=== PATIENT | female | born 1985 | race Caucasian/White ===

== ENCOUNTER 2018-04-13 16:12 | Emergency (ER) | payer SELFPAY ==
[2018-04-13 16:27] VITALS: BP 144/91
--- NOTE | 2018-04-13 16:57 | RAD ---
Indication: Right ankle injury. 3 views of the right ankle demonstrates no fracture. Ankle mortise is intact. No other bone or joint abnormalities identified. IMPRESSION: No definite fracture of the right ankle is noted.
[2018-04-13] MEDS ORDERED: Acetaminophen TAB* 325 MG PO ONE (17:12)
--- NOTE | 2018-04-13 17:19 | UC ---
Sarai Rodriguez Elizabeth, scribed for Jyoti Gray MD on 04/13/18 at 1709 . Lower Extremity/Ankle HPI - HPI Summary HPI Summary: This patient is a 32 year old F presenting to [facility] with a chief complaint of right ankle since 12 days ago. The patient reports that she stepped into a hole 12 days ago and landed strangely on her right ankle. The patient rates the pain 5/10 in severity. Symptoms aggravated by bearing weight. Symptoms alleviated by ibuprofen. None taken today. 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 No ice applied. + elevated. The patient reports that she has been trying to avoid bearing weight but notes no improvement in pain since the onset. The patient reports that she has been taking ibuprofen for pain. Pts medications reviewed this visit - History of Current Complaint Chief Complaint: UCLowerExtremity Stated Complaint: RIGHT ANKLE INJURY Time Seen by Provider: 04/13/18 16:18 Hx Obtained From: Patient Hx Last Menstrual Period: 02/11/18 Onset/Duration: Sudden Onset, Lasting Weeks - 12 days, Still Present Severity Initially: Mild Severity Currently: Mild Pain Intensity: 5 Pain Scale Used: 0-10 Numeric Aggravating Factor(s): Standing, Ambulation Alleviating Factor(s): OTC Meds - ibuprofen Able to Bear Weight: No - Allergies/Home Medications Allergies/Adverse Reactions: Allergies Allergy/AdvReac Type Severity Reaction Status Date / Time codeine Allergy Swelling Verified 04/13/18 16:27 Home Medications: Home Medications NK [No Home Medications Reported] 04/13/18 [History Confirmed 04/13/18] PMH/Surg Hx/FS Hx/Imm Hx Previously Healthy: Yes Other GI/ History: ectopic 2014 - Surgical History Surgical History: Yes Surgery Procedure, Year, and Place: RIGHT S+O FOR ECTOPIC PREG 02/28. STITCHES TO THUMB 2008 - Family History Known Family History: Positive: Other - IBS - Social History Occupation: Unemployed Lives: Alone Alcohol Use: Weekly Alcohol Amount: States has not been ingesting ETOH when Substance Use Type: Marijuana Substance Use Comment - Amount & Last Used: OCC MARIJUANA LAST USE IN APRIL Smoking Status (MU): Light Every Day Tobacco Smoker Type: Cigarettes Amount Used/How Often: 5-10/DAY Length of Time of Smoking/Using Tobacco: 17 YRS Have You Smoked in the Last Year: Yes When Did the Patient Quit Smoking/Using Tobacco: 13 years Review of Systems Constitutional: Negative - negative fever ENT: Negative - negative epistaxis Gastrointestinal: Negative - negative vomiting Musculoskeletal: Arthralgia - right ankle pain All Other Systems Reviewed And Are Negative: Yes Physical Exam - Summary Physical Exam Summary: Vital Signs Reviewed: Yes A+Ox3, no distress Eyes: Conjunctiva Clear ENT: Hearing grossly normal neck: supple Respiratory: Positive: No respiratory distress, No accessory muscle use Cardiovascular: skin color reflect adequate perfusion Musculoskeletal Exam: + flex/ext knee without pain; + flex/ext ankle with discomfort lateral malleolus + TTP anterior, inferior malleolus. no pain along tarsals, metatarals increased with inversion/eversion Neurological: Positive: Alert, ambulatory without difficulty + gross sensation throughout foot Psychological: Positive: Normal Response To Family Skin: Positive: no rash, no ecchymosis mild edema no ecchymosis Triage Information Reviewed: Yes Vital Signs: Initial Vital Signs Temp 96.7 F 04/13/18 16:22 Pulse 92 04/13/18 16:22 Resp 20 04/13/18 16:22 BP 144/91 04/13/18 16:22 Pulse Ox 97 04/13/18 16:22 Diagnostics - Radiology Right Ankle XR Xray Interpretation: No Acute Changes - IMPRESSION: No definite fracture of the right ankle is noted. Dr. Gray has reviewed this report. Radiology Interpretation Completed By: Radiologist Lower Extremity Course/Dx - Course Course Of Treatment: pt with pain in right ankle s/p injury 12 days ago. Pain at lateral malleolus. imaging neg. ice. elevate. motrin/apap. sports med f/ u. pt comfortable wiht plan. Pt's BP mildly elevated - recommend PCP f/u - referral number provided - Differential Dx/Diagnosis Provider Diagnoses: right ankle sprain Discharge - Sign-Out/Discharge Documenting (check all that apply): Discharge/Admit/Transfer - Discharge Plan Condition: Stable Disposition: HOME Discharge Disposition Comment: discharge home Patient Education Materials: Ankle Sprain (ED) Referrals: [facility] [Outside] [facility] [Provider Group] - 1 Week Additional Instructions: -wear ketan wrap and splint for comfort and support -use crutches until you can walk normally without a limp -Elevate your leg - this will help with swelling and pain -Okay to alternate ibuprofen (Advil, Motrin)600mg and Tylenol every 3 hours for pain. Take with food. Do NOT take for more than 4-5 days -Contact the sports medicine group to schedule a follow-up appointment. Contact your doctor or return with questions or concerns - Billing Disposition and Condition Condition: STABLE Disposition: Home The documentation as recorded by the Sarai leo Elizabeth accurately reflects the service I personally performed and the decisions made by me, Jyoti Gray MD.
== END 2018-04-13 17:45 | disposition home or self-care (01) ==
LOC: UCEAST 16:12
DX: S93.401A Sprain of unspecified ligament of right ankle, initial encounter (principal); W17.89XA Other fall from one level to another, initial encounter; Y93.9 Activity, unspecified; Y99.9 Unspecified external cause status; F17.210 Nicotine dependence, cigarettes, uncomplicated
CPT/HCPCS: 99213; A9270-GY; G0463

== ENCOUNTER → 2018-05-26 14:42 | Emergency (ER) | payer MEDICAID, OTHER ==
[~2018-05-26 14:42] MED LIST: Ciprofloxacin 400MG IVPREMIX(* 400 MG/200 ML BAG IVPB ONE; Ciprofloxacin TAB* 500 MG PO ONE; Ketorolac INJ* 30 MG/ML 1 ML VIAL IV PUSH ONE; NS 0.9% 1000 ML* 1,000 ML IV ONE; Ondansetron INJ* 2 MG/ML VIAL IV ONE; metroNIDAZOLE TAB* 250 MG PO ONE
--- NOTE | 2018-05-26 16:59 | ED ---
Abdominal Pain/Female - HPI Summary HPI Summary: This is scribe Norm Oh documenting for attending Dr. Ismael Virk This patient is a 33 year old F presenting to [facility] accompanied by her mother with a chief complaint of lower abdominal pain for 3 days (05/23/18). PMHx stress induced IBS, panic disorder, diverticulitis. Pt endorses anal discharge of bloody mucous, nausea yesterday, but resolved, epigastric pain resolved today as well. LKMP 2 weeks ago. Denies emesis. Pt endorses 1 small BM today. I, Dr. Guevara personally performed the services described in this documentation as scribed in my presence and it is both accurate and complete. - History of Current Complaint Chief Complaint: EDAbdPain Stated Complaint: ABD PAIN Time Seen by Provider: 05/26/18 16:34 Hx Obtained From: Patient Hx Last Menstrual Period: 02/11/18 Onset/Duration: Gradual Onset, Lasting Days, Still Present Timing: Constant Severity Initially: Moderate Severity Currently: Moderate Pain Intensity: 6 Pain Scale Used: 0-10 Numeric Location: Discrete At: RLQ, Discrete At: LLQ, Epigastric Radiates: No Aggravating Factor(s): Nothing Alleviating Factor(s): Nothing Associated Signs and Symptoms: Positive: Constipation, Blood in Stool, Nausea. Negative: Fever, Vomiting Allergies/Adverse Reactions: Allergies Allergy/AdvReac Type Severity Reaction Status Date / Time codeine Allergy Swelling Verified 05/26/18 14:52 PMH/Surg Hx/FS Hx/Imm Hx Endocrine/Hematology History: Denies: Hx Diabetes, Hx Sickle Cell Disease Cardiovascular History: Denies: Hx Hypertension Respiratory History: Reports: Hx Asthma - A CHILD GI History: Reports: Hx Diverticulosis - and diverticulitis, Hx Irritable Bowel - R/T STRESS PER PT History: Denies: Hx Dialysis, Hx Renal Disease Sensory History: Denies: Hx Contacts or Glasses, Hx Deafness, Hx Hearing Aid Opthamlomology History: Denies: Hx Contacts or Glasses EENT History: Denies: Hx Deafness Psychiatric History: Reports: Hx Anxiety, Hx Panic Disorder - Surgical History Surgery Procedure, Year, and Place: RIGHT S+O FOR ECTOPIC PREG 02/28. STITCHES TO THUMB 2009 Hx Anesthesia Reactions: No Infectious Disease History: No Infectious Disease History: Denies: History Other Infectious Disease, Traveled Outside the [place] in Last 30 Days - Family History Known Family History: Positive: Other - IBS - Social History Occupation: Employed Full-time Alcohol Use: Weekly Alcohol Amount: States has not been ingesting ETOH when Substance Use Type: Reports: Marijuana Substance Use Comment - Amount & Last Used: OCC MARIJUANA LAST USE IN APRIL Smoking Status (MU): Light Every Day Tobacco Smoker Type: Cigarettes Amount Used/How Often: 5-10/DAY Length of Time of Smoking/Using Tobacco: 17 YRS Have You Smoked in the Last Year: Yes Review of Systems Negative: Fever Positive: Abdominal Pain, Nausea, Other - hematochezia in mucous. Negative: Vomiting Positive: no symptoms reported All Other Systems Reviewed And Are Negative: Yes Physical Exam - Summary Physical Exam Summary: VITAL SIGNS: Reviewed. GENERAL: Patient is a well-developed and nourished female who is lying comfortable in the stretcher. Patient is not in any acute respiratory distress. HEAD AND FACE: No signs of trauma. No ecchymosis, hematomas or skull depressions. No sinus tenderness. EYES: PERRLA, EOMI x 2, No injected conjunctiva, no nystagmus. EARS: Hearing grossly intact. Ear canals and tympanic membranes are within normal limits. MOUTH: Oropharynx within normal limits. NECK: Supple, trachea is midline, no adenopathy, no JVD, no carotid bruit, no c- spine tenderness, neck with full ROM. CHEST: Symmetric, no tenderness at palpation LUNGS: Clear to auscultation bilaterally. No wheezing or crackles. CVS: Regular rate and rhythm, S1 and S2 present, no murmurs or gallops appreciated. ABDOMEN: Soft, lower abdominal tenderness. No signs of distention. No rebound, no guarding, and no masses palpated. Bowel sounds are normal. EXTREMITIES: FROM in all major joints, no edema, no cyanosis or clubbing. NEURO: Alert and oriented x 3. No acute neurological deficits. Speech is normal and follows commands. SKIN: Dry and warm Triage Information Reviewed: Yes Vital Signs On Initial Exam: Initial Vitals Temp Pulse Resp BP Pulse Ox 98.5 F 96 18 131/80 100 05/26/18 14:48 05/26/18 14:48 05/26/18 14:48 05/26/18 14:48 05/26/18 14:48 Vital Signs Reviewed: Yes Diagnostics - Vital Signs Vital Signs Temp Pulse Resp BP Pulse Ox 05/26/18 14:48 98.5 F 96 18 131/80 100 - Laboratory Result Diagrams: 05/26/18 16:50 05/26/18 16:50 Lab Statement: Any lab studies that have been ordered have been reviewed, and results considered in the medical decision making process. - CT A/P CT Interpretation: Positive (See Comments) CT Interpretation Completed By: Radiologist - #. Acute diverticulitis of the sigmoid colon. Negative for perienteric abscess or resulting bowel obstruction. Follow-up after therapy warranted to assess for resolution and exclude an underlying neoplastic lesion. #. Normal appendix documented. Dr. Guevara has reviewed this report. Re-Evaluation - Re-Evaluation First Eval Re-Evaluation Time: 18:47 Change: Worse Comment: Pt is now crying because she is upset about her dx. Abdominal Pain Fem Course/Dx - Course Course Of Treatment: This patient is a 33-year-old female who presents to the emergency department with a chief complaint of having low abdominal pain. Patient is having watery diarrhea with no blood or mucus. Blood test results without any significant abnormality except for CRP 138. Urinalysis is negative for UTI however the patient has ketones possibly secondary to dehydration. In the ED course the patient was given IV fluids, and Toradol for the pain. She was also given Zofran for nausea and vomiting. Abdominal and pelvic CT impression: Acute diverticulitis of the sigmoid colon. Negative for bili intake abscess or evidence of bowel obstruction. Follow up after therapy was warranted to assess for resolution and excluded an underlying neoplastic lesion. Normal appendix. In the ED course the patient was given ciprofloxacin and Flagyl for the acute diverticulitis. Patient is feeling better without any nausea vomiting. She is drinking fluids. I discussed all the findings and test results with the patient. Patient was instructed to return to the emergency room immediately if any of the symptoms return or worsens. Plan of care was discussed with the patient and understands and agrees. All questions were answered at patient satisfaction. There were no further complaints or concerns. Lung exam before discharge: CTA B/L. Good air exchange. No wheezing or crackles heard. CVS: S1 and S2 present. No murmurs appreciated. Patient is alert and oriented x 3. Patient is hemodynamically stable. Patient will be discharged home with follow up PCP in the next 2-3 days - Diagnoses Provider Diagnoses: Acute diverticulitis Discharge - Sign-Out/Discharge Documenting (check all that apply): Patient Departure - discharge - Discharge Plan Condition: Stable Disposition: HOME Prescriptions: Ciprofloxacin TAB* [Cipro 500 MG TAB*] 500 mg PO BID #20 tab metroNIDAZOLE [Flagyl 500 MG TAB] 500 mg PO TID #30 tab Naproxen [Naproxen 500 mg tab] 500 mg PO BID #20 tablet Patient Education Materials: Diverticulitis (ED) Referrals: [facility] [Provider Group] - 3 Days Additional Instructions: Return to the emergency department for any new or worsening symptoms. Attestations User Type: Provider - I, Dr. Guevara personally performed the services described in this documentation as scribed in my presence and it is both accurate and complete.
[2018-05-26 17:02] LABS: ABS Basophils 0.1 10^3/ul (0-0.2); ABS Eosinophils 0.1 10^3/ul (0-0.6); ABS Lymphocytes 1.6 10^3/ul (1.0-4.8); ABS Monocytes 0.7 10^3/ul (0-0.8); ABS Neutrophils 6.9 10^3/ul (1.5-7.7); ABS Nucleated RBC 0 10^3/ul; Eosinophil % 1.5 % (0-6); Hematocrit 42 % (35-47); Hemoglobin 14.2 g/dl (12.0-16.0); Lymphocyte % 17.4 % (25-47); Mean Corpuscular HGB Conc 34 g/dl (31-36); Mean Corpuscular Hemoglobin 31 pg (27-31); Mean Corpuscular Volume 93 fL (80-97); Mean Platelet Volume 7.7 um3 (7.4-10.4); Nucleated Red Blood Cells % 0.1; Platelet Count 256 10^3/ul (150-450); Red Blood Count 4.52 10^6/ul (4.00-5.40); Red Cell Distribution Width 15 % (10.5-15); White Blood Count 9.4 10^3/ul (3.5-10.8)
[2018-05-26 17:25] LABS: EGFR Non-African American 79.2 (>60)
[2018-05-26 17:36] LABS: Urine Appearance Cloudy; Urine Blood 1+ (Negative); Urine Color Amber; Urine Ketones 1+ (Negative); Urine Protein 1+(30 mg/dL) (Negative); Urine Red Blood Cell 1+(3-5/hpf) (Absent); Urine Specific Gravity 1.024 (1.010-1.030); Urine Urobilinogen Negative (Negative); Urine White Blood Cell Trace(0-5/hpf) (Absent)
--- NOTE | 2018-05-26 18:37 | RAD ---
INDICATION: Abdominal pain that started 3 days ago in upper abdomen now localized to the lower abdomen. Nausea. COMPARISON: August 21, 2016 CT. TECHNIQUE: Multidetector CT images were obtained from the lung bases to the ischial tuberosities. Evaluation of the viscera is limited without IV contrast. Multiplanar reformation. REPORT: VISUALIZED INFERIOR THORAX: Unremarkable. LIVER / GALLBLADDER / PANCREAS / SPLEEN: Unremarkable unenhanced liver, gallbladder, pancreas, spleen. Small splenule noted adjacent to the anterior lateral margin of the spleen and tip of the lateral segment of the LEFT hepatic lobe. ALIMENTARY TRACT: Negative for CT abnormality of the upper GI or small bowel. Unremarkable appendix visualized overlying the RIGHT pelvic sidewall centered at image 54. Moderately severe perienteric inflammatory change at the mid sigmoid colon centered around a diverticulum consistent with acute diverticulitis. No perienteric abscess collection or free air evident. Moderate diverticulosis of the colon primarily at the sigmoid. Minimal pelvic ascites. MESENTERIC: As described in the alimentary tract dissection. ADRENAL / GENITOURINARY: Normal adrenal glands. Unremarkable kidneys. Unremarkable nondilated ureters and decompressed urinary bladder limiting assessment without gross abnormality. Phleboliths noted adjacent to the distal ureters. Unremarkable anteverted uterus and LEFT ovary. The RIGHT ovary is not visualized consistent with history of RIGHT side ovary resection. RETROPERITONEAL: 0.7 cm short axis aortocaval lymph node without significant change. Negative for lymphadenopathy. VASCULAR: Normal diameter abdominal aorta and iliac arteries. Physiologic distention of the IVC. BONES: Negative for suspicious osseous lesions. SOFT TISSUE: Unremarkable. IMPRESSION: #. Acute diverticulitis of the sigmoid colon. Negative for perienteric abscess or resulting bowel obstruction. Follow-up after therapy warranted to assess for resolution and exclude an underlying neoplastic lesion. #. Normal appendix documented.
[2018-05-26 19:07] VITALS: BP 140/90
== END | disposition home or self-care (01) ==
LOC: ED 14:42
DX: K57.92 Diverticulitis of intestine, part unspecified, without perforation or abscess without bleeding (principal); F17.210 Nicotine dependence, cigarettes, uncomplicated
CPT/HCPCS: 36415; 74176; 80053; 81003; 81015; 83605; 83630; 83690; 83735; 84702; 85025; 86140; 87086; 87493; 96361; 96374; 96375; 99283; A9270-GY; J1885; J2405

== ENCOUNTER 2019-02-06 13:14 | Inpatient (IN) | payer MEDICAID, OTHER ==
[2019-02-06 15:26] LABS: HCG Pregnancy < 0.60 mIU/mL
[2019-02-06 15:41] LABS: ALT 15 U/L (7-52); AST 19 U/L (13-39); Albumin 4.4 g/dL (3.2-5.2); Albumin/Globulin Ratio 1.4 (1-3); Alkaline Phosphatase 80 U/L (34-104); Anion Gap 9 mmol/L (2-11); BUN/Creatinine Ratio 13.3 (8-20); Blood Urea Nitrogen 12 mg/dL (6-24); C Reactive Protein 7.41 mg/L (<8.01); CO2 Carbon Dioxide 23 mmol/L (22-32); Calcium 9.1 mg/dL (8.6-10.3); Chloride 106 mmol/L (101-111); EGFR African American 87.3 (>60); EGFR Non-African American 72.1 (>60); Globulin 3.2 g/dL (2-4); Glucose 96 mg/dL (70-100); Sodium 138 mmol/L (135-145); Total Protein 7.6 g/dL (6.4-8.9)
[2019-02-06] MEDS ORDERED: Ibuprofen TAB* 600 MG PO ONE (15:57)
[2019-02-06 17:24] LABS: ABS Basophils 0.1 10^3/ul (0-0.2); ABS Eosinophils 0.1 10^3/ul (0-0.6); ABS Lymphocytes 1.5 10^3/ul (1.0-4.8); ABS Monocytes 0.8 10^3/ul (0-0.8); ABS Neutrophils 11.6 10^3/ul (1.5-7.7); ABS Nucleated RBC 0 10^3/ul; Hematocrit 45 % (33-41); Hemoglobin 15.2 g/dL (12.0-16.0); Lymphocyte % 10.6 %; Mean Corpuscular HGB Conc 34 g/dL (31-36); Mean Corpuscular Hemoglobin 32 pg (27-31); Mean Corpuscular Volume 95 fL (80-97); Mean Platelet Volume 7.5 fL (7.4-10.4); Nucleated Red Blood Cells % 0; Platelet Count 300 10^3/uL (150-450); Red Blood Count 4.77 10^6 /uL (3.70-4.87); Red Cell Distribution Width 14 % (10.5-15); White Blood Count 14.1 10^3/uL (3.5-10.8)
[2019-02-06] MEDS ORDERED: Morphine 10 MG/ML VIAL (1 ml) IV ONE (17:53)
[2019-02-06] MEDS ORDERED: NS 0.9% 1000 ML** 1,000 ML IV ONE (17:53)
[2019-02-06] MEDS ORDERED: Ondansetron INJ* 2 MG/ML VIAL IV ONE (17:54)
[2019-02-06 17:55] LABS: Urine Appearance Clear; Urine Bacteria Absent (Absent); Urine Bilirubin Negative (Negative); Urine Blood 1+ (Negative); Urine Color Straw; Urine Glucose Negative (Negative); Urine Ketones Negative (Negative); Urine Nitrite Negative (Negative); Urine Protein Negative (Negative); Urine Red Blood Cell Trace(0-2/hpf) (Absent); Urine Specific Gravity 1.002 (1.010-1.030); Urine Squamous Epithelial Cell Present (Absent); Urine Urobilinogen Negative (Negative); Urine White Blood Cell Trace(0-5/hpf) (Absent)
--- NOTE | 2019-02-06 17:56 | ED ---
Abdominal Pain/Female - HPI Summary HPI Summary: A 33 y/o female presents to [facility] with a chief complaint of constant LLQ pain for the past few days. She denies N/V/D, hematuria, or changes in urinary frequency. She reports that her symptoms feel similar to when she had diverticulitis. She rates her pain as a 9/10 in severity. She notes that movement aggravates her pain. - History of Current Complaint Chief Complaint: EDAbdPain Stated Complaint: DIVERTICULITIS FLARE UP PER T Time Seen by Provider: 02/06/19 17:13 Hx Obtained From: Patient Hx Last Menstrual Period: 02/11/18 Onset/Duration: Sudden Onset, Lasting Days, Still Present Timing: Constant Severity Initially: Severe Severity Currently: Severe Pain Intensity: 9 Pain Scale Used: 0-10 Numeric Location: Discrete At: LLQ Radiates: No Character: Other: - unable to describe Aggravating Factor(s): Movement Alleviating Factor(s): Nothing Associated Signs and Symptoms: Negative: Fever, Urinary Symptoms, Nausea, Vomiting, Diarrhea Allergies/Adverse Reactions: Allergies Allergy/AdvReac Type Severity Reaction Status Date / Time codeine Allergy Swelling Verified 02/06/19 13:20 Home Medications: Home Medications NK [No Home Medications Reported] 02/06/19 [History Confirmed 02/06/19] PMH/Surg Hx/FS Hx/Imm Hx Endocrine/Hematology History: Denies: Hx Diabetes, Hx Sickle Cell Disease Cardiovascular History: Denies: Hx Hypertension Respiratory History: Reports: Hx Asthma - A CHILD GI History: Reports: Hx Diverticulosis - and diverticulitis, Hx Irritable Bowel - R/T STRESS PER PT History: Denies: Hx Dialysis, Hx Renal Disease Sensory History: Denies: Hx Contacts or Glasses, Hx Deafness, Hx Hearing Aid Opthamlomology History: Denies: Hx Contacts or Glasses Psychiatric History: Reports: Hx Anxiety, Hx Panic Disorder - Surgical History Surgery Procedure, Year, and Place: RIGHT S+O FOR ECTOPIC PREG 02/28. STITCHES TO THUMB 2009 Hx Anesthesia Reactions: No Infectious Disease History: No Infectious Disease History: Denies: History Other Infectious Disease, Traveled Outside the [place] in Last 30 Days - Family History Known Family History: Positive: Other - IBS - Social History Alcohol Use: Weekly Alcohol Amount: States has not been ingesting ETOH when Substance Use Type: Reports: Marijuana Substance Use Comment - Amount & Last Used: OCC MARIJUANA LAST USE IN APRIL Smoking Status (MU): Light Every Day Tobacco Smoker Type: Cigarettes Amount Used/How Often: 5-10/DAY Length of Time of Smoking/Using Tobacco: 17 YRS Have You Smoked in the Last Year: Yes Review of Systems Negative: Fever Positive: Abdominal Pain. Negative: Vomiting, Diarrhea, Nausea Negative: frequency, hematuria All Other Systems Reviewed And Are Negative: Yes Physical Exam - Summary Physical Exam Summary: Appearance: Well appearing, no pain distress Skin: warm, dry, reflects adequate perfusion Head/face: normal Eyes: EOMI, STEPAN ENT: normal Neck: supple, non-tender Respiratory: CTA, breath sounds present Cardiovascular: RRR, pulses symmetrical Abdomen: LLQ tenderness, soft Musculoskeletal: normal, strength/ROM intact Neuro: normal, sensory motor intact, A&Ox3 Triage Information Reviewed: Yes Vital Signs On Initial Exam: Initial Vitals Temp Pulse Resp BP Pulse Ox 98 F 89 16 144/91 98 02/06/19 13:16 02/06/19 13:16 02/06/19 13:16 02/06/19 13:16 02/06/19 13:16 Vital Signs Reviewed: Yes Diagnostics - Vital Signs Vital Signs Temp Pulse Resp BP Pulse Ox 02/06/19 15:16 97.9 F 106 20 133/90 97 02/06/19 13:16 98 F 89 16 144/91 98 - Laboratory Lab Results: Lab Results 02/06/19 02/06/19 02/06/19 Range/Units 14:36 14:36 14:36 WBC 14.1 H (3.5-10.8) 10^3/uL RBC 4.77 (3.70-4.87) 10^6 /uL Hgb 15.2 (12.0-16.0) g/dL Hct 45 H (33-41) % MCV 95 (80-97) fL MCH 32 H (27-31) pg MCHC 34 (31-36) g/dL RDW 14 (10.5-15) % Plt Count 300 (150-450) 10^3/uL MPV 7.5 (7.4-10.4) fL Neut % (Auto) 82.1 % Lymph % (Auto) 10.6 % Mcmullen % (Auto) 5.7 % Eos % (Auto) 1.0 % Baso % (Auto) 0.6 % Absolute Neuts (auto) 11.6 H (1.5-7.7) 10^3/ul Absolute Lymphs (auto) 1.5 (1.0-4.8) 10^3/ul Absolute Monos (auto) 0.8 (0-0.8) 10^3/ul Absolute Eos (auto) 0.1 (0-0.6) 10^3/ul Absolute Basos (auto) 0.1 (0-0.2) 10^3/ul Absolute Nucleated RBC 0 10^3/ul Nucleated RBC % 0 Sodium 138 (135-145) mmol/L Potassium 4.0 (3.5-5.0) mmol/L Chloride 106 (101-111) mmol/L Carbon Dioxide 23 (22-32) mmol/L Anion Gap 9 (2-11) mmol/L BUN 12 (6-24) mg/dL Creatinine 0.90 (0.51-0.95) mg/dL Est GFR ( Amer) 87.3 (>60) Est GFR (Non-Af Amer) 72.1 (>60) BUN/Creatinine Ratio 13.3 (8-20) Glucose 96 (70-100) mg/dL Lactic Acid 0.7 (0.5-2.0) mmol/L Calcium 9.1 (8.6-10.3) mg/dL Total Bilirubin 0.80 (0.2-1.0) mg/dL AST 19 (13-39) U/L ALT 15 (7-52) U/L Alkaline Phosphatase 80 (34-104) U/L C-Reactive Protein 7.41 (<8.01) mg/L Total Protein 7.6 (6.4-8.9) g/dL Albumin 4.4 (3.2-5.2) g/dL Globulin 3.2 (2-4) g/dL Albumin/Globulin Ratio 1.4 (1-3) Lipase 10 L (11.0-82.0) U/L Beta HCG, Quant < 0.60 mIU/mL Result Diagrams: 02/06/19 14:36 02/06/19 14:36 Lab Statement: Any lab studies that have been ordered have been reviewed, and results considered in the medical decision making process. Abdominal Pain Fem Course/Dx - Course Course Of Treatment: A 33 y/o female presents to [facility] with a chief complaint of constant LLQ pain for the past few days. She denies N/V/D, hematuria, or changes in urinary frequency. She reports that her symptoms feel similar to when she had diverticulitis. The physical exam revealed LLQ tenderness. In the ED course the patient was given Sodium Chloride IV, Morphine IV, Zofran IV and Motrin PO. Blood work, chemistries and urines obtained. This patient will be signed out to Dr. Cardenas upon shift change at 19:00 02/06/[address] abdomen/ pelvis. - Diagnoses Differential Diagnosis: Positive: Diverticulitis Provider Diagnoses: Diverticulitis Discharge - Sign-Out/Discharge Documenting (check all that apply): Sign-Out Patient Signing out patient TO: Edgar Cardenas - pending CT abdomen/pelvis Patient Received Moderate/Deep Sedation with Procedure: No - Discharge Plan Condition: Stable Referrals: No Primary Care Phys,NOPCP [Primary Care Provider] - - Billing Disposition and Condition Condition: STABLE - Attestation Statements Document Initiated by Scribe: Yes Documenting Scribe: Zeb Dobson Provider For Whom Kamilaibe is Documenting (Include Credential): Fede Quach MD Scribe Attestation: I, Zeb Dobson, scribed for Fede Quach MD on 02/06/19 at 1849. Scribe Documentation Reviewed: Yes Provider Attestation: The documentation as recorded by the Zeb leo accurately reflects the service I personally performed and the decisions made by me, Fede Quach MD Status of Scribe Document: Viewed
--- NOTE | 2019-02-06 19:10 | ED ---
Progress - Progress Note Progress Note: Patient is received as a sign-out from Dr. Quach to Dr. Cardenas at 1900 02/06/19 shift change pending results of ABD/PEL CT. CT ABD/PEL IMPRESSION: Sigmoid colonic wall thickening and surrounding inflammatory changes suggestive of diverticulitis. No abscess but there is probably a minimal amount of extraluminal gas anteriorly. THIS REPORT WAS REVIEWED BY DR. CARDENAS. Re-Evaluation - Re-Evaluation First Eval Re-Evaluation Time: 19:51 Comment: Patient's nurse states that the patient is experiencing increased abdominal pain, additional 4 mg morphine to be given. Second Eval Re-Evaluation Time: 21:42 Comment: Patient still is experiencing pain, has LLQ tenderness with some guarding and rebound. Discussed results of CT ABD/PEL, patient will be admitted to hospital. She is agreeable with this. She notes x3 previous episodes of diverticulitis. Course/Dx - Course Course Of Treatment: Patient is received as a sign-out from Dr. Quach to Dr. Cardenas at 189902/06/19 shift change pending results of ABD/PEL CT. 1950 - Patient's nurse states that the patient is experiencing increased abdominal pain , additional 4 mg morphine to be given. CT ABD/PEL IMPRESSION: Sigmoid colonic wall thickening and surrounding inflammatory changes suggestive. of diverticulitis. No abscess but there is probably a minimal amount of. extraluminal gas anteriorly. 2141 - Patient still is experiencing pain, has LLQ tenderness with some guarding and rebound. Discussed results of CT ABD/PEL, patient will be admitted to hospital. She is agreeable with this. She notes x3 previous episodes of diverticulitis. Patient's case was discussed with Dr. Brooke at 2146, Dr. Brooke recommends admission to hospitalist, states that patient does not need hospital intervention at this time. 2205 - Patient's case was discussed with Dr. Hleler, Dr. Heller accepts for admission. - Diagnoses Provider Diagnoses: Diverticulitis of sigmoid colon - Provider Notifications Discussed Care Of Patient With: Evin Brooke Time Discussed With Above Provider: 21:47 Instructed by Provider To: Other - Patient's case was discussed with Dr. Brooke at 2146, Dr. Brooke recommends admission to hospitalist, states that patient does not need hospital intervention at this time. 2205 - Patient's case was discussed with Dr. Heller, Dr. Heller accepts for admission. Discharge - Sign-Out/Discharge Documenting (check all that apply): Patient Departure - admit Patient Received Moderate/Deep Sedation with Procedure: No - Discharge Plan Condition: Good Disposition: ADMITTED TO [facility] - Billing Disposition and Condition Condition: GOOD Disposition: Admitted to [facility] - Attestation Statements Document Initiated by Karsten: Yes Documenting Scribe: NUHA PATTON Provider For Whom Karsten is Documenting (Include Credential): SAHIL CARDENAS MD Scribjhonathan Attestation: NUHA Rodriguez, scribed for SAHIL CARDENAS MD on 02/11/19 at 1840. Scribe Documentation Reviewed: Yes Provider Attestation: The documentation as recorded by the NUHA leo accurately reflects the service I personally performed and the decisions made by me, SAHIL CARDENAS MD Status of Scribe Document: Viewed
[2019-02-06] MEDS ORDERED: Morphine 4 MG/ML VIAL (1 ml) 4 MG/ML VIAL IV ONE ×2 (19:50→22:13)
[2019-02-06] MEDS ORDERED: Iohexol 300* (CONTRAST) 10 ML SDV IV ONE (20:01)
[2019-02-06] MEDS ORDERED: ED Piperacillin/Tazobac 3.375 3.375 GM/100 ML PREMIX.SET IVPB ONE (21:46)
[2019-02-06] MEDS ORDERED: Piperacillin/Tazobac (*) 3.375 GM BAG ONE (21:48)
[2019-02-06] MEDS ORDERED: Al Hydrox/Mg Hydrox/Simet LIQ* 30 ML UDC PO PRN (22:44)
[2019-02-06] MEDS ORDERED: Senna TAB PO PRN (22:44)
[2019-02-06] MEDS ORDERED: Docusate CAP* 100 MG PO PRN (22:44)
[2019-02-06] MEDS ORDERED: Nicotine GUM* (NF) 2 MG GUM PO PRN (22:50)
[2019-02-06] MEDS ORDERED: LORazepam INJ* 2 MG/ML 1 ML VIAL IV PUSH SCH (23:00)
[2019-02-06] MEDS ORDERED: Lorazepam PYXIS KEY PRN (23:36)
[2019-02-06] MEDS: Acetaminophen TAB* 325 MG PO PRN (23:46)
[2019-02-06] MEDS: Lactated Ringers 1000 ML Bag* 1,000 ML IV SCH (23:47)
[2019-02-06] MEDS: Ketorolac INJ* 30 MG/ML 1 ML VIAL IV PUSH PRN (23:47)
--- NOTE | 2019-02-06 23:52 | HP ---
HISTORY AND PHYSICAL: DATE OF ADMISSION: 02/06/19 TIME OF EVALUATION: 0. PRIMARY CARE PHYSICIAN: The patient does not have a primary care physician. CHIEF COMPLAINT: Left lower quadrant pain. HISTORY OF PRESENT ILLNESS: This is a 33-year-old female with past medical history of diverticulitis, who presents to the emergency room with worsening left lower quadrant pain. The patient states her last episode of diverticulitis was last summer. She states she gets it about once a year for the past few years, has never required hospitalization or IV antibiotics. She states her left lower quadrant pain started on 02/04/19 and the pain got worse much quicker this time. She was having skinny pencil size stools. No blood in her stool. No nausea or vomiting, but worsening left lower quadrant pain. No documented fevers at home. No urinary symptoms. No vaginal discharge. She just started her menses. No changes in her weight. She states she was scheduled to get a colonoscopy but was too scared and missed her appointment, the second time she did not have any insurance. She states the third time no one called her to set it up. Otherwise, remaining review of systems negative. In the emergency room, the patient had labs and imaging consistent with diverticulitis. She was given 1 L of fluid, Zosyn, Zofran, 12 mg of morphine, ibuprofen and was referred to the hospitalist service for further evaluation. PAST MEDICAL HISTORY: 1. History of diverticulitis. 2. Tobacco use. 3. Polysubstance use. MEDICATIONS: Ibuprofen as needed. FAMILY HISTORY: Mother is alive and healthy. Father unknown. SOCIAL HISTORY: The patient lives alone. 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 She smokes a pack per day for the past 2 years. She admits to using cocaine, mushrooms, and marijuana. She also states she drinks anywhere from a glass of wine to an entire bottle depending on the night. Her boyfriend, Stuart Batista is her healthcare proxy. Code status is full code. REVIEW OF SYSTEMS: A 14-point review of systems as mentioned in the HPI; otherwise negative. PHYSICAL EXAMINATION GENERAL: No acute distress. She is tearful. VITAL SIGNS: Temp 97.9, pulse rate 77, respiratory rate 17, oxygen saturation 97% on room air, and blood pressure 123/61. HEENT: Head: Normocephalic. Pupils equal and reactive. Conjunctivae are injected. Oropharynx: Mucous membranes moist. NECK: Supple. No lymphadenopathy. RESPIRATORY: Diminished breath sounds. No wheezes, rhonchi, or rales. CARDIAC: Regular rate and rhythm. No murmurs, rubs, or gallops. ABDOMEN: Positive bowel sounds. Soft. Diffuse tenderness with some guarding. EXTREMITIES: No clubbing, cyanosis, or edema. NEUROLOGIC: Alert and oriented x3. No gross focal neurologic deficits. DIAGNOSTIC STUDIES/LAB DATA: White count 14, hemoglobin 15.2, hematocrit 45, platelets 300,000. Sodium 138, potassium 4, chloride 106, bicarb 23, BUN 12, creatinine 0.9, glucose 96, lactic acid 0.7. Lipase 10. Beta-hCG 0.6. UA is unremarkable. Abdominal and pelvis CT shows sigmoid colonic wall thickening and surrounding inflammatory changes suggestive of diverticulitis. No abscess, but there is probable minimal amount of extraluminal gas anteriorly. ASSESSMENT/PLAN: This is a 33-year-old female with past medical history of diverticulitis, who presents to the emergency room with worsening left lower quadrant pain, found to have diverticulitis. 1. Diverticulitis. Assessment: The patient with minimal amount of extraluminal gas, mildly elevated white count. Plan: We will admit her with IV fluids, n.p.o. except for ice chips. Continue antibiotics. We will switch her to Cipro and Flagyl. Pain control: Will try not to use opioids in the setting of her polysubstance abuse history and just do Toradol. Consider surgery evaluation if pain is not improving and discussed she should get plugged in with her primary care physician and get an outpatient colonoscopy as well. 2. History of polysubstance abuse and alcohol use. We will place her on the [facility] protocol. We will also provide a nicotine patch for tobacco use. 3. FEN. As mentioned, IV fluids, n.p.o. except for ice chips. We will repeat labs in the morning. 4. DVT prophylaxis. The patient scores low risk. We will encourage ambulation. 5. Code status: Full code. PATIENT TIME: Greater than 30 minutes was spent doing the history and physical , more than half the time spent in direct patient contact. [id number]/[facility] #: [id number] LUCIANO
[2019-02-06] MEDS: Nicotine PATCH 21 MG/24 HR* PATCH TRANSDERM SCH (23:54)
[2019-02-07] MEDS: Acetaminophen TAB* 325 MG PO PRN ×4 (03:48→21:20)
[2019-02-07] MEDS: Ciprofloxacin 400MG IVPREMIX(* 400 MG/200 ML BAG IVPB SCH ×2 (05:08→17:24)
[2019-02-07] MEDS: Ketorolac INJ* 30 MG/ML 1 ML VIAL IV PUSH PRN ×3 (06:00→18:10)
[2019-02-07] MEDS: Ondansetron INJ* 2 MG/ML VIAL IV PRN ×3 (06:09→22:06)
[2019-02-07] MEDS: metroNIDAZOLE IV 500 MG/100ML* 500 MG/100 ML BAG IVPB SCH ×3 (06:13→22:06)
[2019-02-07 08:51] LABS: ABS Basophils 0 10^3/ul (0-0.2); ABS Eosinophils 0.1 10^3/ul (0-0.6); ABS Lymphocytes 0.9 10^3/ul (1.0-4.8); ABS Monocytes 0.7 10^3/ul (0-0.8); ABS Neutrophils 9.8 10^3/ul (1.5-7.7); ABS Nucleated RBC 0 10^3/ul; Eosinophil % 0.8 %; Hematocrit 40 % (33-41); Hemoglobin 13.3 g/dL (12.0-16.0); Lymphocyte % 7.5 %; Mean Corpuscular HGB Conc 34 g/dL (31-36); Mean Corpuscular Hemoglobin 32 pg (27-31); Mean Corpuscular Volume 94 fL (80-97); Mean Platelet Volume 7.7 fL (7.4-10.4); Nucleated Red Blood Cells % 0; Platelet Count 222 10^3/uL (150-450); Red Cell Distribution Width 14 % (10.5-15); White Blood Count 11.5 10^3/uL (3.5-10.8)
[2019-02-07 09:06] LABS: BUN/Creatinine Ratio 7.8 (8-20); Calcium 8.5 mg/dL (8.6-10.3); EGFR African American 104.5 (>60); EGFR Non-African American 86.3 (>60); Potassium 3.5 mmol/L (3.5-5.0)
[2019-02-07] MEDS: Nicotine PATCH 21 MG/24 HR* PATCH TRANSDERM SCH (10:05)
[2019-02-07] MEDS: Folic Acid TAB* 1 MG PO SCH (10:05)
[2019-02-07] MEDS: Thiamine TAB* 100 MG TAB PO SCH (10:06)
[2019-02-07] MEDS: Multivitamins/Minerals TAB PO SCH (10:07)
[2019-02-07] MEDS: Lactated Ringers 1000 ML Bag* 1,000 ML IV SCH ×2 (10:15→22:05)
[2019-02-07] MEDS ORDERED: Calcium Gluconate INJ* 2 GM in NS 0.9% 100 ML* 100 ML IV ONE (11:00)
--- NOTE | 2019-02-07 15:02 | PN ---
Subjective Date of Service: 02/07/19 Interval History: Pt seen and examined. Meds and labs reviewed. CC: Abd pain ROS: Denied SERVIN/dizziness, F/C, N/V, CP, SOB, increased cough, sputum production , abd pain, diarrhea, constipation, dysuria, myalgias, arthralgias, throat pain , and new skin lesions. The rest of the 14 point ROS are unremarkable. PHYSICAL EXAM: GEN APPEARANCE: Awake, not in acute distress HEENT: NC/AT, PERRLA, moist oral mucosa, (-) throat erythema NECK: Soft, supple, (-) cervical LAD, (-)JVD HEART: S1S2 WNL, RRR, No MRG CHEST: CTA, BL, GAE, No W/R/R ABD: Soft, ND/(+)tenderness, (-) rebound, NABS 4x Q EXT: No C/C/E SKIN: Warm to touch PSYCH: No active psychosis, hallucinations, depression, SI/HI Objective Active Medications: Acetaminophen (Tylenol Tab*) 650 mg PO Q4H PRN PRN Reason: FEVER/PAIN Last Admin: 02/07/19 10:06 Dose: 650 mg Al Hydrox/Mg Hydrox/Simethicone (Maalox Plus*) 30 ml PO Q6H PRN PRN Reason: INDIGESTION Docusate Sodium (Colace Cap*) 100 mg PO BID PRN PRN Reason: CONSTIPATION Folic Acid (Folvite Tab*) 1 mg PO DAILY [facility] Last Admin: 02/07/19 10:05 Dose: 1 mg Heparin Sodium (Porcine) (Heparin Vial(*)) 5,000 units SUBCUT Q8HR [facility] Lactated Ringer's (Lactated Ringers 1000 Ml Bag*) 1,000 mls @ 125 mls/hr IV PER RATE [facility] Last Admin: 02/07/19 10:15 Dose: 125 mls/hr Ciprofloxacin/Dextrose (Cipro 400 Mg Ivpremix(*)) 400 mg in 200 mls @ 200 mls/ hr IVPB Q12H [facility] Last Admin: 02/07/19 05:08 Dose: 200 mls/hr Metronidazole/Sodium Chloride (Flagyl 500 Mg Ivpb*) 500 mg in 100 mls @ 100 mls /hr IVPB Q8H [facility] Last Admin: 02/07/19 06:13 Dose: 100 mls/hr Ketorolac Tromethamine (Toradol Inj*) 30 mg IV PUSH Q6H PRN PRN Reason: PAIN Last Admin: 02/07/19 12:07 Dose: 30 mg Lorazepam (Ativan Inj*) 0 - 3 mg IV PUSH .PER [facility] PROTOCOL KIAN; Protocol Miscellaneous (Ativan Pyxis Partida) 1 ea N/A .PYXIS PARTIDA PRN PRN Reason: PER PROTOCOL Multivitamins/Minerals (Theragran/Minerals Tab*) 1 tab PO DAILY [facility] Last Admin: 02/07/19 10:07 Dose: 1 tab Nicotine (Nicotine Patch 21 Mg/24 Hr*) 1 patch TRANSDERM DAILY [facility] Last Admin: 02/07/19 10:05 Dose: 1 patch Nicotine Polacrilex (Nicotine Gum*) 2 mg PO Q2H PRN PRN Reason: CRAVING Ondansetron HCl (Zofran Inj*) 4 mg IV Q4H PRN PRN Reason: NAUSEA/VOMITING Last Admin: 02/07/19 06:09 Dose: 4 mg Pantoprazole Sodium (Protonix Iv*) 40 mg IV DAILY [facility] Pharmacy Profile Note (Nicotine Patch Removal Note*) 1 note FOLLOW UP 2100 [facility] Senna (Senokot Tab*) 1 tab PO BID PRN PRN Reason: CONSTIPATION Thiamine HCl (Vitamin B-1 Tab*) 100 mg PO DAILY [facility] Last Admin: 02/07/19 10:06 Dose: 100 mg Vital Signs - 8 hr 02/07/19 02/07/19 02/07/19 07:25 08:00 10:45 Temperature 97.7 F 97.9 F Pulse Rate 80 84 Respiratory 16 18 16 Rate Blood Pressure 109/66 115/63 (mmHg) O2 Sat by Pulse 97 Oximetry 02/07/19 11:40 Temperature 97.7 F Pulse Rate 85 Respiratory 16 Rate Blood Pressure 109/63 (mmHg) O2 Sat by Pulse 94 Oximetry Oxygen Devices in Use Now: None Result Diagrams: 02/07/19 08:20 02/07/19 08:20 Additional Lab and Data: Lab Results 02/06/19 02/06/19 02/06/19 Range/Units 14:36 14:36 14:36 WBC 14.1 H (3.5-10.8) 10^3/uL RBC 4.77 (3.70-4.87) 10^6 /uL Hgb 15.2 (12.0-16.0) g/dL Hct 45 H (33-41) % MCV 95 (80-97) fL MCH 32 H (27-31) pg MCHC 34 (31-36) g/dL RDW 14 (10.5-15) % Plt Count 300 (150-450) 10^3/uL MPV 7.5 (7.4-10.4) fL Neut % (Auto) 82.1 % Lymph % (Auto) 10.6 % [place] % (Auto) 5.7 % Eos % (Auto) 1.0 % Baso % (Auto) 0.6 % Absolute Neuts (auto) 11.6 H (1.5-7.7) 10^3/ul Absolute Lymphs (auto) 1.5 (1.0-4.8) 10^3/ul Absolute Monos (auto) 0.8 (0-0.8) 10^3/ul Absolute Eos (auto) 0.1 (0-0.6) 10^3/ul Absolute Basos (auto) 0.1 (0-0.2) 10^3/ul Absolute Nucleated RBC 0 10^3/ul Nucleated RBC % 0 Sodium 138 (135-145) mmol/L Potassium 4.0 (3.5-5.0) mmol/L Chloride 106 (101-111) mmol/L Carbon Dioxide 23 (22-32) mmol/L Anion Gap 9 (2-11) mmol/L BUN 12 (6-24) mg/dL Creatinine 0.90 (0.51-0.95) mg/dL Est GFR ( Amer) 87.3 (>60) Est GFR (Non-Af Amer) 72.1 (>60) BUN/Creatinine Ratio 13.3 (8-20) Glucose 96 (70-100) mg/dL Lactic Acid 0.7 (0.5-2.0) mmol/L Calcium 9.1 (8.6-10.3) mg/dL Total Bilirubin 0.80 (0.2-1.0) mg/dL AST 19 (13-39) U/L ALT 15 (7-52) U/L Alkaline Phosphatase 80 (34-104) U/L C-Reactive Protein 7.41 (<8.01) mg/L Total Protein 7.6 (6.4-8.9) g/dL Albumin 4.4 (3.2-5.2) g/dL Globulin 3.2 (2-4) g/dL Albumin/Globulin Ratio 1.4 (1-3) Lipase 10 L (11.0-82.0) U/L Beta HCG, Quant < 0.60 mIU/mL Microbiology and Other Data: Microbiology 02/06/19 17:20 Urine Culture - Preliminary Urine Klebsiella Pneumoniae Assess/Plan/Problems-Billing Assessment: - Patient Problems (1) Diverticulitis Current Visit: Yes Status: Acute Code(s): K57.92 - DVTRCLI OF INTEST, PART UNSP, W/O PERF OR ABSCESS W/O BLEED SNOMED Code(s): 627530161 Comment: -Minimal amount of extraluminal gas seen on CT -D/W Dr. Hoffman given this is 4th time pt diagnosed with diverticulitis since 2016 and mentions she gets hospitalized every 8 to 10 months on average since -Continue Ciprofloxacin and Flagyl -Urine Cx : (+) K. pneumonia---contamination? No pyuria nor bacteria seen on U/ A; continuce above abx and U/A appears to not be clean catch and could be contamination -Continue PRN Tylenol and Ketorolac due to pts polysubstance abuse issues -Will await surgical eval -D/W case coordinators to schedule pt for outpt colonoscopy when her diverticulitis subsides (2) Polysubstance abuse Current Visit: Yes Status: Acute Code(s): F19.10 - OTHER PSYCHOACTIVE SUBSTANCE ABUSE, UNCOMPLICATED SNOMED Code(s): 912002164 Comment: -Avoid narcotics and scheduled meds as much as possible -Please see above discussion -Continue watchful waiting (3) Tobacco abuse Current Visit: Yes Status: Acute Code(s): Z72.0 - TOBACCO USE SNOMED Code( s): 126814344 Comment: -Advised lifestyle modifications -Continue PRN Nicotine gum and patch (4) DVT prophylaxis Current Visit: Yes Status: Acute Code(s): ZYS6444 - SNOMED Code(s): 766378753 Comment: -Placed on Heparin SQq8H Status and Disposition: -Possible D/C in 1-2 days
[2019-02-07] MEDS: Heparin VIAL(*) 5000 UNITS/ML VIAL (FIVE THOUSAND) SUBCUT SCH ×4 (15:31→22:11)
[2019-02-07] MEDS: Pantoprazole IV* 40 MG IV SCH (15:32)
--- NOTE | 2019-02-07 20:40 | CONS ---
CC: [facility] SURGICAL CONSULTATION REPORT: DATE OF CONSULT: 02/07/19 HISTORY OF PRESENT ILLNESS: I was contacted by the hospitalist service to evaluate Ms. Barreto, a 33-y ear-old female who presented to the emergency room yesterday at [facility] with complaints of left lower quadrant abdominal pain, similar to the patient's previous history of diverticulitis. Workup in the emergency room included CAT scan and labs and the patient was diagnosed with diverticu litis with possible extraluminal air at the site of the sigmoid colon without abscess. She had a whi te count that was mildly elevated at 14 with no left shift and she was admitted and started on ciprof loxacin and Flagyl. I saw the patient in her hospital bed. She complained of continued abdominal pain that improved with narcotics. She did have appetite, described having loose bowel movements, denied any nausea. The patient describes her initial diagnosis of diverticulitis approximately 3 years ago. She states that she was seen at our hospital and was noted to have focal thickening of the sigmoid colon and was admitted with antibiotics. She improved. Her second course of the disease happened approximately a year later and she was treated without any radiographic examination and improved with antibiotics. H er third episode was last May. The CAT scan was also reviewed, the imaging as well as the report. PAST MEDICAL HISTORY: Includes diverticulitis, tobacco use, and polysubstance abuse. PAST SURGICAL HISTORY: None. MEDICATIONS: None. She will take ibuprofen for pain. She also uses intermittent marijuana for pain relief. FAMILY HISTORY: Noncontributory. She does not recall anyone saying that there was history of colon cancer in the family. SOCIAL HISTORY: She lives alone. 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 She smokes. She admits to different drugs, but denies IV drug abuse. REVIEW OF SYSTEMS: No fevers or chills. Appetite is good. No significant weight loss or weight gai n. No shortness of breath or chest pain. Abdominal pain as described. No dysuria, no pneumaturia. Bowel movements are loose, but this is not typical for her, but only when she has the episodes. She has never had a colonoscopy. No endocrine disorders. No psychiatric illnesses. PHYSICAL EXAM: She is afebrile. Vital signs are stable. Alert and oriented x3, in no apparent dist ress. Head, Ears, Eyes, Nose, and Throat: Normocephalic, atraumatic. Sclerae anicteric. Mucous me mbranes are moist. Lungs: Clear to auscultation bilaterally. Abdomen: Soft, nondistended, tender in the left lower quadrant, but without rebound. No CVA tenderness. No hernias or masses noted. Rec allan exam not performed. Extremities within normal limits. DIAGNOSTIC STUDIES/LAB DATA: Labs and CT scan reviewed. IMPRESSION AND PLAN: Acute uncomplicated diverticulitis, fourth episode in 4 years. Recommendation: Antibiotics and followup as an outpatient in my office. If the patient should show evidence of obst ruction or abscess, please recall surgery. Otherwise, the patient's diet could be advanced and I giles l order her for a clear liquid diet and we could look towards discharge with 2 weeks of oral antibiot ics; Cipro and Flagyl is a good choice. I will see the patient in my office. I briefly discussed th e terms for urgent surgery and the patient does not have these complications. We can also consider, given a person of this age and multiple episodes, a sigmoid colectomy to prevent additional episodes. For this to happen, the patient would have to undergo a colonoscopy first. The patient is aware of this. Thank you for allowing [facility] to take part in this woman's care. We will follow her as an outpatient and my phone number is given to her today. [id number]/[facility] #: [id number]
[2019-02-07] MEDS ORDERED: Nicotine Patch Removal NOTE PATCH OFF SCH (21:00)
[2019-02-07] MEDS: Nicotine Patch Removal NOTE FOLLOW UP SCH (21:19)
[2019-02-08] MEDS: Ketorolac INJ* 30 MG/ML 1 ML VIAL IV PUSH PRN ×2 (00:01→05:29)
[2019-02-08] MEDS: Acetaminophen TAB* 325 MG PO PRN ×5 (02:31→20:06)
[2019-02-08] MEDS: Ciprofloxacin 400MG IVPREMIX(* 400 MG/200 ML BAG IVPB SCH ×2 (05:12→17:46)
[2019-02-08] MEDS: Heparin VIAL(*) 5000 UNITS/ML VIAL (FIVE THOUSAND) SUBCUT SCH ×3 (05:32→21:29)
[2019-02-08] MEDS: metroNIDAZOLE IV 500 MG/100ML* 500 MG/100 ML BAG IVPB SCH ×3 (06:22→22:58)
[2019-02-08 08:31] LABS: ABS Basophils 0 10^3/ul (0-0.2); ABS Eosinophils 0 10^3/ul (0-0.6); ABS Lymphocytes 1.1 10^3/ul (1.0-4.8); ABS Monocytes 0.8 10^3/ul (0-0.8); ABS Neutrophils 9.1 10^3/ul (1.5-7.7); ABS Nucleated RBC 0 10^3/ul; Eosinophil % 0.4 %; Hematocrit 36 % (33-41); Hemoglobin 11.9 g/dL (12.0-16.0); Lymphocyte % 9.9 %; Mean Corpuscular HGB Conc 34 g/dL (31-36); Mean Corpuscular Hemoglobin 32 pg (27-31); Mean Corpuscular Volume 94 fL (80-97); Mean Platelet Volume 7.6 fL (7.4-10.4); Nucleated Red Blood Cells % 0; Platelet Count 230 10^3/uL (150-450); Red Blood Count 3.78 10^6 /uL (3.70-4.87); Red Cell Distribution Width 14 % (10.5-15); White Blood Count 11.1 10^3/uL (3.5-10.8)
[2019-02-08] MEDS: Folic Acid TAB* 1 MG PO SCH (08:31)
[2019-02-08] MEDS: Thiamine TAB* 100 MG TAB PO SCH (08:31)
[2019-02-08] MEDS: Nicotine PATCH 21 MG/24 HR* PATCH TRANSDERM SCH (08:31)
[2019-02-08] MEDS: Multivitamins/Minerals TAB PO SCH (08:32)
[2019-02-08] MEDS: Pantoprazole IV* 40 MG IV SCH (08:32)
[2019-02-08 08:42] LABS: Albumin 3.2 g/dL (3.2-5.2); Albumin/Globulin Ratio 1.3 (1-3); BUN/Creatinine Ratio 4.2 (8-20); Calcium 8.3 mg/dL (8.6-10.3); EGFR African American 112.9 (>60); EGFR Non-African American 93.3 (>60); Globulin 2.5 g/dL (2-4); Magnesium 1.8 mg/dL (1.9-2.7); Phosphorus 2.6 mg/dL (2.5-5.0); Potassium 3.3 mmol/L (3.5-5.0); Total Bilirubin 0.6 mg/dL (0.2-1.0); Total Protein 5.7 g/dL (6.4-8.9)
[2019-02-08] MEDS: oxyCODONE TAB* 5 MG TAB PO PRN ×4 (09:29→21:55)
--- NOTE | 2019-02-08 11:26 | PN ---
Subjective Date of Service: 02/08/19 Interval History: Pt had a couple of loose BM's today. B/l Q's lower abd pain still present. Tolerating clears, feels not ready for full diet yet Objective Active Medications: Acetaminophen (Tylenol Tab*) 650 mg PO Q4H PRN PRN Reason: FEVER/PAIN Last Admin: 02/08/19 06:21 Dose: 650 mg Al Hydrox/Mg Hydrox/Simethicone (Maalox Plus*) 30 ml PO Q6H PRN PRN Reason: INDIGESTION Last Admin: 02/08/19 03:16 Dose: 30 ml Docusate Sodium (Colace Cap*) 100 mg PO BID PRN PRN Reason: CONSTIPATION Folic Acid (Folvite Tab*) 1 mg PO DAILY [facility] Last Admin: 02/08/19 08:31 Dose: 1 mg Heparin Sodium (Porcine) (Heparin Vial(*)) 5,000 units SUBCUT Q8HR [facility] Last Admin: 02/08/19 05:32 Dose: Not Given Ciprofloxacin/Dextrose (Cipro 400 Mg Ivpremix(*)) 400 mg in 200 mls @ 200 mls/ hr IVPB Q12H [facility] Last Admin: 02/08/19 05:12 Dose: 200 mls/hr Metronidazole/Sodium Chloride (Flagyl 500 Mg Ivpb*) 500 mg in 100 mls @ 100 mls /hr IVPB Q8H [facility] Last Admin: 02/08/19 06:22 Dose: 100 mls/hr Multivitamins/Minerals (Theragran/Minerals Tab*) 1 tab PO DAILY [facility] Last Admin: 02/08/19 08:32 Dose: 1 tab Nicotine (Nicotine Patch 21 Mg/24 Hr*) 1 patch TRANSDERM DAILY [facility] Last Admin: 02/08/19 08:31 Dose: 1 patch Nicotine Polacrilex (Nicotine Gum*) 2 mg PO Q2H PRN PRN Reason: CRAVING Ondansetron HCl (Zofran Inj*) 4 mg IV Q4H PRN PRN Reason: NAUSEA/VOMITING Last Admin: 02/07/19 22:06 Dose: 4 mg Oxycodone HCl (Roxycodone Tab*) 5 mg PO Q4H PRN PRN Reason: PAIN Last Admin: 02/08/19 09:29 Dose: 5 mg Pantoprazole Sodium (Protonix Iv*) 40 mg IV DAILY [facility] Last Admin: 02/08/19 08:32 Dose: 40 mg Pharmacy Profile Note (Nicotine Patch Removal Note*) 1 note FOLLOW UP 2100 [facility] Last Admin: 02/07/19 21:19 Dose: 1 note Senna (Senokot Tab*) 1 tab PO BID PRN PRN Reason: CONSTIPATION Thiamine HCl (Vitamin B-1 Tab*) 100 mg PO DAILY [facility] Last Admin: 02/08/19 08:31 Dose: 100 mg Vital Signs - 8 hr 02/08/19 02/08/19 02/08/19 03:31 07:33 09:29 Temperature 98.0 F 98.7 F Pulse Rate 97 90 Respiratory 18 16 20 Rate Blood Pressure 117/75 104/57 (mmHg) O2 Sat by Pulse 97 97 Oximetry Oxygen Devices in Use Now: None Appearance: 33 yo F in nAD, aAOx3 Eyes: No Scleral Icterus, PERRLA Ears/Nose/Mouth/Throat: NL Teeth, Lips, Gums, Mucous Membranes Moist Neck: NL Appearance and Movements; NL JVP, Trachea Midline Respiratory: Symmetrical Chest Expansion and Respiratory Effort, Clear to Auscultation Cardiovascular: NL Sounds; No Murmurs; No JVD, RRR Abdominal: - - BS+, soft, tender in b/l LQ's , no rebound, no guarding Lymphatic: No Cervical Adenopathy Extremities: No Edema, No Clubbing, Cyanosis Skin: No Rash or Ulcers, No Nodules or Sclerosis Neurological: Alert and Oriented x 3, NL Muscle Strength and Tone Result Diagrams: 02/08/19 08:04 02/08/19 08:04 Additional Lab and Data: Lab Results 02/06/19 02/06/19 02/06/19 Range/Units 14:36 14:36 14:36 WBC 14.1 H (3.5-10.8) 10^3/uL RBC 4.77 (3.70-4.87) 10^6 /uL Hgb 15.2 (12.0-16.0) g/dL Hct 45 H (33-41) % MCV 95 (80-97) fL MCH 32 H (27-31) pg MCHC 34 (31-36) g/dL RDW 14 (10.5-15) % Plt Count 300 (150-450) 10^3/uL MPV 7.5 (7.4-10.4) fL Neut % (Auto) 82.1 % Lymph % (Auto) 10.6 % [place] % (Auto) 5.7 % Eos % (Auto) 1.0 % Baso % (Auto) 0.6 % Absolute Neuts (auto) 11.6 H (1.5-7.7) 10^3/ul Absolute Lymphs (auto) 1.5 (1.0-4.8) 10^3/ul Absolute Monos (auto) 0.8 (0-0.8) 10^3/ul Absolute Eos (auto) 0.1 (0-0.6) 10^3/ul Absolute Basos (auto) 0.1 (0-0.2) 10^3/ul Absolute Nucleated RBC 0 10^3/ul Nucleated RBC % 0 Sodium 138 (135-145) mmol/L Potassium 4.0 (3.5-5.0) mmol/L Chloride 106 (101-111) mmol/L Carbon Dioxide 23 (22-32) mmol/L Anion Gap 9 (2-11) mmol/L BUN 12 (6-24) mg/dL Creatinine 0.90 (0.51-0.95) mg/dL Est GFR ( Amer) 87.3 (>60) Est GFR (Non-Af Amer) 72.1 (>60) BUN/Creatinine Ratio 13.3 (8-20) Glucose 96 (70-100) mg/dL Lactic Acid 0.7 (0.5-2.0) mmol/L Calcium 9.1 (8.6-10.3) mg/dL Total Bilirubin 0.80 (0.2-1.0) mg/dL AST 19 (13-39) U/L ALT 15 (7-52) U/L Alkaline Phosphatase 80 (34-104) U/L C-Reactive Protein 7.41 (<8.01) mg/L Total Protein 7.6 (6.4-8.9) g/dL Albumin 4.4 (3.2-5.2) g/dL Globulin 3.2 (2-4) g/dL Albumin/Globulin Ratio 1.4 (1-3) Lipase 10 L (11.0-82.0) U/L Beta HCG, Quant < 0.60 mIU/mL Microbiology and Other Data: Microbiology 02/06/19 17:20 Urine Culture - Preliminary Urine Klebsiella Pneumoniae Assess/Plan/Problems-Billing Assessment: 33 yo f with recurrent diverticulitis - Patient Problems (1) Diverticulitis Current Visit: Yes Status: Acute Comment: -Minimal amount of extraluminal gas seen on CT -D/W Dr. Hoffman given this is 4th time pt diagnosed with diverticulitis since 2016 and mentions she gets hospitalized every 8 to 10 months on average since -Continue Ciprofloxacin and Flagyl -Urine Cx : (+) K. pneumonia---contamination? No pyuria nor bacteria seen on U/ A; continuce above abx and U/A appears to not be clean catch and could be contamination (2) Polysubstance abuse Comment: -unfortunately this AM pt was crying from pain as per RN, she had been on ketorolac IV x 2 days and oxycodone prn was started. (3) Tobacco abuse Comment: -Continue PRN Nicotine gum and patch (4) DVT prophylaxis Comment: HSQ Status and Disposition: Inpatient
[2019-02-08] MEDS: Ondansetron INJ* 2 MG/ML VIAL IV PRN ×2 (16:06→22:13)
[2019-02-08] MEDS: Nicotine Patch Removal NOTE FOLLOW UP SCH (22:23)
[2019-02-09] MEDS: Acetaminophen TAB* 325 MG PO PRN ×5 (00:06→21:35)
[2019-02-09] MEDS: oxyCODONE TAB* 5 MG TAB PO PRN ×6 (02:38→23:17)
[2019-02-09] MEDS: Heparin VIAL(*) 5000 UNITS/ML VIAL (FIVE THOUSAND) SUBCUT SCH ×3 (04:37→21:34)
[2019-02-09] MEDS: Ciprofloxacin 400MG IVPREMIX(* 400 MG/200 ML BAG IVPB SCH ×2 (05:07→16:52)
[2019-02-09] MEDS: Ondansetron INJ* 2 MG/ML VIAL IV PRN ×3 (05:10→16:53)
[2019-02-09] MEDS: PROCHLORPERAZINE INJ 5 MG/ML 2 ML VIAL IV PRN ×3 (06:13→22:17)
[2019-02-09] MEDS: metroNIDAZOLE IV 500 MG/100ML* 500 MG/100 ML BAG IVPB SCH ×3 (06:15→22:00)
[2019-02-09 06:49] LABS: ABS Basophils 0 10^3/ul (0-0.2); ABS Eosinophils 0 10^3/ul (0-0.6); ABS Lymphocytes 0.6 10^3/ul (1.0-4.8); ABS Monocytes 0.6 10^3/ul (0-0.8); ABS Neutrophils 9.2 10^3/ul (1.5-7.7); ABS Nucleated RBC 0 10^3/ul; Eosinophil % 0.1 %; Hematocrit 37 % (33-41); Hemoglobin 12.7 g/dL (12.0-16.0); Lymphocyte % 5.3 %; Mean Corpuscular HGB Conc 34 g/dL (31-36); Mean Corpuscular Hemoglobin 32 pg (27-31); Mean Corpuscular Volume 94 fL (80-97); Mean Platelet Volume 7.8 fL (7.4-10.4); Nucleated Red Blood Cells % 0; Platelet Count 262 10^3/uL (150-450); Red Blood Count 3.97 10^6 /uL (3.70-4.87); Red Cell Distribution Width 14 % (10.5-15); White Blood Count 10.4 10^3/uL (3.5-10.8)
[2019-02-09 07:06] LABS: BUN/Creatinine Ratio 4.9 (8-20); Calcium 8.3 mg/dL (8.6-10.3); EGFR African American 97.1 (>60); EGFR Non-African American 80.3 (>60); Potassium 3.2 mmol/L (3.5-5.0)
[2019-02-09] MEDS: Pantoprazole IV* 40 MG IV SCH (07:44)
[2019-02-09] MEDS: Thiamine TAB* 100 MG TAB PO SCH (07:44)
[2019-02-09] MEDS: Folic Acid TAB* 1 MG PO SCH (07:44)
[2019-02-09] MEDS: Multivitamins/Minerals TAB PO SCH (07:44)
[2019-02-09] MEDS: Nicotine PATCH 21 MG/24 HR* PATCH TRANSDERM SCH (07:45)
[2019-02-09] MEDS ORDERED: NS 0.9% w/ 40 Meq KCL 1000 ML* 1,000 ML IV SCH (08:00)
--- NOTE | 2019-02-09 14:26 | PN ---
Subjective Date of Service: 02/09/19 Interval History: Pt still c/o pain in lower abd. Has problems getting in and out of bed due to pain. Had a small formed BM today tolerating clear liquids and requests toast Objective Active Medications: Acetaminophen (Tylenol Tab*) 650 mg PO Q4H PRN PRN Reason: FEVER/PAIN Last Admin: 02/09/19 12:00 Dose: 650 mg Al Hydrox/Mg Hydrox/Simethicone (Maalox Plus*) 30 ml PO Q6H PRN PRN Reason: INDIGESTION Last Admin: 02/08/19 03:16 Dose: 30 ml Docusate Sodium (Colace Cap*) 100 mg PO BID PRN PRN Reason: CONSTIPATION Folic Acid (Folvite Tab*) 1 mg PO DAILY [facility] Last Admin: 02/09/19 07:44 Dose: 1 mg Heparin Sodium (Porcine) (Heparin Vial(*)) 5,000 units SUBCUT Q8HR [facility] Last Admin: 02/09/19 14:07 Dose: Not Given Ciprofloxacin/Dextrose (Cipro 400 Mg Ivpremix(*)) 400 mg in 200 mls @ 200 mls/ hr IVPB Q12H [facility] Last Admin: 02/09/19 05:07 Dose: 200 mls/hr Metronidazole/Sodium Chloride (Flagyl 500 Mg Ivpb*) 500 mg in 100 mls @ 100 mls /hr IVPB Q8H [facility] Last Admin: 02/09/19 06:15 Dose: 100 mls/hr Potassium Chloride/Sodium Chloride (Ns 0.9% W/ 40 Meq Kcl 1000 Ml*) 1,000 mls @ 100 mls/hr IV PER RATE [facility] Stop: 02/09/19 17:59 Last Admin: 02/09/19 07:52 Dose: 100 mls/hr Multivitamins/Minerals (Theragran/Minerals Tab*) 1 tab PO DAILY [facility] Last Admin: 02/09/19 07:44 Dose: 1 tab Nicotine (Nicotine Patch 21 Mg/24 Hr*) 1 patch TRANSDERM DAILY [facility] Last Admin: 02/09/19 07:45 Dose: 1 patch Nicotine Polacrilex (Nicotine Gum*) 2 mg PO Q2H PRN PRN Reason: CRAVING Ondansetron HCl (Zofran Inj*) 4 mg IV Q4H PRN PRN Reason: NAUSEA/VOMITING Last Admin: 02/09/19 09:26 Dose: 4 mg Oxycodone HCl (Roxycodone Tab*) 5 mg PO Q4H PRN PRN Reason: PAIN Last Admin: 02/09/19 09:27 Dose: 5 mg Pantoprazole Sodium (Protonix Iv*) 40 mg IV DAILY [facility] Last Admin: 02/09/19 07:44 Dose: 40 mg Pharmacy Profile Note (Nicotine Patch Removal Note*) 1 note FOLLOW UP 2100 [facility] Last Admin: 02/08/19 22:23 Dose: 1 note Prochlorperazine Edisylate (Compazine Inj*) 10 mg IV Q6H PRN PRN Reason: NAUSEA/VOMITING Last Admin: 02/09/19 06:13 Dose: 10 mg Senna (Senokot Tab*) 1 tab PO BID PRN PRN Reason: CONSTIPATION Simethicone (Mylicon Tab*) 80 mg PO Q6H PRN PRN Reason: gas pain Thiamine HCl (Vitamin B-1 Tab*) 100 mg PO DAILY [facility] Last Admin: 02/09/19 07:44 Dose: 100 mg Vital Signs - 8 hr 02/09/19 02/09/19 02/09/19 06:28 07:25 08:00 Temperature 98.8 F Pulse Rate 95 Respiratory 16 16 18 Rate Blood Pressure 103/47 (mmHg) O2 Sat by Pulse 95 Oximetry 02/09/19 02/09/19 02/09/19 09:27 09:32 11:11 Temperature 99.0 F Pulse Rate 103 Respiratory 18 18 18 Rate Blood Pressure 100/59 (mmHg) O2 Sat by Pulse 96 Oximetry 02/09/19 02/09/19 13:31 13:40 Temperature 99.0 F Pulse Rate 103 Respiratory 18 18 Rate Blood Pressure 100/59 (mmHg) O2 Sat by Pulse 96 Oximetry Oxygen Devices in Use Now: None Appearance: 33 yo F in nAD, aAOx3 Eyes: No Scleral Icterus, PERRLA Ears/Nose/Mouth/Throat: NL Teeth, Lips, Gums, Mucous Membranes Moist Neck: NL Appearance and Movements; NL JVP, Trachea Midline Respiratory: Symmetrical Chest Expansion and Respiratory Effort, Clear to Auscultation Cardiovascular: NL Sounds; No Murmurs; No JVD Abdominal: - - soft, tender in b/l lower quadrants, no rebound, no guarding, BS+ Lymphatic: No Cervical Adenopathy Extremities: No Edema, No Clubbing, Cyanosis Skin: No Rash or Ulcers Neurological: Alert and Oriented x 3, NL Sensation, NL Muscle Strength and Tone Result Diagrams: 02/09/19 06:32 02/09/19 06:32 Additional Lab and Data: Lab Results 02/06/19 02/06/19 02/06/19 Range/Units 14:36 14:36 14:36 WBC 14.1 H (3.5-10.8) 10^3/uL RBC 4.77 (3.70-4.87) 10^6 /uL Hgb 15.2 (12.0-16.0) g/dL Hct 45 H (33-41) % MCV 95 (80-97) fL MCH 32 H (27-31) pg MCHC 34 (31-36) g/dL RDW 14 (10.5-15) % Plt Count 300 (150-450) 10^3/uL MPV 7.5 (7.4-10.4) fL Neut % (Auto) 82.1 % Lymph % (Auto) 10.6 % [place] % (Auto) 5.7 % Eos % (Auto) 1.0 % Baso % (Auto) 0.6 % Absolute Neuts (auto) 11.6 H (1.5-7.7) 10^3/ul Absolute Lymphs (auto) 1.5 (1.0-4.8) 10^3/ul Absolute Monos (auto) 0.8 (0-0.8) 10^3/ul Absolute Eos (auto) 0.1 (0-0.6) 10^3/ul Absolute Basos (auto) 0.1 (0-0.2) 10^3/ul Absolute Nucleated RBC 0 10^3/ul Nucleated RBC % 0 Sodium 138 (135-145) mmol/L Potassium 4.0 (3.5-5.0) mmol/L Chloride 106 (101-111) mmol/L Carbon Dioxide 23 (22-32) mmol/L Anion Gap 9 (2-11) mmol/L BUN 12 (6-24) mg/dL Creatinine 0.90 (0.51-0.95) mg/dL Est GFR ( Amer) 87.3 (>60) Est GFR (Non-Af Amer) 72.1 (>60) BUN/Creatinine Ratio 13.3 (8-20) Glucose 96 (70-100) mg/dL Lactic Acid 0.7 (0.5-2.0) mmol/L Calcium 9.1 (8.6-10.3) mg/dL Total Bilirubin 0.80 (0.2-1.0) mg/dL AST 19 (13-39) U/L ALT 15 (7-52) U/L Alkaline Phosphatase 80 (34-104) U/L C-Reactive Protein 7.41 (<8.01) mg/L Total Protein 7.6 (6.4-8.9) g/dL Albumin 4.4 (3.2-5.2) g/dL Globulin 3.2 (2-4) g/dL Albumin/Globulin Ratio 1.4 (1-3) Lipase 10 L (11.0-82.0) U/L Beta HCG, Quant < 0.60 mIU/mL Microbiology and Other Data: Microbiology 02/06/19 17:20 Urine Culture - Preliminary Urine Klebsiella Pneumoniae Assess/Plan/Problems-Billing Assessment: 33 yo f with recurrent diverticulitis - Patient Problems (1) Diverticulitis Current Visit: Yes Status: Acute Comment: -Minimal amount of extraluminal gas seen on CT -D/W Dr. Hoffman given this is 4th time pt diagnosed with diverticulitis since 2016 and mentions she gets hospitalized every 8 to 10 months on average since -Continue Ciprofloxacin and Flagyl -Urine Cx : (+) K. pneumonia---contamination likely, pt had been asymptomatic . (2) Polysubstance abuse Comment: -cont oxycodone prn (3) Tobacco abuse Comment: -Continue PRN Nicotine gum and patch (4) DVT prophylaxis Comment: HSQ Status and Disposition: Inpatient
[2019-02-09] MEDS: Simethicone TAB* 80 MG TAB.CHEW PO PRN (21:59)
[2019-02-09] MEDS: Nicotine Patch Removal NOTE FOLLOW UP SCH (22:17)
[2019-02-10] MEDS: PROCHLORPERAZINE INJ 5 MG/ML 2 ML VIAL IV PRN ×2 (03:55→18:01)
[2019-02-10] MEDS: oxyCODONE TAB* 5 MG TAB PO PRN ×5 (03:55→22:32)
[2019-02-10] MEDS: Heparin VIAL(*) 5000 UNITS/ML VIAL (FIVE THOUSAND) SUBCUT SCH ×3 (05:09→21:15)
[2019-02-10] MEDS: metroNIDAZOLE IV 500 MG/100ML* 500 MG/100 ML BAG IVPB SCH ×3 (05:09→22:31)
[2019-02-10] MEDS: Ciprofloxacin 400MG IVPREMIX(* 400 MG/200 ML BAG IVPB SCH ×2 (06:16→18:00)
[2019-02-10 07:26] LABS: ABS Basophils 0 10^3/ul (0-0.2); ABS Eosinophils 0 10^3/ul (0-0.6); ABS Lymphocytes 0.8 10^3/ul (1.0-4.8); ABS Monocytes 0.8 10^3/ul (0-0.8); ABS Neutrophils 9.1 10^3/ul (1.5-7.7); ABS Nucleated RBC 0 10^3/ul; Eosinophil % 0.4 %; Hematocrit 35 % (33-41); Lymphocyte % 7.5 %; Mean Corpuscular HGB Conc 34 g/dL (31-36); Mean Corpuscular Hemoglobin 32 pg (27-31); Mean Corpuscular Volume 95 fL (80-97); Mean Platelet Volume 7.8 fL (7.4-10.4); Nucleated Red Blood Cells % 0; Platelet Count 280 10^3/uL (150-450); Red Blood Count 3.69 10^6 /uL (3.70-4.87); Red Cell Distribution Width 14 % (10.5-15); White Blood Count 10.8 10^3/uL (3.5-10.8)
[2019-02-10] MEDS: Folic Acid TAB* 1 MG PO SCH (08:20)
[2019-02-10] MEDS: Pantoprazole IV* 40 MG IV SCH (08:20)
[2019-02-10] MEDS: Ondansetron INJ* 2 MG/ML VIAL IV PRN ×3 (08:20→22:37)
[2019-02-10] MEDS: Thiamine TAB* 100 MG TAB PO SCH (08:21)
[2019-02-10] MEDS: Multivitamins/Minerals TAB PO SCH (08:21)
[2019-02-10] MEDS: Simethicone TAB* 80 MG TAB.CHEW PO PRN ×2 (08:21→18:08)
[2019-02-10] MEDS: Nicotine PATCH 21 MG/24 HR* PATCH TRANSDERM SCH (08:22)
[2019-02-10 08:24] LABS: BUN/Creatinine Ratio 5.1 (8-20); C Reactive Protein 411.14 mg/L (<8.01); Calcium 8.1 mg/dL (8.6-10.3); EGFR African American 102.9 (>60); EGFR Non-African American 85.1 (>60); Potassium 3.2 mmol/L (3.5-5.0)
[2019-02-10] MEDS: Acetaminophen TAB* 325 MG PO PRN ×2 (11:06→22:32)
--- NOTE | 2019-02-10 14:24 | PN ---
Subjective Date of Service: 02/10/19 Interval History: Pt feels better. would like to try soft diet. Had two loose BM's today. still c/ o lower abd pain Objective Active Medications: Acetaminophen (Tylenol Tab*) 650 mg PO Q4H PRN PRN Reason: FEVER/PAIN Last Admin: 02/10/19 11:06 Dose: 650 mg Al Hydrox/Mg Hydrox/Simethicone (Maalox Plus*) 30 ml PO Q6H PRN PRN Reason: INDIGESTION Last Admin: 02/08/19 03:16 Dose: 30 ml Docusate Sodium (Colace Cap*) 100 mg PO BID PRN PRN Reason: CONSTIPATION Folic Acid (Folvite Tab*) 1 mg PO DAILY [facility] Last Admin: 02/10/19 08:20 Dose: 1 mg Heparin Sodium (Porcine) (Heparin Vial(*)) 5,000 units SUBCUT Q8HR [facility] Last Admin: 02/10/19 13:57 Dose: Not Given Ciprofloxacin/Dextrose (Cipro 400 Mg Ivpremix(*)) 400 mg in 200 mls @ 200 mls/ hr IVPB Q12H [facility] Last Admin: 02/10/19 06:16 Dose: 200 mls/hr Metronidazole/Sodium Chloride (Flagyl 500 Mg Ivpb*) 500 mg in 100 mls @ 100 mls /hr IVPB Q8H [facility] Last Admin: 02/10/19 05:09 Dose: 100 mls/hr Multivitamins/Minerals (Theragran/Minerals Tab*) 1 tab PO DAILY [facility] Last Admin: 02/10/19 08:21 Dose: 1 tab Nicotine (Nicotine Patch 21 Mg/24 Hr*) 1 patch TRANSDERM DAILY [facility] Last Admin: 02/10/19 08:22 Dose: 1 patch Nicotine Polacrilex (Nicotine Gum*) 2 mg PO Q2H PRN PRN Reason: CRAVING Ondansetron HCl (Zofran Inj*) 4 mg IV Q4H PRN PRN Reason: NAUSEA/VOMITING Last Admin: 02/10/19 08:20 Dose: 4 mg Oxycodone HCl (Roxycodone Tab*) 5 mg PO Q4H PRN PRN Reason: PAIN Last Admin: 02/10/19 12:30 Dose: 5 mg Pantoprazole Sodium (Protonix Iv*) 40 mg IV DAILY [facility] Last Admin: 02/10/19 08:20 Dose: 40 mg Pharmacy Profile Note (Nicotine Patch Removal Note*) 1 note FOLLOW UP 2100 [facility] Last Admin: 02/09/19 22:17 Dose: 1 note Prochlorperazine Edisylate (Compazine Inj*) 10 mg IV Q6H PRN PRN Reason: NAUSEA/VOMITING Last Admin: 02/10/19 03:55 Dose: 10 mg Senna (Senokot Tab*) 1 tab PO BID PRN PRN Reason: CONSTIPATION Simethicone (Mylicon Tab*) 80 mg PO Q6H PRN PRN Reason: gas pain Last Admin: 02/10/19 08:21 Dose: 80 mg Thiamine HCl (Vitamin B-1 Tab*) 100 mg PO DAILY [facility] Last Admin: 02/10/19 08:21 Dose: 100 mg Vital Signs - 8 hr 02/10/19 02/10/19 02/10/19 08:00 08:19 08:21 Temperature 99.1 F Pulse Rate 121 Respiratory 18 24 18 Rate Blood Pressure 105/68 (mmHg) O2 Sat by Pulse 94 Oximetry 02/10/19 02/10/19 02/10/19 08:29 11:34 12:30 Temperature 98.7 F Pulse Rate 106 114 Respiratory 18 24 18 Rate Blood Pressure 100/62 (mmHg) O2 Sat by Pulse 95 Oximetry Oxygen Devices in Use Now: None Appearance: 33 yo F in nAD, aAOx3 Eyes: No Scleral Icterus, PERRLA Ears/Nose/Mouth/Throat: NL Teeth, Lips, Gums, Mucous Membranes Moist Neck: NL Appearance and Movements; NL JVP, Trachea Midline Respiratory: Symmetrical Chest Expansion and Respiratory Effort, Clear to Auscultation Cardiovascular: NL Sounds; No Murmurs; No JVD, RRR Abdominal: - - soft, tender in b/l lower quadrants, no rebound, no guarding, BS hyperactive Lymphatic: No Cervical Adenopathy Extremities: No Edema Skin: No Rash or Ulcers, No Nodules or Sclerosis Neurological: Alert and Oriented x 3, NL Muscle Strength and Tone Result Diagrams: 02/10/19 06:37 02/10/19 06:37 Additional Lab and Data: Lab Results 02/06/19 02/06/19 02/06/19 Range/Units 14:36 14:36 14:36 WBC 14.1 H (3.5-10.8) 10^3/uL RBC 4.77 (3.70-4.87) 10^6 /uL Hgb 15.2 (12.0-16.0) g/dL Hct 45 H (33-41) % MCV 95 (80-97) fL MCH 32 H (27-31) pg MCHC 34 (31-36) g/dL RDW 14 (10.5-15) % Plt Count 300 (150-450) 10^3/uL MPV 7.5 (7.4-10.4) fL Neut % (Auto) 82.1 % Lymph % (Auto) 10.6 % [place] % (Auto) 5.7 % Eos % (Auto) 1.0 % Baso % (Auto) 0.6 % Absolute Neuts (auto) 11.6 H (1.5-7.7) 10^3/ul Absolute Lymphs (auto) 1.5 (1.0-4.8) 10^3/ul Absolute Monos (auto) 0.8 (0-0.8) 10^3/ul Absolute Eos (auto) 0.1 (0-0.6) 10^3/ul Absolute Basos (auto) 0.1 (0-0.2) 10^3/ul Absolute Nucleated RBC 0 10^3/ul Nucleated RBC % 0 Sodium 138 (135-145) mmol/L Potassium 4.0 (3.5-5.0) mmol/L Chloride 106 (101-111) mmol/L Carbon Dioxide 23 (22-32) mmol/L Anion Gap 9 (2-11) mmol/L BUN 12 (6-24) mg/dL Creatinine 0.90 (0.51-0.95) mg/dL Est GFR ( Amer) 87.3 (>60) Est GFR (Non-Af Amer) 72.1 (>60) BUN/Creatinine Ratio 13.3 (8-20) Glucose 96 (70-100) mg/dL Lactic Acid 0.7 (0.5-2.0) mmol/L Calcium 9.1 (8.6-10.3) mg/dL Total Bilirubin 0.80 (0.2-1.0) mg/dL AST 19 (13-39) U/L ALT 15 (7-52) U/L Alkaline Phosphatase 80 (34-104) U/L C-Reactive Protein 7.41 (<8.01) mg/L Total Protein 7.6 (6.4-8.9) g/dL Albumin 4.4 (3.2-5.2) g/dL Globulin 3.2 (2-4) g/dL Albumin/Globulin Ratio 1.4 (1-3) Lipase 10 L (11.0-82.0) U/L Beta HCG, Quant < 0.60 mIU/mL Microbiology and Other Data: Microbiology 02/06/19 17:20 Urine Culture - Preliminary Urine Klebsiella Pneumoniae Assess/Plan/Problems-Billing Assessment: 33 yo f with recurrent diverticulitis - Patient Problems (1) Diverticulitis Current Visit: Yes Status: Acute Comment: -Minimal amount of extraluminal gas seen on CT -D/W Dr. Hoffman given this is 4th time pt diagnosed with diverticulitis since 2016 and mentions she gets hospitalized every 8 to 10 months on average since -Continue Ciprofloxacin and Flagyl -Urine Cx : (+) K. pneumonia---contamination likely, pt had been asymptomatic . -CRP >400 today, but clinically pt feels better. Still tachycardic since the episode of fever on 02/08. will start gentle IVF, monitor, get another CRP in aM (2) Polysubstance abuse Comment: -cont oxycodone prn (3) Tobacco abuse Comment: -Continue PRN Nicotine gum and patch (4) DVT prophylaxis Comment: HSQ Status and Disposition: Inpatient
[2019-02-10] MEDS ORDERED: NS 0.9% w/ 20 Meq KCL 1000 ML* 1,000 ML IV SCH (15:00)
[2019-02-10] MEDS ORDERED: ALPRAZolam TAB* 0.25 MG PO ONE (18:10)
[2019-02-10] MEDS: Nicotine Patch Removal NOTE FOLLOW UP SCH (21:15)
[2019-02-11] MEDS: oxyCODONE TAB* 5 MG TAB PO PRN ×3 (04:23→12:27)
[2019-02-11] MEDS: Heparin VIAL(*) 5000 UNITS/ML VIAL (FIVE THOUSAND) SUBCUT SCH ×3 (04:28→21:02)
[2019-02-11] MEDS: metroNIDAZOLE IV 500 MG/100ML* 500 MG/100 ML BAG IVPB SCH ×3 (05:15→21:05)
[2019-02-11] MEDS: PROCHLORPERAZINE INJ 5 MG/ML 2 ML VIAL IV PRN ×2 (05:15→22:00)
[2019-02-11] MEDS: Ciprofloxacin 400MG IVPREMIX(* 400 MG/200 ML BAG IVPB SCH ×2 (06:23→17:14)
[2019-02-11 08:08] LABS: ABS Basophils 0.1 10^3/ul (0-0.2); ABS Eosinophils 0.2 10^3/ul (0-0.6); ABS Lymphocytes 1.1 10^3/ul (1.0-4.8); ABS Monocytes 1.1 10^3/ul (0-0.8); ABS Neutrophils 8.2 10^3/ul (1.5-7.7); ABS Nucleated RBC 0 10^3/ul; Eosinophil % 1.5 %; Hematocrit 36 % (33-41); Hemoglobin 12.2 g/dL (12.0-16.0); Lymphocyte % 10.5 %; Mean Corpuscular HGB Conc 34 g/dL (31-36); Mean Corpuscular Hemoglobin 32 pg (27-31); Mean Corpuscular Volume 94 fL (80-97); Mean Platelet Volume 6.9 fL (7.4-10.4); Nucleated Red Blood Cells % 0; Platelet Count 367 10^3/uL (150-450); Red Blood Count 3.84 10^6 /uL (3.70-4.87); Red Cell Distribution Width 14 % (10.5-15); White Blood Count 10.7 10^3/uL (3.5-10.8)
[2019-02-11] MEDS: Folic Acid TAB* 1 MG PO SCH (08:28)
[2019-02-11] MEDS: Multivitamins/Minerals TAB PO SCH (08:28)
[2019-02-11] MEDS: Pantoprazole IV* 40 MG IV SCH (08:28)
[2019-02-11] MEDS: Thiamine TAB* 100 MG TAB PO SCH (08:29)
[2019-02-11] MEDS: Nicotine PATCH 21 MG/24 HR* PATCH TRANSDERM SCH (08:29)
[2019-02-11 08:33] LABS: BUN/Creatinine Ratio 4.9 (8-20); C Reactive Protein 355.6 mg/L (<8.01); Calcium 8.3 mg/dL (8.6-10.3); EGFR African American 97.1 (>60); EGFR Non-African American 80.3 (>60); Potassium 3.2 mmol/L (3.5-5.0)
[2019-02-11] MEDS: Simethicone TAB* 80 MG TAB.CHEW PO PRN (08:40)
[2019-02-11] MEDS: Acetaminophen TAB* 325 MG PO PRN (09:59)
[2019-02-11] MEDS ORDERED: Ibuprofen TAB* 600 MG PO PRN (10:33)
[2019-02-11] MEDS ORDERED: Iohexol 300* (CONTRAST) 10 ML SDV IV ONE (11:51)
[2019-02-11] MEDS ORDERED: Potassium Chlor TAB* 20 MEQ TAB.ER PO ONE (13:30)
--- NOTE | 2019-02-11 13:34 | PN ---
Subjective Date of Service: 02/11/19 Interval History: Pt still has loose "muddy" stools. tolerating soft diet. Pain is slightly improved Objective Active Medications: Acetaminophen (Tylenol Tab*) 650 mg PO Q4H PRN PRN Reason: FEVER/PAIN Last Admin: 02/11/19 09:59 Dose: 650 mg Al Hydrox/Mg Hydrox/Simethicone (Maalox Plus*) 30 ml PO Q6H PRN PRN Reason: INDIGESTION Last Admin: 02/08/19 03:16 Dose: 30 ml Docusate Sodium (Colace Cap*) 100 mg PO BID PRN PRN Reason: CONSTIPATION Folic Acid (Folvite Tab*) 1 mg PO DAILY [facility] Last Admin: 02/11/19 08:28 Dose: 1 mg Heparin Sodium (Porcine) (Heparin Vial(*)) 5,000 units SUBCUT Q8HR [facility] Last Admin: 02/11/19 04:28 Dose: Not Given Ciprofloxacin/Dextrose (Cipro 400 Mg Ivpremix(*)) 400 mg in 200 mls @ 200 mls/ hr IVPB Q12H [facility] Last Admin: 02/11/19 06:23 Dose: 200 mls/hr Metronidazole/Sodium Chloride (Flagyl 500 Mg Ivpb*) 500 mg in 100 mls @ 100 mls /hr IVPB Q8H [facility] Last Admin: 02/11/19 05:15 Dose: 100 mls/hr Potassium Chloride/Sodium Chloride (Ns 0.9% W/ 40 Meq Kcl 1000 Ml*) 1,000 mls @ 100 mls/hr IV PER RATE [facility] Stop: 02/12/19 06:59 Ibuprofen (Motrin Tab*) 600 mg PO Q6H PRN PRN Reason: PAIN Multivitamins/Minerals (Theragran/Minerals Tab*) 1 tab PO DAILY [facility] Last Admin: 02/11/19 08:28 Dose: 1 tab Nicotine (Nicotine Patch 21 Mg/24 Hr*) 1 patch TRANSDERM DAILY [facility] Last Admin: 02/11/19 08:29 Dose: 1 patch Nicotine Polacrilex (Nicotine Gum*) 2 mg PO Q2H PRN PRN Reason: CRAVING Ondansetron HCl (Zofran Inj*) 4 mg IV Q4H PRN PRN Reason: NAUSEA/VOMITING Last Admin: 02/10/19 22:37 Dose: 4 mg Oxycodone HCl (Roxycodone Tab*) 5 mg PO Q4H PRN PRN Reason: PAIN Last Admin: 02/11/19 12:27 Dose: 5 mg Pantoprazole Sodium (Protonix Iv*) 40 mg IV DAILY [facility] Last Admin: 02/11/19 08:28 Dose: 40 mg Pharmacy Profile Note (Nicotine Patch Removal Note*) 1 note FOLLOW UP 2100 [facility] Last Admin: 02/10/19 21:15 Dose: 1 note Prochlorperazine Edisylate (Compazine Inj*) 10 mg IV Q6H PRN PRN Reason: NAUSEA/VOMITING Last Admin: 02/11/19 05:15 Dose: 10 mg Senna (Senokot Tab*) 1 tab PO BID PRN PRN Reason: CONSTIPATION Simethicone (Mylicon Tab*) 80 mg PO Q6H PRN PRN Reason: gas pain Last Admin: 02/11/19 08:40 Dose: 80 mg Thiamine HCl (Vitamin B-1 Tab*) 100 mg PO DAILY [facility] Last Admin: 02/11/19 08:29 Dose: 100 mg Vital Signs - 8 hr 02/11/19 02/11/19 02/11/19 07:00 07:26 08:00 Temperature 99.1 F Pulse Rate 115 Respiratory 20 18 18 Rate Blood Pressure 102/67 (mmHg) O2 Sat by Pulse 94 Oximetry 02/11/19 02/11/19 02/11/19 08:28 09:49 10:53 Temperature 99.1 F 99.1 F Pulse Rate 115 98 Respiratory 16 18 16 Rate Blood Pressure 102/67 103/56 (mmHg) O2 Sat by Pulse 94 93 Oximetry 02/11/19 02/11/19 12:24 12:27 Temperature Pulse Rate Respiratory 18 18 Rate Blood Pressure (mmHg) O2 Sat by Pulse Oximetry Oxygen Devices in Use Now: None Appearance: 33 yo f in nAD, aAOx3 Eyes: No Scleral Icterus, PERRLA Ears/Nose/Mouth/Throat: NL Teeth, Lips, Gums, Mucous Membranes Moist Neck: NL Appearance and Movements; NL JVP, Trachea Midline Respiratory: Symmetrical Chest Expansion and Respiratory Effort Cardiovascular: NL Sounds; No Murmurs; No JVD, RRR Abdominal: - - tender in b/l lower quadrants, no rebound, no guarding, BS hyperactive Lymphatic: No Cervical Adenopathy Extremities: No Edema, No Clubbing, Cyanosis Skin: No Rash or Ulcers, No Nodules or Sclerosis Neurological: Alert and Oriented x 3, NL Muscle Strength and Tone Result Diagrams: 02/11/19 07:59 02/11/19 07:59 Additional Lab and Data: Lab Results 02/06/19 02/06/19 02/06/19 Range/Units 14:36 14:36 14:36 WBC 14.1 H (3.5-10.8) 10^3/uL RBC 4.77 (3.70-4.87) 10^6 /uL Hgb 15.2 (12.0-16.0) g/dL Hct 45 H (33-41) % MCV 95 (80-97) fL MCH 32 H (27-31) pg MCHC 34 (31-36) g/dL RDW 14 (10.5-15) % Plt Count 300 (150-450) 10^3/uL MPV 7.5 (7.4-10.4) fL Neut % (Auto) 82.1 % Lymph % (Auto) 10.6 % [place] % (Auto) 5.7 % Eos % (Auto) 1.0 % Baso % (Auto) 0.6 % Absolute Neuts (auto) 11.6 H (1.5-7.7) 10^3/ul Absolute Lymphs (auto) 1.5 (1.0-4.8) 10^3/ul Absolute Monos (auto) 0.8 (0-0.8) 10^3/ul Absolute Eos (auto) 0.1 (0-0.6) 10^3/ul Absolute Basos (auto) 0.1 (0-0.2) 10^3/ul Absolute Nucleated RBC 0 10^3/ul Nucleated RBC % 0 Sodium 138 (135-145) mmol/L Potassium 4.0 (3.5-5.0) mmol/L Chloride 106 (101-111) mmol/L Carbon Dioxide 23 (22-32) mmol/L Anion Gap 9 (2-11) mmol/L BUN 12 (6-24) mg/dL Creatinine 0.90 (0.51-0.95) mg/dL Est GFR ( Amer) 87.3 (>60) Est GFR (Non-Af Amer) 72.1 (>60) BUN/Creatinine Ratio 13.3 (8-20) Glucose 96 (70-100) mg/dL Lactic Acid 0.7 (0.5-2.0) mmol/L Calcium 9.1 (8.6-10.3) mg/dL Total Bilirubin 0.80 (0.2-1.0) mg/dL AST 19 (13-39) U/L ALT 15 (7-52) U/L Alkaline Phosphatase 80 (34-104) U/L C-Reactive Protein 7.41 (<8.01) mg/L Total Protein 7.6 (6.4-8.9) g/dL Albumin 4.4 (3.2-5.2) g/dL Globulin 3.2 (2-4) g/dL Albumin/Globulin Ratio 1.4 (1-3) Lipase 10 L (11.0-82.0) U/L Beta HCG, Quant < 0.60 mIU/mL Microbiology and Other Data: Microbiology 02/06/19 17:20 Urine Culture - Preliminary Urine Klebsiella Pneumoniae Assess/Plan/Problems-Billing Assessment: 33 yo f with recurrent diverticulitis - Patient Problems (1) Diverticulitis Comment: -Minimal amount of extraluminal gas seen on initial CT. t continues to have significant pain anfd elevated CRP. will get repeat CT abd. -D/W Dr. Hoffman given this is 4th time pt diagnosed with diverticulitis since 2016 and mentions she gets hospitalized every 8 to 10 months on average since -Continue Ciprofloxacin and Flagyl -Urine Cx : (+) K. pneumonia---contamination likely, pt had been asymptomatic . (2) Polysubstance abuse Comment: -cont oxycodone prn, ibuprofen. Unfortunately pt's pain cannot be controlled with NSAIDS and Tylenol only (3) Tobacco abuse Comment: -Continue PRN Nicotine gum and patch (4) DVT prophylaxis Comment: HSQ Status and Disposition: Inpatient
[2019-02-11] MEDS ORDERED: NS 0.9% w/ 40 Meq KCL 1000 ML* 1,000 ML IV SCH ×2 (14:03→21:00)
[2019-02-11] MEDS: Ondansetron INJ* 2 MG/ML VIAL IV PRN (14:26)
[2019-02-11] MEDS: Morphine 4 MG/ML VIAL (1 ml) 4 MG/ML VIAL IV PRN ×3 (15:42→23:10)
[2019-02-11] MEDS ORDERED: Morphine INJ* 2 MG/ML 1 ML SYRINGE (TWO MG - NEW SYRINGE VERSION) IV ONE (17:01)
[2019-02-11] MEDS ORDERED: Lorazepam PYXIS KEY PRN (17:02)
[2019-02-11] MEDS ORDERED: LORazepam INJ* 2 MG/ML 1 ML VIAL IV PUSH ONE (17:02)
--- NOTE | 2019-02-11 17:24 | PN ---
Progress Note - Progress Note Date of Service: 02/11/19 Note: Recalled by Dr. Jacobs as pt has had ongoing pain. She was noted to have normal WBCs but increased CRP. A CT scan was repeated today and this showed multiple interloop abscesses and SBO. She continues to reports abdominal pain. She had a BM and flatus today, but also reports episodes of nausea and regurgitation with belching. Pain is better with morphine. Vital Signs Temp 99.1 F 02/11/19 10:53 Pulse 98 02/11/19 10:53 Resp 18 02/11/19 15:42 BP 103/56 02/11/19 10:53 Pulse Ox 93 02/11/19 10:53 Gen: obese F in mild-mod discomfort Lungs: CTA Abd: distended; scant BS; soft but tender throughout mid abdomen and into LLQ. Intake & Output 02/10/19 02/11/19 02/11/19 18:59 06:59 18:59 Intake Total 960 680 120 Balance 960 680 120 Intake: IV Fluids 200 ABX - CIPROFLOXACIN 200 Oral 960 480 120 Other: # Voids 0 Laboratory Results - last 24 hr 02/11/19 02/11/19 07:59 07:59 WBC 10.7 RBC 3.84 Hgb 12.2 Hct 36 MCV 94 MCH 32 H MCHC 34 RDW 14 Plt Count 367 MPV 6.9 L Neut % (Auto) 76.9 Lymph % (Auto) 10.5 [place] % (Auto) 10.5 Eos % (Auto) 1.5 Baso % (Auto) 0.6 Absolute Neuts (auto) 8.2 H Absolute Lymphs (auto) 1.1 Absolute Monos (auto) 1.1 H Absolute Eos (auto) 0.2 Absolute Basos (auto) 0.1 Absolute Nucleated RBC 0 Nucleated RBC % 0 Sodium 137 Potassium 3.2 L Chloride 105 Carbon Dioxide 23 Anion Gap 9 BUN 4 L Creatinine 0.82 Est GFR ( Amer) 97.1 Est GFR (Non-Af Amer) 80.3 BUN/Creatinine Ratio 4.9 L Glucose 134 H Calcium 8.3 L C-Reactive Protein 355.[address] images reviewed by me Impression: Acute sigmoid diverticulitis, recurrent, has improved with antibiotics but unfortunately now has developed intraperitoneal abscesses and partial SBO. Plan/Recommendation: Exploratory laparotomy for drainage of abscesses; possible bowel/colon resection; possible ostomy. I discussed this with the patient. I explained the nature of the procedure, need for anesthesia, risks, benefits and alternatives. I explained that the findings at surgery will ultimately dictate the procedure. Risks explained including, not limited to: bleeding, infection, pain, scarring, blood clots, pneumonia, anastamotic leak, and the risks of GETA. All questions answered. She was upset and asked that I contact her bother, Earnest Barreto ([phone] ) which I did. She stated her understanding and agrees to proceed. Surgery planned for 02/12/19. Recommend NGT placement due to SBO/abd distention, but she is refusing at this time.
[2019-02-11] MEDS ORDERED: NS 0.9% 1000 ML** 1,000 ML IV ONE (21:00)
[2019-02-11] MEDS: Nicotine Patch Removal NOTE FOLLOW UP SCH (22:01)
[2019-02-12] MEDS: Morphine 4 MG/ML VIAL (1 ml) 4 MG/ML VIAL IV PRN ×5 (01:58→11:23)
[2019-02-12] MEDS: Heparin VIAL(*) 5000 UNITS/ML VIAL (FIVE THOUSAND) SUBCUT SCH ×3 (05:04→22:56)
[2019-02-12] MEDS: Ciprofloxacin 400MG IVPREMIX(* 400 MG/200 ML BAG IVPB SCH ×2 (05:04→22:09)
[2019-02-12] MEDS: metroNIDAZOLE IV 500 MG/100ML* 500 MG/100 ML BAG IVPB SCH ×4 (06:13→23:19)
[2019-02-12] MEDS: Nicotine PATCH 21 MG/24 HR* PATCH TRANSDERM SCH (07:58)
[2019-02-12] MEDS: Pantoprazole IV* 40 MG IV SCH (07:58)
[2019-02-12 09:32] LABS: Hematocrit 36 % (33-41); Mean Corpuscular HGB Conc 34 g/dL (31-36); Mean Corpuscular Hemoglobin 32 pg (27-31); Mean Corpuscular Volume 94 fL (80-97); Mean Platelet Volume 6.8 fL (7.4-10.4); Platelet Count 451 10^3/uL (150-450); Red Blood Count 3.79 10^6 /uL (3.70-4.87); Red Cell Distribution Width 14 % (10.5-15); White Blood Count 10.3 10^3/uL (3.5-10.8)
[2019-02-12 09:48] LABS: BUN/Creatinine Ratio 5.6 (8-20); Calcium 8.4 mg/dL (8.6-10.3); EGFR African American 112.9 (>60); EGFR Non-African American 93.3 (>60); Potassium 3.5 mmol/L (3.5-5.0)
--- NOTE | 2019-02-12 10:39 | PN ---
Subjective Date of Service: 02/12/19 Interval History: Pt feels "scared" before the surgery. Abd pain basically unchanged from prior . Had some nausea in aM, Has had 3 loose BM's /24H Objective Active Medications: Heparin Sodium (Porcine) (Heparin Vial(*)) 5,000 units SUBCUT Q8HR [facility] Last Admin: 02/12/19 05:04 Dose: Not Given Ciprofloxacin/Dextrose (Cipro 400 Mg Ivpremix(*)) 400 mg in 200 mls @ 200 mls/ hr IVPB Q12H [facility] Last Admin: 02/12/19 05:04 Dose: 200 mls/hr Metronidazole/Sodium Chloride (Flagyl 500 Mg Ivpb*) 500 mg in 100 mls @ 100 mls /hr IVPB Q8H [facility] Last Admin: 02/12/19 06:13 Dose: 100 mls/hr Morphine Sulfate (Morphine 4 Mg/Ml Vial (1 Ml)) 2 mg IV Q2H PRN PRN Reason: PAIN Last Admin: 02/12/19 08:43 Dose: 2 mg Nicotine (Nicotine Patch 21 Mg/24 Hr*) 1 patch TRANSDERM DAILY [facility] Last Admin: 02/12/19 07:58 Dose: 1 patch Ondansetron HCl (Zofran Inj*) 4 mg IV Q4H PRN PRN Reason: NAUSEA/VOMITING Last Admin: 02/11/19 14:26 Dose: 4 mg Pantoprazole Sodium (Protonix Iv*) 40 mg IV DAILY [facility] Last Admin: 02/12/19 07:58 Dose: 40 mg Pharmacy Profile Note (Nicotine Patch Removal Note*) 1 note FOLLOW UP 2100 [facility] Last Admin: 02/11/19 22:01 Dose: 1 note Prochlorperazine Edisylate (Compazine Inj*) 10 mg IV Q6H PRN PRN Reason: NAUSEA/VOMITING Last Admin: 02/11/19 22:00 Dose: 10 mg Vital Signs - 8 hr 02/12/19 02/12/19 02/12/19 03:39 03:58 04:01 Temperature 98.8 F Pulse Rate 110 Respiratory 20 20 20 Rate Blood Pressure 118/71 (mmHg) O2 Sat by Pulse 93 Oximetry 02/12/19 02/12/19 02/12/19 05:05 06:46 07:59 Temperature Pulse Rate Respiratory 20 22 28 Rate Blood Pressure (mmHg) O2 Sat by Pulse Oximetry 04/29/19 04/29/19 04/29/19 08:00 08:43 08:54 Temperature 97.2 F Pulse Rate 101 Respiratory 28 16 16 Rate Blood Pressure 106/63 (mmHg) O2 Sat by Pulse 94 Oximetry 02/12/19 09:54 Temperature Pulse Rate Respiratory 20 Rate Blood Pressure (mmHg) O2 Sat by Pulse Oximetry Oxygen Devices in Use Now: None Appearance: 33 yo F in nAD, aAOx3 Eyes: No Scleral Icterus, PERRLA Ears/Nose/Mouth/Throat: NL Teeth, Lips, Gums, Mucous Membranes Moist Neck: NL Appearance and Movements; NL JVP, Trachea Midline Respiratory: Symmetrical Chest Expansion and Respiratory Effort, Clear to Auscultation Cardiovascular: NL Sounds; No Murmurs; No JVD Abdominal: - - soft, tender in b/l lower quadrants, no rebound, no guarding, BS + Lymphatic: No Cervical Adenopathy Extremities: No Edema, No Clubbing, Cyanosis Skin: No Rash or Ulcers, No Nodules or Sclerosis Neurological: Alert and Oriented x 3, NL Muscle Strength and Tone Result Diagrams: 02/12/19 09:11 02/12/19 09:11 Additional Lab and Data: Lab Results 02/06/19 02/06/19 02/06/19 Range/Units 14:36 14:36 14:36 WBC 14.1 H (3.5-10.8) 10^3/uL RBC 4.77 (3.70-4.87) 10^6 /uL Hgb 15.2 (12.0-16.0) g/dL Hct 45 H (33-41) % MCV 95 (80-97) fL MCH 32 H (27-31) pg MCHC 34 (31-36) g/dL RDW 14 (10.5-15) % Plt Count 300 (150-450) 10^3/uL MPV 7.5 (7.4-10.4) fL Neut % (Auto) 82.1 % Lymph % (Auto) 10.6 % [place] % (Auto) 5.7 % Eos % (Auto) 1.0 % Baso % (Auto) 0.6 % Absolute Neuts (auto) 11.6 H (1.5-7.7) 10^3/ul Absolute Lymphs (auto) 1.5 (1.0-4.8) 10^3/ul Absolute Monos (auto) 0.8 (0-0.8) 10^3/ul Absolute Eos (auto) 0.1 (0-0.6) 10^3/ul Absolute Basos (auto) 0.1 (0-0.2) 10^3/ul Absolute Nucleated RBC 0 10^3/ul Nucleated RBC % 0 Sodium 138 (135-145) mmol/L Potassium 4.0 (3.5-5.0) mmol/L Chloride 106 (101-111) mmol/L Carbon Dioxide 23 (22-32) mmol/L Anion Gap 9 (2-11) mmol/L BUN 12 (6-24) mg/dL Creatinine 0.90 (0.51-0.95) mg/dL Est GFR ( Amer) 87.3 (>60) Est GFR (Non-Af Amer) 72.1 (>60) BUN/Creatinine Ratio 13.3 (8-20) Glucose 96 (70-100) mg/dL Lactic Acid 0.7 (0.5-2.0) mmol/L Calcium 9.1 (8.6-10.3) mg/dL Total Bilirubin 0.80 (0.2-1.0) mg/dL AST 19 (13-39) U/L ALT 15 (7-52) U/L Alkaline Phosphatase 80 (34-104) U/L C-Reactive Protein 7.41 (<8.01) mg/L Total Protein 7.6 (6.4-8.9) g/dL Albumin 4.4 (3.2-5.2) g/dL Globulin 3.2 (2-4) g/dL Albumin/Globulin Ratio 1.4 (1-3) Lipase 10 L (11.0-82.0) U/L Beta HCG, Quant < 0.60 mIU/mL Microbiology and Other Data: Microbiology 02/06/19 17:20 Urine Culture - Preliminary Urine Klebsiella Pneumoniae Assess/Plan/Problems-Billing Assessment: 33 yo f with recurrent diverticulitis - Patient Problems (1) Diverticulitis Comment: -Minimal amount of extraluminal gas seen on initial CT. Repeat CT on shows abscess, peritonitis, SBO. Pt planned to OR by DR. Brooke - pt diagnosed with diverticulitis since 2016 and mentions she gets hospitalized every 8 to 10 months on average since -Continue Ciprofloxacin and Flagyl -Urine Cx : (+) K. pneumonia---contamination likely, pt had been asymptomatic . (2) Tobacco abuse Comment: -Continue PRN Nicotine gum and patch (3) DVT prophylaxis Comment: HSQ (4) Polysubstance abuse Comment: -h/o using cocaine, mushrooms, cannabis Status and Disposition: Inpatient
[2019-02-12 10:51] LABS: ABS Basophils 0.1 10^3/ul (0-0.2); ABS Eosinophils 0.2 10^3/ul (0-0.6); ABS Lymphocytes 1.1 10^3/ul (1.0-4.8); ABS Monocytes 1.2 10^3/ul (0-0.8); ABS Neutrophils 7.7 10^3/ul (1.5-7.7); ABS Nucleated RBC 0 10^3/ul; Eosinophil % 1.6 %; Lymphocyte % 10.9 %; Nucleated Red Blood Cells % 0
[2019-02-12] MEDS: NS 0.9% w/ 20 Meq KCL 1000 ML* 1,000 ML IV SCH ×2 (11:58→19:07)
[2019-02-12] MEDS ORDERED: ceFOXitin 2 GM IVPREMIX* 2 GM/50 ML BAG ONE (14:11)
[2019-02-12 14:20] LABS: Activated Partial Thrombo Time 27.2 seconds (26.0-36.3); INR 1.25 (0.82-1.09)
[2019-02-12] MEDS ORDERED: Lidocaine 2% PF * 5 ML VIAL ONE (14:25)
[2019-02-12] MEDS ORDERED: Rocuronium* 10 MG/ML VIAL ONE (14:25)
[2019-02-12] MEDS ORDERED: Propofol* 10 MG/ML 20 ML BTL ONE (14:25)
[2019-02-12] MEDS ORDERED: fentaNYL* 50 MCG/ML 5 ML VIAL (250 MCG VIAL) ONE (14:25)
[2019-02-12] MEDS ORDERED: KETAMINE HCL* 50 MG/ML 10 ML VIAL ONE (14:55)
[2019-02-12] MEDS ORDERED: Levalbuterol HFA INHALER* 1 PUFF MDI ONE (15:35)
[2019-02-12] MEDS ORDERED: Ketorolac INJ* 30 MG/ML 1 ML VIAL ONE (15:57)
--- NOTE | 2019-02-12 16:02 | OP ---
Operative Report - Blank - Operative Report Date of Operation: 02/12/19 Note: Brief Operative Note Preop Dx: Diverticulitis Postop Dx: same, with interloop abscess and perforation Procedure: Exploratory laparotomy; sigmoid colectomy; end-colostomy Anesthesia: PATRICK Surgeon: Juan Jose Ship'S Officer: Keegan Fluids: 1500 ml RL EBL: 100 ml Specimen: sigmoid colon Drains: none Findings: dictated
[2019-02-12] MEDS ORDERED: Bupivacaine 0.5% SDV PF* 30ML VIAL ONE (16:03)
[2019-02-12] MEDS ORDERED: Sugammadex * 200 MG/2 ML VIAL IV PUSH ONE (16:05)
[2019-02-12] MEDS ORDERED: Bacitracin OINTMENT* 0.5% 0.5 oz TUBE ONE (16:06)
[2019-02-12] MEDS ORDERED: fentaNYL* 50 MCG/ML 2 ML VIAL (100 MCG VIAL) ONE ×3 (16:39→17:09)
[2019-02-12] MEDS ORDERED: Acetaminophen IV 1GM/100ML * 1,000 MG/100 ML VIAL IVPB ONE (16:44)
[2019-02-12] MEDS ORDERED: Naloxone* 0.4 MG/ML 1 ML VIAL IV PRN (16:44)
[2019-02-12] MEDS ORDERED: NS 0.9% 1000 ML** 1,000 ML IVPB SCH (16:45)
[2019-02-12] MEDS: fentaNYL* 50 MCG/ML 2 ML VIAL (100 MCG VIAL) IV PRN ×5 (16:47→18:20)
[2019-02-12] MEDS ORDERED: HYDROmorphone PCA* 20 MG/20 ML PCA.SYRING ONE (16:56)
[2019-02-12] MEDS ORDERED: Acetaminophen IV 1GM/100ML * 100 ML ONE (17:10)
[2019-02-12] MEDS ORDERED: HYDROmorphone INJ1* 1 MG/ML SYRINGE ONE (17:46)
[2019-02-12] MEDS ORDERED: Naloxone* 0.4 MG/ML 1 ML VIAL IV PUSH PRN (19:49)
[2019-02-12] MEDS ORDERED: NS 0.9% 500 ML* 500 ML IV PRN (20:14)
[2019-02-12] MEDS ORDERED: Lorazepam PYXIS KEY PRN (20:50)
[2019-02-12] MEDS ORDERED: LORazepam INJ* 2 MG/ML 1 ML VIAL IV PUSH ONE (20:50)
[2019-02-12] MEDS ORDERED: LORazepam INJ* 2 MG/ML 1 ML VIAL ONE (21:05)
[2019-02-12] MEDS: Ondansetron INJ* 2 MG/ML VIAL IV PRN (21:24)
[2019-02-12] MEDS: Nicotine Patch Removal NOTE FOLLOW UP SCH (22:00)
--- NOTE | 2019-02-12 22:56 | OP ---
DATE OF OPERATION: 02/12/19 - ROOM #332 DATE OF : 85 ATTENDING SURGEON: Hang Ingram MD. DEGREASING WHEEL OPERATOR: None/LANEY Ledezma student. PREOPERATIVE DIAGNOSIS: Perforated diverticulitis, abscess intraabdominal. POSTOPERATIVE DIAGNOSIS: Perforated diverticulitis, abscess intraabdominal. OPERATIVE PROCEDURES: Laparotomy, Coty procedure/sigmoid colectomy and colostomy, drainage of intraabdominal abscess, mobilization of splenic flexure. INDICATION FOR PROCEDURE: Perforated diverticulitis, signs and symptoms of small bowel obstruction relative to inflammation. Prior to this, failure of conservative treatment. Risks of surgery include, but not limited to, bleeding , infection, injury to intraabdominal contents including the ureter, the bowel, and other intraabdominal contents, persistent infection were explained to the patient who seemed understand and agreed to the procedure, and all questions were answered. DESCRIPTION OF PROCEDURE: The patient was taken to the operating room, placed supine. Preoperative antibiotics were given. After the successful induction of general endotracheal anesthesia, the abdomen was prepped and draped in sterile fashion. A time-out was performed indicating correct procedure and correct patient. A midline incision was made using a #10 blade from above the umbilicus down towards the pubis. This was carried down through the subcutaneous tissues and Bovie cautery. The fascia was opened at the midline and the peritoneal cavity was entered. Some turbid fluid was noted. A Melodie retractor was placed in the abdomen once it was determined that the anterior abdominal wall was free of any adhesions. A thick piece of omentum covered the small bowel. Obvious thickened sigmoid colon was noted. The patient was placed in the slight Trendelenburg position. The thick omentum was taken off the small bowel exposing a severely inflamed sigmoid colon, which appeared locally perforated with small amount of stool outside a diverticulum. It was gently mobilized medially and the distal point at the rectosigmoid junction was identified, slightly proximal to this. The colon was isolated from the mesentery using Bovie cautery and blunt dissection and the colon was divided. The proximal point was then chosen as a place which was soft and pliable and outside of the inflamed tissue and this was divided again in a similar fashion using a 60 mm TIA stapler, 3.5 mm. The initial 90 mm stapler did not fire up properly and malfunctioned and therefore the 60 was used. The mesentery was taken using the LigaSure. The ureter was clearly identified and avoided. Once the specimen was removed, the small bowel was then run from the ligament of Treitz to the ileocecal valve. A large abscess was noted in the mid small bowel. Cultures were sent of the purulence. It was thoroughly drained. Some adhesions were taken down of the small bowel. All inflammatory in nature. The small bowel appeared completely intact with no injury. The abdominal cavity was irrigated copiously with warm saline and aspirated dry all along the left pericolic gutter down in the pelvis. The proximal sigmoid colon was then mobilized further up towards and around the splenic flexure, mobilizing the splenic flexure in order to allow the colon to come out through the anterior abdominal wall for colostomy. Some Surgicel was placed empirically in the left upper quadrant near the vessels, splenocolic heading towards the spleen. There was no significant bleeding. The small bowel was once again run and noted to be normal. The omentum was brought down and placed over the small bowel. A site was chosen for ostomy in the left lower quadrant over the rectus. The skin was excised. The subcutaneous tissue was . The anterior fascia was opened. The rectus was divided bluntly longitudinally and the posterior fascia/peritoneum was opened and the proximal colon was brought through for ostomy. It appeared to have no tension coming through. The fascia was then closed with a running #1 PDS suture. The wound was irrigated copiously with warm saline. The skin was closed with heber, antibiotic ointment was applied. The colostomy was matured with 4-0 PDS applied. Prior to closing, the stomach was felt and the NG was noted to be in good position. The patient tolerated the procedure well. EBL was less than 100 cc. She was extubated and taken to Recovery in stable condition. [id number]/[facility] #: [id number] [facility]
[2019-02-13] MEDS ORDERED: Lorazepam PYXIS KEY PRN ×2 (01:56→02:02)
[2019-02-13] MEDS: NS 0.9% w/ 20 Meq KCL 1000 ML* 1,000 ML IV SCH (03:56)
[2019-02-13] MEDS: Ciprofloxacin 400MG IVPREMIX(* 400 MG/200 ML BAG IVPB SCH ×3 (04:23→20:31)
[2019-02-13] MEDS: Ondansetron INJ* 2 MG/ML VIAL IV PRN ×2 (05:20→14:40)
[2019-02-13 05:28] LABS: Hematocrit 36 % (33-41); Hemoglobin 11.9 g/dL (12.0-16.0); Mean Corpuscular HGB Conc 33 g/dL (31-36); Mean Corpuscular Hemoglobin 31 pg (27-31); Mean Corpuscular Volume 94 fL (80-97); Mean Platelet Volume 7.1 fL (7.4-10.4); Platelet Count 504 10^3/uL (150-450); Red Cell Distribution Width 14 % (10.5-15); White Blood Count 12.2 10^3/uL (3.5-10.8)
[2019-02-13] MEDS: metroNIDAZOLE IV 500 MG/100ML* 500 MG/100 ML BAG IVPB SCH ×4 (05:29→22:17)
[2019-02-13] MEDS: Heparin VIAL(*) 5000 UNITS/ML VIAL (FIVE THOUSAND) SUBCUT SCH ×3 (05:31→20:42)
[2019-02-13 05:43] LABS: BUN/Creatinine Ratio 5.9 (8-20); Calcium 7.4 mg/dL (8.6-10.3); EGFR African American 120.6 (>60); EGFR Non-African American 99.6 (>60)
[2019-02-13] MEDS: LORazepam INJ* 2 MG/ML 1 ML VIAL IV PUSH PRN (08:15)
[2019-02-13] MEDS: Pantoprazole IV* 40 MG IV SCH (08:15)
--- NOTE | 2019-02-13 08:34 | PN ---
Progress Note - Progress Note Date of Service: 02/13/19 Note: S: POD #1 s/p sigmoid colectomy with colostomy. Patient states she has been having 10/10 lower abdominal pain, despite use of ALUM PLANT SUPERVISOR. She notes the pain causes her to get short of breath at times. She ambulated last night without difficulty. She denies any lightheadedness, nausea, or vomiting. O: Vital Signs - 12 hr Temp Pulse Resp BP Pulse Ox 02/13/19 07:00 16 95 02/13/19 06:30 18 91 02/13/19 05:00 18 91 02/13/19 03:29 121 18 129/78 92 02/13/19 03:00 18 96 02/13/19 01:11 18 96 02/13/19 01:03 99.0 F 120 18 147/83 96 02/13/19 00:08 16 02/12/19 23:21 98.3 F 102 18 133/78 93 02/12/19 23:11 16 93 02/12/19 22:11 16 93 02/12/19 21:19 16 02/12/19 21:16 97.8 F 02/12/19 21:11 16 94 02/12/19 21:04 100 16 138/91 96 Intake and Output Last 24 Hours 02/11/19 02/12/19 02/13/19 02/14/19 06:59 06:59 06:59 06:59 Intake Total 1640 1800 1910 Output Total 1300 Balance 1640 1800 610 Intake: IV Fluids 014 333 7594 ABX - CIPROFLOXACIN 200 210 NS (0.9%) 30 NS (0.9%) 40 meq KCL 950 lr 1700 IVPB 700 ABX - CIPROFLOXACIN 400 ABX - FLAGYL 300 Oral 1440 120 0 Output: NG Tube Drainage Amount 150 Iniguez 1050 Estimated Blood Loss 100 Other: Estimated Void Medium # Bowel Movements 0 0 # Voids 0 0 PE: General: Patient appears anxious and in moderate pain sitting upright in bed. Alert and oriented x 3. NG tube to suction with green discharge. Lungs: CTA, bilaterally. Shallow breathing. Heart: Rate is rapid, regular rhythm. NO murmur noted. Normal s1/s2. Abdomen: Soft, minimally distended. Moderate tenderness to lower abdomen. Bowel sounds are hypo-active. Vertical incision with heber in place and without erythema, scant bloody discharge. Moderate serosanguionus fluid noted on dressing. Colostomy in place with stitches and without erythema. Colostomy bag with mild serosanguinous discharge. Laboratory Tests 02/13/19 04:50 Sodium 140 Potassium 4.0 Chloride 111 Carbon Dioxide 20 L Calcium 7.4 L Current Medications Heparin Sodium (Porcine) (Heparin Vial(*)) 5,000 units SUBCUT Q8HR [facility] Last Admin: 02/13/19 05:31 Dose: Not Given Metronidazole/Sodium Chloride (Flagyl 500 Mg Ivpb*) 500 mg in 100 mls @ 100 mls /hr IVPB Q8H [facility] Last Admin: 02/13/19 05:29 Dose: 100 mls/hr Potassium Chloride/Sodium Chloride (Ns 0.9% W/ 20 Meq Kcl 1000 Ml*) 1,000 mls @ 125 mls/hr IV PER RATE [facility] Last Admin: 02/13/19 03:56 Dose: 125 mls/hr Hydromorphone HCl (Dilaudid Health Services Administrator*) 20 mg in 20 mls @ 0 mls/hr ALUM PLANT SUPERVISOR .Q24H [facility]; Protocol Sodium Chloride (Ns 0.9% 1000 Ml) 1,000 mls @ 30 mls/hr IVPB PER RATE [facility] Ciprofloxacin/Dextrose (Cipro 400 Mg Ivpremix(*)) 400 mg in 200 mls @ 200 mls/ hr IVPB 799,1999 [facility] Last Admin: 02/13/19 08:15 Dose: 200 mls/hr Sodium Chloride (Ns 0.9% 500 Ml*) 500 mls @ 0 mls/hr IV Q4H PRN PRN Reason: URINE OUTPUT <120 ML Lorazepam (Ativan Inj*) 0.5 mg IV PUSH Q4H PRN PRN Reason: ANXIETY Last Admin: 02/13/19 08:15 Dose: 0.5 mg Miscellaneous (Ativan Pyxis Partida) 1 ea N/A .PYXIS PARTIDA PRN PRN Reason: PER PROTOCOL Naloxone HCl (Narcan*) 0.08 mg IV PUSH Q2M PRN PRN Reason: SEDATION Nicotine (Nicotine Patch 21 Mg/24 Hr*) 1 patch TRANSDERM DAILY [facility] Last Admin: 02/12/19 07:58 Dose: 1 patch Ondansetron HCl (Zofran Inj*) 4 mg IV Q4H PRN PRN Reason: NAUSEA/VOMITING Last Admin: 02/13/19 05:20 Dose: 4 mg Pantoprazole Sodium (Protonix Iv*) 40 mg IV DAILY [facility] Last Admin: 02/13/19 08:15 Dose: 40 mg Pharmacy Profile Note (Nicotine Patch Removal Note*) 1 note FOLLOW UP 2100 [facility] Last Admin: 02/12/19 22:00 Dose: 1 note Prochlorperazine Edisylate (Compazine Inj*) 10 mg IV Q6H PRN PRN Reason: NAUSEA/VOMITING Last Admin: 02/11/19 22:00 Dose: 10 mg A: s/p sigmoid colectomy with colostomy for perforated diverticulitis P: Pain is currently not well controlled, consider tylenol as needed for additional pain relief. Continue current medications, and ativan as needed for anxiety. Continue O2 as needed. Continue NG tube for now, and ice chips as needed. Electrolytes stable, consider calcium repletion. Incision without signs of infection, dressing changed. Encouraged ambulation and use of spirometer.
[2019-02-13] MEDS: Ketorolac INJ* 15 MG/ML 1 ML VIAL IV PUSH SCH ×3 (10:30→22:16)
[2019-02-13] MEDS ORDERED: HYDROmorphone INJ* 0.5 MG/0.5 ML SYRINGE IV SLOW PU ONE (10:38)
[2019-02-13] MEDS ORDERED: HYDROmorphone INJ1* 1 MG/ML SYRINGE ONE (10:42)
[2019-02-13] MEDS ORDERED: Calcium Gluconate INJ* 1 GM in NS 0.9% 50 ML* 50 ML IVPB ONE (10:48)
--- NOTE | 2019-02-13 11:00 | PN ---
Progress Note - Progress Note Date of Service: 02/13/19 SOAP: Subjective:pod#1 s/p ex lap,sigmoid colectomy,end colostomy []poor pain control,crying Objective: Vital Signs Temp 97.9 F 02/13/19 07:29 Pulse 107 02/13/19 08:42 Resp 16 02/13/19 08:15 BP 136/84 02/13/19 07:29 Pulse Ox 93 02/13/19 07:29 Intake & Output 02/12/19 02/13/19 02/13/19 18:59 06:59 18:59 Intake Total 1700 210 Output Total 250 1050 Balance 1450 -840 Intake: IV Fluids 1700 210 ABX - CIPROFLOXACIN 210 lr 1700 Oral 0 Output: NG Tube Drainage Amount 150 Hunter 150 900 Estimated Blood Loss 100 Other: # Bowel Movements 0 Laboratory Results - last 24 hr 02/12/19 02/13/19 02/13/19 13:26 04:50 04:50 WBC 12.2 H RBC 3.80 Hgb 11.9 L Hct 36 MCV 94 MCH 31 MCHC 33 RDW 14 Plt Count 504 H D MPV 7.1 L INR (Anticoag Therapy) 1.25 H APTT 27.2 Sodium 140 Potassium 4.0 Chloride 111 Carbon Dioxide 20 L Anion Gap 9 BUN 4 L Creatinine 0.68 Est GFR ( Amer) 120.6 Est GFR (Non-Af Amer) 99.6 BUN/Creatinine Ratio 5.9 L Glucose 137 H Calcium 7.4 L lungs:clear anterior;heart:RRR,tachy;abd:quiet,softly distended and tender; colostomy with small amt fluid,no obvious flatus;midline incision dressing not removed at this time;ext:SCDs on,nontender calves [] Assessment:tachy and crying with pain Calcium low 7.4 [] Plan:change Hydromorphone EDUCATION MANAGER parameters;replete Calcium;leave hunter catheter until more comfortable and mobile;reassess this afternoon []
[2019-02-13] MEDS: D5LR 20 MEQ KCL 1000 ML BAG* 1,000 ML IV SCH ×2 (11:03→17:03)
[2019-02-13] MEDS ORDERED: NS 0.9% 500 ML* 500 ML IV ONE (13:42)
--- NOTE | 2019-02-13 13:45 | PN ---
Progress Note - Progress Note Date of Service: 02/13/19 Note: 02/13/19 1400 Pain under control with APPLICATION PROGRAMMER ANALYST dose changes;got OOB and used inspiron;urine very concentrated,NS bolus 500ml ordered.Koko,NEWS CLIPPING CUTTER
[2019-02-13] MEDS: Nicotine PATCH 21 MG/24 HR* PATCH TRANSDERM SCH (14:40)
--- NOTE | 2019-02-13 16:45 | PN ---
Subjective Date of Service: 02/13/19 Interval History: She is very appreciative of the addition of the PROJECT MANAGEMENT CONSULTANT. The pain is now tolerable. She is anxious to be allowed to drink water. The pain is all over the abdomen. Objective Active Medications: Heparin Sodium (Porcine) (Heparin Vial(*)) 5,000 units SUBCUT Q8HR [facility] Last Admin: 02/13/19 14:44 Dose: Not Given Metronidazole/Sodium Chloride (Flagyl 500 Mg Ivpb*) 500 mg in 100 mls @ 100 mls /hr IVPB Q8H [facility] Last Admin: 02/13/19 14:28 Dose: 100 mls/hr Hydromorphone HCl (Dilaudid Director Of Retention*) 20 mg in 20 mls @ 0 mls/hr PROJECT MANAGEMENT CONSULTANT .Q24H [facility]; Protocol Sodium Chloride (Ns 0.9% 1000 Ml) 1,000 mls @ 30 mls/hr IVPB PER RATE [facility] Ciprofloxacin/Dextrose (Cipro 400 Mg Ivpremix(*)) 400 mg in 200 mls @ 200 mls/ hr IVPB 0800,1999 [facility] Last Admin: 02/13/19 08:15 Dose: 200 mls/hr Sodium Chloride (Ns 0.9% 500 Ml*) 500 mls @ 0 mls/hr IV Q4H PRN PRN Reason: URINE OUTPUT <120 ML Potassium Cl/Dextrose/Lact Ringer's (D5lr 20 Meq Kcl 1000 Ml Bag*) 1,000 mls @ 125 mls/hr IV PER RATE [facility] Last Admin: 02/13/19 11:03 Dose: 125 mls/hr Ketorolac Tromethamine (Toradol Inj*) 15 mg IV PUSH Q6H [facility] Stop: 02/15/19 04:01 Last Admin: 02/13/19 10:30 Dose: 15 mg Lorazepam (Ativan Inj*) 0.5 mg IV PUSH Q4H PRN PRN Reason: ANXIETY Last Admin: 02/13/19 08:15 Dose: 0.5 mg Miscellaneous (Ativan Pyxis Partida) 1 ea N/A .PYXIS PARTIDA PRN PRN Reason: PER PROTOCOL Naloxone HCl (Narcan*) 0.08 mg IV PUSH Q2M PRN PRN Reason: SEDATION Nicotine (Nicotine Patch 21 Mg/24 Hr*) 1 patch TRANSDERM DAILY [facility] Last Admin: 02/13/19 14:40 Dose: 1 patch Ondansetron HCl (Zofran Inj*) 4 mg IV Q4H PRN PRN Reason: NAUSEA/VOMITING Last Admin: 02/13/19 14:40 Dose: 4 mg Pantoprazole Sodium (Protonix Iv*) 40 mg IV DAILY [facility] Last Admin: 02/13/19 08:15 Dose: 40 mg Pharmacy Profile Note (Nicotine Patch Removal Note*) 1 note FOLLOW UP 2100 [facility] Last Admin: 02/12/19 22:00 Dose: 1 note Prochlorperazine Edisylate (Compazine Inj*) 10 mg IV Q6H PRN PRN Reason: NAUSEA/VOMITING Last Admin: 02/11/19 22:00 Dose: 10 mg Vital Signs - 8 hr 02/13/19 02/13/19 02/13/19 08:42 09:00 09:15 Temperature Pulse Rate 107 Respiratory 16 16 Rate Blood Pressure (mmHg) O2 Sat by Pulse 96 Oximetry 02/13/19 02/13/19 02/13/19 10:54 11:00 11:47 Temperature 98.5 F Pulse Rate 107 Respiratory 16 16 17 Rate Blood Pressure 115/69 (mmHg) O2 Sat by Pulse 96 96 Oximetry 02/13/19 02/13/19 02/13/19 13:00 15:00 16:19 Temperature 97.3 F Pulse Rate 117 Respiratory 16 16 16 Rate Blood Pressure 125/60 (mmHg) O2 Sat by Pulse 94 96 94 Oximetry Oxygen Devices in Use Now: Nasal Cannula Appearance: alert, well appearing. NG tube in place draining brown fluid. Eyes: No Scleral Icterus Ears/Nose/Mouth/Throat: NL Teeth, Lips, Gums Neck: NL Appearance and Movements; NL JVP Respiratory: Symmetrical Chest Expansion and Respiratory Effort Cardiovascular: NL Sounds; No Murmurs; No JVD, RRR Abdominal: - - ostomy LLQ, laparotomy incision Lymphatic: No Cervical Adenopathy Extremities: No Edema Skin: No Rash or Ulcers Neurological: Alert and Oriented x 3 Result Diagrams: 02/13/19 04:50 02/13/19 04:50 Additional Lab and Data: Lab Results 02/06/19 02/06/19 02/06/19 Range/Units 14:36 14:36 14:36 WBC 14.1 H (3.5-10.8) 10^3/uL RBC 4.77 (3.70-4.87) 10^6 /uL Hgb 15.2 (12.0-16.0) g/dL Hct 45 H (33-41) % MCV 95 (80-97) fL MCH 32 H (27-31) pg MCHC 34 (31-36) g/dL RDW 14 (10.5-15) % Plt Count 300 (150-450) 10^3/uL MPV 7.5 (7.4-10.4) fL Neut % (Auto) 82.1 % Lymph % (Auto) 10.6 % [place] % (Auto) 5.7 % Eos % (Auto) 1.0 % Baso % (Auto) 0.6 % Absolute Neuts (auto) 11.6 H (1.5-7.7) 10^3/ul Absolute Lymphs (auto) 1.5 (1.0-4.8) 10^3/ul Absolute Monos (auto) 0.8 (0-0.8) 10^3/ul Absolute Eos (auto) 0.1 (0-0.6) 10^3/ul Absolute Basos (auto) 0.1 (0-0.2) 10^3/ul Absolute Nucleated RBC 0 10^3/ul Nucleated RBC % 0 Sodium 138 (135-145) mmol/L Potassium 4.0 (3.5-5.0) mmol/L Chloride 106 (101-111) mmol/L Carbon Dioxide 23 (22-32) mmol/L Anion Gap 9 (2-11) mmol/L BUN 12 (6-24) mg/dL Creatinine 0.90 (0.51-0.95) mg/dL Est GFR ( Amer) 87.3 (>60) Est GFR (Non-Af Amer) 72.1 (>60) BUN/Creatinine Ratio 13.3 (8-20) Glucose 96 (70-100) mg/dL Lactic Acid 0.7 (0.5-2.0) mmol/L Calcium 9.1 (8.6-10.3) mg/dL Total Bilirubin 0.80 (0.2-1.0) mg/dL AST 19 (13-39) U/L ALT 15 (7-52) U/L Alkaline Phosphatase 80 (34-104) U/L C-Reactive Protein 7.41 (<8.01) mg/L Total Protein 7.6 (6.4-8.9) g/dL Albumin 4.4 (3.2-5.2) g/dL Globulin 3.2 (2-4) g/dL Albumin/Globulin Ratio 1.4 (1-3) Lipase 10 L (11.0-82.0) U/L Beta HCG, Quant < 0.60 mIU/mL Microbiology and Other Data: Microbiology 02/06/19 17:20 Urine Culture - Preliminary Urine Klebsiella Pneumoniae Assess/Plan/Problems-Billing Assessment: 33 yo f with recurrent diverticulitis complicated by perforation/ abscess/SBO - Patient Problems (1) Perforated diverticulum Current Visit: Yes Status: Acute Code(s): K57.80 - DVTRCLI OF INTEST, PART UNSP, W PERF AND ABSCESS W/O BLEED SNOMED Code(s): 14001408 Comment: s/p colectomy/colostomy healing well and pain now managed hgb and lytes stable postop (2) Small bowel obstruction Current Visit: Yes Status: Acute Code(s): K56.609 - UNSP INTESTNL OBST, UNSP TO PARTIAL VERSUS COMPLETE OBST SNOMED Code(s): 646507021 Comment: defer timing of NG tube removal to surgical team Status and Disposition: Inpatient
[2019-02-13] MEDS: HYDROmorphone PCA* 20 MG/20 ML PCA.SYRING PCA SCH (21:38)
[2019-02-13] MEDS: Nicotine Patch Removal NOTE FOLLOW UP SCH (22:26)
[2019-02-14] MEDS: D5LR 20 MEQ KCL 1000 ML BAG* 1,000 ML IV SCH ×3 (01:30→20:48)
[2019-02-14] MEDS: Nicotine Patch Removal NOTE FOLLOW UP SCH ×2 (01:34→20:51)
[2019-02-14] MEDS: Ketorolac INJ* 15 MG/ML 1 ML VIAL IV PUSH SCH ×4 (04:19→22:48)
[2019-02-14] MEDS: diPHENhydraMINE LIQ* 12.5 MG/5 ML UDC PO PRN ×3 (04:52→23:44)
[2019-02-14] MEDS: Heparin VIAL(*) 5000 UNITS/ML VIAL (FIVE THOUSAND) SUBCUT SCH ×3 (04:57→22:50)
[2019-02-14] MEDS: metroNIDAZOLE IV 500 MG/100ML* 500 MG/100 ML BAG IVPB SCH ×3 (05:26→22:50)
[2019-02-14 06:44] LABS: Hematocrit 32 % (33-41); Hemoglobin 10.8 g/dL (12.0-16.0); Mean Corpuscular HGB Conc 34 g/dL (31-36); Mean Corpuscular Hemoglobin 32 pg (27-31); Mean Corpuscular Volume 94 fL (80-97); Mean Platelet Volume 7.2 fL (7.4-10.4); Platelet Count 526 10^3/uL (150-450); Red Blood Count 3.44 10^6 /uL (3.70-4.87); Red Cell Distribution Width 15 % (10.5-15); White Blood Count 16.8 10^3/uL (3.5-10.8)
[2019-02-14 07:03] LABS: Albumin 2.7 g/dL (3.2-5.2); Albumin/Globulin Ratio 0.9 (1-3); Calcium 8.1 mg/dL (8.6-10.3); EGFR African American 122.7 (>60); EGFR Non-African American 101.4 (>60); Globulin 2.9 g/dL (2-4); Potassium 3.8 mmol/L (3.5-5.0); Total Bilirubin 0.3 mg/dL (0.2-1.0); Total Protein 5.6 g/dL (6.4-8.9)
[2019-02-14 07:26] LABS: ABS Basophils 0.1 10^3/ul (0-0.2); ABS Eosinophils 0.2 10^3/ul (0-0.6); ABS Lymphocytes 1.5 10^3/ul (1.0-4.8); ABS Neutrophils 13.1 10^3/ul (1.5-7.7); ABS Nucleated RBC 0 10^3/ul; Eosinophil % 0.9 %; Nucleated Red Blood Cells % 0
[2019-02-14] MEDS: Pantoprazole IV* 40 MG IV SCH (08:10)
[2019-02-14] MEDS: LORazepam INJ* 2 MG/ML 1 ML VIAL IV PUSH PRN ×3 (08:10→16:44)
[2019-02-14] MEDS: Nicotine PATCH 21 MG/24 HR* PATCH TRANSDERM SCH (08:11)
[2019-02-14] MEDS: Ciprofloxacin 400MG IVPREMIX(* 400 MG/200 ML BAG IVPB SCH ×2 (08:18→20:48)
[2019-02-14] MEDS ORDERED: NS 0.9% 500 ML* 500 ML IV ONE (10:23)
--- NOTE | 2019-02-14 10:38 | PN ---
Progress Note - Progress Note Date of Service: 02/14/19 SOAP: Subjective:pod#2 s/p ex lap Coty's,end colostomy []much better pain control,ambulating in halls Objective: Laboratory Last Values WBC 16.8 10^3/uL (3.5-10.8) H 02/14/19 06:23 RBC 3.44 10^6 /uL (3.70-4.87) L 02/14/19 06:23 Hgb 10.8 g/dL (12.0-16.0) L 02/14/19 06:23 Hct 32 % (33-41) L 02/14/19 06:23 MCV 94 fL (80-97) 02/14/19 06:23 MCH 32 pg (27-31) H 02/14/19 06:23 MCHC 34 g/dL (31-36) 02/14/19 06:23 RDW 15 % (10.5-15) 02/14/19 06:23 Plt Count 526 10^3/uL (150-450) H 02/14/19 06:23 MPV 7.2 fL (7.4-10.4) L 02/14/19 06:23 Neut % (Auto) 77.7 % 02/14/19 06:23 Lymph % (Auto) 9.0 % 02/14/19 06:23 [place] % (Auto) 12.1 % 02/14/19 06:23 Eos % (Auto) 0.9 % 02/14/19 06:23 Baso % (Auto) 0.3 % 02/14/19 06:23 Absolute Neuts (auto) 13.1 10^3/ul (1.5-7.7) H 02/14/19 06:23 Absolute Lymphs (auto) 1.5 10^3/ul (1.0-4.8) 02/14/19 06:23 Absolute Monos (auto) 2.0 10^3/ul (0-0.8) H 02/14/19 06:23 Absolute Eos (auto) 0.2 10^3/ul (0-0.6) 02/14/19 06:23 Absolute Basos (auto) 0.1 10^3/ul (0-0.2) 02/14/19 06:23 Absolute Nucleated RBC 0 10^3/ul 02/14/19 06:23 Nucleated RBC % 0 02/14/19 06:23 INR (Anticoag Therapy) 1.25 (0.82-1.09) H 02/12/19 13:26 APTT 27.2 seconds (26.0-36.3) 02/12/19 13:26 Sodium 142 mmol/L (135-145) 02/14/19 06:23 Potassium 3.8 mmol/L (3.5-5.0) 02/14/19 06:23 Chloride 111 mmol/L (101-111) 02/14/19 06:23 Carbon Dioxide 25 mmol/L (22-32) 02/14/19 06:23 Anion Gap 6 mmol/L (2-11) 02/14/19 06:23 BUN 2 mg/dL (6-24) L 02/14/19 06:23 Creatinine 0.67 mg/dL (0.51-0.95) 02/14/19 06:23 Est GFR ( Amer) 122.7 (>60) 02/14/19 06:23 Est GFR (Non-Af Amer) 101.4 (>60) 02/14/19 06:23 BUN/Creatinine Ratio 3.0 (8-20) L 02/14/19 06:23 Glucose 143 mg/dL (70-100) H 02/14/19 06:23 Lactic Acid 0.6 mmol/L (0.5-2.0) 02/06/19 19:26 Calcium 8.1 mg/dL (8.6-10.3) L 02/14/19 06:23 Phosphorus 2.6 mg/dL (2.5-5.0) 02/08/19 08:04 Magnesium 2.0 mg/dL (1.9-2.7) 02/12/19 09:11 Total Bilirubin 0.30 mg/dL (0.2-1.0) 02/14/19 06:23 AST 15 U/L (13-39) 02/14/19 06:23 ALT 8 U/L (7-52) 02/14/19 06:23 Alkaline Phosphatase 53 U/L (34-104) 02/14/19 06:23 C-Reactive Protein 355.60 mg/L (<8.01) H 02/11/19 07:59 Total Protein 5.6 g/dL (6.4-8.9) L 02/14/19 06:23 Albumin 2.7 g/dL (3.2-5.2) L 02/14/19 06:23 Globulin 2.9 g/dL (2-4) 02/14/19 06:23 Albumin/Globulin Ratio 0.9 (1-3) L 02/14/19 06:23 Lipase 10 U/L (11.0-82.0) L 02/06/19 14:36 Beta HCG, Quant < 0.60 mIU/mL 02/06/19 14:36 Urine Color Straw 02/06/19 17:20 Urine Appearance Clear 02/06/19 17:20 Urine pH 5.0 (5-9) 02/06/19 17:20 Ur Specific [place] 1.002 (1.010-1.030) L 02/06/19 17:20 Urine Protein Negative (Negative) 02/06/19 17:20 Urine Ketones Negative (Negative) 02/06/19 17:20 Urine Blood 1+ (Negative) A 02/06/19 17:20 Urine Nitrate Negative (Negative) 02/06/19 17:20 Urine Bilirubin Negative (Negative) 02/06/19 17:20 Urine Urobilinogen Negative (Negative) 02/06/19 17:20 Ur Leukocyte Esterase Negative (Negative) 02/06/19 17:20 Urine WBC (Auto) Trace(0-5/hpf) (Absent) 02/06/19 17:20 Urine RBC (Auto) Trace(0-2/hpf) (Absent) 02/06/19 17:20 Ur Squamous Epith Cells Present (Absent) A 02/06/19 17:20 Urine Bacteria Absent (Absent) 02/06/19 17:20 Urine Glucose Negative (Negative) 02/06/19 17:20 HIV 1&2 Antibody Nonreactive (Nonreactive) 02/06/19 19:26 Vital Signs Temp 98.2 F 02/14/19 07:16 Pulse 108 02/14/19 07:16 Resp 16 02/14/19 08:10 BP 111/68 02/14/19 07:16 Pulse Ox 96 02/14/19 07:16 Intake & Output 02/13/19 02/14/19 02/14/19 18:59 06:59 18:59 Intake Total 2526 900 1253 Output Total 450 1220 180 Balance 2076 -320 1073 Intake: IV Fluids 2322 30 1143 D5W LR 20 meq KCL 1336 1123 NS (0.9%) 30 20 NS (0.9%) 20 meq KCL 986 IVPB 204 390 110 ABX - CIPROFLOXACIN 204 280 ABX - FLAGYL 110 110 Oral 480 0 Output: NG Tube Drainage Amount 150 600 Hunter 300 620 180 Colostomy 0 lungs:clear in upper [place],decreased at bases;heart:RRR,tachy;abd:hypoactive bs ,soft,colostomy with serosanguinous fluid,no obvious flatus;midline incision dressing intact;ext:nontender calves Assessment:WBC elevated 16.8,HR 100's,urine concentrated;ambulating and using inspiron [] Plan:remove hunter catheter,obtain UA,urine C&S,NS 500ml bolus;update
[2019-02-14] MEDS ORDERED: Calcium Gluconate INJ* 1 GM in NS 0.9% 50 ML* 50 ML IVPB ONE (10:49)
--- NOTE | 2019-02-14 11:21 | SURGPN ---
Subjective - Introduction -: [f ADM pt sex out], current age [f ADM pt cur age] years Admitted on: [f ADM pt adm dt] Patient's surgical date: Procedure completed: - Medications -: Active Medications Generic Name Dose Route Start Last Admin Trade Name Freq PRN Reason Stop Dose Admin Diphenhydramine HCl 25 mg 02/14/19 04:25 02/14/19 04:52 Benadryl Liq* PO 25 mg Q6H PRN Administration ITCHING Heparin Sodium (Porcine) 5,000 units 02/07/19 14:00 02/14/19 04:57 Heparin Vial(*) SUBCUT Not Given Q8HR KIAN Metronidazole/Sodium Chloride 500 mg in 100 mls @ 100 mls/hr 02/07/19 06:00 02/14/19 05:26 Flagyl 500 Mg Ivpb* IVPB 100 mls/hr Q8H KIAN Administration Hydromorphone HCl 20 mg in 20 mls @ 0 mls/hr 02/12/19 16:45 02/13/19 21:38 Dilaudid Clinical Program Coordinator* LABORATORY APPARAT[employer] 1 mls/hr .Q24H KIAN Administration Protocol Per Protocol Sodium Chloride 1,000 mls @ 30 mls/hr 02/12/19 16:45 Ns 0.9% 1000 Ml IVPB PER RATE KIAN Ciprofloxacin/Dextrose 400 mg in 200 mls @ 200 mls/hr 02/12/19 20:15 08:18 Cipro 400 Mg Ivpremix(*) IVPB 200 mls/hr 0800,2000 KIAN Administration Sodium Chloride 500 mls @ 0 mls/hr 02/12/19 20:14 Ns 0.9% 500 Ml* IV Q4H PRN URINE OUTPUT <120 ML Wide Open Potassium Cl/Dextrose/Lact Ringer's 1,000 mls @ 125 mls/hr 02/13/19 11:00 11/04 10:28 D5lr 20 Meq Kcl 1000 Ml Bag* IV 125 mls/hr PER RATE KIAN Administration Calcium Gluconate 1 gm/ Sodium 60 mls @ 60 mls/hr 02/14/19 10:49 Chloride IVPB 02/14/19 11:48 ONCE ONE Ketorolac Tromethamine 15 mg 02/13/19 10:00 02/14/19 10:28 Toradol Inj* IV PUSH 02/15/19 04:01 15 mg Q6H KIAN Administration Lorazepam 0.5 mg 02/13/19 01:56 02/14/19 08:10 Ativan Inj* IV PUSH 0.5 mg Q4H PRN Administration ANXIETY Miscellaneous 1 ea 02/13/19 02:02 Ativan Pyxis Partida N/A .PYXIS PARTIDA PRN PER PROTOCOL Naloxone HCl 0.08 mg 02/12/19 19:49 Narcan* IV PUSH Q2M PRN SEDATION Nicotine 1 patch 02/06/19 23:00 02/14/19 08:11 Nicotine Patch 21 Mg/24 Hr* TRANSDERM 1 patch DAILY KIAN Administration Ondansetron HCl 4 mg 02/06/19 22:44 02/13/19 14:40 Zofran Inj* IV 4 mg Q4H PRN Administration NAUSEA/VOMITING Pantoprazole Sodium 40 mg 02/07/19 15:00 02/14/19 08:10 Protonix Iv* IV 40 mg DAILY KIAN Administration Pharmacy Profile Note 1 note 02/07/19 21:00 02/14/19 01:34 Nicotine Patch Removal Note* FOLLOW UP 1 note 2100 KIAN Administration Prochlorperazine Edisylate 10 mg 02/09/19 06:06 02/11/19 22:00 Compazine Inj* IV 10 mg Q6H PRN Administration NAUSEA/VOMITING - Comments Comments: feeling better than yesterday, no nausea Objective - Intake and Output -: Intake & Output 02/12/19 02/13/19 02/14/19 02/15/19 06:59 06:59 06:59 06:59 Intake Total 1800 1910 3426 1253 Output Total 1300 1670 180 Balance 5536 029 1617 1073 Intake: IV Fluids 980 1910 2352 1143 ABX - CIPROFLOXACIN 210 D5W LR 20 meq KCL 1336 1123 NS (0.9%) 30 30 20 NS (0.9%) 20 meq KCL 986 NS (0.9%) 40 meq KCL 950 lr 1700 IVPB 700 594 110 ABX - CIPROFLOXACIN 400 484 ABX - FLAGYL 300 110 110 Oral 120 0 480 0 Output: NG Tube Drainage Amount 150 750 Iniguez 1050 920 180 Colostomy 0 Estimated Blood Loss 100 Other: Estimated Void Medium # Bowel Movements 0 0 # Voids 0 Surgical Physical Exam - Comments -: stoma pink and viable, incision cdi, abdomen soft
--- NOTE | 2019-02-14 11:28 | PN ---
Progress Note - Progress Note Date of Service: 02/14/19 SOAP: Subjective: [] no compaints, improved since 02/13, pod 2, no nausea Objective: Temp Pulse Resp BP Pulse Ox 98.2 F 108 16 111/68 96 02/14/19 07:16 02/14/19 07:16 02/14/19 08:10 02/14/19 07:16 02/14/19 07:16 Intake & Output 02/12/19 02/13/19 02/14/19 02/15/19 06:59 06:59 06:59 06:59 Intake Total 1800 1910 3426 1253 Output Total 1300 1670 180 Balance 4566 285 5552 1073 Intake: IV Fluids 980 1910 2352 1143 ABX - CIPROFLOXACIN 210 D5W LR 20 meq KCL 1336 1123 NS (0.9%) 30 30 20 NS (0.9%) 20 meq KCL 986 NS (0.9%) 40 meq KCL 950 lr 1700 IVPB 700 594 110 ABX - CIPROFLOXACIN 400 484 ABX - FLAGYL 300 110 110 Oral 120 0 480 0 Output: NG Tube Drainage Amount 150 750 Iniguez 1050 920 180 Colostomy 0 Estimated Blood Loss 100 Other: Estimated Void Medium # Bowel Movements 0 0 # Voids 0 Laboratory Last Values WBC 16.8 10^3/uL (3.5-10.8) H 02/14/19 06:23 RBC 3.44 10^6 /uL (3.70-4.87) L 02/14/19 06:23 Hgb 10.8 g/dL (12.0-16.0) L 02/14/19 06:23 Hct 32 % (33-41) L 02/14/19 06:23 MCV 94 fL (80-97) 02/14/19 06:23 MCH 32 pg (27-31) H 02/14/19 06:23 MCHC 34 g/dL (31-36) 02/14/19 06:23 RDW 15 % (10.5-15) 02/14/19 06:23 Plt Count 526 10^3/uL (150-450) H 02/14/19 06:23 MPV 7.2 fL (7.4-10.4) L 02/14/19 06:23 Neut % (Auto) 77.7 % 02/14/19 06:23 Lymph % (Auto) 9.0 % 02/14/19 06:23 [place] % (Auto) 12.1 % 02/14/19 06:23 Eos % (Auto) 0.9 % 02/14/19 06:23 Baso % (Auto) 0.3 % 02/14/19 06:23 Absolute Neuts (auto) 13.1 10^3/ul (1.5-7.7) H 02/14/19 06:23 Absolute Lymphs (auto) 1.5 10^3/ul (1.0-4.8) 02/14/19 06:23 Absolute Monos (auto) 2.0 10^3/ul (0-0.8) H 02/14/19 06:23 Absolute Eos (auto) 0.2 10^3/ul (0-0.6) 02/14/19 06:23 Absolute Basos (auto) 0.1 10^3/ul (0-0.2) 02/14/19 06:23 Absolute Nucleated RBC 0 10^3/ul 02/14/19 06:23 Nucleated RBC % 0 02/14/19 06:23 INR (Anticoag Therapy) 1.25 (0.82-1.09) H 02/12/19 13:26 APTT 27.2 seconds (26.0-36.3) 02/12/19 13:26 Sodium 142 mmol/L (135-145) 02/14/19 06:23 Potassium 3.8 mmol/L (3.5-5.0) 02/14/19 06:23 Chloride 111 mmol/L (101-111) 02/14/19 06:23 Carbon Dioxide 25 mmol/L (22-32) 02/14/19 06:23 Anion Gap 6 mmol/L (2-11) 02/14/19 06:23 BUN 2 mg/dL (6-24) L 02/14/19 06:23 Creatinine 0.67 mg/dL (0.51-0.95) 02/14/19 06:23 Est GFR ( Amer) 122.7 (>60) 02/14/19 06:23 Est GFR (Non-Af Amer) 101.4 (>60) 02/14/19 06:23 BUN/Creatinine Ratio 3.0 (8-20) L 02/14/19 06:23 Glucose 143 mg/dL (70-100) H 02/14/19 06:23 Lactic Acid 0.6 mmol/L (0.5-2.0) 02/06/19 19:26 Calcium 8.1 mg/dL (8.6-10.3) L 02/14/19 06:23 Phosphorus 2.6 mg/dL (2.5-5.0) 02/08/19 08:04 Magnesium 2.0 mg/dL (1.9-2.7) 02/12/19 09:11 Total Bilirubin 0.30 mg/dL (0.2-1.0) 02/14/19 06:23 AST 15 U/L (13-39) 02/14/19 06:23 ALT 8 U/L (7-52) 02/14/19 06:23 Alkaline Phosphatase 53 U/L (34-104) 02/14/19 06:23 C-Reactive Protein 355.60 mg/L (<8.01) H 02/11/19 07:59 Total Protein 5.6 g/dL (6.4-8.9) L 02/14/19 06:23 Albumin 2.7 g/dL (3.2-5.2) L 02/14/19 06:23 Globulin 2.9 g/dL (2-4) 02/14/19 06:23 Albumin/Globulin Ratio 0.9 (1-3) L 02/14/19 06:23 Lipase 10 U/L (11.0-82.0) L 02/06/19 14:36 Beta HCG, Quant < 0.60 mIU/mL 02/06/19 14:36 Urine Color Straw 02/06/19 17:20 Urine Appearance Clear 02/06/19 17:20 Urine pH 5.0 (5-9) 02/06/19 17:20 Ur Specific [place] 1.002 (1.010-1.030) L 02/06/19 17:20 Urine Protein Negative (Negative) 02/06/19 17:20 Urine Ketones Negative (Negative) 02/06/19 17:20 Urine Blood 1+ (Negative) A 02/06/19 17:20 Urine Nitrate Negative (Negative) 02/06/19 17:20 Urine Bilirubin Negative (Negative) 02/06/19 17:20 Urine Urobilinogen Negative (Negative) 02/06/19 17:20 Ur Leukocyte Esterase Negative (Negative) 02/06/19 17:20 Urine WBC (Auto) Trace(0-5/hpf) (Absent) 02/06/19 17:20 Urine RBC (Auto) Trace(0-2/hpf) (Absent) 02/06/19 17:20 Ur Squamous Epith Cells Present (Absent) A 02/06/19 17:20 Urine Bacteria Absent (Absent) 02/06/19 17:20 Urine Glucose Negative (Negative) 02/06/19 17:20 HIV 1&2 Antibody Nonreactive (Nonreactive) 02/06/19 19:26 [] Assessment:stable, improving, elevated wbc, but clinically improved and stable [] Plan:continue abx, iv, clamp ng, collect, replace electrolytes, follow wbc []
[2019-02-14 13:34] LABS: Urine Appearance Clear; Urine Bacteria Absent (Absent); Urine Bilirubin Negative (Negative); Urine Blood 1+ (Negative); Urine Color Amber; Urine Glucose Negative (Negative); Urine Ketones 1+ (Negative); Urine Nitrite Negative (Negative); Urine Protein Negative (Negative); Urine Red Blood Cell 2+(6-10/hpf) (Absent); Urine Specific Gravity 1.019 (1.010-1.030); Urine Squamous Epithelial Cell Present (Absent); Urine Urobilinogen Negative (Negative); Urine White Blood Cell Trace(0-5/hpf) (Absent)
--- NOTE | 2019-02-14 15:09 | PN ---
Subjective Date of Service: 02/14/19 Interval History: Rosalba is feeling okay this morning. Her pain is controlled on a PROFESSOR OF PRACTICE. NG tube in place still, remains npo. Objective Active Medications: Diphenhydramine HCl (Benadryl Liq*) 25 mg PO Q6H PRN PRN Reason: ITCHING Last Admin: 02/14/19 15:05 Dose: 25 mg Heparin Sodium (Porcine) (Heparin Vial(*)) 5,000 units SUBCUT Q8HR [facility] Last Admin: 02/14/19 14:22 Dose: Not Given Metronidazole/Sodium Chloride (Flagyl 500 Mg Ivpb*) 500 mg in 100 mls @ 100 mls /hr IVPB Q8H [facility] Last Admin: 02/14/19 14:24 Dose: 100 mls/hr Hydromorphone HCl (Dilaudid Intelligence Support Officer*) 20 mg in 20 mls @ 0 mls/hr [employer]OR [employer]ACTICE .Q24H [facility]; Protocol Last Admin: 02/13/19 21:38 Dose: 1 mls/hr Sodium Chloride (Ns 0.9% 1000 Ml) 1,000 mls @ 30 mls/hr IVPB PER RATE [facility] Ciprofloxacin/Dextrose (Cipro 400 Mg Ivpremix(*)) 400 mg in 200 mls @ 200 mls/ hr IVPB 0800,2000 [facility] Last Admin: 02/14/19 08:18 Dose: 200 mls/hr Potassium Cl/Dextrose/Lact Ringer's (D5lr 20 Meq Kcl 1000 Ml Bag*) 1,000 mls @ 125 mls/hr IV PER RATE [facility] Last Admin: 02/14/19 10:28 Dose: 125 mls/hr Ketorolac Tromethamine (Toradol Inj*) 15 mg IV PUSH Q6H [facility] Stop: 02/15/19 04:01 Last Admin: 02/14/19 10:28 Dose: 15 mg Lorazepam (Ativan Inj*) 0.5 mg IV PUSH Q4H PRN PRN Reason: ANXIETY Last Admin: 02/14/19 12:42 Dose: 0.5 mg Miscellaneous (Ativan Pyxis Partida) 1 ea N/A .PYXIS PARTIDA PRN PRN Reason: PER PROTOCOL Naloxone HCl (Narcan*) 0.08 mg IV PUSH Q2M PRN PRN Reason: SEDATION Nicotine (Nicotine Patch 21 Mg/24 Hr*) 1 patch TRANSDERM DAILY [facility] Last Admin: 02/14/19 08:11 Dose: 1 patch Ondansetron HCl (Zofran Inj*) 4 mg IV Q4H PRN PRN Reason: NAUSEA/VOMITING Last Admin: 02/13/19 14:40 Dose: 4 mg Pantoprazole Sodium (Protonix Iv*) 40 mg IV DAILY [facility] Last Admin: 02/14/19 08:10 Dose: 40 mg Pharmacy Profile Note (Nicotine Patch Removal Note*) 1 note FOLLOW UP 2100 [facility] Last Admin: 02/14/19 01:34 Dose: 1 note Prochlorperazine Edisylate (Compazine Inj*) 10 mg IV Q6H PRN PRN Reason: NAUSEA/VOMITING Last Admin: 02/11/19 22:00 Dose: 10 mg Vital Signs - 8 hr 02/14/19 02/14/19 02/14/19 07:16 08:10 12:42 Temperature 98.2 F Pulse Rate 108 Respiratory 18 16 18 Rate Blood Pressure 111/68 (mmHg) O2 Sat by Pulse 96 Oximetry 02/14/19 02/14/19 02/14/19 12:43 14:19 15:05 Temperature Pulse Rate Respiratory 16 16 18 Rate Blood Pressure (mmHg) O2 Sat by Pulse Oximetry Oxygen Devices in Use Now: Nasal Cannula Appearance: alert, well appearing, comfortable and pleasant Eyes: No Scleral Icterus Ears/Nose/Mouth/Throat: NL Teeth, Lips, Gums Neck: NL Appearance and Movements; NL JVP Respiratory: Symmetrical Chest Expansion and Respiratory Effort, Clear to Auscultation Cardiovascular: NL Sounds; No Murmurs; No JVD, RRR Abdominal: - - midline incision clean, ostomy with brown liquid, no stool Lymphatic: No Cervical Adenopathy Extremities: No Edema Skin: No Rash or Ulcers Neurological: Alert and Oriented x 3 Result Diagrams: 02/14/19 06:23 02/14/19 06:23 Additional Lab and Data: Lab Results 02/06/19 02/06/19 02/06/19 Range/Units 14:36 14:36 14:36 WBC 14.1 H (3.5-10.8) 10^3/uL RBC 4.77 (3.70-4.87) 10^6 /uL Hgb 15.2 (12.0-16.0) g/dL Hct 45 H (33-41) % MCV 95 (80-97) fL MCH 32 H (27-31) pg MCHC 34 (31-36) g/dL RDW 14 (10.5-15) % Plt Count 300 (150-450) 10^3/uL MPV 7.5 (7.4-10.4) fL Neut % (Auto) 82.1 % Lymph % (Auto) 10.6 % [place] % (Auto) 5.7 % Eos % (Auto) 1.0 % Baso % (Auto) 0.6 % Absolute Neuts (auto) 11.6 H (1.5-7.7) 10^3/ul Absolute Lymphs (auto) 1.5 (1.0-4.8) 10^3/ul Absolute Monos (auto) 0.8 (0-0.8) 10^3/ul Absolute Eos (auto) 0.1 (0-0.6) 10^3/ul Absolute Basos (auto) 0.1 (0-0.2) 10^3/ul Absolute Nucleated RBC 0 10^3/ul Nucleated RBC % 0 Sodium 138 (135-145) mmol/L Potassium 4.0 (3.5-5.0) mmol/L Chloride 106 (101-111) mmol/L Carbon Dioxide 23 (22-32) mmol/L Anion Gap 9 (2-11) mmol/L BUN 12 (6-24) mg/dL Creatinine 0.90 (0.51-0.95) mg/dL Est GFR ( Amer) 87.3 (>60) Est GFR (Non-Af Amer) 72.1 (>60) BUN/Creatinine Ratio 13.3 (8-20) Glucose 96 (70-100) mg/dL Lactic Acid 0.7 (0.5-2.0) mmol/L Calcium 9.1 (8.6-10.3) mg/dL Total Bilirubin 0.80 (0.2-1.0) mg/dL AST 19 (13-39) U/L ALT 15 (7-52) U/L Alkaline Phosphatase 80 (34-104) U/L C-Reactive Protein 7.41 (<8.01) mg/L Total Protein 7.6 (6.4-8.9) g/dL Albumin 4.4 (3.2-5.2) g/dL Globulin 3.2 (2-4) g/dL Albumin/Globulin Ratio 1.4 (1-3) Lipase 10 L (11.0-82.0) U/L Beta HCG, Quant < 0.60 mIU/mL Microbiology and Other Data: Microbiology 02/06/19 17:20 Urine Culture - Preliminary Urine Klebsiella Pneumoniae Assess/Plan/Problems-Billing Assessment: 33 yo f with recurrent diverticulitis complicated by perforation/ abscess/SBO - Patient Problems (1) Perforated diverticulum Current Visit: Yes Status: Acute Code(s): K57.80 - DVTRCLI OF INTEST, PART UNSP, W PERF AND ABSCESS W/O BLEED SNOMED Code(s): 67006564 Comment: s/p colectomy/colostomy healing well and pain now managed hgb and lytes stable postop (2) Small bowel obstruction Current Visit: Yes Status: Acute Code(s): K56.609 - UNSP INTESTNL OBST, UNSP TO PARTIAL VERSUS COMPLETE OBST SNOMED Code(s): 807992647 Comment: defer timing of NG tube removal to surgical team Status and Disposition: I will sign off; no current medical issues. Please feel free to call us with any questions or concerns.
[2019-02-14] MEDS: HYDROmorphone PCA* 20 MG/20 ML PCA.SYRING PCA SCH (18:20)
[2019-02-15] MEDS: Ketorolac INJ* 15 MG/ML 1 ML VIAL IV PUSH SCH (03:41)
[2019-02-15] MEDS: metroNIDAZOLE IV 500 MG/100ML* 500 MG/100 ML BAG IVPB SCH ×3 (05:35→21:59)
[2019-02-15] MEDS: Heparin VIAL(*) 5000 UNITS/ML VIAL (FIVE THOUSAND) SUBCUT SCH ×4 (05:35→14:23)
[2019-02-15 08:10] LABS: Albumin 2.3 g/dL (3.2-5.2); Albumin/Globulin Ratio 0.8 (1-3); BUN/Creatinine Ratio 3.2 (8-20); Calcium 7.8 mg/dL (8.6-10.3); EGFR African American 134.1 (>60); EGFR Non-African American 110.9 (>60); Globulin 2.9 g/dL (2-4); Magnesium 1.8 mg/dL (1.9-2.7); Phosphorus 3.2 mg/dL (2.5-5.0); Potassium 3.6 mmol/L (3.5-5.0); Total Bilirubin 0.3 mg/dL (0.2-1.0); Total Protein 5.2 g/dL (6.4-8.9)
[2019-02-15] MEDS: Pantoprazole IV* 40 MG IV SCH (08:13)
[2019-02-15] MEDS: Ciprofloxacin 400MG IVPREMIX(* 400 MG/200 ML BAG IVPB SCH ×2 (08:13→19:57)
[2019-02-15] MEDS: Nicotine PATCH 21 MG/24 HR* PATCH TRANSDERM SCH (08:13)
[2019-02-15 08:14] LABS: Hematocrit 29 % (35-47); Hemoglobin 9.8 g/dL (12.0-16.0); Mean Corpuscular HGB Conc 34 g/dL (31-36); Mean Corpuscular Hemoglobin 32 pg (27-31); Mean Corpuscular Volume 94 fL (80-97); Mean Platelet Volume 7.1 fL (7.4-10.4); Platelet Count 553 10^3/uL (150-450); Red Blood Count 3.09 10^6 /uL (3.70-4.87); Red Cell Distribution Width 15 % (10.5-15); White Blood Count 16.7 10^3/uL (3.5-10.8)
[2019-02-15] MEDS: D5LR 20 MEQ KCL 1000 ML BAG* 1,000 ML IV SCH ×2 (08:15→18:50)
[2019-02-15 10:29] LABS: ABS Basophils 0.1 10^3/ul (0-0.2); ABS Eosinophils 0.3 10^3/ul (0-0.6); ABS Lymphocytes 1.3 10^3/ul (1.0-4.8); ABS Monocytes 1.6 10^3/ul (0-0.8); ABS Neutrophils 13.4 10^3/ul (1.5-7.7); ABS Nucleated RBC 0 10^3/ul; Eosinophil % 2.1 %; Lymphocyte % 7.8 %; Nucleated Red Blood Cells % 0
[2019-02-15] MEDS: LORazepam INJ* 2 MG/ML 1 ML VIAL IV PUSH PRN ×2 (11:12→17:19)
--- NOTE | 2019-02-15 11:31 | PN ---
Progress Note - Progress Note Date of Service: 02/15/19 SOAP: Subjective:pod#3 s/p ex lap,Coty's and end colostomy good pain control;no n/v while NG clamped;voiding,no dysuria;states that she is anxious about colostomy care [] Objective: Vital Signs Temp 98.7 F 02/15/19 07:37 Pulse 108 02/15/19 07:37 Resp 16 02/15/19 11:12 BP 124/76 02/15/19 07:37 Pulse Ox 95 02/15/19 10:00 Intake & Output 02/14/19 02/15/19 02/15/19 18:59 06:59 18:59 Intake Total 1960 0 897 Output Total 640 1250 200 Balance 1320 -1250 697 Intake: IV Fluids 1790 897 D5W LR 20 meq KCL 1270 897 NS (0.9%) 520 IVPB 110 ABX - FLAGYL 110 Medicated IV 60 calcium gluconate 60 Oral 0 0 0 Output: NG Tube Drainage Amount 200 Urine 260 1250 200 Iniguez 180 Colostomy 0 Laboratory Last Values WBC 16.7 10^3/uL (3.5-10.8) H 02/15/19 07:30 RBC 3.09 10^6 /uL (3.70-4.87) L 02/15/19 07:30 Hgb 9.8 g/dL (12.0-16.0) L 02/15/19 07:30 Hct 29 % (35-47) L 02/15/19 07:30 MCV 94 fL (80-97) 02/15/19 07:30 MCH 32 pg (27-31) H 02/15/19 07:30 MCHC 34 g/dL (31-36) 02/15/19 07:30 RDW 15 % (10.5-15) 02/15/19 07:30 Plt Count 553 10^3/uL (150-450) H 02/15/19 07:30 MPV 7.1 fL (7.4-10.4) L 02/15/19 07:30 Neut % (Auto) 80.1 % 02/15/19 07:30 Lymph % (Auto) 7.8 % 02/15/19 07:30 [place] % (Auto) 9.5 % 02/15/19 07:30 Eos % (Auto) 2.1 % 02/15/19 07:30 Baso % (Auto) 0.5 % 02/15/19 07:30 Absolute Neuts (auto) 13.4 10^3/ul (1.5-7.7) H 02/15/19 07:30 Absolute Lymphs (auto) 1.3 10^3/ul (1.0-4.8) 02/15/19 07:30 Absolute Monos (auto) 1.6 10^3/ul (0-0.8) H 02/15/19 07:30 Absolute Eos (auto) 0.3 10^3/ul (0-0.6) 02/15/19 07:30 Absolute Basos (auto) 0.1 10^3/ul (0-0.2) 02/15/19 07:30 Absolute Nucleated RBC 0 10^3/ul 02/15/19 07:30 Nucleated RBC % 0 02/15/19 07:30 INR (Anticoag Therapy) 1.25 (0.82-1.09) H 02/12/19 13:26 APTT 27.2 seconds (26.0-36.3) 02/12/19 13:26 Sodium 138 mmol/L (135-145) 02/15/19 07:30 Potassium 3.6 mmol/L (3.5-5.0) 02/15/19 07:30 Chloride 106 mmol/L (101-111) 02/15/19 07:30 Carbon Dioxide 25 mmol/L (22-32) 02/15/19 07:30 Anion Gap 7 mmol/L (2-11) 02/15/19 07:30 BUN 2 mg/dL (6-24) L 02/15/19 07:30 Creatinine 0.62 mg/dL (0.51-0.95) 02/15/19 07:30 Est GFR ( Amer) 134.1 (>60) 02/15/19 07:30 Est GFR (Non-Af Amer) 110.9 (>60) 02/15/19 07:30 BUN/Creatinine Ratio 3.2 (8-20) L 02/15/19 07:30 Glucose 135 mg/dL (70-100) H 02/15/19 07:30 Lactic Acid 0.6 mmol/L (0.5-2.0) 02/06/19 19:26 Calcium 7.8 mg/dL (8.6-10.3) L 02/15/19 07:30 Phosphorus 3.2 mg/dL (2.5-5.0) 02/15/19 07:30 Magnesium 1.8 mg/dL (1.9-2.7) L 02/15/19 07:30 Total Bilirubin 0.30 mg/dL (0.2-1.0) 02/15/19 07:30 AST 12 U/L (13-39) L 02/15/19 07:30 ALT 7 U/L (7-52) 02/15/19 07:30 Alkaline Phosphatase 57 U/L (34-104) 02/15/19 07:30 C-Reactive Protein 355.60 mg/L (<8.01) H 02/11/19 07:59 Total Protein 5.2 g/dL (6.4-8.9) L 02/15/19 07:30 Albumin 2.3 g/dL (3.2-5.2) L 02/15/19 07:30 Globulin 2.9 g/dL (2-4) 02/15/19 07:30 Albumin/Globulin Ratio 0.8 (1-3) L 02/15/19 07:30 Lipase 10 U/L (11.0-82.0) L 02/06/19 14:36 Beta HCG, Quant < 0.60 mIU/mL 02/06/19 14:36 Urine Color Leda 02/14/19 13:03 Urine Appearance Clear 02/14/19 13:03 Urine pH 5.0 (5-9) 02/14/19 13:03 Ur Specific [place] 1.019 (1.010-1.030) 02/14/19 13:03 Urine Protein Negative (Negative) 02/14/19 13:03 Urine Ketones 1+ (Negative) A 02/14/19 13:03 Urine Blood 1+ (Negative) A 02/14/19 13:03 Urine Nitrate Negative (Negative) 02/14/19 13:03 Urine Bilirubin Negative (Negative) 02/14/19 13:03 Urine Urobilinogen Negative (Negative) 02/14/19 13:03 Ur Leukocyte Esterase 1+ (Negative) A 02/14/19 13:03 Urine WBC (Auto) Trace(0-5/hpf) (Absent) 02/14/19 13:03 Urine RBC (Auto) 2+(6-10/hpf) (Absent) A 02/14/19 13:03 Ur Squamous Epith Cells Present (Absent) A 02/14/19 13:03 Urine Bacteria Absent (Absent) 02/14/19 13:03 Urine Glucose Negative (Negative) 02/14/19 13:03 HIV 1&2 Antibody Nonreactive (Nonreactive) 02/06/19 19:26 lungs:clear bilat;heart:RRR,tachycardic at 120;abd:hypoactive bs,soft,mild distention;stoma pink,no obvious gas in bag,scant serosang fluid;midline incision intact with heber,no erythema or drainage,redressed with bacitracin and sterile 4x4's;ext:nontender calves Microbiology report from preliminary intraabdominal C&S reveals bacteroides ovatus [] Assessment:remains tachycardic,WBC remains elevated at 16.7;afebrile;not ill appearing,ambulating frequently in halls [] Plan:I called this morning and reviewed all of the above findings;Dr Ingram indicated waiting for final C&S results for possible change of antibiotics;I asked Dr Sandoval from Hospitalist service to see the patient today for medical input as well;pt updated with plan;will repeat CBC and CMP 02/16/19 []
[2019-02-15 11:50] LABS: C Reactive Protein 286.25 mg/L (<8.01)
--- NOTE | 2019-02-15 16:53 | PN ---
Subjective Date of Service: 02/15/19 Interval History: I was asked to re-evaluate Rosalba this morning for sinus tachycardia, leukocytosis, and hypocalcemia. Feeling okay this morning. 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 No fevers. NG tube is out and she is happy with that. Advanced diet to clears and she is also happy with that. Objective Active Medications: Diphenhydramine HCl (Benadryl Liq*) 25 mg PO Q6H PRN PRN Reason: ITCHING Last Admin: 02/14/19 23:44 Dose: 25 mg Heparin Sodium (Porcine) (Heparin Vial(*)) 5,000 units SUBCUT Q8HR [facility] Last Admin: 02/15/19 14:23 Dose: Not Given Metronidazole/Sodium Chloride (Flagyl 500 Mg Ivpb*) 500 mg in 100 mls @ 100 mls /hr IVPB Q8H [facility] Last Admin: 02/15/19 14:14 Dose: 100 mls/hr Hydromorphone HCl (Dilaudid Medical Clerk*) 20 mg in 20 mls @ 0 mls/hr FUEL HOUSE ATTENDANT .Q24H [facility]; Protocol Last Admin: 02/14/19 18:20 Dose: 1 mls/hr Sodium Chloride (Ns 0.9% 1000 Ml) 1,000 mls @ 30 mls/hr IVPB PER RATE [facility] Ciprofloxacin/Dextrose (Cipro 400 Mg Ivpremix(*)) 400 mg in 200 mls @ 200 mls/ hr IVPB 0800,2000 [facility] Last Admin: 02/15/19 08:13 Dose: 200 mls/hr Potassium Cl/Dextrose/Lact Ringer's (D5lr 20 Meq Kcl 1000 Ml Bag*) 1,000 mls @ 125 mls/hr IV PER RATE [facility] Last Admin: 02/15/19 08:15 Dose: 125 mls/hr Lorazepam (Ativan Inj*) 0.5 mg IV PUSH Q4H PRN PRN Reason: ANXIETY Last Admin: 02/15/19 11:12 Dose: 0.5 mg Miscellaneous (Ativan Pyxis Partida) 1 ea N/A .PYXIS PARTIDA PRN PRN Reason: PER PROTOCOL Naloxone HCl (Narcan*) 0.08 mg IV PUSH Q2M PRN PRN Reason: SEDATION Nicotine (Nicotine Patch 21 Mg/24 Hr*) 1 patch TRANSDERM DAILY [facility] Last Admin: 02/15/19 08:13 Dose: 1 patch Ondansetron HCl (Zofran Inj*) 4 mg IV Q4H PRN PRN Reason: NAUSEA/VOMITING Last Admin: 02/13/19 14:40 Dose: 4 mg Pantoprazole Sodium (Protonix Iv*) 40 mg IV DAILY [facility] Last Admin: 02/15/19 08:13 Dose: 40 mg Pharmacy Profile Note (Nicotine Patch Removal Note*) 1 note FOLLOW UP 2100 [facility] Last Admin: 02/14/19 20:51 Dose: 1 note Prochlorperazine Edisylate (Compazine Inj*) 10 mg IV Q6H PRN PRN Reason: NAUSEA/VOMITING Last Admin: 02/11/19 22:00 Dose: 10 mg Vital Signs - 8 hr 02/15/19 02/15/19 02/15/19 10:00 11:12 11:42 Temperature 99.8 F Pulse Rate 111 Respiratory 16 16 16 Rate Blood Pressure 127/63 (mmHg) O2 Sat by Pulse 95 95 Oximetry 02/15/19 02/15/19 02/15/19 12:00 14:00 14:08 Temperature Pulse Rate Respiratory 16 15 16 Rate Blood Pressure (mmHg) O2 Sat by Pulse 97 97 Oximetry 02/15/19 02/15/19 15:48 16:00 Temperature 97.2 F Pulse Rate 121 Respiratory 16 18 Rate Blood Pressure 136/79 (mmHg) O2 Sat by Pulse 95 96 Oximetry Oxygen Devices in Use Now: Nasal Cannula Appearance: alert, well appearing Eyes: No Scleral Icterus Ears/Nose/Mouth/Throat: NL Teeth, Lips, Gums Neck: NL Appearance and Movements; NL JVP Respiratory: Symmetrical Chest Expansion and Respiratory Effort, Clear to Auscultation Cardiovascular: NL Sounds; No Murmurs; No JVD, RRR Abdominal: - - laparotomy incision clean and stapled with no drainage or erythema. ostomy with liquid, no stool. Extremities: No Edema Skin: No Rash or Ulcers Neurological: Alert and Oriented x 3, NL Muscle Strength and Tone Result Diagrams: 02/15/19 07:30 02/15/19 07:30 Additional Lab and Data: Lab Results 02/06/19 02/06/19 02/06/19 Range/Units 14:36 14:36 14:36 WBC 14.1 H (3.5-10.8) 10^3/uL RBC 4.77 (3.70-4.87) 10^6 /uL Hgb 15.2 (12.0-16.0) g/dL Hct 45 H (33-41) % MCV 95 (80-97) fL MCH 32 H (27-31) pg MCHC 34 (31-36) g/dL RDW 14 (10.5-15) % Plt Count 300 (150-450) 10^3/uL MPV 7.5 (7.4-10.4) fL Neut % (Auto) 82.1 % Lymph % (Auto) 10.6 % [place] % (Auto) 5.7 % Eos % (Auto) 1.0 % Baso % (Auto) 0.6 % Absolute Neuts (auto) 11.6 H (1.5-7.7) 10^3/ul Absolute Lymphs (auto) 1.5 (1.0-4.8) 10^3/ul Absolute Monos (auto) 0.8 (0-0.8) 10^3/ul Absolute Eos (auto) 0.1 (0-0.6) 10^3/ul Absolute Basos (auto) 0.1 (0-0.2) 10^3/ul Absolute Nucleated RBC 0 10^3/ul Nucleated RBC % 0 Sodium 138 (135-145) mmol/L Potassium 4.0 (3.5-5.0) mmol/L Chloride 106 (101-111) mmol/L Carbon Dioxide 23 (22-32) mmol/L Anion Gap 9 (2-11) mmol/L BUN 12 (6-24) mg/dL Creatinine 0.90 (0.51-0.95) mg/dL Est GFR ( Amer) 87.3 (>60) Est GFR (Non-Af Amer) 72.1 (>60) BUN/Creatinine Ratio 13.3 (8-20) Glucose 96 (70-100) mg/dL Lactic Acid 0.7 (0.5-2.0) mmol/L Calcium 9.1 (8.6-10.3) mg/dL Total Bilirubin 0.80 (0.2-1.0) mg/dL AST 19 (13-39) U/L ALT 15 (7-52) U/L Alkaline Phosphatase 80 (34-104) U/L C-Reactive Protein 7.41 (<8.01) mg/L Total Protein 7.6 (6.4-8.9) g/dL Albumin 4.4 (3.2-5.2) g/dL Globulin 3.2 (2-4) g/dL Albumin/Globulin Ratio 1.4 (1-3) Lipase 10 L (11.0-82.0) U/L Beta HCG, Quant < 0.60 mIU/mL Microbiology and Other Data: Microbiology 02/06/19 17:20 Urine Culture - Preliminary Urine Klebsiella Pneumoniae Assess/Plan/Problems-Billing Assessment: 33 yo f with recurrent diverticulitis complicated by perforation/ abscess/SBO - Patient Problems (1) Tachycardia Current Visit: Yes Status: Acute Code(s): R00.0 - TACHYCARDIA, UNSPECIFIED SNOMED Code(s): 9042665 Comment: check EKG to be sure this is sinus, sounds regular on exam my biggest concern is thromboembolism since I see she has been refusing the heparin shots for days now. I discussed a possible CTA with her, and this is overwhelming to her and she doesn't want to consider going through another one now. certainly the stress of her surgery could cause sinus tachycardia infection is also on the differential; she has no localizing source besides her abdomen and remains on flagyl/cipro--I'll defer timing of re-imaging to surgery if they think this is a concern her pain is well controlled and she is well volume resuscitated (2) Perforated diverticulum Current Visit: Yes Status: Acute Code(s): K57.80 - DVTRCLI OF INTEST, PART UNSP, W PERF AND ABSCESS W/O BLEED SNOMED Code(s): 25219782 Comment: s/p colectomy/colostomy healing well and pain now managed hgb and lytes stable postop (3) Small bowel obstruction Current Visit: Yes Status: Acute Code(s): K56.609 - UNSP INTESTNL OBST, UNSP TO PARTIAL VERSUS COMPLETE OBST SNOMED Code(s): 204731142 Comment: please note that she is not hypocalcemic--calcium is normal when corrected for hypoalbuminemia
[2019-02-15] MEDS: HYDROmorphone PCA* 20 MG/20 ML PCA.SYRING PCA SCH (17:06)
[2019-02-15] MEDS: Enoxaparin(*) 40 MG/0.4 ML SYR SUBCUT SCH (17:57)
--- NOTE | 2019-02-15 18:22 | PN ---
Progress Note - Progress Note Date of Service: 02/15/19 Note: good pain control no flatus or stool in ostomy incision ok tachycardia, ekg reading pending from hospitalist wbc remains elevated, no fever continue iv abx, await culture results/sensitivities
[2019-02-15] MEDS: Nicotine Patch Removal NOTE FOLLOW UP SCH (20:30)
[2019-02-16] MEDS: LORazepam INJ* 2 MG/ML 1 ML VIAL IV PUSH PRN ×3 (00:24→20:47)
[2019-02-16] MEDS: metroNIDAZOLE IV 500 MG/100ML* 500 MG/100 ML BAG IVPB SCH (05:34)
[2019-02-16 06:47] LABS: Hematocrit 35 % (35-47); Hemoglobin 11.1 g/dL (12.0-16.0); Mean Corpuscular HGB Conc 31 g/dL (31-36); Mean Corpuscular Hemoglobin 31 pg (27-31); Mean Corpuscular Volume 100 fL (80-97); Mean Platelet Volume 7.8 fL (7.4-10.4); Platelet Count 585 10^3/uL (150-450); Red Blood Count 3.55 10^6 /uL (3.70-4.87); Red Cell Distribution Width 16 % (10.5-15); White Blood Count 20.1 10^3/uL (3.5-10.8)
[2019-02-16 06:50] LABS: Albumin 2.5 g/dL (3.2-5.2); Calcium 7.8 mg/dL (8.6-10.3); Potassium 4.3 mmol/L (3.5-5.0); Total Bilirubin 0.5 mg/dL (0.2-1.0)
[2019-02-16 06:56] LABS: Albumin/Globulin Ratio 0.9 (1-3); BUN/Creatinine Ratio 2.9 (8-20); EGFR African American 116.6 (>60); EGFR Non-African American 96.4 (>60); Globulin 2.8 g/dL (2-4); Total Protein 5.3 g/dL (6.4-8.9)
[2019-02-16 07:20] LABS: ABS Eosinophils 0.1 10^3/ul (0-0.6); ABS Lymphocytes 1.5 10^3/ul (1.0-4.8); ABS Neutrophils 16.5 10^3/ul (1.5-7.7)
[2019-02-16 07:21] LABS: ABS Neutrophils 17.1 10^3/ul (1.5-7.7)
[2019-02-16] MEDS: Ciprofloxacin 400MG IVPREMIX(* 400 MG/200 ML BAG IVPB SCH (08:01)
[2019-02-16] MEDS: Nicotine PATCH 21 MG/24 HR* PATCH TRANSDERM SCH (08:01)
[2019-02-16] MEDS: Pantoprazole IV* 40 MG IV SCH (08:01)
--- NOTE | 2019-02-16 08:36 | PN ---
Subjective Date of Service: 02/16/19 Interval History: Febrile this morning, feeling ill. When I tell her I am concerned for ongoing infection, she is very anxious and requests ativan. She has abdominal pain but thinks it is about usual for her pain in the mornings. Objective Active Medications: Diphenhydramine HCl (Benadryl Liq*) 25 mg PO Q6H PRN PRN Reason: ITCHING Last Admin: 02/14/19 23:44 Dose: 25 mg Enoxaparin Sodium (Lovenox(*)) 40 mg SUBCUT Q24H [facility] Last Admin: 02/15/19 17:57 Dose: 40 mg Metronidazole/Sodium Chloride (Flagyl 500 Mg Ivpb*) 500 mg in 100 mls @ 100 mls /hr IVPB Q8H [facility] Last Admin: 02/16/19 05:34 Dose: 100 mls/hr Hydromorphone HCl (Dilaudid Monorail Charger Operator*) 20 mg in 20 mls @ 0 mls/hr STEEL DIE PRESS SET UP OPERATOR .Q24H [facility]; Protocol Last Admin: 02/15/19 17:06 Dose: 1 mls/hr Sodium Chloride (Ns 0.9% 1000 Ml) 1,000 mls @ 30 mls/hr IVPB PER RATE [facility] Ciprofloxacin/Dextrose (Cipro 400 Mg Ivpremix(*)) 400 mg in 200 mls @ 200 mls/ hr IVPB 0800,1999 [facility] Last Admin: 02/16/19 08:01 Dose: 200 mls/hr Potassium Cl/Dextrose/Lact Ringer's (D5lr 20 Meq Kcl 1000 Ml Bag*) 1,000 mls @ 125 mls/hr IV PER RATE [facility] Last Admin: 02/15/19 18:50 Dose: 125 mls/hr Lorazepam (Ativan Inj*) 0.5 mg IV PUSH Q4H PRN PRN Reason: ANXIETY Last Admin: 02/16/19 00:24 Dose: 0.5 mg Miscellaneous (Ativan Pyxis Partida) 1 ea N/A .PYXIS PARTIDA PRN PRN Reason: PER PROTOCOL Naloxone HCl (Narcan*) 0.08 mg IV PUSH Q2M PRN PRN Reason: SEDATION Nicotine (Nicotine Patch 21 Mg/24 Hr*) 1 patch TRANSDERM DAILY [facility] Last Admin: 02/16/19 08:01 Dose: 1 patch Ondansetron HCl (Zofran Inj*) 4 mg IV Q4H PRN PRN Reason: NAUSEA/VOMITING Last Admin: 02/13/19 14:40 Dose: 4 mg Pantoprazole Sodium (Protonix Iv*) 40 mg IV DAILY [facility] Last Admin: 02/16/19 08:01 Dose: 40 mg Pharmacy Profile Note (Nicotine Patch Removal Note*) 1 note FOLLOW UP 2100 [facility] Last Admin: 02/15/19 20:30 Dose: 1 note Prochlorperazine Edisylate (Compazine Inj*) 10 mg IV Q6H PRN PRN Reason: NAUSEA/VOMITING Last Admin: 02/11/19 22:00 Dose: 10 mg Vital Signs - 8 hr 02/16/19 02/16/19 02/16/19 01:43 02:00 03:27 Temperature 98.8 F Pulse Rate 122 Respiratory 16 16 18 Rate Blood Pressure 122/76 (mmHg) O2 Sat by Pulse 95 94 Oximetry 02/16/19 02/16/19 02/16/19 04:00 06:00 06:30 Temperature Pulse Rate Respiratory 16 16 16 Rate Blood Pressure (mmHg) O2 Sat by Pulse 94 93 93 Oximetry 02/16/19 07:32 Temperature 100.6 F Pulse Rate 125 Respiratory 16 Rate Blood Pressure 140/74 (mmHg) O2 Sat by Pulse 92 Oximetry Oxygen Devices in Use Now: Nasal Cannula Appearance: alert, anxious, no distress Eyes: No Scleral Icterus Ears/Nose/Mouth/Throat: NL Teeth, Lips, Gums Neck: NL Appearance and Movements; NL JVP Respiratory: Symmetrical Chest Expansion and Respiratory Effort Cardiovascular: - - tachycardic, cannot appreciate murmurs Abdominal: - - ostomy with clear fluid, laparotomy clean Lymphatic: No Cervical Adenopathy Extremities: No Edema Skin: No Rash or Ulcers Neurological: Alert and Oriented x 3 Result Diagrams: 02/16/19 06:06 02/16/19 06:06 Additional Lab and Data: Lab Results 02/06/19 02/06/19 02/06/19 Range/Units 14:36 14:36 14:36 WBC 14.1 H (3.5-10.8) 10^3/uL RBC 4.77 (3.70-4.87) 10^6 /uL Hgb 15.2 (12.0-16.0) g/dL Hct 45 H (33-41) % MCV 95 (80-97) fL MCH 32 H (27-31) pg MCHC 34 (31-36) g/dL RDW 14 (10.5-15) % Plt Count 300 (150-450) 10^3/uL MPV 7.5 (7.4-10.4) fL Neut % (Auto) 82.1 % Lymph % (Auto) 10.6 % [place] % (Auto) 5.7 % Eos % (Auto) 1.0 % Baso % (Auto) 0.6 % Absolute Neuts (auto) 11.6 H (1.5-7.7) 10^3/ul Absolute Lymphs (auto) 1.5 (1.0-4.8) 10^3/ul Absolute Monos (auto) 0.8 (0-0.8) 10^3/ul Absolute Eos (auto) 0.1 (0-0.6) 10^3/ul Absolute Basos (auto) 0.1 (0-0.2) 10^3/ul Absolute Nucleated RBC 0 10^3/ul Nucleated RBC % 0 Sodium 138 (135-145) mmol/L Potassium 4.0 (3.5-5.0) mmol/L Chloride 106 (101-111) mmol/L Carbon Dioxide 23 (22-32) mmol/L Anion Gap 9 (2-11) mmol/L BUN 12 (6-24) mg/dL Creatinine 0.90 (0.51-0.95) mg/dL Est GFR ( Amer) 87.3 (>60) Est GFR (Non-Af Amer) 72.1 (>60) BUN/Creatinine Ratio 13.3 (8-20) Glucose 96 (70-100) mg/dL Lactic Acid 0.7 (0.5-2.0) mmol/L Calcium 9.1 (8.6-10.3) mg/dL Total Bilirubin 0.80 (0.2-1.0) mg/dL AST 19 (13-39) U/L ALT 15 (7-52) U/L Alkaline Phosphatase 80 (34-104) U/L C-Reactive Protein 7.41 (<8.01) mg/L Total Protein 7.6 (6.4-8.9) g/dL Albumin 4.4 (3.2-5.2) g/dL Globulin 3.2 (2-4) g/dL Albumin/Globulin Ratio 1.4 (1-3) Lipase 10 L (11.0-82.0) U/L Beta HCG, Quant < 0.60 mIU/mL Microbiology and Other Data: Microbiology 02/06/19 17:20 Urine Culture - Preliminary Urine Klebsiella Pneumoniae Assess/Plan/Problems-Billing Assessment: 33 yo f with recurrent diverticulitis complicated by perforation/ abscess/SBO - Patient Problems (1) Sepsis Current Visit: Yes Status: Acute Comment: her white count continues to rise , most concerning for ongoing intraabdominal infection vs. other source I am also checking stat blood cultures, UA, CXR and will disucss repeat abdominal imaging with surgery broaded abx check lactic acid (2) Tachycardia Current Visit: Yes Status: Acute Code(s): R00.0 - TACHYCARDIA, UNSPECIFIED SNOMED Code(s): 9796285 Comment: ongoing infection vs thromboembolism are most concerning work up infection as above, consider CTA (3) Perforated diverticulum Current Visit: Yes Status: Acute Code(s): K57.80 - DVTRCLI OF INTEST, PART UNSP, W PERF AND ABSCESS W/O BLEED SNOMED Code(s): 73556048 Comment: s/p colectomy/colostomy healing well and pain now managed hgb and lytes stable postop (4) Small bowel obstruction Current Visit: Yes Status: Acute Code(s): K56.609 - UNSP INTESTNL OBST, UNSP TO PARTIAL VERSUS COMPLETE OBST SNOMED Code(s): 803783950 Comment: please note that she is not hypocalcemic--calcium is normal when corrected for hypoalbuminemia Status and Disposition: I will sign off; no current medical issues. Please feel free to call us with any questions or concerns.
[2019-02-16] MEDS ORDERED: Iohexol 300* (CONTRAST) 10 ML SDV IV ONE (08:48)
[2019-02-16] MEDS: Ondansetron INJ* 2 MG/ML VIAL IV PRN (09:43)
[2019-02-16 10:15] LABS: Urine Appearance Cloudy; Urine Bacteria Absent (Absent); Urine Bilirubin Negative (Negative); Urine Blood 3+ (Negative); Urine Color Yellow; Urine Glucose Negative (Negative); Urine Ketones 1+ (Negative); Urine Nitrite Negative (Negative); Urine Protein Negative (Negative); Urine Red Blood Cell 2+(6-10/hpf) (Absent); Urine Specific Gravity 1.011 (1.010-1.030); Urine Squamous Epithelial Cell Present (Absent); Urine Urobilinogen Negative (Negative); Urine White Blood Cell 1+(6-10/hpf) (Absent)
--- NOTE | 2019-02-16 11:03 | PN ---
Progress Note - Progress Note Date of Service: 02/16/19 SOAP: Subjective:increased abd pain overnight,no n/v,no chills,anxious [] Objective:pt seen and examined at 0815 Vital Signs Temp 100.6 F 02/16/19 07:32 Pulse 125 02/16/19 07:32 Resp 16 02/16/19 08:42 BP 140/74 02/16/19 07:32 Pulse Ox 92 02/16/19 07:32 Intake & Output 02/15/19 02/16/19 02/16/19 18:59 06:59 18:59 Intake Total 2201 300 Output Total 1100 1100 200 Balance 1101 -800 -200 Intake: IV Fluids 1884 300 ABX - CIPROFLOXACIN 200 ABX - FLAGYL 100 D5W LR 20 meq KCL 1884 IVPB 317 ABX - CIPROFLOXACIN 210 ABX - FLAGYL 107 Oral 0 0 Output: Urine 1000 1100 200 Colostomy 0 0 Estimated Blood Loss 100 Other: Date of Last Bowel 02/10/19 Movement Laboratory Last Values WBC 20.1 10^3/uL (3.5-10.8) H 02/16/19 06:06 RBC 3.55 10^6 /uL (3.70-4.87) L 02/16/19 06:06 Hgb 11.1 g/dL (12.0-16.0) L 02/16/19 06:06 Hct 35 % (35-47) 02/16/19 06:06 MCV 100 fL (80-97) H 02/16/19 06:06 MCH 31 pg (27-31) 02/16/19 06:06 MCHC 31 g/dL (31-36) 02/16/19 06:06 RDW 16 % (10.5-15) H 02/16/19 06:06 Plt Count 585 10^3/uL (150-450) H 02/16/19 06:06 MPV 7.8 fL (7.4-10.4) 02/16/19 06:06 Neut % (Auto) Not Reportable 02/16/19 06:06 Lymph % (Auto) Not Reportable 02/16/19 06:06 [place] % (Auto) Not Reportable 02/16/19 06:06 Eos % (Auto) Not Reportable 02/16/19 06:06 Baso % (Auto) Not Reportable 02/16/19 06:06 Absolute Neuts (auto) 16.5 10^3/ul (1.5-7.7) H 02/16/19 06:06 Absolute Lymphs (auto) 1.5 10^3/ul (1.0-4.8) 02/16/19 06:06 Absolute Monos (auto) 2.0 10^3/ul (0-0.8) H 02/16/19 06:06 Absolute Eos (auto) 0.1 10^3/ul (0-0.6) 02/16/19 06:06 Absolute Basos (auto) 0.0 10^3/ul (0-0.2) 02/16/19 06:06 Absolute Nucleated RBC Not Reportable 02/16/19 06:06 Immature Gran % 2.0 % (0-9) 02/16/19 06:06 Neutrophils % 83.0 % 02/16/19 06:06 Band Neutrophils % 1.0 % (0-8) 02/16/19 06:06 Lymphocytes % 9.0 % 02/16/19 06:06 Monocytes % 6.0 % 02/16/19 06:06 Eosinophils % 0.0 % 02/16/19 06:06 Basophils % 0.0 % 02/16/19 06:06 Metamyelocytes % 1.0 % (0-2) 02/16/19 06:06 Nucleated RBC % Not Reportable 02/16/19 06:06 Abs Neuts (Manual) 17.1 10^3/ul (1.5-7.7) H 02/16/19 06:06 Abs Lymphs (Manual) 1.8 10^3/ul (1.0-4.8) 02/16/19 06:06 Abs Monocytes (Manual) 1.2 10^3/ul (0-0.8) H 02/16/19 06:06 Absolute Eos (Manual) 0.0 10^3/ul (0-0.6) 02/16/19 06:06 Abs Basophils (Manual) 0.0 10^3/ul (0-0.2) 02/16/19 06:06 Smudge Cells Present 02/16/19 06:06 Normal RBC Morphology Not Reportable 02/16/19 06:06 Anisocytosis 1+ 02/16/19 06:06 Macrocytosis 1+ 02/16/19 06:06 INR (Anticoag Therapy) 1.25 (0.82-1.09) H 02/12/19 13:26 APTT 27.2 seconds (26.0-36.3) 02/12/19 13:26 Sodium 135 mmol/L (135-145) 02/16/19 06:06 Potassium 4.3 mmol/L (3.5-5.0) 02/16/19 06:06 Chloride 103 mmol/L (101-111) 02/16/19 06:06 Carbon Dioxide 21 mmol/L (22-32) L 02/16/19 06:06 Anion Gap 11 mmol/L (2-11) 02/16/19 06:06 BUN 2 mg/dL (6-24) L 02/16/19 06:06 Creatinine 0.70 mg/dL (0.51-0.95) 02/16/19 06:06 Est GFR ( Amer) 116.6 (>60) 02/16/19 06:06 Est GFR (Non-Af Amer) 96.4 (>60) 02/16/19 06:06 BUN/Creatinine Ratio 2.9 (8-20) L 02/16/19 06:06 Glucose 124 mg/dL (70-100) H 02/16/19 06:06 Lactic Acid 0.5 mmol/L (0.5-2.0) 02/16/19 08:01 Calcium 7.8 mg/dL (8.6-10.3) L 02/16/19 06:06 Phosphorus 3.2 mg/dL (2.5-5.0) 02/15/19 07:30 Magnesium 1.8 mg/dL (1.9-2.7) L 02/15/19 07:30 Total Bilirubin 0.50 mg/dL (0.2-1.0) 02/16/19 06:06 AST 17 U/L (13-39) 02/16/19 06:06 ALT 8 U/L (7-52) 02/16/19 06:06 Alkaline Phosphatase 83 U/L (34-104) 02/16/19 06:06 C-Reactive Protein 286.25 mg/L (<8.01) H 02/15/19 07:30 B-Natriuretic Peptide 105 pg/mL (<=100) H 02/16/19 08:01 Total Protein 5.3 g/dL (6.4-8.9) L 02/16/19 06:06 Albumin 2.5 g/dL (3.2-5.2) L 02/16/19 06:06 Globulin 2.8 g/dL (2-4) 02/16/19 06:06 Albumin/Globulin Ratio 0.9 (1-3) L 02/16/19 06:06 Lipase 10 U/L (11.0-82.0) L 02/06/19 14:36 Beta HCG, Quant < 0.60 mIU/mL 02/06/19 14:36 Urine Color Yellow 02/16/19 08:59 Urine Appearance Cloudy 02/16/19 08:59 Urine pH 7.0 (5-9) 02/16/19 08:59 Ur Specific [place] 1.011 (1.010-1.030) 02/16/19 08:59 Urine Protein Negative (Negative) 02/16/19 08:59 Urine Ketones 1+ (Negative) A 02/16/19 08:59 Urine Blood 3+ (Negative) A 02/16/19 08:59 Urine Nitrate Negative (Negative) 02/16/19 08:59 Urine Bilirubin Negative (Negative) 02/16/19 08:59 Urine Urobilinogen Negative (Negative) 02/16/19 08:59 Ur Leukocyte Esterase Trace (Negative) A 02/16/19 08:59 Urine WBC (Auto) 1+(6-10/hpf) (Absent) A 02/16/19 08:59 Urine RBC (Auto) 2+(6-10/hpf) (Absent) A 02/16/19 08:59 Ur Squamous Epith Cells Present (Absent) A 02/16/19 08:59 Urine Bacteria Absent (Absent) 02/16/19 08:59 Urine Glucose Negative (Negative) 02/16/19 08:59 HIV 1&2 Antibody Nonreactive (Nonreactive) 02/06/19 19:26 abd:quiet,stoma pink,no obvious gas in bag,scant fluid;midline incision intact with heber,no erythema or drainage;softly distended,tender [] Assessment:elevated wbc to 20.;t100.6,reviewed with Dr Ingram;?undrained abdominal abscess [] Plan:stat CT abd/pel with po gastrograffin and IV contrast;plan and rationale explained to patient,she agrees to proceed []
[2019-02-16] MEDS ORDERED: Lorazepam PYXIS KEY PRN (11:30)
[2019-02-16] MEDS ORDERED: LORazepam INJ* 2 MG/ML 1 ML VIAL IV PUSH ONE (11:30)
[2019-02-16] MEDS ORDERED: Piperacillin/Tazobac ADVAN(*) 3.375 GM in NS 0.9% 100 ML* 100 ML IVPB SCH (12:00)
--- NOTE | 2019-02-16 12:04 | PN ---
Hospitalist Progress Note Date of Service: 02/16/[address] abd/pelvis--shows a splenic infarct and a splenic abscess. Lactic acid okay, UA okay, blood cultures drawn this morning. Will broaden antibiotics. Hold off on fluid boluses given b/l pleural effusions on CT and hemodynamic stability. Discussed with surgery PA, I suspect this will need further surgical exploration but await Dr. Ingram's input.
[2019-02-16] MEDS ORDERED: Zosyn per Pharmacy* NOTE FOLLOW UP PRN (12:08)
[2019-02-16] MEDS: HYDROmorphone PCA* 20 MG/20 ML PCA.SYRING PCA SCH (12:09)
[2019-02-16] MEDS ORDERED: Vancomycin per Pharmacy* NOTE FOLLOW UP PRN (12:09)
--- NOTE | 2019-02-16 15:43 | PN ---
Progress Note - Progress Note Date of Service: 02/16/19 SOAP: Subjective: []pod 4 abdominal discomfort, some fatigue Objective: [] Temp Pulse Resp BP Pulse Ox 99.6 F 130 16 134/91 94 02/16/19 11:14 02/16/19 11:14 02/16/19 14:00 02/16/19 11:14 02/16/19 14:00 Intake & Output 02/14/19 02/15/19 02/16/19 02/17/19 06:59 06:59 06:59 06:59 Intake Total 3426 1960 2501 205 Output Total 1670 1890 2200 1500 Balance 1756 70 301 -1295 Intake: IV Fluids 2352 1790 2184 ABX - CIPROFLOXACIN 200 ABX - FLAGYL 100 D5W LR 20 meq KCL 1336 1270 1884 NS (0.9%) 30 520 NS (0.9%) 20 meq KCL 986 IVPB 594 110 317 205 ABX - CIPROFLOXACIN 484 210 205 ABX - FLAGYL 110 110 107 Medicated IV 60 calcium gluconate 60 Oral 480 0 0 Output: NG Tube Drainage Amount 750 200 Urine 1510 2100 1500 In[place] 920 180 Colostomy 0 0 0 Estimated Blood Loss 100 Other: Date of Last Bowel 02/10/19 Movement Laboratory Last Values WBC 20.1 10^3/uL (3.5-10.8) H 02/16/19 06:06 RBC 3.55 10^6 /uL (3.70-4.87) L 02/16/19 06:06 Hgb 11.1 g/dL (12.0-16.0) L 02/16/19 06:06 Hct 35 % (35-47) 02/16/19 06:06 MCV 100 fL (80-97) H 02/16/19 06:06 MCH 31 pg (27-31) 02/16/19 06:06 MCHC 31 g/dL (31-36) 02/16/19 06:06 RDW 16 % (10.5-15) H 02/16/19 06:06 Plt Count 585 10^3/uL (150-450) H 02/16/19 06:06 MPV 7.8 fL (7.4-10.4) 02/16/19 06:06 Neut % (Auto) Not Reportable 02/16/19 06:06 Lymph % (Auto) Not Reportable 02/16/19 06:06 [place] % (Auto) Not Reportable 02/16/19 06:06 Eos % (Auto) Not Reportable 02/16/19 06:06 Baso % (Auto) Not Reportable 02/16/19 06:06 Absolute Neuts (auto) 16.5 10^3/ul (1.5-7.7) H 02/16/19 06:06 Absolute Lymphs (auto) 1.5 10^3/ul (1.0-4.8) 02/16/19 06:06 Absolute Monos (auto) 2.0 10^3/ul (0-0.8) H 02/16/19 06:06 Absolute Eos (auto) 0.1 10^3/ul (0-0.6) 02/16/19 06:06 Absolute Basos (auto) 0.0 10^3/ul (0-0.2) 02/16/19 06:06 Absolute Nucleated RBC Not Reportable 02/16/19 06:06 Immature Gran % 2.0 % (0-9) 02/16/19 06:06 Neutrophils % 83.0 % 02/16/19 06:06 Band Neutrophils % 1.0 % (0-8) 02/16/19 06:06 Lymphocytes % 9.0 % 02/16/19 06:06 Monocytes % 6.0 % 02/16/19 06:06 Eosinophils % 0.0 % 02/16/19 06:06 Basophils % 0.0 % 02/16/19 06:06 Metamyelocytes % 1.0 % (0-2) 02/16/19 06:06 Nucleated RBC % Not Reportable 02/16/19 06:06 Abs Neuts (Manual) 17.1 10^3/ul (1.5-7.7) H 02/16/19 06:06 Abs Lymphs (Manual) 1.8 10^3/ul (1.0-4.8) 02/16/19 06:06 Abs Monocytes (Manual) 1.2 10^3/ul (0-0.8) H 02/16/19 06:06 Absolute Eos (Manual) 0.0 10^3/ul (0-0.6) 02/16/19 06:06 Abs Basophils (Manual) 0.0 10^3/ul (0-0.2) 02/16/19 06:06 Smudge Cells Present 02/16/19 06:06 Normal RBC Morphology Not Reportable 02/16/19 06:06 Anisocytosis 1+ 02/16/19 06:06 Macrocytosis 1+ 02/16/19 06:06 INR (Anticoag Therapy) 1.25 (0.82-1.09) H 02/12/19 13:26 APTT 27.2 seconds (26.0-36.3) 02/12/19 13:26 Sodium 135 mmol/L (135-145) 02/16/19 06:06 Potassium 4.3 mmol/L (3.5-5.0) 02/16/19 06:06 Chloride 103 mmol/L (101-111) 02/16/19 06:06 Carbon Dioxide 21 mmol/L (22-32) L 02/16/19 06:06 Anion Gap 11 mmol/L (2-11) 02/16/19 06:06 BUN 2 mg/dL (6-24) L 02/16/19 06:06 Creatinine 0.70 mg/dL (0.51-0.95) 02/16/19 06:06 Est GFR ( Amer) 116.6 (>60) 02/16/19 06:06 Est GFR (Non-Af Amer) 96.4 (>60) 02/16/19 06:06 BUN/Creatinine Ratio 2.9 (8-20) L 02/16/19 06:06 Glucose 124 mg/dL (70-100) H 02/16/19 06:06 Lactic Acid 0.5 mmol/L (0.5-2.0) 02/16/19 08:01 Calcium 7.8 mg/dL (8.6-10.3) L 02/16/19 06:06 Phosphorus 3.2 mg/dL (2.5-5.0) 02/15/19 07:30 Magnesium 1.8 mg/dL (1.9-2.7) L 02/15/19 07:30 Total Bilirubin 0.50 mg/dL (0.2-1.0) 02/16/19 06:06 AST 17 U/L (13-39) 02/16/19 06:06 ALT 8 U/L (7-52) 02/16/19 06:06 Alkaline Phosphatase 83 U/L (34-104) 02/16/19 06:06 C-Reactive Protein 286.25 mg/L (<8.01) H 02/15/19 07:30 B-Natriuretic Peptide 105 pg/mL (<=100) H 02/16/19 08:01 Total Protein 5.3 g/dL (6.4-8.9) L 02/16/19 06:06 Albumin 2.5 g/dL (3.2-5.2) L 02/16/19 06:06 Globulin 2.8 g/dL (2-4) 02/16/19 06:06 Albumin/Globulin Ratio 0.9 (1-3) L 02/16/19 06:06 Lipase 10 U/L (11.0-82.0) L 02/06/19 14:36 Beta HCG, Quant < 0.60 mIU/mL 02/06/19 14:36 Urine Color Yellow 02/16/19 08:59 Urine Appearance Cloudy 02/16/19 08:59 Urine pH 7.0 (5-9) 02/16/19 08:59 Ur Specific [place] 1.011 (1.010-1.030) 02/16/19 08:59 Urine Protein Negative (Negative) 02/16/19 08:59 Urine Ketones 1+ (Negative) A 02/16/19 08:59 Urine Blood 3+ (Negative) A 02/16/19 08:59 Urine Nitrate Negative (Negative) 02/16/19 08:59 Urine Bilirubin Negative (Negative) 02/16/19 08:59 Urine Urobilinogen Negative (Negative) 02/16/19 08:59 Ur Leukocyte Esterase Trace (Negative) A 02/16/19 08:59 Urine WBC (Auto) 1+(6-10/hpf) (Absent) A 02/16/19 08:59 Urine RBC (Auto) 2+(6-10/hpf) (Absent) A 02/16/19 08:59 Ur Squamous Epith Cells Present (Absent) A 02/16/19 08:59 Urine Bacteria Absent (Absent) 02/16/19 08:59 Urine Glucose Negative (Negative) 02/16/19 08:59 HIV 1&2 Antibody Nonreactive (Nonreactive) 02/06/19 19:26 abdomen soft , mild distension, mildly tender, incision CDI Assessment: []s/p hartmans procedure, ct scan today-partial splenic infarction postop which explains elevated wbc, fever, Surgicel evident near spleen, no obvious abscess, tachycardia, no hypotension, renal function normal, some contrast in stoma bag Plan: []conservative treatment for spleen at this time unless clinical picture changes. findings discussed with patient, stepfather(s) present in the room, discussed possibility of reoperation/possible splenectomy pending clinical picture
[2019-02-16] MEDS ORDERED: Vancomycin(*) 1,250 MG in NS 0.9% 250 ML* 250 ML IVPB ONE (16:00)
[2019-02-16] MEDS: D5LR 20 MEQ KCL 1000 ML BAG* 1,000 ML IV SCH (16:12)
[2019-02-16] MEDS: Enoxaparin(*) 40 MG/0.4 ML SYR SUBCUT SCH (17:21)
[2019-02-16] MEDS ORDERED: NS 0.9% 500 ML* 500 ML IV ONE (18:22)
[2019-02-16] MEDS: Piperacillin/Tazobac ADVAN(*) 3.375 GM in NS 0.9% 100 ML* 100 ML IVPB SCH (19:52)
[2019-02-16] MEDS: Nicotine Patch Removal NOTE FOLLOW UP SCH (22:08)
[2019-02-17] MEDS: Vancomycin(*) 1,000 MG in NS 0.9% 250 ML* 250 ML IVPB SCH ×4 (00:04→23:20)
[2019-02-17] MEDS: LORazepam INJ* 2 MG/ML 1 ML VIAL IV PUSH PRN ×3 (01:14→09:31)
[2019-02-17] MEDS: Piperacillin/Tazobac ADVAN(*) 3.375 GM in NS 0.9% 100 ML* 100 ML IVPB SCH ×4 (02:36→20:15)
[2019-02-17 04:42] LABS: Hematocrit 29 % (35-47); Hemoglobin 9.5 g/dL (12.0-16.0); Mean Corpuscular HGB Conc 33 g/dL (31-36); Mean Corpuscular Hemoglobin 30 pg (27-31); Mean Corpuscular Volume 93 fL (80-97); Mean Platelet Volume 7.1 fL (7.4-10.4); Platelet Count 739 10^3/uL (150-450); Red Blood Count 3.13 10^6 /uL (3.70-4.87); Red Cell Distribution Width 15 % (10.5-15); White Blood Count 20.6 10^3/uL (3.5-10.8)
[2019-02-17 04:54] LABS: INR 1.84 (0.82-1.09)
[2019-02-17 04:57] LABS: Albumin 2.4 g/dL (3.2-5.2); Albumin/Globulin Ratio 0.7 (1-3); BUN/Creatinine Ratio 2.9 (8-20); Calcium 7.6 mg/dL (8.6-10.3); EGFR African American 116.6 (>60); EGFR Non-African American 96.4 (>60); Globulin 3.3 g/dL (2-4); Potassium 3.5 mmol/L (3.5-5.0); Total Bilirubin 0.5 mg/dL (0.2-1.0); Total Protein 5.7 g/dL (6.4-8.9)
[2019-02-17 05:25] LABS: ABS Basophils 0.1 10^3/ul (0-0.2); ABS Eosinophils 0.1 10^3/ul (0-0.6); ABS Lymphocytes 1.3 10^3/ul (1.0-4.8); ABS Monocytes 2.2 10^3/ul (0-0.8); ABS Neutrophils 17.1 10^3/ul (1.5-7.7); Eosinophil % 0.3 %; Lymphocyte % 6.3 %
[2019-02-17] MEDS: D5LR 20 MEQ KCL 1000 ML BAG* 1,000 ML IV SCH (05:52)
[2019-02-17] MEDS: HYDROmorphone PCA* 20 MG/20 ML PCA.SYRING PCA SCH (05:52)
[2019-02-17] MEDS: Pantoprazole IV* 40 MG IV SCH (08:03)
[2019-02-17] MEDS: Nicotine PATCH 21 MG/24 HR* PATCH TRANSDERM SCH (08:04)
[2019-02-17] MEDS ORDERED: Albuterol 2.5 MG/3 ML NEB.SOL* (0.083%) INH PRN (10:00)
[2019-02-17] MEDS ORDERED: LORazepam INJ* 2 MG/ML 1 ML VIAL IV PUSH ONE (10:00)
[2019-02-17] MEDS ORDERED: Furosemide IV* 10 MG/ML 2 ML VIAL (20 MG) IV ONE (10:00)
[2019-02-17] MEDS ORDERED: Pneumococcal *Vac Polyvalent 0.5 ML VIAL IM ONE (11:28)
[2019-02-17] MEDS ORDERED: [UNRECOGNIZED DRUG - OTHER] IM ONE ×2 (11:29→13:00)
[2019-02-17] MEDS ORDERED: MENINGOCOCCAL (A,C,Y&W-135) OL 0.5 ML (MENVEO) VIAL IM ONE (11:29)
[2019-02-17] MEDS ORDERED: [UNRECOGNIZED DRUG - OTHER] IM ONE (11:33)
--- NOTE | 2019-02-17 11:42 | PN ---
Subjective Date of Service: 02/17/19 Interval History: Pt c/o SOB and abd pain. Anxious about her surgery today Objective Active Medications: Albuterol (Ventolin 2.5 Mg/3 Ml Neb.Stephanie*) 2.5 mg INH Q2H PRN PRN Reason: SOB/WHEEZING Last Admin: 02/17/19 10:42 Dose: 2.5 mg Diphenhydramine HCl (Benadryl Liq*) 25 mg PO Q6H PRN PRN Reason: ITCHING Last Admin: 02/14/19 23:44 Dose: 25 mg Enoxaparin Sodium (Lovenox(*)) 40 mg SUBCUT Q24H [facility] Last Admin: 02/16/19 17:21 Dose: 40 mg Haemophilus b Polysacch Conj Vacc (Acthib*) 0.5 ml IM .ONCE ONE Stop: 02/17/19 11:30 Hydromorphone HCl (Dilaudid Coal Conveyor Operator*) 20 mg in 20 mls @ 0 mls/hr [employer] .Q24H [facility]; Protocol Last Admin: 02/17/19 05:52 Dose: 20 mls/hr Potassium Cl/Dextrose/Lact Ringer's (D5lr 20 Meq Kcl 1000 Ml Bag*) 1,000 mls @ 125 mls/hr IV PER RATE [facility] Last Admin: 02/17/19 05:52 Dose: 125 mls/hr Vancomycin HCl 1,000 mg/ (Sodium Chloride) 250 mls @ 166.667 mls/hr IVPB Q8H [facility] Last Admin: 02/17/19 09:32 Dose: 166.667 mls/hr Piperacillin Sod/Tazobactam (Sod 3.375 gm/ Sodium Chloride) 100 mls @ 200 mls/ hr IVPB Q6H [facility] Last Admin: 02/17/19 08:03 Dose: 200 mls/hr Lorazepam (Ativan Inj*) 0.5 mg IV PUSH Q4H PRN PRN Reason: ANXIETY Last Admin: 02/17/19 09:31 Dose: 0.5 mg Meningococcal Group B Vaccine (Bexsero*) 0.5 ml IM .ONCE ONE Stop: 02/17/19 11:34 Meningococcal Tetraval.Conjug.Vacc (Menveo - A/C/Y/W- 135*) 1 ml IM .ONCE ONE Stop: 02/17/19 11:30 Miscellaneous (Ativan Pyxis Partida) 1 ea N/A .PYXIS PARTIDA PRN PRN Reason: PER PROTOCOL Naloxone HCl (Narcan*) 0.08 mg IV PUSH Q2M PRN PRN Reason: SEDATION Nicotine (Nicotine Patch 21 Mg/24 Hr*) 1 patch TRANSDERM DAILY [facility] Last Admin: 02/17/19 08:04 Dose: 1 patch Ondansetron HCl (Zofran Inj*) 4 mg IV Q4H PRN PRN Reason: NAUSEA/VOMITING Last Admin: 02/16/19 09:43 Dose: 4 mg Pantoprazole Sodium (Protonix Iv*) 40 mg IV DAILY [facility] Last Admin: 02/17/19 08:03 Dose: 40 mg Pharmacy Consult (Zosyn Per Pharmacy*) 1 note FOLLOW UP . PRN PRN Reason: PER PROTOCOL Pharmacy Consult (Vancomycin Per Pharmacy*) 1 note FOLLOW UP . PRN PRN Reason: PER PROTOCOL Pharmacy Profile Note (Nicotine Patch Removal Note*) 1 note FOLLOW UP 2099 [facility] Last Admin: 02/16/19 22:08 Dose: 1 note Pharmacy Profile Note (Vancomycin Trough Check) 1 note FOLLOW UP 1530 ONE Stop: 02/17/19 15:31 Pneumococcal Polyvalent Vaccine (Pneumococcal Vac 23-Polyvalent*) 0.5 ml IM .ONCE ONE Stop: 02/17/19 11:29 Prochlorperazine Edisylate (Compazine Inj*) 10 mg IV Q6H PRN PRN Reason: NAUSEA/VOMITING Last Admin: 02/11/19 22:00 Dose: 10 mg Vital Signs - 8 hr 02/17/19 02/17/19 02/17/19 03:57 04:00 04:27 Temperature 100.0 F Pulse Rate 138 124 Respiratory 18 20 20 Rate Blood Pressure 140/79 (mmHg) O2 Sat by Pulse 91 91 Oximetry 02/17/19 02/17/19 02/17/19 04:29 04:49 05:11 Temperature 99.8 F Pulse Rate 123 122 Respiratory Rate Blood Pressure (mmHg) O2 Sat by Pulse Oximetry 02/17/19 02/17/19 02/17/19 05:52 06:00 06:24 Temperature Pulse Rate Respiratory 20 20 18 Rate Blood Pressure (mmHg) O2 Sat by Pulse 94 Oximetry 02/17/19 02/17/19 02/17/19 06:46 07:30 07:54 Temperature 98.8 F Pulse Rate 128 120 Respiratory 20 15 18 Rate Blood Pressure 117/70 (mmHg) O2 Sat by Pulse 93 Oximetry 02/17/19 02/17/19 02/17/19 07:55 08:00 09:31 Temperature Pulse Rate Respiratory 18 16 16 Rate Blood Pressure (mmHg) O2 Sat by Pulse 92 Oximetry Oxygen Devices in Use Now: Nasal Cannula Appearance: 33 yo F in nAD, aAOx3, poor historian Eyes: No Scleral Icterus, PERRLA Ears/Nose/Mouth/Throat: NL Teeth, Lips, Gums, Mucous Membranes Moist Neck: NL Appearance and Movements; NL JVP, Trachea Midline Respiratory: Symmetrical Chest Expansion and Respiratory Effort, - - crackles at b/l bases Cardiovascular: NL Sounds; No Murmurs; No JVD, RRR Abdominal: - - distended, soft, diffuse tenderness noted, no rebound, no guarding, BS hypoactive, colostomy in LLQ with straw coloured liquid in bag, midline incision not inspected Extremities: No Clubbing, Cyanosis, - - trace pedal eedma b/l Skin: No Rash or Ulcers, No Nodules or Sclerosis Neurological: Alert and Oriented x 3, NL Muscle Strength and Tone Result Diagrams: 02/17/19 04:34 02/17/19 04:34 Additional Lab and Data: Lab Results 02/06/19 02/06/19 02/06/19 Range/Units 14:36 14:36 14:36 WBC 14.1 H (3.5-10.8) 10^3/uL RBC 4.77 (3.70-4.87) 10^6 /uL Hgb 15.2 (12.0-16.0) g/dL Hct 45 H (33-41) % MCV 95 (80-97) fL MCH 32 H (27-31) pg MCHC 34 (31-36) g/dL RDW 14 (10.5-15) % Plt Count 300 (150-450) 10^3/uL MPV 7.5 (7.4-10.4) fL Neut % (Auto) 82.1 % Lymph % (Auto) 10.6 % Rhea % (Auto) 5.7 % Eos % (Auto) 1.0 % Baso % (Auto) 0.6 % Absolute Neuts (auto) 11.6 H (1.5-7.7) 10^3/ul Absolute Lymphs (auto) 1.5 (1.0-4.8) 10^3/ul Absolute Monos (auto) 0.8 (0-0.8) 10^3/ul Absolute Eos (auto) 0.1 (0-0.6) 10^3/ul Absolute Basos (auto) 0.1 (0-0.2) 10^3/ul Absolute Nucleated RBC 0 10^3/ul Nucleated RBC % 0 Sodium 138 (135-145) mmol/L Potassium 4.0 (3.5-5.0) mmol/L Chloride 106 (101-111) mmol/L Carbon Dioxide 23 (22-32) mmol/L Anion Gap 9 (2-11) mmol/L BUN 12 (6-24) mg/dL Creatinine 0.90 (0.51-0.95) mg/dL Est GFR ( Amer) 87.3 (>60) Est GFR (Non-Af Amer) 72.1 (>60) BUN/Creatinine Ratio 13.3 (8-20) Glucose 96 (70-100) mg/dL Lactic Acid 0.7 (0.5-2.0) mmol/L Calcium 9.1 (8.6-10.3) mg/dL Total Bilirubin 0.80 (0.2-1.0) mg/dL AST 19 (13-39) U/L ALT 15 (7-52) U/L Alkaline Phosphatase 80 (34-104) U/L C-Reactive Protein 7.41 (<8.01) mg/L Total Protein 7.6 (6.4-8.9) g/dL Albumin 4.4 (3.2-5.2) g/dL Globulin 3.2 (2-4) g/dL Albumin/Globulin Ratio 1.4 (1-3) Lipase 10 L (11.0-82.0) U/L Beta HCG, Quant < 0.60 mIU/mL Microbiology and Other Data: Microbiology 02/06/19 17:20 Urine Culture - Preliminary Urine Klebsiella Pneumoniae Assess/Plan/Problems-Billing Assessment: 33 yo f with recurrent diverticulitis complicated by perforation/ abscess/SBO - Patient Problems (1) Sepsis Comment: her white count continues to rise, most concerning for ongoing intraabdominal infection which was seen on CT on 02/16/19. Pt will go back to OR today for splenic abscess. Also splenic infarct toted on CT. As per d/w DR. Ingram possibility of splenectomy is considered and prophylax with HiB, as well as pneumococcal vaccine and meningococcal vaccine will, be given (2) Polysubstance abuse Comment: -h/o using cocaine, mushrooms, cannabis (3) Perforated diverticulum Comment: s/p colectomy/colostomy healing well and pain now managed hgb and lytes stable postop (4) Small bowel obstruction Comment: post op, ongoing. please note that she is not hypocalcemic--calcium is normal when corrected for hypoalbuminemia (5) Tachycardia Comment: ongoing infection most concerning to OR today (6) SOB (shortness of breath) Comment: CT shows b/l pleural effusions. Pt is third-spacing her IVF due to hypoalbumnemia. Will stop IVF and tx with a dose of IV Lasix now. (7) DVT prophylaxis Comment: lovenox Status and Disposition: Inpatient
--- NOTE | 2019-02-17 12:13 | PN ---
Progress Note - Progress Note Date of Service: 02/17/19 SOAP: Subjective: [] amdominal discomfort, feeling" bloated", no nausea Objective: [] Vital Signs 02/16/19 02/16/19 02/16/19 12:02 12:09 13:00 Temperature Pulse Rate Respiratory 18 20 18 Rate Blood Pressure (mmHg) O2 Sat by Pulse Oximetry 02/16/19 02/16/19 02/16/19 13:10 14:00 15:12 Temperature 100.0 F Pulse Rate 127 Respiratory 18 16 18 Rate Blood Pressure 129/68 (mmHg) O2 Sat by Pulse 94 93 Oximetry 02/16/19 02/16/19 02/16/19 16:00 18:00 19:10 Temperature Pulse Rate 125 Respiratory 18 16 18 Rate Blood Pressure (mmHg) O2 Sat by Pulse 93 93 Oximetry 02/16/19 02/16/19 02/16/19 20:05 20:47 20:49 Temperature 98.6 F Pulse Rate 128 Respiratory 16 16 16 Rate Blood Pressure 139/78 (mmHg) O2 Sat by Pulse 94 Oximetry 02/16/19 02/16/19 02/16/19 20:51 22:00 22:08 Temperature Pulse Rate Respiratory 16 16 16 Rate Blood Pressure (mmHg) O2 Sat by Pulse 95 95 Oximetry 02/16/19 02/16/19 02/17/19 23:42 23:50 00:00 Temperature 99.9 F Pulse Rate 130 125 Respiratory 18 16 Rate Blood Pressure 129/73 (mmHg) O2 Sat by Pulse 95 95 Oximetry 02/17/19 02/17/19 02/17/19 01:14 02:00 02:52 Temperature Pulse Rate Respiratory 18 18 20 Rate Blood Pressure (mmHg) O2 Sat by Pulse 95 Oximetry 02/17/19 02/17/19 02/17/19 03:23 03:57 04:00 Temperature 100.0 F Pulse Rate 123 138 Respiratory 20 18 20 Rate Blood Pressure 140/79 (mmHg) O2 Sat by Pulse 94 91 91 Oximetry 02/17/19 02/17/19 02/17/19 04:27 04:29 04:49 Temperature 99.8 F Pulse Rate 124 123 Respiratory 20 Rate Blood Pressure (mmHg) O2 Sat by Pulse Oximetry 02/17/19 02/17/19 02/17/19 05:11 05:52 06:00 Temperature Pulse Rate 122 Respiratory 20 20 Rate Blood Pressure (mmHg) O2 Sat by Pulse 94 Oximetry 02/17/19 02/17/19 02/17/19 06:24 06:46 07:30 Temperature 98.8 F Pulse Rate 128 120 Respiratory 18 20 15 Rate Blood Pressure 117/70 (mmHg) O2 Sat by Pulse 93 Oximetry 02/17/19 02/17/19 02/17/19 07:54 07:55 08:00 Temperature Pulse Rate Respiratory 18 18 16 Rate Blood Pressure (mmHg) O2 Sat by Pulse 92 Oximetry 02/17/19 02/17/19 09:31 11:45 Temperature Pulse Rate Respiratory 16 18 Rate Blood Pressure (mmHg) O2 Sat by Pulse Oximetry Laboratory Last Values WBC 20.6 10^3/uL (3.5-10.8) H 02/17/19 04:34 RBC 3.13 10^6 /uL (3.70-4.87) L 02/17/19 04:34 Hgb 9.5 g/dL (12.0-16.0) L 02/17/19 04:34 Hct 29 % (35-47) L 02/17/19 04:34 MCV 93 fL (80-97) 02/17/19 04:34 MCH 30 pg (27-31) 02/17/19 04:34 MCHC 33 g/dL (31-36) 02/17/19 04:34 RDW 15 % (10.5-15) 02/17/19 04:34 Plt Count 739 10^3/uL (150-450) H D 02/17/19 04:34 MPV 7.1 fL (7.4-10.4) L 02/17/19 04:34 Neut % (Auto) 82.7 % 02/17/19 04:34 Lymph % (Auto) 6.3 % 02/17/19 04:34 Rhea % (Auto) 10.4 % 02/17/19 04:34 Eos % (Auto) 0.3 % 02/17/19 04:34 Baso % (Auto) 0.3 % 02/17/19 04:34 Absolute Neuts (auto) 17.1 10^3/ul (1.5-7.7) H 02/17/19 04:34 Absolute Lymphs (auto) 1.3 10^3/ul (1.0-4.8) 02/17/19 04:34 Absolute Monos (auto) 2.2 10^3/ul (0-0.8) H 02/17/19 04:34 Absolute Eos (auto) 0.1 10^3/ul (0-0.6) 02/17/19 04:34 Absolute Basos (auto) 0.1 10^3/ul (0-0.2) 02/17/19 04:34 Absolute Nucleated RBC 0.0 10^3/ul 02/17/19 04:34 Immature Gran % 2.0 % (0-9) 02/16/19 06:06 Neutrophils % 83.0 % 02/16/19 06:06 Band Neutrophils % 1.0 % (0-8) 02/16/19 06:06 Lymphocytes % 9.0 % 02/16/19 06:06 Monocytes % 6.0 % 02/16/19 06:06 Eosinophils % 0.0 % 02/16/19 06:06 Basophils % 0.0 % 02/16/19 06:06 Metamyelocytes % 1.0 % (0-2) 02/16/19 06:06 Nucleated RBC % 0.0 02/17/19 04:34 Abs Neuts (Manual) 17.1 10^3/ul (1.5-7.7) H 02/16/19 06:06 Abs Lymphs (Manual) 1.8 10^3/ul (1.0-4.8) 02/16/19 06:06 Abs Monocytes (Manual) 1.2 10^3/ul (0-0.8) H 02/16/19 06:06 Absolute Eos (Manual) 0.0 10^3/ul (0-0.6) 02/16/19 06:06 Abs Basophils (Manual) 0.0 10^3/ul (0-0.2) 02/16/19 06:06 Smudge Cells Present 02/16/19 06:06 Normal RBC Morphology Not Reportable 02/16/19 06:06 Anisocytosis 1+ 02/16/19 06:06 Macrocytosis 1+ 02/16/19 06:06 INR (Anticoag Therapy) 1.84 (0.82-1.09) H 02/17/19 04:34 APTT 27.2 seconds (26.0-36.3) 02/12/19 13:26 Sodium 136 mmol/L (135-145) 02/17/19 04:34 Potassium 3.5 mmol/L (3.5-5.0) 02/17/19 04:34 Chloride 104 mmol/L (101-111) 02/17/19 04:34 Carbon Dioxide 26 mmol/L (22-32) 02/17/19 04:34 Anion Gap 6 mmol/L (2-11) 02/17/19 04:34 BUN 2 mg/dL (6-24) L 02/17/19 04:34 Creatinine 0.70 mg/dL (0.51-0.95) 02/17/19 04:34 Est GFR ( Amer) 116.6 (>60) 02/17/19 04:34 Est GFR (Non-Af Amer) 96.4 (>60) 02/17/19 04:34 BUN/Creatinine Ratio 2.9 (8-20) L 02/17/19 04:34 Glucose 145 mg/dL (70-100) H 02/17/19 04:34 Lactic Acid 0.4 mmol/L (0.5-2.0) L 02/17/19 04:34 Calcium 7.6 mg/dL (8.6-10.3) L 02/17/19 04:34 Phosphorus 3.2 mg/dL (2.5-5.0) 02/15/19 07:30 Magnesium 1.8 mg/dL (1.9-2.7) L 02/15/19 07:30 Total Bilirubin 0.50 mg/dL (0.2-1.0) 02/17/19 04:34 AST 11 U/L (13-39) L 02/17/19 04:34 ALT 7 U/L (7-52) 02/17/19 04:34 Alkaline Phosphatase 73 U/L (34-104) 02/17/19 04:34 C-Reactive Protein 286.25 mg/L (<8.01) H 02/15/19 07:30 B-Natriuretic Peptide 105 pg/mL (<=100) H 02/16/19 08:01 Total Protein 5.7 g/dL (6.4-8.9) L 02/17/19 04:34 Albumin 2.4 g/dL (3.2-5.2) L 02/17/19 04:34 Globulin 3.3 g/dL (2-4) 02/17/19 04:34 Albumin/Globulin Ratio 0.7 (1-3) L 02/17/19 04:34 Lipase 10 U/L (11.0-82.0) L 02/06/19 14:36 Beta HCG, Quant < 0.60 mIU/mL 02/06/19 14:36 Urine Color Yellow 02/16/19 08:59 Urine Appearance Cloudy 02/16/19 08:59 Urine pH 7.0 (5-9) 02/16/19 08:59 Ur Specific [place] 1.011 (1.010-1.030) 02/16/19 08:59 Urine Protein Negative (Negative) 02/16/19 08:59 Urine Ketones 1+ (Negative) A 02/16/19 08:59 Urine Blood 3+ (Negative) A 02/16/19 08:59 Urine Nitrate Negative (Negative) 02/16/19 08:59 Urine Bilirubin Negative (Negative) 02/16/19 08:59 Urine Urobilinogen Negative (Negative) 02/16/19 08:59 Ur Leukocyte Esterase Trace (Negative) A 02/16/19 08:59 Urine WBC (Auto) 1+(6-10/hpf) (Absent) A 02/16/19 08:59 Urine RBC (Auto) 2+(6-10/hpf) (Absent) A 02/16/19 08:59 Ur Squamous Epith Cells Present (Absent) A 02/16/19 08:59 Urine Bacteria Absent (Absent) 02/16/19 08:59 Urine Glucose Negative (Negative) 02/16/19 08:59 HIV 1&2 Antibody Nonreactive (Nonreactive) 02/06/19 19:26 Blood Type O Negative 02/17/19 04:34 Intake & Output 02/15/19 02/16/19 02/17/19 02/18/19 06:59 06:59 06:59 06:59 Intake Total 1960 2501 1645 0 Output Total 1890 2200 3200 Balance 70 301 -1555 0 Intake: IV Fluids 1790 2184 1440 ABX - CIPROFLOXACIN 200 ABX - FLAGYL 100 D5W LR 20 meq KCL 1270 1884 1440 NS (0.9%) 520 IVPB 110 317 205 ABX - CIPROFLOXACIN 210 205 ABX - FLAGYL 110 107 Medicated IV 60 calcium gluconate 60 Oral 0 0 0 0 Output: NG Tube Drainage Amount 200 Urine 1510 2100 3200 Iniguez 180 Colostomy 0 0 Estimated Blood Loss 100 Other: Date of Last Bowel 02/10/19 Movement # Voids 2 abdomen soft, mildly diffusely tender, incision CDI, stoma viable Assessment: []continued elevation of WBC and Platelets, elevated temp. After reviewing CT, labs, vitals, examining patient, and discussing the clinical situation with the patient, I feel she wouls benefit from a second look surgery to evaluate for source of infection/elevated WBC, temp. I think this is likely secondary to splenic infarction however I can not exclude other sources. The patient agrees to the treatment plan and asked me to call her work boss/friend Valdemar Deshpande to inform him-which I have done-and has given consent to proceed with surgery. We discussed risks including but not limited to bleeding, infection, injury to bowel/other intra abdominal contents, the possibility of splenectomy or bowel resection. She would like to proceed with surgery and all questions answered. Plan: []abdominal exploration, "washout", possible splenectomy
[2019-02-17] MEDS ORDERED: KETAMINE HCL* 50 MG/ML 10 ML VIAL ONE (12:49)
[2019-02-17] MEDS ORDERED: Phenylephrine 10 MG/ML VIAL* 1 ML VIAL ONE (12:49)
[2019-02-17] MEDS ORDERED: Dexamethasone IV* 4 MG/ML 1 ML (4 MG) ONE (12:49)
[2019-02-17] MEDS ORDERED: Lidocaine 2% PF * 5 ML VIAL ONE (12:49)
[2019-02-17] MEDS ORDERED: Rocuronium* 10 MG/ML VIAL ONE (12:49)
[2019-02-17] MEDS ORDERED: Midazolam* 1 MG/ML 10 ML VIAL (10 MG) ONE (12:49)
[2019-02-17] MEDS ORDERED: fentaNYL* 50 MCG/ML 5 ML VIAL (250 MCG VIAL) ONE (12:49)
[2019-02-17] MEDS ORDERED: Ondansetron INJ* 2 MG/ML VIAL ONE (12:49)
[2019-02-17] MEDS ORDERED: Propofol* 10 MG/ML 20 ML BTL ONE (12:49)
[2019-02-17] MEDS ORDERED: Buffered Lidocaine 1% SYRIN* 1 ML/SYRINGE INTRADERM ONE ×2 (13:21→13:22)
[2019-02-17] MEDS ORDERED: Levalbuterol HFA INHALER* 1 PUFF MDI ONE (14:53)
--- NOTE | 2019-02-17 15:01 | PN ---
Date of Service: 02/17/19 - HD 7 Critical Care Services: 33 yo F with a PMH of substance abuse (cocaine, mushrooms, cannabis), diverticulitis, irritable bowel disease, asthma, anxiety and panic disorder. She presented to the ED on with symptoms similar to prior episodes of diverticulitis. TTP in LLQ. WBC 14.1. CT with sigmoid colonic wall thickening and surrounding inflammatory changes suggestive of diverticulitis. Microperforation. Started on Abx and admitted to hospitalist service. 02/07: WBC 11.5. Surgery consulted. 02/08: loose BMs. tolerating clear liquids. continues to have lower quadrant abdominal pain. Urine culture (+) for klebsiella, but UA negative. Likely colonization. 02/09: Complaining of persisent pain. Tolerating clear liquids. 02/10: Advanced to soft diet. WBC 10.8. Started on IVF for tachycardia. 02/11: CT with SBO and organizing abscess for diverticular perforation. Tolerating diet and passing flatus, but also reports nausea and belching. Surgery reconsulted. 02/12: Went to OR for ex lap with sigmoid colectomy, Hartmans and end colostomy. 02/13: Signficant pain despite FRONT END ENGINEER usage. Ambulating. 02/14: WBC 16.8. HR 100s with concentrated urine - bolused IVF. 02/15: Started on clear liquids. Hospitalist service recommended CTA given tachycardia and given that patient has been refusing SQ Heparin for days but patient refused. WBC remains elevated. 02/16: Febrile. CT abdomen with contrast shows splenic infarct and abscess. 02/17: Hypoxic, CT from 02/16 with pleural effusions, given lasix. Returned to OR for washout; no significant findings intra operatively. Postprocedure anesthesia was unable to wean FiO2 below 70% and decided to leave patient intubated and come to ICU. Vital Signs: Temp Pulse Resp BP SpO2 FiO2 98.4 F 130 16 136/80 94 02/17/19 12:25 02/17/19 12:25 02/17/19 12:25 02/17/19 12:25 02/17/19 12:25 Physical Exam: Gen: resting in bed HEENT: ETT in place Lungs: CTAB Cardiac: tachycardic, regular Abdomen: soft, distended. midline dressing intact Extremities: warm, dry Neuro: beginning to arouse. Fluid Balance (Past 24 Hours): I= O= Net Intake & Output 02/15/19 02/16/19 02/17/19 02/18/19 06:59 06:59 06:59 06:59 Intake Total 1960 2501 1645 0 Output Total 1890 2200 3200 300 Balance 70 301 -1555 -300 Intake: IV Fluids 1790 2184 1440 ABX - CIPROFLOXACIN 200 ABX - FLAGYL 100 D5W LR 20 meq KCL 1270 1884 1440 NS (0.9%) 520 IVPB 110 317 205 ABX - CIPROFLOXACIN 210 205 ABX - FLAGYL 110 107 Medicated IV 60 calcium gluconate 60 Oral 0 0 0 0 Output: NG Tube Drainage Amount 200 Urine 1510 2100 3200 300 Iniguez 180 Colostomy 0 0 Estimated Blood Loss 100 Other: Date of Last Bowel 02/10/19 Movement # Voids 2 Labs: Laboratory Results - last 24 hr 02/17/19 02/17/19 02/17/19 04:34 04:34 04:34 WBC 20.6 H RBC 3.13 L Hgb 9.5 L Hct 29 L MCV 93 MCH 30 MCHC 33 RDW 15 Plt Count 739 H D MPV 7.1 L Neut % (Auto) 82.7 Lymph % (Auto) 6.3 Bath % (Auto) 10.4 Eos % (Auto) 0.3 Baso % (Auto) 0.3 Absolute Neuts (auto) 17.1 H Absolute Lymphs (auto) 1.3 Absolute Monos (auto) 2.2 H Absolute Eos (auto) 0.1 Absolute Basos (auto) 0.1 Absolute Nucleated RBC 0.0 Nucleated RBC % 0.0 INR (Anticoag Therapy) 1.84 H Sodium 136 Potassium 3.5 Chloride 104 Carbon Dioxide 26 Anion Gap 6 BUN 2 L Creatinine 0.70 Est GFR ( Amer) 116.6 Est GFR (Non-Af Amer) 96.4 BUN/Creatinine Ratio 2.9 L Glucose 145 H Lactic Acid Calcium 7.6 L Total Bilirubin 0.50 AST 11 L ALT 7 Alkaline Phosphatase 73 Total Protein 5.7 L Albumin 2.4 L Globulin 3.3 Albumin/Globulin Ratio 0.7 L Blood Type Antibody Screen 02/17/19 02/17/19 04:34 04:34 WBC RBC Hgb Hct MCV MCH MCHC RDW Plt Count MPV Neut % (Auto) Lymph % (Auto) Bath % (Auto) Eos % (Auto) Baso % (Auto) Absolute Neuts (auto) Absolute Lymphs (auto) Absolute Monos (auto) Absolute Eos (auto) Absolute Basos (auto) Absolute Nucleated RBC Nucleated RBC % INR (Anticoag Therapy) Sodium Potassium Chloride Carbon Dioxide Anion Gap BUN Creatinine Est GFR ( Amer) Est GFR (Non-Af Amer) BUN/Creatinine Ratio Glucose Lactic Acid 0.4 L Calcium Total Bilirubin AST ALT Alkaline Phosphatase Total Protein Albumin Globulin Albumin/Globulin Ratio Blood Type O Negative Antibody Screen Negative Studies: 02/16 CT abd - small to moderate depented right and large dependent left pleural effusion with proportional atelectasis. New large splenic infarct involving the lateral half of the spleen. Loculated 2.5 x 3.5 x 3.2 cm complex gas containing fecal appearing collection at inferior aspect of splenic hilum consistent with abscess new as compared to prior exam. mural thickening along greater curvature of stomach likely reactive. Dilated small bowel loops. small volume of ascites 02/11 CT abd - interval development of areas of free and loculated fluid and gas within abdomen. associated SBO. diverticulosis. right pleural effusion. 02/06 CT abd - sigmoid colon wall thickening and surrounding inflammatory changes suggestive of diverticulitis. no abscess. minimal amount of extraluminal gas. Nutrition: NPO Impression: 33 yo F presented on 02/06 with (micro)perforated sigmoid colitis. Initially treated conservatively but taken to OR on 02/16 after rising WBC and repeat CT showed intraabdominal abscesses. Initially did well postop however developed fevers, rising WBC which prompted another CT. This showed splenic infarct and ? abscess. Return to OR 02/17 for washout but not found to have abscess. Unable to wean FiO2 postop and brought to ICU on vent Plan: Cardiovascular: (1) Sinus tachycardia secondary to sepsis; (2) HTN -- HR 120-138 -- SBP 117-151 -- Telemetry Home meds: None Pulmonary: (1) Acute hypoxic respiratory failure; (2) Bilateral pleural effusions; (3) Tobacco abuse; (4) Concern for PE -- RR 15-33 -- sats 91-958 on 2L NC -- vent; requiring FiO2 100 to keep sats > 100 -- CXR: pending -- ABG: pending -- PRN Albuterol -- Nicoderm patch -- Given profound hypoxia despite mechanical ventilation (more so than I would attribute to atelectasis and effusions), tachycardia, fever and rising WBC, and also given splenic infarct possibly embolic in etiology, we need to give serious consideration to the possiblity of PE. CTA ordered. Home meds: None Gastrointestinal: (1) Perforated sigmoid diverticulitis s/p Hartmanns -- diet: NPO -- bowel regimen: None -- ulcer prophylaxis: Protonix -- PRN Zofran -- General surgery following Home meds: None Endocrine: No acute issues -- monitor BGs Home meds: None Renal: No acute issues -- UOP: 133 ml/hr -- Cr 0.70 from 0.70 -- Lytes Na 136 from 135 K 3.5 Ca 7.6, corrects to normal Mag ordered with AM labs Phos orderd with AM labs -- IVF: LR @ 125 ml/hr Home meds: None Infectious disease: (1) Fecal peritonitis; (2) Perforated sigmoid colitis -- Tmax 100.0 -- WBC 20.6 from 20.1 -- Micro 02/16 urine negative blood negative 02/14 urine negative 02/12 wound bacteroides urine klebsiella UA negative -- ABX Zosyn Vancomycin Home meds: None Neurologic: (1) Polysubstance abuse -- Propofol gtt for sedation -- Fentanyl gtt for pain control Home meds: None Hematological: (1) Anemia; (2) Thrombocytosis; (3) Splenic infarction -- Hgb 9.5 from 11.1 -- Plt 739 from 585 -- Coags INR 1.84 -- DVT prophylaxis: SQ Lovenox -- Vaccinated with Haemophilus, Meningoccal @ 02/17 Home meds: None Metabolic: No acute issues -- Lactic acid ordered Home meds: None Deep vein thrombosis prophylaxis: SQ Lovenox Dietary: Protonix Condition: critical Prognosis: good Code status: Full Disposition: transferred to ICU Cumulative time spent in the care of this patient (excluding any procedure time) : at least 60 minutes. Patient care included clinical interview (with patient and/or family), bedside exam of the patient, review of labs, x-rays, and other ancillary data, coordination of (respiratory, nursing care, review of patient's records, discussion regarding patients management with involved consultants, primary physician, pharmacists, and other healthcare personnel (dietary, case management , physical/occupational therapy etc.) Critical Care Time: 60
[2019-02-17] MEDS ORDERED: Vancomycin Trough Check NOTE FOLLOW UP ONE (15:30)
[2019-02-17] MEDS: Propofol* 100 ML IV SCH ×3 (15:45→22:19)
[2019-02-17] MEDS: fentaNYL INFUSION 50 MCG/ML* 2,500 MCG/50 ML BAG IV SCH (16:10)
[2019-02-17] MEDS ORDERED: Iohexol 350* (CONTRAST) 500 ML MDV IV ONE (16:18)
[2019-02-17] MEDS: Lactated Ringers 1000 ML Bag* 1,000 ML IV SCH (16:20)
[2019-02-17 17:10] LABS: Hematocrit 31 % (35-47); Hemoglobin 10.2 g/dL (12.0-16.0); Mean Corpuscular HGB Conc 33 g/dL (31-36); Mean Corpuscular Hemoglobin 31 pg (27-31); Mean Corpuscular Volume 93 fL (80-97); Mean Platelet Volume 7.2 fL (7.4-10.4); Platelet Count 827 10^3/uL (150-450); Red Blood Count 3.33 10^6 /uL (3.70-4.87); Red Cell Distribution Width 15 % (10.5-15); White Blood Count 20.4 10^3/uL (3.5-10.8)
[2019-02-17] MEDS: Enoxaparin(*) 40 MG/0.4 ML SYR SUBCUT SCH (17:20)
[2019-02-17 17:28] LABS: Activated Partial Thrombo Time 30.6 seconds (26.0-36.3); Albumin 2.5 g/dL (3.2-5.2); Albumin/Globulin Ratio 0.7 (1-3); BUN/Creatinine Ratio 3.9 (8-20); Calcium 7.6 mg/dL (8.6-10.3); EGFR African American 106.1 (>60); EGFR Non-African American 87.6 (>60); Globulin 3.4 g/dL (2-4); INR 1.68 (0.82-1.09); Magnesium 1.8 mg/dL (1.9-2.7); Phosphorus 4.3 mg/dL (2.5-5.0); Potassium 3.5 mmol/L (3.5-5.0); Total Bilirubin 0.6 mg/dL (0.2-1.0); Total Protein 5.9 g/dL (6.4-8.9)
[2019-02-17] MEDS ORDERED: Magnesium Sulfate 1 GM IV* 1 GM/100 ML BAG IV ONE (19:00)
[2019-02-17] MEDS: Chlorhexidine MOUTHWASH 0.12%* 15 ML UDC TOPICAL SCH (20:15)
[2019-02-17] MEDS: KCL 20 MEQ/100 ML IVPREMIX* 20 MEQ/100 ML BAG IV SCH ×2 (20:15→22:20)
--- NOTE | 2019-02-17 21:08 | OP ---
OPERATIVE REPORT: DATE OF OPERATION: 02/17/19 DATE OF : 85 SURGEON: Hang Ingram MD. PRESS READER: Greg Hoffman MD. PRE-OP DIAGNOSIS: Elevated white blood cell count, fever, concerned for possible intraabdominal infection. POST-OP DIAGNOSIS: No intraabdominal infection. OPERATIVE PROCEDURE: Exploratory laparotomy and washout. ESTIMATED BLOOD LOSS: Zero. INDICATIONS FOR PROCEDURE: Concern for a possible source of infection status post Coty procedure last Tuesday. Risks of surgery including, but not limited to, bleeding, infection, injury to intraabdominal contents including the bowel, possible splenectomy were explained to the patient, who seemed to understand, gave her consent, wished to proceed, and all questions were answered. DESCRIPTION OF PROCEDURE: The patient was taken to the operating room and placed supine. Preoperative antibiotics were given. After the successful induction of general endotracheal anesthesia, the abdomen was prepped and draped in sterile fashion. The stoma was covered with a gauze and an Ioban drape was placed over the entire abdomen. The ioban drape was opened over the midline incision. The midline incision was opened. [place] were removed preoperatively prior to prepping the abdomen. The old suture was removed and the peritoneal cavity was entered. No purulence was noted. The thick layer of omentum covered the small bowel. It was gently peeled back revealing normal appearing small bowel. The pelvis was evaluated first. The rectal stump staple line was intact. There was no purulence or fluid in the pelvis. The cecum appeared normal. No evidence of enterotomy or fistula as was noted as possible on preoperative CT scan. The cecum appeared completely normal. The left colic gutter where the colon with perforated diverticula had been removed was normal. No evidence of abscess or fluid. The proximal descending/sigmoid colon appeared completely normal. The colon appeared normal following this back towards the splenic flexure. Up in the splenic flexure, the viable portion of the spleen was noted. There was no hematoma. Any Surgicel had mostly appeared to have broken down. No evidence of any infection in this area was noted. Everything was left intact as found. Small bowel was evaluated. No intra-loop abscess or other was noted. The liver/gallbladder in right upper quadrant was palpated and felt normal. We were able to view some of this as well. After being satisfied that there was no intraabdominal infection or source noted to account for her elevated white blood cell count other than her spleen and potentially her pulmonary issues, we decided to irrigate the abdomen once again, aspirate it dry, lay the omentum back over the small bowel and cecum and closed the fascia using a running #1 PDS incision coming from either end of the incision and being tied at the mid point. The wound was irrigated and closed with heber. A vacuum suction dressing was placed over this. A new ostomy bag was placed over the ostomy. She tolerated the procedure well although some low O2 sats warranted that she was left on the ventilator, and therefore brought to the intensive care unit in stable condition postoperatively. She otherwise tolerated the procedure well. [id number]/[facility] #: [id number] LUCIANO
[2019-02-17] MEDS: Nicotine Patch Removal NOTE FOLLOW UP SCH (21:12)
[2019-02-18] MEDS: Chlorhexidine MOUTHWASH 0.12%* 15 ML UDC TOPICAL SCH ×6 (00:40→20:17)
[2019-02-18] MEDS: Propofol* 100 ML IV SCH ×7 (00:40→22:21)
[2019-02-18] MEDS: fentaNYL INFUSION 50 MCG/ML* 2,500 MCG/50 ML BAG IV SCH ×3 (01:02→23:06)
[2019-02-18] MEDS: Piperacillin/Tazobac ADVAN(*) 3.375 GM in NS 0.9% 100 ML* 100 ML IVPB SCH ×4 (02:18→20:17)
[2019-02-18] MEDS: Lactated Ringers 1000 ML Bag* 1,000 ML IV SCH ×2 (03:05→13:20)
[2019-02-18 05:33] LABS: Hematocrit 26 % (35-47); Mean Corpuscular HGB Conc 34 g/dL (31-36); Mean Corpuscular Hemoglobin 32 pg (27-31); Mean Corpuscular Volume 93 fL (80-97); Mean Platelet Volume 7.4 fL (7.4-10.4); Platelet Count 722 10^3/uL (150-450); Red Blood Count 2.83 10^6 /uL (3.70-4.87); Red Cell Distribution Width 15 % (10.5-15); White Blood Count 18.4 10^3/uL (3.5-10.8)
[2019-02-18] MEDS: Vancomycin(*) 1,000 MG in NS 0.9% 250 ML* 250 ML IVPB SCH ×4 (05:44→22:46)
[2019-02-18 05:47] LABS: Albumin 2.4 g/dL (3.2-5.2); Albumin/Globulin Ratio 0.7 (1-3); BUN/Creatinine Ratio 6.3 (8-20); Calcium 7.6 mg/dL (8.6-10.3); EGFR African American 129.3 (>60); EGFR Non-African American 106.9 (>60); Globulin 3.3 g/dL (2-4); Magnesium 2.4 mg/dL (1.9-2.7); Phosphorus 4.9 mg/dL (2.5-5.0); Total Bilirubin 0.4 mg/dL (0.2-1.0); Total Protein 5.7 g/dL (6.4-8.9)
[2019-02-18] MEDS: Nicotine PATCH 21 MG/24 HR* PATCH TRANSDERM SCH (08:04)
[2019-02-18] MEDS: Pantoprazole IV* 40 MG IV SCH (08:04)
[2019-02-18] MEDS ORDERED: Dexmedetomidine* 200 MCG/2 ML 2 ML VIAL ONE (10:55)
[2019-02-18] MEDS ORDERED: DEXMEDETOMIDINE IV ONE (10:56)
[2019-02-18] MEDS ORDERED: NS 0.9% IV ONE (10:56)
[2019-02-18] MEDS: Dexmedetomidine* 1,000 MCG in NS 0.9% 250 ML* 240 ML IVPB SCH ×3 (11:00→23:56)
--- NOTE | 2019-02-18 12:46 | PN ---
Progress Note - Progress Note Date of Service: 02/18/19 SOAP: Subjective: Pt seen and chart reviewed. case d/w CCM 100%fio2 overnight- now at 70 pt wakes and follows simple commands Objective: Temp Pulse Resp BP Pulse Ox 97.8 F 81 16 116/81 92 02/18/19 08:00 02/18/19 11:01 02/18/19 12:00 02/18/19 11:00 02/18/19 11:01 Intake & Output 02/17/19 02/18/19 02/18/19 22:59 06:59 14:59 Intake Total 1241 1692 Output Total 1740 1785 650 Balance -499 -93 -650 Weight 174 lb 192 lb 5 oz intubated, sedated NGT: scant abdo: soft/ distended/tender? wav dressing intact with no output; no redness ostomy w/o output; pink labs noted CT chest reviewed Assessment: POD 6 Coty's and POD 1 takeback for neg ex lap Resp compromise Plan: PO meds ok possible trickle feeds tomorrow resp per CCM cont vac dresssing and await ostomy output abx
[2019-02-18] MEDS ORDERED: Furosemide IV* 10 MG/ML VIAL (40 MG) ONE (15:11)
[2019-02-18] MEDS ORDERED: Furosemide IV* 10 MG/ML VIAL (40 MG) IV ONE ×2 (15:11→22:00)
--- NOTE | 2019-02-18 15:23 | PN ---
Date of Service: 02/18/19 Critical Care Services: 33 yo F with a PMH of substance abuse (cocaine, mushrooms, cannabis), diverticulitis, irritable bowel disease, asthma, anxiety and panic disorder. She presented to the ED on with symptoms similar to prior episodes of diverticulitis. TTP in LLQ. WBC 14.1. CT with sigmoid colonic wall thickening and surrounding inflammatory changes suggestive of diverticulitis. Microperforation. Started on Abx and admitted to hospitalist service. 02/07: WBC 11.5. Surgery consulted. 02/08: loose BMs. tolerating clear liquids. continues to have lower quadrant abdominal pain. Urine culture (+) for klebsiella, but UA negative. Likely colonization. 02/09: Complaining of persisent pain. Tolerating clear liquids. 02/10: Advanced to soft diet. WBC 10.8. Started on IVF for tachycardia. 02/11: CT with SBO and organizing abscess for diverticular perforation. Tolerating diet and passing flatus, but also reports nausea and belching. Surgery reconsulted. 02/12: Went to OR for ex lap with sigmoid colectomy, Hartmans and end colostomy. 02/13: Signficant pain despite SPLASH LINE OPERATOR usage. Ambulating. 02/14: WBC 16.8. HR 100s with concentrated urine - bolused IVF. 02/15: Started on clear liquids. Hospitalist service recommended CTA given tachycardia and given that patient has been refusing SQ Heparin for days but patient refused. WBC remains elevated. 02/16: Febrile. CT abdomen with contrast shows splenic infarct and abscess. 02/17: Hypoxic, CT from 02/16 with pleural effusions, given lasix. Returned to OR for washout; no significant findings intra operatively. Postprocedure anesthesia was unable to wean FiO2 below 70% and decided to leave patient intubated and come to ICU. 02/18: No significant overnight events. Remains int[facility] high FIO2 dropping to 87% while on FIO2 0.7. Tolerating propofol 80-->40, precedex started today and fentanyl gtt 210-->100 Vital Signs: Temp Pulse Resp BP SpO2 FiO2 98 F 84 16 135/83 86 80 02/18/19 12:00 02/18/19 15:00 02/18/19 12:00 02/18/19 15:00 02/18/19 15:00 02/18 08:00 Physical Exam: Gen:Awake and alert while on gtt of propofol, fentanyl, and precedex. [facility] HEENT:NCAT, PERRL, neck supple, no thyromegaly, mucous membranes moist Lungs:Coarse breath sounds, no wheezes Cardiac: S1S2, RRR Abdomen:distended, hypoactive bowel sounds, ostomy bag with + output Extremities:Trace edema, no cyanosis Neuro:non focal Fluid Balance (Past 24 Hours): I= O= Net Intake & Output 02/16/19 02/17/19 02/18/19 02/19/19 06:59 06:59 06:59 06:59 Intake Total 2501 1645 2933 Output Total 2200 3200 3825 650 Balance 301 -1555 -892 -650 Weight 192 lb 5 oz Intake: IV Fluids 2184 1440 1894 ABX - CIPROFLOXACIN 200 ABX - FLAGYL 100 D5W LR 20 meq KCL 1884 1440 LR 1247 Mag Sulfate 90 NS (0.9%) 117 Propofol 440 IVPB 317 205 997 ABX - CIPROFLOXACIN 210 205 ABX - FLAGYL 107 KCl 213 Vanco 569 Zosyn 215 IV Narcotic Infusion 42 Fentanyl 42 Oral 0 0 0 Output: NG Tube Drainage Amount 100 Urine 2100 3200 300 Iniguez 3425 650 Colostomy 0 Estimated Blood Loss 100 Other: Date of Last Bowel 02/10/19 Movement # Voids 2 ADLs: Meal Record Start: 02/06/19 23: 20 Freq: DAILY@0900,1400,1800 Status: Inactive Protocol: Created 02/06/19 23:20 System (Rec: 02/06/19 23:20 System MED-C03) Document 02/07/19 09:00 [id number] (Rec: 02/07/19 09:30 QUH0068 MED-C11) Document 02/07/19 12:50 HCO9813 (Rec: 02/07/19 12:50 CTP0685 MED-C11) Document 02/07/19 18:00 MHG8150 (Rec: 02/07/19 18:30 PTC3058 MED-C11) Document 02/08/19 09:00 UOY5812 (Rec: 02/08/19 11:49 HBE3447 MED-C09) Document 02/08/19 14:00 IOB6542 (Rec: 02/08/19 14:11 FBL7843 MED-C09) Document 02/08/19 18:00 DDL4125 (Rec: 02/08/19 18:43 ZDZ5083 MED-C09) Document 02/09/19 09:00 BZT7479 (Rec: 02/09/19 11:42 EKX2718 MED-C13) Document 02/09/19 14:00 DEQ0466 (Rec: 02/09/19 17:20 IMS0422 MED-C11) Document 02/10/19 09:00 OMT2847 (Rec: 02/10/19 09:35 SOY2961 MED-C13) Document 02/10/19 14:00 BJN3880 (Rec: 02/10/19 18:24 IIP1216 MED-C13) Document 02/10/19 18:00 ZAI1902 (Rec: 02/10/19 18:25 NRP2619 MED-C13) Document 02/11/19 09:00 ILF7638 (Rec: 02/11/19 09:36 JQU3485 MED-C11) Document 02/11/19 13:08 XIG4473 (Rec: 02/11/19 13:08 NJU5805 MED-C09) Document 02/11/19 18:00 WPN9325 (Rec: 02/11/19 18:39 PGO5950 MED-C02) Document 02/12/19 09:00 ZFE2995 (Rec: 02/12/19 10:34 HOA6880 MED-C09) ADLs: Meal Record Start: 02/12/19 19: 20 Freq: Status: Complete Protocol: Created 02/12/19 19:20 AXG8535 (Rec: 02/12/19 19:20 LOU8054 SSU-M07) Document 02/15/19 18:00 XQQ5213 (Rec: 02/15/19 18:19 AOP3064 SSU-M06) Document 02/16/19 08:19 MEC1646 (Rec: 02/16/19 08:19 IVC6549 SSU-C01) Document 02/16/19 12:17 DUP8527 (Rec: 02/16/19 12:18 ERO5478 SSU-C01) ADLs: Meal Record Start: 02/17/19 15: 53 Freq: 09,13,18 Status: Active Protocol: Created 02/17/19 15:53 WVH9550 (Rec: 02/17/19 15:53 PWA4713 ICU-M18) Document 02/18/19 09:00 RCQ6904 (Rec: 02/18/19 09:35 WYN3258 ICU-C15) Document 02/18/19 13:00 UTU0727 (Rec: 02/18/19 13:12 PRP8257 ICU-C11) Intake and Output Start: 02/06/19 13: 20 Freq: Status: Complete Protocol: Created 02/06/19 13:20 System (Rec: 02/06/19 13:20 System ED-C24) Intake and Output Start: 02/06/19 23: 20 Freq: DAILY@0600,1400,2200 Status: Inactive Protocol: Created 02/06/19 23:20 System (Rec: 02/06/19 23:20 System MED-C03) Document 02/07/19 05:34 USS0528 (Rec: 02/07/19 05:35 QPE4967 MED-C11) Document 02/07/19 12:55 EDS0499 (Rec: 02/07/19 12:55 QTT9787 MED-C11) Document 02/07/19 22:00 NLZ9013 (Rec: 02/08/19 00:17 UWV0098 MED-C11) Document 02/08/19 06:00 PYP9230 (Rec: 02/08/19 06:47 OXX4235 MED-C11) Document 02/08/19 14:00 MNJ0383 (Rec: 02/08/19 14:11 DYG5656 MED-C09) Document 02/08/19 22:00 XMM7532 (Rec: 02/08/19 22:02 LSD2299 MED-C09) Document 02/09/19 05:06 SIY8772 (Rec: 02/09/19 05:07 MCK6380 MED-C09) Document 02/09/19 14:00 OBB9707 (Rec: 02/09/19 14:08 KTB8375 MED-C16) Document 02/09/19 22:00 OQL4959 (Rec: 02/09/19 22:25 MCS1932 MED-C09) Document 02/10/19 06:00 CCN5782 (Rec: 02/10/19 06:03 XMQ9990 MED-C15) Document 02/10/19 14:00 HNW1013 (Rec: 02/10/19 18:24 GLW8407 MED-C13) Document 02/10/19 22:00 DUZ1139 (Rec: 02/10/19 22:22 TYG3373 MED-C09) Document 02/11/19 05:29 GMJ2084 (Rec: 02/11/19 05:30 FVC0313 MED-C09) Document 02/11/19 13:16 OPH5574 (Rec: 02/11/19 13:16 RUR5789 MED-C09) Document 02/11/19 22:00 BQW0041 (Rec: 02/11/19 22:27 MAJ1540 MED-C02) Document 02/12/19 05:55 OLC6410 (Rec: 02/12/19 05:55 OKO1738 MED-C09) Intake and Output Start: 02/12/19 19: 20 Freq: Q4HR Status: Complete Protocol: Created 02/12/19 19:20 YNN5546 (Rec: 02/12/19 19:20 LKY7245 SSU-M07) Document 02/12/19 22:32 DCN9798 (Rec: 02/12/19 22:33 FBH1751 SSU-C02) Document 02/13/19 01:20 MXT9047 (Rec: 02/13/19 04:18 SSU-C11) Document 02/13/19 05:25 QDU0060 (Rec: 02/13/19 05:26 AAN7212 SSU-C03) Document 02/13/19 13:35 HWI3774 (Rec: 02/13/19 20:34 DMV7540 SSU-M15) Document 02/13/19 14:09 DDI3819 (Rec: 02/13/19 14:09 RGW5653 SSU-C06) Document 02/13/19 21:05 BHL3720 (Rec: 02/13/19 21:06 LTV7731 SSU-M18) Document 02/14/19 00:00 VBV1579 (Rec: 02/14/19 00:24 DTO9524 SSU-L02) Document 02/14/19 04:11 XIA0692 (Rec: 02/14/19 04:11 XZH4265 SSU-L02) Document 02/14/19 05:10 HOJ6554 (Rec: 02/14/19 05:11 GUT4688 SSU-L02) Document 02/14/19 09:01 PRJ2320 (Rec: 02/14/19 09:02 YOQ7609 SSU-C02) Document 02/14/19 11:39 KNQ0893 (Rec: 02/14/19 11:40 SRY3701 SSU-C02) Document 02/14/19 14:30 DIV9304 (Rec: 02/14/19 14:31 LHY8475 SSU-C02) Document 02/14/19 15:06 WTC2545 (Rec: 02/14/19 15:06 KUX8464 SSU-M15) Document 02/14/19 15:33 XSX3066 (Rec: 02/14/19 15:33 DKS2424 SSU-C08) Document 02/14/19 20:00 BJW4819 (Rec: 02/14/19 22:02 LWQ3555 SSU-L02) Document 02/15/19 00:00 WJX9823 (Rec: 02/15/19 00:49 TCQ8339 SSU-C05) Document 02/15/19 02:25 FJJ2665 (Rec: 02/15/19 02:25 JYV0715 SSU-C05) Document 02/15/19 04:00 BIL0432 (Rec: 02/15/19 04:07 WVC4833 SSU-C05) Document 02/15/19 06:18 DCQ0110 (Rec: 02/15/19 06:18 OCL4741 SSU-L02) Document 02/15/19 08:00 CBH9058 (Rec: 02/15/19 09:00 TYX7553 SSU-C02) Document 02/15/19 09:54 ZDI8491 (Rec: 02/15/19 09:55 GGO2652 SSU-C02) Document 02/15/19 12:00 BAQ1279 (Rec: 02/15/19 14:06 LJT6346 SSU-C03) Document 02/15/19 15:55 IYB4173 (Rec: 02/15/19 15:56 TJW7363 SSU-M06) Document 02/15/19 16:00 XFI8252 (Rec: 02/15/19 16:07 DKW8606 SSU-C03) Document 02/15/19 16:40 UAT0097 (Rec: 02/15/19 16:42 TZY8584 SSU-C19) Document 02/15/19 18:56 TEM5574 (Rec: 02/15/19 18:56 DIM9736 SSU-M06) Document 02/15/19 20:00 VBE6084 (Rec: 02/15/19 21:33 LZQ6167 SSU-C05) Document 02/15/19 21:33 ILR7226 (Rec: 02/15/19 21:33 OVQ8183 SSU-C05) Document 02/15/19 22:00 VDF1238 (Rec: 02/15/19 22:21 FPH7605 SSU-M06) Document 02/16/19 00:00 CBI0016 (Rec: 02/16/19 00:14 JCA3259 SSU-C05) Document 02/16/19 03:57 LCK5982 (Rec: 02/16/19 03:58 YAW5496 SSU-C03) Document 02/16/19 04:36 XUV8193 (Rec: 02/16/19 04:36 BXY4846 SSU-C03) Document 02/16/19 08:00 DQI9416 (Rec: 02/16/19 12:40 GAR7640 SSU-C08) Document 02/16/19 08:18 LAL8706 (Rec: 02/16/19 08:19 ZSM4963 SSU-C01) Document 02/16/19 08:48 HBN3455 (Rec: 02/16/19 08:48 PUO3422 SSU-C01) Document 02/16/19 09:50 MSJ6016 (Rec: 02/16/19 09:50 IHA3716 SSU-C01) Document 02/16/19 11:26 LQT7332 (Rec: 02/16/19 11:26 YEB2396 SSU-C01) Document 02/16/19 12:21 YZC9092 (Rec: 02/16/19 12:22 KYN6067 SSU-M06) Document 02/16/19 13:23 CJO0340 (Rec: 02/16/19 13:23 VZF2445 SSU-M06) Document 02/16/19 14:16 YGC2746 (Rec: 02/16/19 14:16 PUD8555 SSU-C01) Document 02/16/19 16:36 MWK8958 (Rec: 02/16/19 16:36 FMM7245 SSU-M06) Document 02/16/19 18:00 UTJ1538 (Rec: 02/16/19 18:00 UUK6419 SSU-M18) Document 02/16/19 19:44 JJL2850 (Rec: 02/16/19 19:44 IBA3557 SSU-M06) Document 02/16/19 21:48 IHS0631 (Rec: 02/16/19 21:48 HIU9669 SSU-M18) Document 02/17/19 00:06 ROO4509 (Rec: 02/17/19 00:06 DLW2306 SSU-M07) Document 02/17/19 01:40 WUI7243 (Rec: 02/17/19 01:40 TKF0045 SSU-C08) Document 02/17/19 06:00 MKA3624 (Rec: 02/17/19 04:07 EBH7314 SSU-C02) Document 02/17/19 08:14 ZLF9432 (Rec: 02/17/19 08:14 CCR4884 SSU-C03) Document 02/17/19 12:14 QAR0582 (Rec: 02/17/19 12:14 BFZ0960 SSU-C03) Intake and Output Start: 02/17/19 15: 53 Freq: Q1HR Status: Active Protocol: Created 02/17/19 15:53 ENU8889 (Rec: 02/17/19 15:53 EYZ4046 ICU-M18) Document 02/17/19 16:00 TQF1467 (Rec: 02/17/19 17:15 EIJ2275 ICU-M18) Document 02/17/19 18:00 MJT9752 (Rec: 02/17/19 19:20 FRJ6007 ICU-M18) Document 02/17/19 19:00 FCC5327 (Rec: 02/17/19 21:06 OEJ0271 ICU-C06) Document 02/17/19 20:00 INU7583 (Rec: 02/17/19 21:06 JQN6047 ICU-C06) Document 02/17/19 21:00 AKN8524 (Rec: 02/17/19 21:09 UDZ2376 ICU-C06) Document 02/17/19 21:34 RMJ5456 (Rec: 02/17/19 21:34 PLM5209 ICU-C06) Document 02/17/19 22:00 SZC1374 (Rec: 02/17/19 22:05 AUN4691 ICU-M18) Document 02/17/19 22:59 UQY4484 (Rec: 02/17/19 22:59 YVS4589 ICU-C06) Document 02/17/19 23:34 SBB6170 (Rec: 02/17/19 23:34 HIR2747 ICU-C06) Document 02/18/19 00:00 QZX2760 (Rec: 02/18/19 00:01 ZTC0138 ICU-C06) Document 02/18/19 01:00 HSM3024 (Rec: 02/18/19 01:00 UTE7303 ICU-C06) Document 02/18/19 02:00 IDB4676 (Rec: 02/18/19 02:12 WPM1783 ICU-C06) Document 02/18/19 03:00 RII4264 (Rec: 02/18/19 03:03 ZBZ9653 ICU-C06) Document 02/18/19 04:00 LFY6038 (Rec: 02/18/19 04:08 NWP2559 ICU-C06) Document 02/18/19 05:00 ALC8478 (Rec: 02/18/19 05:19 LIA3839 ICU-C25) Document 02/18/19 05:50 HYG5266 (Rec: 02/18/19 05:50 PXM6705 ICU-M18) Document 02/18/19 06:34 CHV5759 (Rec: 02/18/19 06:35 NHP8414 ICU-C06) Document 02/18/19 07:00 MCX7392 (Rec: 02/18/19 07:37 FUD8509 ICU-C15) Document 02/18/19 08:00 DXQ6610 (Rec: 02/18/19 08:58 MOF7909 ICU-C15) Document 02/18/19 09:00 NUN5341 (Rec: 02/18/19 11:50 PND9875 ICU-C15) Document 02/18/19 10:00 (Rec: 02/18/19 12:14 NRO4549 ICU-C15) Document 02/18/19 11:00 (Rec: 02/18/19 12:14 ICU-C15) Document 02/18/19 12:00 (Rec: 02/18/19 12:14 ICU-C15) Labs: Laboratory Results - last 24 hr 02/17/19 02/17/19 02/17/19 16:30 16:55 16:55 WBC 20.4 H RBC 3.33 L Hgb 10.2 L Hct 31 L MCV 93 MCH 31 MCHC 33 RDW 15 Plt Count 827 H D MPV 7.2 L INR (Anticoag Therapy) APTT Patient Temperature Not Reportable ABG pH 7.49 H ABG pH (Temp Correct) Not Reportable ABG pCO2 35 ABG pCO2 (Temp Corrct Not Reportable ABG pO2 70 L ABG pO2 (Temp Correct Not Reportable ABG HCO3 27.6 ABG O2 Saturation 97.0 ABG Base Excess 3.5 H Respiration Rate 16 O2 Delivery Device vent Ventilator Type Not Reportable Vent Mode Pcv` FiO2 60 Inspiratory Time .8 PEEP 10 Pressure Support Not Reportable Pressure Control 25 EPAP Not Reportable IPAP Not Reportable BiPAP Not Reportable Sodium Potassium Chloride Carbon Dioxide Anion Gap BUN Creatinine Est GFR ( Amer) Est GFR (Non-Af Amer) BUN/Creatinine Ratio Glucose Lactic Acid Calcium Ionized Calcium Phosphorus Magnesium Total Bilirubin AST ALT Alkaline Phosphatase B-Natriuretic Peptide Total Protein Albumin Globulin Albumin/Globulin Ratio Vancomycin Trough 8.6 02/17/19 02/17/19 02/17/19 16:55 16:55 16:55 WBC RBC Hgb Hct MCV MCH MCHC RDW Plt Count MPV INR (Anticoag Therapy) 1.68 H APTT 30.6 Patient Temperature ABG pH ABG pH (Temp Correct) ABG pCO2 ABG pCO2 (Temp Corrct ABG pO2 ABG pO2 (Temp Correct ABG HCO3 ABG O2 Saturation ABG Base Excess Respiration Rate O2 Delivery Device Ventilator Type Vent Mode FiO2 Inspiratory Time PEEP Pressure Support Pressure Control EPAP IPAP BiPAP Sodium 138 Potassium 3.5 Chloride 101 Carbon Dioxide 28 Anion Gap 9 BUN 3 L Creatinine 0.76 Est GFR ( Amer) 106.1 Est GFR (Non-Af Amer) 87.6 BUN/Creatinine Ratio 3.9 L Glucose 148 H Lactic Acid Calcium 7.6 L Ionized Calcium 1.00 L Phosphorus 4.3 Magnesium 1.8 L Total Bilirubin 0.60 AST 14 ALT 7 Alkaline Phosphatase 81 B-Natriuretic Peptide Total Protein 5.9 L Albumin 2.5 L Globulin 3.4 Albumin/Globulin Ratio 0.7 L Vancomycin Trough 02/17/19 02/18/19 02/18/19 16:55 04:39 04:39 WBC 18.4 H RBC 2.83 L Hgb 9.0 L Hct 26 L MCV 93 MCH 32 H MCHC 34 RDW 15 Plt Count 722 H D MPV 7.4 INR (Anticoag Therapy) APTT Patient Temperature ABG pH ABG pH (Temp Correct) ABG pCO2 ABG pCO2 (Temp Corrct ABG pO2 ABG pO2 (Temp Correct ABG HCO3 ABG O2 Saturation ABG Base Excess Respiration Rate O2 Delivery Device Ventilator Type Vent Mode FiO2 Inspiratory Time PEEP Pressure Support Pressure Control EPAP IPAP BiPAP Sodium Potassium Chloride Carbon Dioxide Anion Gap BUN Creatinine Est GFR ( Amer) Est GFR (Non-Af Amer) BUN/Creatinine Ratio Glucose Lactic Acid 0.7 Calcium Ionized Calcium Phosphorus Magnesium Total Bilirubin AST ALT Alkaline Phosphatase B-Natriuretic Peptide 67 Total Protein Albumin Globulin Albumin/Globulin Ratio Vancomycin Trough 02/18/19 02/18/19 04:39 04:39 WBC RBC Hgb Hct MCV MCH MCHC RDW Plt Count MPV INR (Anticoag Therapy) APTT Patient Temperature ABG pH ABG pH (Temp Correct) ABG pCO2 ABG pCO2 (Temp Corrct ABG pO2 ABG pO2 (Temp Correct ABG HCO3 ABG O2 Saturation ABG Base Excess Respiration Rate O2 Delivery Device Ventilator Type Vent Mode FiO2 Inspiratory Time PEEP Pressure Support Pressure Control EPAP IPAP BiPAP Sodium 143 Potassium 4.0 Chloride 108 Carbon Dioxide 28 Anion Gap 7 BUN 4 L Creatinine 0.64 Est GFR ( Amer) 129.3 Est GFR (Non-Af Amer) 106.9 BUN/Creatinine Ratio 6.3 L Glucose 141 H Lactic Acid 0.8 Calcium 7.6 L Ionized Calcium Phosphorus 4.9 Magnesium 2.4 Total Bilirubin 0.40 AST 14 ALT 7 Alkaline Phosphatase 74 B-Natriuretic Peptide Total Protein 5.7 L Albumin 2.4 L Globulin 3.3 Albumin/Globulin Ratio 0.7 L Vancomycin Trough Studies: 02/18/19 - LOWER EXT VEINS BILATERAL DUPLEX IMPRESSION: No sonographic evidence of deep vein thrombosis. 02/18/19- CXR B/L interstitial marking L>R with increased opacification on the right consistent with left pleural effusion Nutrition: NPO due to colon resection and ex-lap <24 hours ago Impression: 33 yo F with with perforated sigmoid colitis with abscess s/p peri's POD 6 and ex-lap POD 1 with negative findings remains intubated and mechanically ventilated with high FIO2 100% Plan: Cardiovascular: (1) Septic shock Hemodynamics have improved --discontinue LR ] --TTE pending Home meds: None Pulmonary: (1) Acute hypoxic respiratory failure; (2) Bilateral pleural effusions L>R (3) Tobacco abuse; Concerning high FIO2 70-100%. Suspect due to pulmonary edema from fluid overload --discontinue IVF --lasix 40 mg IV x 1 now --if FIO2 does not decrease with diuretics, will attempt a thoracentesis for therapeutic measures -- PRN Albuterol -- Nicoderm patch Home meds: None Gastrointestinal: (1) Perforated sigmoid diverticulitis s/p Peri's POD6 with ex lap POD1 -- diet: NPO for now --KUB pending -- bowel regimen: None -- ulcer prophylaxis: Protonix -- PRN Zofran -- General surgery following Home meds: None Endocrine: No acute issues -- monitor BGs Home meds: None Renal: No acute issues Home meds: None Infectious disease: (1) Perforated bowel with peritonitis (2) abdominal sepsis (3) septic shock (4) PNA Improving clinical s/p repair with peri's -- ABX Zosyn Vancomycin Home meds: None Neurologic: (1) Polysubstance abuse -- Propofol gtt for sedation with precedex -- Fentanyl gtt for pain control --oxycodone prn if KUB unrevealing Home meds: None Hematological: (1) Anemia; (2) Thrombocytosis- reactive, improving ; (3) Splenic infarction likely septic embolic --pending TTE to eval for IEC --Improving leukocytosis -- DVT prophylaxis: SQ Lovenox -- Vaccinated with Haemophilus, Meningoccal @ 02/17 Home meds: None Metabolic: No acute issues -- Lactic acid ordered Home meds: None Deep vein thrombosis prophylaxis: SQ Lovenox Dietary: Protonix Condition: critical Prognosis: guarded Code status: Full Disposition: Monitor in ICU Critical care issues: high FIO2, acute hypoxemic resp failure, vent dependance Cumulative time spent in the care of this patient (excluding any procedure time) : at least 60 minutes. Patient care included clinical interview (with patient and/or family), bedside exam of the patient, review of labs, x-rays, and other ancillary data, coordination of (respiratory, nursing care, review of patient's records, discussion regarding patients management with involved consultants, primary physician, pharmacists, and other healthcare personnel (dietary, case management , physical/occupational therapy etc.)
[2019-02-18] MEDS: fentaNYL* 50 MCG/ML 2 ML VIAL (100 MCG VIAL) IV SLOW PU PRN (15:40)
[2019-02-18] MEDS: Ondansetron INJ* 2 MG/ML VIAL IV PRN (15:40)
[2019-02-18] MEDS: Enoxaparin(*) 40 MG/0.4 ML SYR SUBCUT SCH (17:52)
[2019-02-18] MEDS: oxyCODONE ORAL.SOLN* 5 MG/5 ML UDC PO SCH ×2 (18:10→22:20)
[2019-02-18] MEDS: Nicotine Patch Removal NOTE FOLLOW UP SCH (21:05)
[2019-02-19] MEDS: Chlorhexidine MOUTHWASH 0.12%* 15 ML UDC TOPICAL SCH ×4 (00:55→13:16)
[2019-02-19] MEDS: Propofol* 100 ML IV SCH (02:30)
[2019-02-19] MEDS: Piperacillin/Tazobac ADVAN(*) 3.375 GM in NS 0.9% 100 ML* 100 ML IVPB SCH ×4 (02:30→19:45)
[2019-02-19] MEDS: Dexmedetomidine* 1,000 MCG in NS 0.9% 250 ML* 240 ML IVPB SCH ×3 (03:39→13:14)
[2019-02-19] MEDS: oxyCODONE ORAL.SOLN* 5 MG/5 ML UDC PO SCH ×3 (04:36→14:50)
[2019-02-19] MEDS: Vancomycin(*) 1,000 MG in NS 0.9% 250 ML* 250 ML IVPB SCH ×2 (04:36→19:08)
[2019-02-19 05:08] LABS: Hematocrit 28 % (35-47); Hemoglobin 9.6 g/dL (12.0-16.0); Mean Corpuscular HGB Conc 34 g/dL (31-36); Mean Corpuscular Hemoglobin 32 pg (27-31); Mean Corpuscular Volume 93 fL (80-97); Mean Platelet Volume 7.4 fL (7.4-10.4); Platelet Count 856 10^3/uL (150-450); Red Blood Count 3.04 10^6 /uL (3.70-4.87); Red Cell Distribution Width 15 % (10.5-15); White Blood Count 14.7 10^3/uL (3.5-10.8)
[2019-02-19 05:25] LABS: Albumin 2.5 g/dL (3.2-5.2); Albumin/Globulin Ratio 0.7 (1-3); Calcium 7.6 mg/dL (8.6-10.3); EGFR African American 86.1 (>60); EGFR Non-African American 71.2 (>60); Globulin 3.6 g/dL (2-4); Magnesium 2.4 mg/dL (1.9-2.7); Phosphorus 4.2 mg/dL (2.5-5.0); Potassium 3.3 mmol/L (3.5-5.0); Total Bilirubin 0.4 mg/dL (0.2-1.0); Total Protein 6.1 g/dL (6.4-8.9)
[2019-02-19] MEDS ORDERED: Perflutren Lipid Microsphere* 3 ML VIAL ONE (08:00)
[2019-02-19] MEDS: fentaNYL* 50 MCG/ML 2 ML VIAL (100 MCG VIAL) IV SLOW PU PRN ×3 (08:05→23:32)
[2019-02-19] MEDS: Nicotine PATCH 21 MG/24 HR* PATCH TRANSDERM SCH (08:57)
[2019-02-19] MEDS: Pantoprazole IV* 40 MG IV SCH (08:57)
[2019-02-19] MEDS ORDERED: Furosemide IV* 10 MG/ML VIAL (40 MG) IV SCH (09:00)
[2019-02-19] MEDS ORDERED: Vancomycin Trough Check NOTE FOLLOW UP ONE (10:30)
--- NOTE | 2019-02-19 10:33 | PN ---
Progress Note - Progress Note Date of Service: 02/19/19 SOAP: Subjective: [] awake , alert, intubated, communicating with hand gestures, "thumbs up" Objective: [] Temp Pulse Resp BP Pulse Ox 98.4 F 75 18 105/67 95 02/19/19 08:00 02/19/19 09:16 02/19/19 09:54 02/19/19 09:30 02/19/19 09:16 Laboratory Last Values WBC 14.7 10^3/uL (3.5-10.8) H 02/19/19 04:55 RBC 3.04 10^6 /uL (3.70-4.87) L 02/19/19 04:55 Hgb 9.6 g/dL (12.0-16.0) L 02/19/19 04:55 Hct 28 % (35-47) L 02/19/19 04:55 MCV 93 fL (80-97) 02/19/19 04:55 MCH 32 pg (27-31) H 02/19/19 04:55 MCHC 34 g/dL (31-36) 02/19/19 04:55 RDW 15 % (10.5-15) 02/19/19 04:55 Plt Count 856 10^3/uL (150-450) H D 02/19/19 04:55 MPV 7.4 fL (7.4-10.4) 02/19/19 04:55 Neut % (Auto) 82.7 % 02/17/19 04:34 Lymph % (Auto) 6.3 % 02/17/19 04:34 Evans % (Auto) 10.4 % 02/17/19 04:34 Eos % (Auto) 0.3 % 02/17/19 04:34 Baso % (Auto) 0.3 % 02/17/19 04:34 Absolute Neuts (auto) 17.1 10^3/ul (1.5-7.7) H 02/17/19 04:34 Absolute Lymphs (auto) 1.3 10^3/ul (1.0-4.8) 02/17/19 04:34 Absolute Monos (auto) 2.2 10^3/ul (0-0.8) H 02/17/19 04:34 Absolute Eos (auto) 0.1 10^3/ul (0-0.6) 02/17/19 04:34 Absolute Basos (auto) 0.1 10^3/ul (0-0.2) 02/17/19 04:34 Absolute Nucleated RBC 0.0 10^3/ul 02/17/19 04:34 Immature Gran % 2.0 % (0-9) 02/16/19 06:06 Neutrophils % 83.0 % 02/16/19 06:06 Band Neutrophils % 1.0 % (0-8) 02/16/19 06:06 Lymphocytes % 9.0 % 02/16/19 06:06 Monocytes % 6.0 % 02/16/19 06:06 Eosinophils % 0.0 % 02/16/19 06:06 Basophils % 0.0 % 02/16/19 06:06 Metamyelocytes % 1.0 % (0-2) 02/16/19 06:06 Nucleated RBC % 0.0 02/17/19 04:34 Abs Neuts (Manual) 17.1 10^3/ul (1.5-7.7) H 02/16/19 06:06 Abs Lymphs (Manual) 1.8 10^3/ul (1.0-4.8) 02/16/19 06:06 Abs Monocytes (Manual) 1.2 10^3/ul (0-0.8) H 02/16/19 06:06 Absolute Eos (Manual) 0.0 10^3/ul (0-0.6) 02/16/19 06:06 Abs Basophils (Manual) 0.0 10^3/ul (0-0.2) 02/16/19 06:06 Smudge Cells Present 02/16/19 06:06 Normal RBC Morphology Not Reportable 02/16/19 06:06 Anisocytosis 1+ 02/16/19 06:06 Macrocytosis 1+ 02/16/19 06:06 INR (Anticoag Therapy) 1.68 (0.82-1.09) H 02/17/19 16:55 APTT 30.6 seconds (26.0-36.3) 02/17/19 16:55 Patient Temperature Not Reportable 02/17/19 16:30 ABG pH 7.49 (7.35-7.45) H 02/17/19 16:30 ABG pH (Temp Correct) Not Reportable 02/17/19 16:30 ABG pCO2 35 mmHg (35-45) 02/17/19 16:30 ABG pCO2 (Temp Corrct Not Reportable 02/17/19 16:30 ABG pO2 70 mmHg (80-100) L 02/17/19 16:30 ABG pO2 (Temp Correct Not Reportable 02/17/19 16:30 ABG HCO3 27.6 mmol/L (19-31) 02/17/19 16:30 ABG O2 Saturation 97.0 % (94.0-98.0) 02/17/19 16:30 ABG Base Excess 3.5 mmol/L (-2.0-2.0) H 02/17/19 16:30 Respiration Rate 16 02/17/19 16:30 O2 Delivery Device vent 02/17/19 16:30 Ventilator Type Not Reportable 02/17/19 16:30 Vent Mode Pcv` 02/17/19 16:30 FiO2 60 02/17/19 16:30 Inspiratory Time .8 02/17/19 16:30 PEEP 10 02/17/19 16:30 Pressure Support Not Reportable 02/17/19 16:30 Pressure Control 25 02/17/19 16:30 EPAP Not Reportable 02/17/19 16:30 IPAP Not Reportable 02/17/19 16:30 BiPAP Not Reportable 02/17/19 16:30 Sodium 144 mmol/L (135-145) 02/19/19 04:55 Potassium 3.3 mmol/L (3.5-5.0) L 02/19/19 04:55 Chloride 105 mmol/L (101-111) 02/19/19 04:55 Carbon Dioxide 30 mmol/L (22-32) 02/19/19 04:55 Anion Gap 9 mmol/L (2-11) 02/19/19 04:55 BUN 10 mg/dL (6-24) 02/19/19 04:55 Creatinine 0.91 mg/dL (0.51-0.95) 02/19/19 04:55 Est GFR ( Amer) 86.1 (>60) 02/19/19 04:55 Est GFR (Non-Af Amer) 71.2 (>60) 02/19/19 04:55 BUN/Creatinine Ratio 11.0 (8-20) 02/19/19 04:55 Glucose 114 mg/dL (70-100) H 02/19/19 04:55 Lactic Acid 0.8 mmol/L (0.5-2.0) 02/18/19 04:39 Calcium 7.6 mg/dL (8.6-10.3) L 02/19/19 04:55 Ionized Calcium 0.93 mmol/L (1.16-1.32) L 02/19/19 04:55 Phosphorus 4.2 mg/dL (2.5-5.0) 02/19/19 04:55 Magnesium 2.4 mg/dL (1.9-2.7) 02/19/19 04:55 Total Bilirubin 0.40 mg/dL (0.2-1.0) 02/19/19 04:55 AST 21 U/L (13-39) 02/19/19 04:55 ALT 9 U/L (7-52) 02/19/19 04:55 Alkaline Phosphatase 92 U/L (34-104) 02/19/19 04:55 C-Reactive Protein 286.25 mg/L (<8.01) H 02/15/19 07:30 B-Natriuretic Peptide 67 pg/mL (<=100) 02/18/19 04:39 Total Protein 6.1 g/dL (6.4-8.9) L 02/19/19 04:55 Albumin 2.5 g/dL (3.2-5.2) L 02/19/19 04:55 Globulin 3.6 g/dL (2-4) 02/19/19 04:55 Albumin/Globulin Ratio 0.7 (1-3) L 02/19/19 04:55 Lipase 10 U/L (11.0-82.0) L 02/06/19 14:36 Beta HCG, Quant < 0.60 mIU/mL 02/06/19 14:36 Urine Color Yellow 02/16/19 08:59 Urine Appearance Cloudy 02/16/19 08:59 Urine pH 7.0 (5-9) 02/16/19 08:59 Ur Specific [place] 1.011 (1.010-1.030) 02/16/19 08:59 Urine Protein Negative (Negative) 02/16/19 08:59 Urine Ketones 1+ (Negative) A 02/16/19 08:59 Urine Blood 3+ (Negative) A 02/16/19 08:59 Urine Nitrate Negative (Negative) 02/16/19 08:59 Urine Bilirubin Negative (Negative) 02/16/19 08:59 Urine Urobilinogen Negative (Negative) 02/16/19 08:59 Ur Leukocyte Esterase Trace (Negative) A 02/16/19 08:59 Urine WBC (Auto) 1+(6-10/hpf) (Absent) A 02/16/19 08:59 Urine RBC (Auto) 2+(6-10/hpf) (Absent) A 02/16/19 08:59 Ur Squamous Epith Cells Present (Absent) A 02/16/19 08:59 Urine Bacteria Absent (Absent) 02/16/19 08:59 Urine Glucose Negative (Negative) 02/16/19 08:59 Vancomycin Trough 8.6 mcg/mL 02/17/19 16:55 HIV 1&2 Antibody Nonreactive (Nonreactive) 02/06/19 19:26 Blood Type O Negative 02/17/19 04:34 Antibody Screen Negative 02/17/19 04:34 Intake & Output 02/17/19 02/18/19 02/19/19 02/20/19 06:59 06:59 06:59 06:59 Intake Total 1645 2933 3893 44 Output Total 3200 3825 6820 135 Balance -1555 -892 -2927 -91 Weight 192 lb 5 oz 187 lb 3.2 oz Intake: IV Fluids 1440 1894 2875 D5W LR 20 meq KCL 1440 LR 1247 1208 Mag Sulfate 90 NS (0.9%) 117 65 Precedex 361 Propofol 440 613 Vanco 383 Zosyn 245 IVPB 205 997 993 ABX - CIPROFLOXACIN 205 KCl 213 Vanco 569 783 Zosyn 215 210 IV Narcotic Infusion 42 25 44 Fentanyl 42 25 44 Oral 0 0 Output: NG Tube Drainage Amount 100 Urine 3200 300 Iniguez 3425 6820 135 Other: # Voids 2 stoma viable, abdomen benign, incision ok Assessment: [] stable, improving Plan: [] hopefully extubate today, await return gi fxn
[2019-02-19] MEDS ORDERED: [UNRECOGNIZED DRUG - OTHER] IM ONE (12:00)
[2019-02-19] MEDS: KCL 20 MEQ/100 ML IVPREMIX* 20 MEQ/100 ML BAG IV SCH ×2 (12:24→16:52)
[2019-02-19] MEDS ORDERED: LORazepam TAB(*) 1 MG PO PRN (12:51)
--- NOTE | 2019-02-19 13:28 | ECHO ---
*[facility]* [place] [address] Fax #: [phone] Transthoracic Echocardiogram Patient: Estevan, Height: 63 in / 160 Rosalba Delgado cm : 1985 Weight: 188.6 lb / Study Date: 02/19/2019 85.7 kg Age: 33 BP: 132 / 87 Gender: F BMI/BSA: 33.5 kg/m^2 HR: 57 bpm / 1.89 m^2 *Cell Biology Scientist: * Lori Singh [facility] *Referring Physician: * Marion Najera *Reading Physician: * Yomi West MD Indications: Congestive Heart Failure. History: Polysubstance abuse. Risk factors: Current tobacco use. Conclusions Summary: 1. Left ventricle: Systolic function is probably normal. The estimated ejection fraction is 50-55%. Wall motion is normal; there are no regional wall motion abnormalities. 2. Right ventricle: Systolic function is normal. 3. Mitral valve: There is trivial regurgitation. 4. Aortic valve: There is no evidence of stenosis. There is no significant regurgitation. 5. Tricuspid valve: There is mild regurgitation. 6. Impressions: No previous study was available for comparison. Study data: Transthoracic echocardiogram. Procedure: Transthoracic echocardiography was performed. Image quality was suboptimal. The study was technically limited due to Patient on ventilator and Smoking history. Intravenous contrast (Definity, 3.5 mls) was administered. Image enhancement administered by KARLA Hilton. Complete 2D, spectral Doppler, and color flow Doppler. Location: ICU Patient status: Inpatient. Patient room number: 5. No prior study is available for comparison. Rhythm: Normal sinus rhythm. Findings Left ventricle: The cavity size is normal. Wall thickness is normal. Systolic function is probably normal. The estimated ejection fraction is 50-55%. Wall motion is normal; there are no regional wall motion abnormalities. Left ventricular diastolic function parameters are normal. Right ventricle: The cavity size is normal. Wall thickness is normal. Systolic function is normal. Left atrium: The atrium is normal in size. Right atrium: The atrium is normal in size. Mitral valve: The leaflets are normal thickness. There is no evidence of stenosis. There is trivial regurgitation. The peak diastolic gradient is 5.2 mm Hg. Aortic valve: The valve is trileaflet. The leaflets are normal thickness. There is no evidence of stenosis. There is no significant regurgitation. The ratio of LVOT to aortic valve peak velocity is 0.95. The ratio of LVOT to aortic valve mean velocity is 0.94. The mean systolic gradient is 3.0 mm Hg. The peak systolic gradient is 5.0 mm Hg. Tricuspid valve: The leaflets are normal thickness. There is no evidence of stenosis. There is mild regurgitation. Pulmonic valve: Not well visualized. There is no significant regurgitation. The peak systolic gradient is 2.0 mm Hg. Aorta: Aortic arch: The aortic arch is appears normal. The aortic root is not dilated. Pericardium: There is no significant pericardial effusion. There is a large left pleural effusion. Pulmonary arteries: Not well visualized. Systemic veins: Inferior vena cava: The vessel is dilated. Measurements Left ventricle Value Ref Aortic valve continued Value Ref FRANCISCO, LAX 4.9 cm 3.8 - 5.2 Peak v, S 1.14 m/sec ---- ESD, LAX (H) 3.9 cm 2.2 - 3.5 VTI, S 24.8 cm ---- FS, LAX (L) 20 % 27 - 45 Mean grad, S 3.0 mm Hg ---- PW, ED, LAX (H) 1.0 cm 0.6 - 0.9 Peak grad, S 5.0 mm Hg ---- EF (L) 41 % 54 - 74 E', lat radha, TDI 15.6 cm/sec >=10.0 Mitral valve Value Re f E/e', lat radha, 7 Peak E 1.14 m/sec ---- TDI Peak A 0.45 m/sec ---- E', med radah, TDI 12.2 cm/sec >=7.0 Decel time 201 ms -- -- E/e', med radha, 9 Peak grad, D 5.2 mm Hg ---- TDI Peak E/A ratio 2.5 ---- E', avg, TDI 13.9 cm/sec E/e', avg, TDI 8 <=14 Pulmonic valve Value Re f Peak v, S 0.73 m/sec ---- LVOT Value Ref Peak grad, S 2.0 mm Hg ---- Peak lucho, S 1.08 m/sec Mean grad, S 2 mm Hg Aortic root Value Ref Root diam 2.9 cm <3.6 Ventricular septum Value Ref IVS, ED, LAX (H) 1.1 cm 0.6 - 0.9 Aortic arch Value Ref Arch diam 2.8 cm ---- Right ventricle Value Ref FRANCISCO, LAX 2.0 cm Decending aorta Value Ref Miko peak lucho 1.1 m/sec ---- Left atrium Value Ref AP dim, ES 3.10 cm 2.70 - Inferior vena cava Value Ref 3.80 Diam 2.6 cm ---- ML dim, A4C 3.9 cm SI dim, A4C 4.9 cm Pulmonary veins Value Ref Vol/bsa, ES, A/L 25 ml/m^2 16 - 34 Peak v, S 0.68 m/sec ---- Peak v, D 0.61 m/sec ---- Right atrium Value Ref Peak S/D ratio 1.1 ---- SI dim, ES 4.5 cm 3.4 - 5.3 Peak A rev v 0.31 m/sec ---- ML dim, ES, A4C 3.5 cm 2.6 - 4.4 A rev duration 98 ms ---- Estimated RAP 8 mm Hg Aortic valve Value Ref Radha diam, ED 2.0 cm Legend: (L) and (H) sary values outside specified reference range. Prepared and electronically signed by Yomi West MD 02/19/2019 13:27
[2019-02-19] MEDS: fentaNYL INFUSION 50 MCG/ML* 2,500 MCG/50 ML BAG IV SCH (13:41)
--- NOTE | 2019-02-19 15:15 | PN ---
Date of Service: 02/19/19 Critical Care Services: 33 yo F with a PMH of substance abuse (cocaine, mushrooms, cannabis), diverticulitis, irritable bowel disease, asthma, anxiety and panic disorder. She presented to the ED on with symptoms similar to prior episodes of diverticulitis. TTP in LLQ. WBC 14.1. CT with sigmoid colonic wall thickening and surrounding inflammatory changes suggestive of diverticulitis. Microperforation. Started on Abx and admitted to hospitalist service. 02/07: WBC 11.5. Surgery consulted. 02/08: loose BMs. tolerating clear liquids. continues to have lower quadrant abdominal pain. Urine culture (+) for klebsiella, but UA negative. Likely colonization. 02/09: Complaining of persisent pain. Tolerating clear liquids. 02/10: Advanced to soft diet. WBC 10.8. Started on IVF for tachycardia. 02/11: CT with SBO and organizing abscess for diverticular perforation. Tolerating diet and passing flatus, but also reports nausea and belching. Surgery reconsulted. 02/12: Went to OR for ex lap with sigmoid colectomy, Hartmans and end colostomy. 02/13: Signficant pain despite HEAD HOST/HOSTESS usage. Ambulating. 02/14: WBC 16.8. HR 100s with concentrated urine - bolused IVF. 02/15: Started on clear liquids. Hospitalist service recommended CTA given tachycardia and given that patient has been refusing SQ Heparin for days but patient refused. WBC remains elevated. 02/16: Febrile. CT abdomen with contrast shows splenic infarct and abscess. 02/17: Hypoxic, CT from 02/16 with pleural effusions, given lasix. Returned to OR for washout; no significant findings intra operatively. Postprocedure anesthesia was unable to wean FiO2 below 70% and decided to leave patient intubated and come to ICU. 02/19: No significant overnight events. Extubated today. Fentanyl, propofol, and precedex gtt off. Complains of abdominal pain. No BM. No fever, chills, of flatulence Vital Signs: Temp Pulse Resp BP SpO2 FiO2 98 F 93 24 100/73 92 40 02/19/19 12:00 02/19/19 12:31 02/19/19 14:50 02/19/19 12:31 02/19/19 12:31 02/19 08:00 Physical Exam: Gen:NAD, cooperative HEENT:NCAT, PERRL, neck supple, no thyromegaly, mucous membranes moist Lungs:Air entry bilaterally with diminished breath sounds at the bases, no wheezes Cardiac: S1S2, RRR Abdomen:distended, hypoactive bowel sounds, ostomy bag with no output Extremities:Trace edema, no cyanosis Neuro:non focal; AAO x 3 Fluid Balance (Past 24 Hours): I= O= Net Intake & Output 02/17/19 02/18/19 02/19/19 02/20/19 06:59 06:59 06:59 06:59 Intake Total 1645 2933 3893 524 Output Total 3200 3825 6820 8761 Balance -1555 -892 -2927 -3161 Weight 192 lb 5 oz 187 lb 3.2 oz Intake: IV Fluids 1440 1894 2875 D5W LR 20 meq KCL 1440 LR 1247 1208 Mag Sulfate 90 NS (0.9%) 117 65 Precedex 361 Propofol 440 613 Vanco 383 Zosyn 245 IVPB 205 997 993 ABX - CIPROFLOXACIN 205 KCl 213 Vanco 569 783 Zosyn 215 210 IV Narcotic Infusion 42 25 44 Fentanyl 42 25 44 Oral 0 0 480 Output: NG Tube Drainage Amount 100 Urine 3200 300 Iniguez 3425 0674 3040 Other: # Voids 2 ADLs: Meal Record Start: 02/06/19 23: 20 Freq: DAILY@0900,1400,1800 Status: Inactive Protocol: Created 02/06/19 23:20 System (Rec: 02/06/19 23:20 System MED-C03) Document 02/07/19 09:00 GEB8083 (Rec: 02/07/19 09:30 TVK8592 MED-C11) Document 02/07/19 12:50 DZG4546 (Rec: 02/07/19 12:50 EWA7444 MED-C11) Document 02/07/19 18:00 BGC5531 (Rec: 02/07/19 18:30 RTS3258 MED-C11) Document 02/08/19 09:00 MUL6452 (Rec: 02/08/19 11:49 MTF0443 MED-C09) Document 02/08/19 14:00 IRT5835 (Rec: 02/08/19 14:11 TSJ7386 MED-C09) Document 02/08/19 18:00 DUO6504 (Rec: 02/08/19 18:43 LSM7542 MED-C09) Document 02/09/19 09:00 YCM8795 (Rec: 02/09/19 11:42 IOT5276 MED-C13) Document 02/09/19 14:00 CWO8746 (Rec: 02/09/19 17:20 MLJ2633 MED-C11) Document 02/10/19 09:00 GFF7760 (Rec: 02/10/19 09:35 MBD5098 MED-C13) Document 02/10/19 14:00 MES9151 (Rec: 02/10/19 18:24 EVU2156 MED-C13) Document 02/10/19 18:00 RGI0121 (Rec: 02/10/19 18:25 YMB3483 MED-C13) Document 02/11/19 09:00 SWG7651 (Rec: 02/11/19 09:36 MPZ0078 MED-C11) Document 02/11/19 13:08 AYA9262 (Rec: 02/11/19 13:08 UCU6555 MED-C09) Document 02/11/19 18:00 LKV3899 (Rec: 02/11/19 18:39 DTG3801 MED-C02) Document 02/12/19 09:00 IWX4382 (Rec: 02/12/19 10:34 OVU0717 MED-C09) ADLs: Meal Record Start: 02/12/19 19: 20 Freq: Status: Complete Protocol: Created 02/12/19 19:20 PZQ9804 (Rec: 02/12/19 19:20 IXO6390 SSU-M07) Document 02/15/19 18:00 OEC1127 (Rec: 02/15/19 18:19 WZF5568 SSU-M06) Document 02/16/19 08:19 WEO0814 (Rec: 02/16/19 08:19 GEN9409 SSU-C01) Document 02/16/19 12:17 ENM8289 (Rec: 02/16/19 12:18 VKI8412 SSU-C01) ADLs: Meal Record Start: 02/17/19 15: 53 Freq: 09,13,18 Status: Active Protocol: Created 02/17/19 15:53 KXD3417 (Rec: 02/17/19 15:53 VPR8522 ICU-M18) Document 02/18/19 09:00 RPE0822 (Rec: 02/18/19 09:35 SJX8809 ICU-C15) Document 02/18/19 13:00 HBL6665 (Rec: 02/18/19 13:12 SGV7882 ICU-C11) Document 02/18/19 18:00 XDT5206 (Rec: 02/18/19 19:19 JZV5262 ICU-C15) Document 02/19/19 09:00 HBU7304 (Rec: 02/19/19 14:25 OWO7377 ICU-C15) Document 02/19/19 13:00 VYS7436 (Rec: 02/19/19 14:25 LMU6457 ICU-C15) Intake and Output Start: 02/06/19 13: 20 Freq: Status: Complete Protocol: Created 02/06/19 13:20 System (Rec: 02/06/19 13:20 System ED-C24) Intake and Output Start: 02/06/19 23: 20 Freq: DAILY@0600,1400,2200 Status: Inactive Protocol: Created 02/06/19 23:20 System (Rec: 02/06/19 23:20 System MED-C03) Document 02/07/19 05:34 RQF5478 (Rec: 02/07/19 05:35 ISK7962 MED-C11) Document 02/07/19 12:55 EJO5719 (Rec: 02/07/19 12:55 MDQ4547 MED-C11) Document 02/07/19 22:00 FTZ5485 (Rec: 02/08/19 00:17 CAN3939 MED-C11) Document 02/08/19 06:00 YDT2291 (Rec: 02/08/19 06:47 OZQ0330 MED-C11) Document 02/08/19 14:00 WJD6358 (Rec: 02/08/19 14:11 XTF6640 MED-C09) Document 02/08/19 22:00 ZWK0874 (Rec: 02/08/19 22:02 RVT9611 MED-C09) Document 02/09/19 05:06 SBL9411 (Rec: 02/09/19 05:07 XBQ3732 MED-C09) Document 02/09/19 14:00 RAF3179 (Rec: 02/09/19 14:08 BGQ9526 MED-C16) Document 02/09/19 22:00 PWZ8084 (Rec: 02/09/19 22:25 NIE0783 MED-C09) Document 02/10/19 06:00 WWP9859 (Rec: 02/10/19 06:03 VIP2494 MED-C15) Document 02/10/19 14:00 EGS5277 (Rec: 02/10/19 18:24 SUD6209 MED-C13) Document 02/10/19 22:00 WJX9126 (Rec: 02/10/19 22:22 ASF6070 MED-C09) Document 02/11/19 05:29 DNV2096 (Rec: 02/11/19 05:30 JKT4993 MED-C09) Document 02/11/19 13:16 GZE3554 (Rec: 02/11/19 13:16 JHB0750 MED-C09) Document 02/11/19 22:00 SEF4503 (Rec: 02/11/19 22:27 KMQ5244 MED-C02) Document 02/12/19 05:55 WQV4888 (Rec: 02/12/19 05:55 CIY0593 MED-C09) Intake and Output Start: 02/12/19 19: 20 Freq: Q4HR Status: Complete Protocol: Created 02/12/19 19:20 MNY6024 (Rec: 02/12/19 19:20 BYV3059 SSU-M07) Document 02/12/19 22:32 HRE6015 (Rec: 02/12/19 22:33 DFQ8093 SSU-C02) Document 02/13/19 01:20 ARP9478 (Rec: 02/13/19 04:18 SSU-C11) Document 02/13/19 05:25 XFP3988 (Rec: 02/13/19 05:26 HHU9161 SSU-C03) Document 02/13/19 13:35 ZWO6086 (Rec: 02/13/19 20:34 KAC5057 SSU-M15) Document 02/13/19 14:09 WBC1795 (Rec: 02/13/19 14:09 LQY0958 SSU-C06) Document 02/13/19 21:05 ROI1388 (Rec: 02/13/19 21:06 NQO3926 SSU-M18) Document 02/14/19 00:00 SDD3212 (Rec: 02/14/19 00:24 QMV4222 SSU-L02) Document 02/14/19 04:11 MCA6686 (Rec: 02/14/19 04:11 NIY7934 SSU-L02) Document 02/14/19 05:10 HNQ8356 (Rec: 02/14/19 05:11 TUP4582 SSU-L02) Document 02/14/19 09:01 QSD9447 (Rec: 02/14/19 09:02 GHG8126 SSU-C02) Document 02/14/19 11:39 LRR8914 (Rec: 02/14/19 11:40 QVA9353 SSU-C02) Document 02/14/19 14:30 XWF7775 (Rec: 02/14/19 14:31 ZEA6141 SSU-C02) Document 02/14/19 15:06 CSF3315 (Rec: 02/14/19 15:06 QQM2459 SSU-M15) Document 02/14/19 15:33 MVM3877 (Rec: 02/14/19 15:33 SCK1673 SSU-C08) Document 02/14/19 20:00 IGX7600 (Rec: 02/14/19 22:02 RAV6111 SSU-L02) Document 02/15/19 00:00 VWS8397 (Rec: 02/15/19 00:49 VDW7402 SSU-C05) Document 02/15/19 02:25 YYV1852 (Rec: 02/15/19 02:25 HWX7878 SSU-C05) Document 02/15/19 04:00 VME3437 (Rec: 02/15/19 04:07 ODH9669 SSU-C05) Document 02/15/19 06:18 XJM1892 (Rec: 02/15/19 06:18 BQT2587 SSU-L02) Document 02/15/19 08:00 FUZ6140 (Rec: 02/15/19 09:00 XFY8668 SSU-C02) Document 02/15/19 09:54 XQY5653 (Rec: 02/15/19 09:55 UJQ4298 SSU-C02) Document 02/15/19 12:00 XVT7603 (Rec: 02/15/19 14:06 CKE5755 SSU-C03) Document 02/15/19 15:55 AWU6785 (Rec: 02/15/19 15:56 JQM8616 SSU-M06) Document 02/15/19 16:00 ASJ2446 (Rec: 02/15/19 16:07 AZO1485 SSU-C03) Document 02/15/19 16:40 LMP1134 (Rec: 02/15/19 16:42 HCR7345 SSU-C19) Document 02/15/19 18:56 IAK5972 (Rec: 02/15/19 18:56 KOB6602 SSU-M06) Document 02/15/19 20:00 UJS9554 (Rec: 02/15/19 21:33 UDX9137 SSU-C05) Document 02/15/19 21:33 EZW9832 (Rec: 02/15/19 21:33 HEU4089 SSU-C05) Document 02/15/19 22:00 UJN6730 (Rec: 02/15/19 22:21 CIO9620 SSU-M06) Document 02/16/19 00:00 OHQ6180 (Rec: 02/16/19 00:14 BHW9219 SSU-C05) Document 02/16/19 03:57 YRX4643 (Rec: 02/16/19 03:58 GQC8470 SSU-C03) Document 02/16/19 04:36 DHU1911 (Rec: 02/16/19 04:36 CIG3886 SSU-C03) Document 02/16/19 08:00 GZG6853 (Rec: 02/16/19 12:40 CBF5567 SSU-C08) Document 02/16/19 08:18 JOD9451 (Rec: 02/16/19 08:19 NBJ9509 SSU-C01) Document 02/16/19 08:48 UMB0697 (Rec: 02/16/19 08:48 VIX3800 SSU-C01) Document 02/16/19 09:50 NZJ8958 (Rec: 02/16/19 09:50 YUX1050 SSU-C01) Document 02/16/19 11:26 MKG6516 (Rec: 02/16/19 11:26 FPQ9676 SSU-C01) Document 02/16/19 12:21 SMW4102 (Rec: 02/16/19 12:22 RJK2589 SSU-M06) Document 02/16/19 13:23 ZPQ5595 (Rec: 02/16/19 13:23 UYC3215 SSU-M06) Document 02/16/19 14:16 BWD4613 (Rec: 02/16/19 14:16 WHH0161 SSU-C01) Document 02/16/19 16:36 MGB0685 (Rec: 02/16/19 16:36 QPS4678 SSU-M06) Document 02/16/19 18:00 DLD4870 (Rec: 02/16/19 18:00 HNG4874 SSU-M18) Document 02/16/19 19:44 USM7166 (Rec: 02/16/19 19:44 SYD6016 SSU-M06) Document 02/16/19 21:48 IJF8338 (Rec: 02/16/19 21:48 DPH5519 SSU-M18) Document 02/17/19 00:06 ZGM7308 (Rec: 02/17/19 00:06 SUR8973 SSU-M07) Document 02/17/19 01:40 LQK9826 (Rec: 02/17/19 01:40 SSG5811 SSU-C08) Document 02/17/19 06:00 RKB2600 (Rec: 02/17/19 04:07 ATN6452 SSU-C02) Document 02/17/19 08:14 TMH0630 (Rec: 02/17/19 08:14 FKV0622 SSU-C03) Document 02/17/19 12:14 DML6445 (Rec: 02/17/19 12:14 UZX7997 SSU-C03) Intake and Output Start: 02/17/19 15: 53 Freq: Q1HR Status: Active Protocol: Created 02/17/19 15:53 NPE2679 (Rec: 02/17/19 15:53 JFE7175 ICU-M18) Document 02/17/19 16:00 PLD1883 (Rec: 02/17/19 17:15 DKR6487 ICU-M18) Document 02/17/19 18:00 BFG6862 (Rec: 02/17/19 19:20 DVM2258 ICU-M18) Document 02/17/19 19:00 QHK0298 (Rec: 02/17/19 21:06 BLY6955 ICU-C06) Document 02/17/19 20:00 VWV5671 (Rec: 02/17/19 21:06 UMN8317 ICU-C06) Document 02/17/19 21:00 TVG6155 (Rec: 02/17/19 21:09 WJK2407 ICU-C06) Document 02/17/19 21:34 ORQ9483 (Rec: 02/17/19 21:34 YPY9115 ICU-C06) Document 02/17/19 22:00 VZY1845 (Rec: 02/17/19 22:05 XPM2009 ICU-M18) Document 02/17/19 22:59 BZE5667 (Rec: 02/17/19 22:59 OIZ9625 ICU-C06) Document 02/17/19 23:34 COZ0655 (Rec: 02/17/19 23:34 BVB5487 ICU-C06) Document 02/18/19 00:00 GPT8014 (Rec: 02/18/19 00:01 BBT1322 ICU-C06) Document 02/18/19 01:00 QWN8485 (Rec: 02/18/19 01:00 DHX7805 ICU-C06) Document 02/18/19 02:00 DKG8223 (Rec: 02/18/19 02:12 JRX2740 ICU-C06) Document 02/18/19 03:00 HUU9543 (Rec: 02/18/19 03:03 UKD2808 ICU-C06) Document 02/18/19 04:00 POV5755 (Rec: 02/18/19 04:08 YDV3369 ICU-C06) Document 02/18/19 05:00 DDD0883 (Rec: 02/18/19 05:19 XBY2271 ICU-C25) Document 02/18/19 05:50 KJL1963 (Rec: 02/18/19 05:50 YJV9884 ICU-M18) Document 02/18/19 06:34 TTH2744 (Rec: 02/18/19 06:35 EST0918 ICU-C06) Document 02/18/19 07:00 EGE9208 (Rec: 02/18/19 07:37 XGM5805 ICU-C15) Document 02/18/19 08:00 CXK2355 (Rec: 02/18/19 08:58 BSZ1339 ICU-C15) Document 02/18/19 09:00 VZB8358 (Rec: 02/18/19 11:50 WKG2497 ICU-C15) Document 02/18/19 10:00 TEY9934 (Rec: 02/18/19 12:14 LTU1102 ICU-C15) Document 02/18/19 11:00 XUZ0285 (Rec: 02/18/19 12:14 DQA6412 ICU-C15) Document 02/18/19 12:00 QMP3710 (Rec: 02/18/19 12:14 WHQ0028 ICU-C15) Document 02/18/19 13:00 USW2093 (Rec: 02/18/19 16:21 CON8835 ICU-C15) Document 02/18/19 14:00 UCZ4675 (Rec: 02/18/19 16:21 KBX2618 ICU-C15) Document 02/18/19 15:00 BGV6335 (Rec: 02/18/19 16:21 SHD8332 ICU-C15) Document 02/18/19 16:00 VNC3207 (Rec: 02/18/19 16:21 TGJ6775 ICU-C15) Document 02/18/19 19:00 WKC0932 (Rec: 02/18/19 19:18 HYP8730 ICU-C15) Document 02/18/19 20:00 VVL0765 (Rec: 02/18/19 21:17 MVZ4931 ICU-C15) Document 02/18/19 21:00 QHG7880 (Rec: 02/18/19 21:19 CAH3460 ICU-C15) Document 02/18/19 22:00 RCN2208 (Rec: 02/18/19 22:53 KCD3733 ICU-C15) Document 02/18/19 23:00 FIL1706 (Rec: 02/18/19 23:06 KAK3238 ICU-C15) Document 02/19/19 00:00 ZJO2743 (Rec: 02/19/19 00:02 GNP5010 ICU-C15) Document 02/19/19 00:59 JWG9919 (Rec: 02/19/19 00:59 CJX5164 ICU-C15) Document 02/19/19 02:00 RKV3120 (Rec: 02/19/19 02:21 DQI6500 ICU-C15) Document 02/19/19 03:00 ALA1921 (Rec: 02/19/19 03:54 CDK2365 ICU-C15) Document 02/19/19 04:00 BYO8777 (Rec: 02/19/19 04:19 KCT9916 ICU-C15) Document 02/19/19 06:00 YSO8477 (Rec: 02/19/19 06:12 SSZ4520 ICU-C15) Document 02/19/19 07:00 LWH9570 (Rec: 02/19/19 08:51 RJS5303 ICU-C15) Document 02/19/19 08:00 WFN9954 (Rec: 02/19/19 08:51 UOO0906 ICU-C15) Document 02/19/19 11:22 III8524 (Rec: 02/19/19 11:22 OCC0993 ICU-C20) Document 02/19/19 13:00 ZQA4317 (Rec: 02/19/19 13:31 LYM6052 ICU-C06) Document 02/19/19 13:55 KPS1644 (Rec: 02/19/19 14:33 JCG7952 ICU-L03) Labs: Laboratory Results - last 24 hr 02/19/19 02/19/19 02/19/19 04:55 04:55 04:55 WBC 14.7 H RBC 3.04 L Hgb 9.6 L Hct 28 L MCV 93 MCH 32 H MCHC 34 RDW 15 Plt Count 856 H D MPV 7.4 Sodium 144 Potassium 3.3 L Chloride 105 Carbon Dioxide 30 Anion Gap 9 BUN 10 Creatinine 0.91 Est GFR ( Amer) 86.1 Est GFR (Non-Af Amer) 71.2 BUN/Creatinine Ratio 11.0 Glucose 114 H Calcium 7.6 L Ionized Calcium 0.93 L Phosphorus 4.2 Magnesium 2.4 Total Bilirubin 0.40 AST 21 ALT 9 Alkaline Phosphatase 92 Total Protein 6.1 L Albumin 2.5 L Globulin 3.6 Albumin/Globulin Ratio 0.7 L Vancomycin Trough 02/19/19 02/19/19 11:14 11:14 WBC RBC Hgb Hct MCV MCH MCHC RDW Plt Count MPV Sodium Potassium Chloride Carbon Dioxide Anion Gap BUN Creatinine Est GFR ( Amer) Est GFR (Non-Af Amer) BUN/Creatinine Ratio Glucose Calcium Ionized Calcium Phosphorus 5.0 Magnesium Total Bilirubin AST ALT Alkaline Phosphatase Total Protein Albumin Globulin Albumin/Globulin Ratio Vancomycin Trough 33.2 H* Studies: Patient Name: ROSALBA TOBAR Medical Record#: [id number] Ordering Physician: Marion Najear MD Acct.#: [id number] : 1985 Age: 33 Sex: F Location: [facility] Exam Date: 02/19/19 1008 ADM Status: ADM IN Order Information: CHEST AP OR PORT Accession Number: [id number] CPT: 06185 Indication: Post surgery for diverticulitis. Assess pleural effusion. Intubated. Comparison: February 18, 2019 chest radiograph and February 17, 2019 CT. Technique: Upright AP 1020 hours Report: No significant change in large LEFT and small RIGHT dependent pleural effusions with proportional atelectasis. Negative for pneumothorax. Endotracheal tube tip 5 cm above the Ginny. Nasogastric tube passes to the stomach. The tip of the catheter is not well visualized. Negative for cardiomegaly. Unremarkable central pulmonary vasculature. IMPRESSION: #. No significant change in large LEFT or small RIGHT dependent pleural effusions with associated compressive atelectasis. <Electronically signed by Tien Ozuna MD in [place]> 02/19/19 1042 Dictated By: Tien Ozuna MD Dictated Date/Time: 02/19/19 1042 Transcribed Date/Time: 02/19/19 1039 Copy to: CC:Greg Hoffman MD; Hang Ingram MD; Marion Najera MD; Reina Heller DO; No Primary Care Phys,NOPCP Imaging - [facility] Imaging - [facility] Imaging - [facility] [address] [address] ph ([phone]) ph ([phone]) ph ([phone]) This report is only to be considered final once signed by the Provider(s) as displayed in the "<Electronically Signed by >" field (s). Absence of a signature indicates the report is in a draft status and still needs to be finalized. In the event this document was created by someone other than the signing Provider, the individual initiating the document will be listed in the "Entered by:" or "Dictated by:" friedman. 1 of 1 \\ *[facility]* [place] [address] Fax #: [phone] Transthoracic Echocardiogram Patient: Estevan, Height: 63 in / 160 Rosalba Delgado cm : 1985 Weight: 188.6 lb / Study Date: 02/19/2019 85.7 kg Age: 33 BP: 132 / 87 Gender: F BMI/BSA: 33.5 kg/m^2 HR: 57 bpm / 1.89 m^2 *Food And Beverage Lead: * Lori Singh [facility] *Referring Physician: * Marion Najera *Reading Physician: * Yomi West MD Indications: Congestive Heart Failure. History: Polysubstance abuse. Risk factors: Current tobacco use. Conclusions Summary: 1. Left ventricle: Systolic function is probably normal. The estimated ejection fraction is 50-55%. Wall motion is normal; there are no regional wall motion abnormalities. 2. Right ventricle: Systolic function is normal. 3. Mitral valve: There is trivial regurgitation. 4. Aortic valve: There is no evidence of stenosis. There is no significant regurgitation. 5. Tricuspid valve: There is mild regurgitation. 6. Impressions: No previous study was available for comparison. Study data: Transthoracic echocardiogram. Procedure: Transthoracic echocardiography was performed. Image quality was This report is only to be considered final once signed by the Provider(s) as displayed in the "<Electronically Signed by >" field (s). Absence of a signature indicates the report is in a draft status and still needs to be finalized. In the event this document was created by someone other than the signing Provider, the individual initiating the document will be listed in the "Entered by:" or "Dictated by:" friedman. Nutrition: NPO except ice chips and sips of water with meds till cleared by surgery Impression: 33 yo F with with perforated sigmoid colitis with abscess s/p peri's POD 6 and ex-lap POD 1 with negative findings remains intubated and mechanically ventilated with high FIO2 100% improved and extubated today Plan: Cardiovascular: (1) Septic shock Hemodynamics WNL --TTE grossly normal Home meds: None Pulmonary: (1) Acute hypoxic respiratory failure- improving and likely due to fluid overload and atelectasis (2) Bilateral pleural effusions L>R (3) Tobacco abuse; (4) acute ventilator dependance- extubated 02/19 --decrease lasix from 40 to 20 mg IV -- incentive spirometry -- PRN Albuterol -- Nicoderm patch Home meds: None Gastrointestinal: (1) Perforated sigmoid diverticulitis s/p Peri's POD6 with ex lap POD1 -- diet: NPO for now -- bowel regimen: None -- ulcer prophylaxis: Protonix -- PRN Zofran -- General surgery following Home meds: None Endocrine: No acute issues -- monitor BGs Home meds: None Renal: No acute issues Home meds: None Infectious disease: (1) Perforated bowel with peritonitis (2) abdominal sepsis (3) septic shock (4) PNA Improving clinical s/p repair with peri's -- ABX Zosyn Vancomycin Home meds: None Neurologic: (1) Polysubstance abuse -- Propofol gtt for sedation with precedex -- Fentanyl gtt for pain control --oxycodone prn if KUB unrevealing Home meds: None Hematological: (1) Anemia; (2) Thrombocytosis- reactive, improving ; (3) Splenic infarction likely septic embolic --Improving leukocytosis -- DVT prophylaxis: SQ Lovenox -- Vaccinated with Haemophilus, Meningoccal @ 02/17 Home meds: None Metabolic: No acute issues -- Lactic acid ordered Home meds: None Deep vein thrombosis prophylaxis: SQ Lovenox Dietary: Protonix Condition: critical Prognosis: guarded Code status: Full Disposition: Monitor in ICU Critical care issues: high FIO2, acute hypoxemic resp failure, vent dependance Cumulative time spent in the care of this patient (excluding any procedure time) : at least 40 minutes. Patient care included clinical interview (with patient and/or family), bedside exam of the patient, review of labs, x-rays, and other ancillary data, coordination of (respiratory, nursing care, review of patient's records, discussion regarding patients management with involved consultants, primary physician, pharmacists, and other healthcare personnel (dietary, case management , physical/occupational therapy etc.)
[2019-02-19] MEDS ORDERED: KCL 20 MEQ/100 ML IVPREMIX* 20 MEQ/100 ML BAG IV SCH (16:00)
[2019-02-19] MEDS: Enoxaparin(*) 40 MG/0.4 ML SYR SUBCUT SCH (18:16)
[2019-02-19] MEDS: oxyCODONE TAB* 5 MG TAB PO PRN ×2 (18:16→22:14)
[2019-02-19] MEDS: hydrOXYzine HCL TAB* 25 MG PO PRN (18:26)
[2019-02-19] MEDS ORDERED: fentaNYL* 50 MCG/ML 2 ML VIAL (100 MCG VIAL) IV SLOW PU PRN ×2 (20:25→22:23)
[2019-02-19] MEDS: oxyCODONE SR TAB(*) 10 MG TAB.SR PO SCH (20:28)
[2019-02-19] MEDS: Nicotine Patch Removal NOTE FOLLOW UP SCH (20:29)
[2019-02-20] MEDS: hydrOXYzine HCL TAB* 25 MG PO PRN ×4 (00:39→18:09)
[2019-02-20] MEDS: oxyCODONE TAB* 5 MG TAB PO PRN ×6 (02:09→22:20)
[2019-02-20] MEDS: Piperacillin/Tazobac ADVAN(*) 3.375 GM in NS 0.9% 100 ML* 100 ML IVPB SCH ×4 (02:12→21:00)
[2019-02-20] MEDS: Ondansetron INJ* 2 MG/ML VIAL IV PRN ×3 (02:25→18:10)
[2019-02-20] MEDS: fentaNYL* 50 MCG/ML 2 ML VIAL (100 MCG VIAL) IV SLOW PU PRN ×2 (03:29→07:30)
[2019-02-20 05:40] LABS: Hematocrit 27 % (35-47); Mean Corpuscular HGB Conc 33 g/dL (31-36); Mean Corpuscular Hemoglobin 31 pg (27-31); Mean Corpuscular Volume 92 fL (80-97); Mean Platelet Volume 7.2 fL (7.4-10.4); Platelet Count 858 10^3/uL (150-450); Red Blood Count 2.93 10^6 /uL (3.70-4.87); Red Cell Distribution Width 15 % (10.5-15); White Blood Count 17.7 10^3/uL (3.5-10.8)
[2019-02-20] MEDS ORDERED: Vancomycin Random Level* NOTE FOLLOW UP ONE (06:00)
[2019-02-20 06:04] LABS: Albumin 2.5 g/dL (3.2-5.2); Albumin/Globulin Ratio 0.7 (1-3); BUN/Creatinine Ratio 10.2 (8-20); Calcium 7.7 mg/dL (8.6-10.3); EGFR African American 63.8 (>60); EGFR Non-African American 52.8 (>60); Globulin 3.8 g/dL (2-4); Magnesium 2.4 mg/dL (1.9-2.7); Phosphorus 5.9 mg/dL (2.5-5.0); Potassium 3.2 mmol/L (3.5-5.0); Total Bilirubin 0.7 mg/dL (0.2-1.0); Total Protein 6.3 g/dL (6.4-8.9)
[2019-02-20] MEDS ORDERED: Furosemide IV* 10 MG/ML VIAL (40 MG) IV SCH (09:00)
[2019-02-20] MEDS: Pantoprazole IV* 40 MG IV SCH (09:08)
[2019-02-20] MEDS: Nicotine PATCH 21 MG/24 HR* PATCH TRANSDERM SCH (09:09)
[2019-02-20] MEDS: oxyCODONE SR TAB(*) 10 MG TAB.SR PO SCH ×2 (09:09→20:59)
[2019-02-20] MEDS: HYDROmorphone INJ1* 1 MG/ML SYRINGE IV SLOW PU PRN ×4 (10:17→20:55)
--- NOTE | 2019-02-20 15:13 | PN ---
Progress Note - Progress Note Date of Service: 02/20/19 SOAP: Subjective:POD#8/3 s/p ex lap,Coty's;return to OR for washout []hungry;better pain control with Dilaudid Objective: Vital Signs Temp 99.1 F 02/20/19 12:04 Pulse 93 02/20/19 12:04 Resp 16 02/20/19 14:01 BP 125/72 02/20/19 12:04 Pulse Ox 95 02/20/19 12:04 Intake & Output 02/19/19 02/20/19 02/20/19 18:59 06:59 18:59 Intake Total 524 2055 605 Output Total 3685 3075 3650 Balance -6472 -5397 -8721 Intake: IV Fluids 235 NS (0.9%) 20 Zosyn 215 IVPB 105 Zosyn 105 IV Narcotic Infusion 44 Fentanyl 44 Oral 480 1820 500 Output: Urine 0 450 Iniguez 3685 2900 3200 Colostomy 175 Laboratory Results - last 24 hr 02/20/19 02/20/19 02/20/19 05:28 05:28 05:28 WBC 17.7 H RBC 2.93 L Hgb 9.0 L Hct 27 L MCV 92 MCH 31 MCHC 33 RDW 15 Plt Count 858 H MPV 7.2 L Sodium 142 Potassium 3.2 L Chloride 101 Carbon Dioxide 29 Anion Gap 12 H BUN 12 Creatinine 1.18 H Est GFR ( Amer) 63.8 Est GFR (Non-Af Amer) 52.8 BUN/Creatinine Ratio 10.2 Glucose 104 H Calcium 7.7 L Phosphorus 5.9 H Magnesium 2.4 Total Bilirubin 0.70 AST 51 H ALT 23 Alkaline Phosphatase 235 H Total Protein 6.3 L Albumin 2.5 L Globulin 3.8 Albumin/Globulin Ratio 0.7 L Random Vancomycin 9.9 lungs:anterior sound clear; didnot auscultate posterior due to pt pain;heart:RRR ,no murmur;abd:+bs,softly distended,minimal tenderness;ostomy with dark brown liquid;midline incision with Preveena intact;ext;nontender calves,mild pedal edema [] Assessment:low grade temp,WBC 17.7,K+3.2,creat 1.18,AST and Alk Phos elevated; she is hungry [] Plan:will text above findings to ;dory CBC and CMP 02/21/19;pt will also be seen by Hosp service today []
--- NOTE | 2019-02-20 16:10 | PN ---
Progress Note - Progress Note Date of Service: 02/20/19 SOAP: Subjective: []"hungry!" otherwise no complaints Objective: [] Temp Pulse Resp BP Pulse Ox 99.1 F 93 16 125/72 95 02/20/19 12:04 02/20/19 12:04 02/20/19 14:01 02/20/19 12:04 02/20/19 12:04 Laboratory Last Values WBC 17.7 10^3/uL (3.5-10.8) H 02/20/19 05:28 RBC 2.93 10^6 /uL (3.70-4.87) L 02/20/19 05:28 Hgb 9.0 g/dL (12.0-16.0) L 02/20/19 05:28 Hct 27 % (35-47) L 02/20/19 05:28 MCV 92 fL (80-97) 02/20/19 05:28 MCH 31 pg (27-31) 02/20/19 05:28 MCHC 33 g/dL (31-36) 02/20/19 05:28 RDW 15 % (10.5-15) 02/20/19 05:28 Plt Count 858 10^3/uL (150-450) H 02/20/19 05:28 MPV 7.2 fL (7.4-10.4) L 02/20/19 05:28 Neut % (Auto) 82.7 % 02/17/19 04:34 Lymph % (Auto) 6.3 % 02/17/19 04:34 [place] % (Auto) 10.4 % 02/17/19 04:34 Eos % (Auto) 0.3 % 02/17/19 04:34 Baso % (Auto) 0.3 % 02/17/19 04:34 Absolute Neuts (auto) 17.1 10^3/ul (1.5-7.7) H 02/17/19 04:34 Absolute Lymphs (auto) 1.3 10^3/ul (1.0-4.8) 02/17/19 04:34 Absolute Monos (auto) 2.2 10^3/ul (0-0.8) H 02/17/19 04:34 Absolute Eos (auto) 0.1 10^3/ul (0-0.6) 02/17/19 04:34 Absolute Basos (auto) 0.1 10^3/ul (0-0.2) 02/17/19 04:34 Absolute Nucleated RBC 0.0 10^3/ul 02/17/19 04:34 Immature Gran % 2.0 % (0-9) 02/16/19 06:06 Neutrophils % 83.0 % 02/16/19 06:06 Band Neutrophils % 1.0 % (0-8) 02/16/19 06:06 Lymphocytes % 9.0 % 02/16/19 06:06 Monocytes % 6.0 % 02/16/19 06:06 Eosinophils % 0.0 % 02/16/19 06:06 Basophils % 0.0 % 02/16/19 06:06 Metamyelocytes % 1.0 % (0-2) 02/16/19 06:06 Nucleated RBC % 0.0 02/17/19 04:34 Abs Neuts (Manual) 17.1 10^3/ul (1.5-7.7) H 02/16/19 06:06 Abs Lymphs (Manual) 1.8 10^3/ul (1.0-4.8) 02/16/19 06:06 Abs Monocytes (Manual) 1.2 10^3/ul (0-0.8) H 02/16/19 06:06 Absolute Eos (Manual) 0.0 10^3/ul (0-0.6) 02/16/19 06:06 Abs Basophils (Manual) 0.0 10^3/ul (0-0.2) 02/16/19 06:06 Smudge Cells Present 02/16/19 06:06 Normal RBC Morphology Not Reportable 02/16/19 06:06 Anisocytosis 1+ 02/16/19 06:06 Macrocytosis 1+ 02/16/19 06:06 INR (Anticoag Therapy) 1.68 (0.82-1.09) H 02/17/19 16:55 APTT 30.6 seconds (26.0-36.3) 02/17/19 16:55 Patient Temperature Not Reportable 02/17/19 16:30 ABG pH 7.49 (7.35-7.45) H 02/17/19 16:30 ABG pH (Temp Correct) Not Reportable 02/17/19 16:30 ABG pCO2 35 mmHg (35-45) 02/17/19 16:30 ABG pCO2 (Temp Corrct Not Reportable 02/17/19 16:30 ABG pO2 70 mmHg (80-100) L 02/17/19 16:30 ABG pO2 (Temp Correct Not Reportable 02/17/19 16:30 ABG HCO3 27.6 mmol/L (19-31) 02/17/19 16:30 ABG O2 Saturation 97.0 % (94.0-98.0) 02/17/19 16:30 ABG Base Excess 3.5 mmol/L (-2.0-2.0) H 02/17/19 16:30 Respiration Rate 16 02/17/19 16:30 O2 Delivery Device vent 02/17/19 16:30 Ventilator Type Not Reportable 02/17/19 16:30 Vent Mode Pcv` 02/17/19 16:30 FiO2 60 02/17/19 16:30 Inspiratory Time .8 02/17/19 16:30 PEEP 10 02/17/19 16:30 Pressure Support Not Reportable 02/17/19 16:30 Pressure Control 25 02/17/19 16:30 EPAP Not Reportable 02/17/19 16:30 IPAP Not Reportable 02/17/19 16:30 BiPAP Not Reportable 02/17/19 16:30 Sodium 142 mmol/L (135-145) 02/20/19 05:28 Potassium 3.2 mmol/L (3.5-5.0) L 02/20/19 05:28 Chloride 101 mmol/L (101-111) 02/20/19 05:28 Carbon Dioxide 29 mmol/L (22-32) 02/20/19 05:28 Anion Gap 12 mmol/L (2-11) H 02/20/19 05:28 BUN 12 mg/dL (6-24) 02/20/19 05:28 Creatinine 1.18 mg/dL (0.51-0.95) H 02/20/19 05:28 Est GFR ( Amer) 63.8 (>60) 02/20/19 05:28 Est GFR (Non-Af Amer) 52.8 (>60) 02/20/19 05:28 BUN/Creatinine Ratio 10.2 (8-20) 02/20/19 05:28 Glucose 104 mg/dL (70-100) H 02/20/19 05:28 Lactic Acid 0.8 mmol/L (0.5-2.0) 02/18/19 04:39 Calcium 7.7 mg/dL (8.6-10.3) L 02/20/19 05:28 Ionized Calcium 0.93 mmol/L (1.16-1.32) L 02/19/19 04:55 Phosphorus 5.9 mg/dL (2.5-5.0) H 02/20/19 05:28 Magnesium 2.4 mg/dL (1.9-2.7) 02/20/19 05:28 Total Bilirubin 0.70 mg/dL (0.2-1.0) 02/20/19 05:28 AST 51 U/L (13-39) H 02/20/19 05:28 ALT 23 U/L (7-52) 02/20/19 05:28 Alkaline Phosphatase 235 U/L (34-104) H 02/20/19 05:28 C-Reactive Protein 286.25 mg/L (<8.01) H 02/15/19 07:30 B-Natriuretic Peptide 67 pg/mL (<=100) 02/18/19 04:39 Total Protein 6.3 g/dL (6.4-8.9) L 02/20/19 05:28 Albumin 2.5 g/dL (3.2-5.2) L 02/20/19 05:28 Globulin 3.8 g/dL (2-4) 02/20/19 05:28 Albumin/Globulin Ratio 0.7 (1-3) L 02/20/19 05:28 Lipase 10 U/L (11.0-82.0) L 02/06/19 14:36 Beta HCG, Quant < 0.60 mIU/mL 02/06/19 14:36 Urine Color Yellow 02/16/19 08:59 Urine Appearance Cloudy 02/16/19 08:59 Urine pH 7.0 (5-9) 02/16/19 08:59 Ur Specific [place] 1.011 (1.010-1.030) 02/16/19 08:59 Urine Protein Negative (Negative) 02/16/19 08:59 Urine Ketones 1+ (Negative) A 02/16/19 08:59 Urine Blood 3+ (Negative) A 02/16/19 08:59 Urine Nitrate Negative (Negative) 02/16/19 08:59 Urine Bilirubin Negative (Negative) 02/16/19 08:59 Urine Urobilinogen Negative (Negative) 02/16/19 08:59 Ur Leukocyte Esterase Trace (Negative) A 02/16/19 08:59 Urine WBC (Auto) 1+(6-10/hpf) (Absent) A 02/16/19 08:59 Urine RBC (Auto) 2+(6-10/hpf) (Absent) A 02/16/19 08:59 Ur Squamous Epith Cells Present (Absent) A 02/16/19 08:59 Urine Bacteria Absent (Absent) 02/16/19 08:59 Urine Glucose Negative (Negative) 02/16/19 08:59 Vancomycin Trough 33.2 mcg/mL H* 02/19/19 11:14 Random Vancomycin 9.9 mcg/mL 02/20/19 05:28 HIV 1&2 Antibody Nonreactive (Nonreactive) 02/06/19 19:26 Blood Type O Negative 02/17/19 04:34 Antibody Screen Negative 02/17/19 04:34 Intake & Output 02/18/19 02/19/19 02/20/19 02/21/19 06:59 06:59 06:59 06:59 Intake Total 2933 3893 2579 605 Output Total 3825 6820 6760 3650 [facility] [phone] Weight 192 lb 5 oz 187 lb 3.2 oz Intake: IV Fluids 1894 2875 235 LR 1247 1208 Mag Sulfate 90 NS (0.9%) 117 65 20 Precedex 361 Propofol 440 613 Vanco 383 Zosyn 245 215 IVPB 997 993 105 KCl 213 Vanco 569 783 Zosyn 215 210 105 IV Narcotic Infusion 42 25 44 Fentanyl 42 25 44 Oral 0 2300 500 Output: NG Tube Drainage Amount 100 Urine 300 0 450 Hunter 3425 6820 6585 3200 Colostomy 175 abdomen soft incision ok stool in ostomy bag lungs-decreased breathsounds left chest-effusion Assessment: []stable wbc,creatinine elevated-dc lasix, ? thoracentesis advance diet Plan: [] as above in assessment increase activity dc hunter
--- NOTE | 2019-02-20 16:11 | PN ---
Subjective Date of Service: 02/20/19 Interval History: Pt is feeling ok currently. She is up walking when I see her. She just recently had much more flatus into her ostomy bag. Small amount of black liquid stool in bag. She notes that her LE are mildly swollen. Her left ankle felt tight while walking (it was her first walk in days). No SOB. Nursing notes the patient has been having a moist loose cough. Objective Active Medications: Albuterol (Ventolin 2.5 Mg/3 Ml Neb.Stephanie*) 2.5 mg INH Q2H PRN PRN Reason: SOB/WHEEZING Enoxaparin Sodium (Lovenox(*)) 40 mg SUBCUT Q24H [facility] Last Admin: 02/19/19 18:16 Dose: 40 mg Guaifenesin (Mucinex*) 600 mg PO BID [facility] Hydromorphone HCl (Dilaudid Inj1s*) 0.5 mg IV SLOW PU Q4H PRN PRN Reason: PAIN Hydroxyzine HCl (Atarax Tab*) 25 mg PO Q6H PRN PRN Reason: anxiety/itching Last Admin: 02/20/19 12:38 Dose: 25 mg Piperacillin Sod/Tazobactam (Sod 3.375 gm/ Sodium Chloride) 100 mls @ 200 mls/ hr IVPB Q6H [facility] Last Admin: 02/20/19 13:27 Dose: 200 mls/hr Nicotine (Nicotine Patch 21 Mg/24 Hr*) 1 patch TRANSDERM DAILY [facility] Last Admin: 02/20/19 09:09 Dose: 1 patch Ondansetron HCl (Zofran Inj*) 4 mg IV Q4H PRN PRN Reason: NAUSEA/VOMITING Last Admin: 02/20/19 06:41 Dose: 4 mg Oxycodone HCl (Oxycontin(*)) 10 mg PO Q12HR [facility] Last Admin: 02/20/19 09:09 Dose: 10 mg Oxycodone HCl (Roxycodone Tab*) 5 mg PO Q4H PRN PRN Reason: PAIN Last Admin: 02/20/19 14:01 Dose: 5 mg Pantoprazole Sodium (Protonix Iv*) 40 mg IV DAILY [facility] Last Admin: 02/20/19 09:08 Dose: 40 mg Pharmacy Consult (Zosyn Per Pharmacy*) 1 note FOLLOW UP . PRN PRN Reason: PER PROTOCOL Pharmacy Profile Note (Nicotine Patch Removal Note*) 1 note FOLLOW UP [facility] [facility] Last Admin: 02/19/19 20:29 Dose: 1 note Potassium Chloride (Klor Con Er Tab*) 40 meq PO ONCE ONE Stop: 02/20/19 17:57 Vital Signs - 8 hr 02/20/19 02/20/19 02/20/19 09:09 09:57 10:17 Temperature Pulse Rate Respiratory 18 16 20 Rate Blood Pressure (mmHg) O2 Sat by Pulse Oximetry 02/20/19 02/20/19 02/20/19 11:47 12:04 13:06 Temperature 99.1 F Pulse Rate 93 Respiratory 16 17 16 Rate Blood Pressure 125/72 (mmHg) O2 Sat by Pulse 95 Oximetry 02/20/19 02/20/19 13:22 14:01 Temperature Pulse Rate Respiratory 16 16 Rate Blood Pressure (mmHg) O2 Sat by Pulse Oximetry Oxygen Devices in Use Now: None Appearance: Young female walking in [place], NAD Eyes: No Scleral Icterus Ears/Nose/Mouth/Throat: Mucous Membranes Moist Respiratory: Symmetrical Chest Expansion and Respiratory Effort, Clear to Auscultation - mildly decreased breath sounds at the L base Cardiovascular: NL Sounds; No Murmurs; No JVD, - - tachycardic after walk, 1+ ankle edema bilaterally Abdominal: - - BS+ soft, midline incision with wound vac dressing in place ( hooked up to wall suction), ostomy with beefy red stoma, black liquid stool in bag Extremities: No Clubbing, Cyanosis Skin: No Nodules or Sclerosis Neurological: Alert and Oriented x 3, - - pt refusing unwilling to put on own covers, pour own glass of water, sit up alone Result Diagrams: 02/20/19 05:28 02/20/19 05:28 Additional Lab and Data: Lab Results 02/06/19 02/06/19 02/06/19 Range/Units 14:36 14:36 14:36 WBC 14.1 H (3.5-10.8) 10^3/uL RBC 4.77 (3.70-4.87) 10^6 /uL Hgb 15.2 (12.0-16.0) g/dL Hct 45 H (33-41) % MCV 95 (80-97) fL MCH 32 H (27-31) pg MCHC 34 (31-36) g/dL RDW 14 (10.5-15) % Plt Count 300 (150-450) 10^3/uL MPV 7.5 (7.4-10.4) fL Neut % (Auto) 82.1 % Lymph % (Auto) 10.6 % [place] % (Auto) 5.7 % Eos % (Auto) 1.0 % Baso % (Auto) 0.6 % Absolute Neuts (auto) 11.6 H (1.5-7.7) 10^3/ul Absolute Lymphs (auto) 1.5 (1.0-4.8) 10^3/ul Absolute Monos (auto) 0.8 (0-0.8) 10^3/ul Absolute Eos (auto) 0.1 (0-0.6) 10^3/ul Absolute Basos (auto) 0.1 (0-0.2) 10^3/ul Absolute Nucleated RBC 0 10^3/ul Nucleated RBC % 0 Sodium 138 (135-145) mmol/L Potassium 4.0 (3.5-5.0) mmol/L Chloride 106 (101-111) mmol/L Carbon Dioxide 23 (22-32) mmol/L Anion Gap 9 (2-11) mmol/L BUN 12 (6-24) mg/dL Creatinine 0.90 (0.51-0.95) mg/dL Est GFR ( Amer) 87.3 (>60) Est GFR (Non-Af Amer) 72.1 (>60) BUN/Creatinine Ratio 13.3 (8-20) Glucose 96 (70-100) mg/dL Lactic Acid 0.7 (0.5-2.0) mmol/L Calcium 9.1 (8.6-10.3) mg/dL Total Bilirubin 0.80 (0.2-1.0) mg/dL AST 19 (13-39) U/L ALT 15 (7-52) U/L Alkaline Phosphatase 80 (34-104) U/L C-Reactive Protein 7.41 (<8.01) mg/L Total Protein 7.6 (6.4-8.9) g/dL Albumin 4.4 (3.2-5.2) g/dL Globulin 3.2 (2-4) g/dL Albumin/Globulin Ratio 1.4 (1-3) Lipase 10 L (11.0-82.0) U/L Beta HCG, Quant < 0.60 mIU/mL Microbiology and Other Data: Microbiology 02/06/19 17:20 Urine Culture - Preliminary Urine Klebsiella Pneumoniae Assess/Plan/Problems-Billing Ms Barreto is a 33 yo F who has a h/o polysubstance abuse who presented to the ER with recurrent diverticulitis which was complicated by perforation/abscess/SBO requiring anderson's and end colostomy further complicated by intraabdominal sepsis requiring exploratory laparotomy. - Patient Problems (1) Elevated serum creatinine Current Visit: Yes Status: Acute Code(s): R79.89 - OTHER SPECIFIED ABNORMAL FINDINGS OF BLOOD CHEMISTRY SNOMED Code(s): 598478801 Comment: Pt has mildly climbing creatinine. She had been receiving lasix due to pleural effusion and concern for fluid overload. I question if the climbing creatinine may be related to IV diuresis. Lasix stopped. Repeat labs tomorrow. If still climbing may need to investigate further. (2) Sepsis following intra-abdominal surgery Current Visit: Yes Status: Acute Code(s): T81.44XA - SEPSIS FOLLOWING A PROCEDURE, INITIAL ENCOUNTER SNOMED Code(s): 259981963 Comment: The patient was taken back to OR on 02/17 for washout. No concerning findings identified. No evidence of splenic abscess as initially stated on CT ( report ammended after radiologist spoke with surgeon who left surgicel in splenic flexure). Pt with continued leukocytosis and in fact her WBC count is climbing, her LFTs are up slightly and additionally her plt count remains markedly elevated. Clinically however, pt appears to be improving. Continue zosyn. Monitor labs. (3) Perforated diverticulum Current Visit: Yes Status: Acute Code(s): K57.80 - DVTRCLI OF INTEST, PART UNSP, W PERF AND ABSCESS W/O BLEED SNOMED Code(s): 80095650 Comment: Pt initially to OR on 02/12/19 where she underwent sigmoid colectomy , hartmans and end colostomy. Colostomy functioning with gas and liquid stool in bag. Management per general surgery. (4) Splenic infarct Current Visit: Yes Status: Acute Code(s): D73.5 - INFARCTION OF SPLEEN SNOMED Code(s): 77146716 Comment: Pt with splenic infarct identified on 02/16/19. Unclear why she developed the infarct. It was mentioned possible septic emboli- unclear where she would have emoblized from. Blood cultures from 02/16/19 negative. As clinically pt is improving will hold off on repeat blood cultures. (5) Polysubstance abuse Current Visit: Yes Status: Acute Code(s): F19.10 - OTHER PSYCHOACTIVE SUBSTANCE ABUSE, UNCOMPLICATED SNOMED Code(s): 405680534 Comment: Pt has a h/o using cocaine, mushrooms, cannabis. Will need to be mindful of escalating narcotic doses. (6) Tobacco abuse Current Visit: Yes Status: Acute Code(s): Z72.0 - TOBACCO USE SNOMED Code( s): 761899201 Comment: Continue nicotine replacement therapy. (7) DVT prophylaxis Current Visit: Yes Status: Acute Code(s): JZK4425 - SNOMED Code(s): 761059812 Comment: lovenox (8) Full code status Current Visit: Yes Status: Acute Code(s): Z78.9 - OTHER SPECIFIED HEALTH STATUS SNOMED Code(s): 834544872 Status and Disposition: Inpatient
[2019-02-20] MEDS: Enoxaparin(*) 40 MG/0.4 ML SYR SUBCUT SCH (16:39)
[2019-02-20] MEDS ORDERED: Potassium Chlor TAB* 20 MEQ TAB.ER PO ONE (17:56)
[2019-02-20] MEDS: guaiFENesin ER TAB 600 MG PO SCH (21:00)
[2019-02-20] MEDS: Nicotine Patch Removal NOTE FOLLOW UP SCH (21:22)
[2019-02-21] MEDS: hydrOXYzine HCL TAB* 25 MG PO PRN ×4 (00:23→21:56)
[2019-02-21] MEDS: HYDROmorphone INJ1* 1 MG/ML SYRINGE IV SLOW PU PRN ×7 (01:03→23:54)
[2019-02-21] MEDS: oxyCODONE TAB* 5 MG TAB PO PRN ×4 (02:12→14:56)
[2019-02-21] MEDS: Piperacillin/Tazobac ADVAN(*) 3.375 GM in NS 0.9% 100 ML* 100 ML IVPB SCH ×4 (02:13→19:31)
[2019-02-21 05:41] LABS: Hematocrit 27 % (35-47); Hemoglobin 8.9 g/dL (12.0-16.0); Mean Corpuscular HGB Conc 33 g/dL (31-36); Mean Corpuscular Hemoglobin 31 pg (27-31); Mean Corpuscular Volume 92 fL (80-97); Mean Platelet Volume 7.3 fL (7.4-10.4); Platelet Count 897 10^3/uL (150-450); Red Blood Count 2.89 10^6 /uL (3.70-4.87); Red Cell Distribution Width 15 % (10.5-15); White Blood Count 17.4 10^3/uL (3.5-10.8)
[2019-02-21 05:54] LABS: ALT 23 U/L (7-52); AST 34 U/L (13-39); Albumin 2.4 g/dL (3.2-5.2); Albumin/Globulin Ratio 0.8 (1-3); Alkaline Phosphatase 201 U/L (34-104); Anion Gap 11 mmol/L (2-11); BUN/Creatinine Ratio 10.2 (8-20); Blood Urea Nitrogen 11 mg/dL (6-24); CO2 Carbon Dioxide 29 mmol/L (22-32); Calcium 7.6 mg/dL (8.6-10.3); Chloride 100 mmol/L (101-111); EGFR African American 70.7 (>60); EGFR Non-African American 58.4 (>60); Globulin 3.2 g/dL (2-4); Glucose 107 mg/dL (70-100); Magnesium 2.4 mg/dL (1.9-2.7); Phosphorus 3.8 mg/dL (2.5-5.0); Potassium 3.7 mmol/L (3.5-5.0); Sodium 140 mmol/L (135-145); Total Protein 5.6 g/dL (6.4-8.9)
[2019-02-21] MEDS: Nicotine PATCH 21 MG/24 HR* PATCH TRANSDERM SCH (08:47)
[2019-02-21] MEDS: guaiFENesin ER TAB 600 MG PO SCH ×2 (08:47→21:14)
[2019-02-21] MEDS: oxyCODONE SR TAB(*) 10 MG TAB.SR PO SCH ×2 (08:47→21:14)
[2019-02-21] MEDS: Pantoprazole IV* 40 MG IV SCH (08:47)
[2019-02-21] MEDS: Amitriptyline TAB* 10 MG PO SCH (11:01)
--- NOTE | 2019-02-21 11:18 | PN ---
Progress Note - Progress Note Date of Service: 02/21/19 SOAP: Subjective:pod#9/4 s/p ex lap,anderson's;return to OR for washout []tolerating full liquids,no n/v;no dysuria;has walked in halls this morning, mild dyspnea Objective: Vital Signs Temp 98.3 F 02/21/19 07:53 Pulse 84 02/21/19 07:53 Resp 16 02/21/19 10:53 BP 121/64 02/21/19 07:53 Pulse Ox 97 02/21/19 07:53 Intake & Output 02/20/19 02/21/19 02/21/19 18:59 06:59 18:59 Intake Total 605 925 Output Total 3650 1600 300 Balance -5060 -675 -300 Intake: IV Fluids 245 NS (0.9%) 30 Zosyn 215 IVPB 105 Zosyn 105 Oral 500 680 Output: Urine 450 1100 250 Iniguez 3200 450 Colostomy 50 50 Laboratory Results - last 24 hr 02/21/19 02/21/19 05:16 05:16 WBC 17.4 H RBC 2.89 L Hgb 8.9 L Hct 27 L MCV 92 MCH 31 MCHC 33 RDW 15 Plt Count 897 H MPV 7.3 L Sodium 140 Potassium 3.7 Chloride 100 L Carbon Dioxide 29 Anion Gap 11 BUN 11 Creatinine 1.08 H Est GFR ( Amer) 70.7 Est GFR (Non-Af Amer) 58.4 BUN/Creatinine Ratio 10.2 Glucose 107 H Calcium 7.6 L Phosphorus 3.8 Magnesium 2.4 Total Bilirubin 0.60 AST 34 ALT 23 Alkaline Phosphatase 201 H Total Protein 5.6 L Albumin 2.4 L Globulin 3.2 Albumin/Globulin Ratio 0.8 L lungs:clear anterior bilat,heart:rrr,no murmur;abd:+bs,stoma pink and moist, dark brown liquid in bag;Prevena on midline incision;ext:nontender calves [] Assessment:improved GI function,afebrile;mod-lg L pleural effusion noted on CXR 02/20/19 [] Plan: advanced her diet and ordered Elavil;?thoracentesis;encourage ambulation;nutrition consult []
[2019-02-21] MEDS ORDERED: HYDROmorphone INJ1* 1 MG/ML SYRINGE IV ONE (16:30)
[2019-02-21 16:42] LABS: Body Fluid Source Pleural Fluid
[2019-02-21] MEDS: Enoxaparin(*) 40 MG/0.4 ML SYR SUBCUT SCH (16:44)
--- NOTE | 2019-02-21 17:12 | PN ---
Subjective Date of Service: 02/21/19 Interval History: Pt is feeling ok today. She just had a thoracentesis with Dr. Hoffman. She feels mild discomfort on the left sided, she is feeling it is slightly easier to breathe now. She has had increased ostomy output. She has ambulated twice today. Objective Active Medications: Albuterol (Ventolin 2.5 Mg/3 Ml Neb.Stephanie*) 2.5 mg INH Q2H PRN PRN Reason: SOB/WHEEZING Amitriptyline HCl (Elavil Tab*) 20 mg PO DAILY [facility] Last Admin: 02/21/19 11:01 Dose: 20 mg Enoxaparin Sodium (Lovenox(*)) 40 mg SUBCUT Q24H [facility] Last Admin: 02/21/19 16:44 Dose: 40 mg Guaifenesin (Mucinex*) 600 mg PO BID [facility] Last Admin: 02/21/19 08:47 Dose: 600 mg Heparin Sodium (Porcine) (Heparin Flush Picc/Ml/Cvc(*)) 1 - 3 ml FLUSH 0600, 1800 [facility]; Protocol Last Admin: 02/21/19 16:43 Dose: 1 ml Hydromorphone HCl (Dilaudid Inj1s*) 0.5 mg IV SLOW PU Q4H PRN PRN Reason: PAIN Last Admin: 02/21/19 16:24 Dose: 0.5 mg Hydroxyzine HCl (Atarax Tab*) 25 mg PO Q6H PRN PRN Reason: anxiety/itching Last Admin: 02/21/19 13:29 Dose: 25 mg Piperacillin Sod/Tazobactam (Sod 3.375 gm/ Sodium Chloride) 100 mls @ 200 mls/ hr IVPB Q6H [facility] Last Admin: 02/21/19 14:52 Dose: 200 mls/hr Nicotine (Nicotine Patch 21 Mg/24 Hr*) 1 patch TRANSDERM DAILY [facility] Last Admin: 02/21/19 08:47 Dose: 1 patch Ondansetron HCl (Zofran Inj*) 4 mg IV Q4H PRN PRN Reason: NAUSEA/VOMITING Last Admin: 02/20/19 18:10 Dose: 4 mg Oxycodone HCl (Oxycontin(*)) 10 mg PO Q12HR [facility] Last Admin: 02/21/19 08:47 Dose: 10 mg Oxycodone HCl (Roxycodone Tab*) 5 mg PO Q4H PRN PRN Reason: PAIN Last Admin: 02/21/19 14:56 Dose: 5 mg Pantoprazole Sodium (Protonix Iv*) 40 mg IV DAILY [facility] Last Admin: 02/21/19 08:47 Dose: 40 mg Pharmacy Consult (Zosyn Per Pharmacy*) 1 note FOLLOW UP . PRN PRN Reason: PER PROTOCOL Pharmacy Profile Note (Nicotine Patch Removal Note*) 1 note FOLLOW UP 2100 [facility] Last Admin: 02/20/19 21:22 Dose: 1 note Zolpidem Tartrate (Ambien Tab*) 10 mg PO BEDTIME PRN PRN Reason: INSOMNIA Vital Signs - 8 hr 02/21/19 02/21/19 02/21/19 09:20 09:21 10:25 Temperature Pulse Rate Respiratory 16 16 16 Rate Blood Pressure (mmHg) O2 Sat by Pulse Oximetry 02/21/19 02/21/19 02/21/19 10:50 10:53 11:26 Temperature 98.2 F Pulse Rate 81 Respiratory 16 16 17 Rate Blood Pressure 119/61 (mmHg) O2 Sat by Pulse 96 Oximetry 02/21/19 02/21/19 02/21/19 13:00 13:26 14:56 Temperature Pulse Rate Respiratory 16 16 16 Rate Blood Pressure (mmHg) O2 Sat by Pulse Oximetry 02/21/19 02/21/19 15:00 16:24 Temperature Pulse Rate Respiratory 16 19 Rate Blood Pressure (mmHg) O2 Sat by Pulse Oximetry Oxygen Devices in Use Now: Nasal Cannula Appearance: Young female sitting up in bed, NAD Eyes: No Scleral Icterus Ears/Nose/Mouth/Throat: Mucous Membranes Moist Respiratory: Symmetrical Chest Expansion and Respiratory Effort, Clear to Auscultation Cardiovascular: NL Sounds; No Murmurs; No JVD, RRR, No Edema Abdominal: NL Sounds; No Tenderness; No Distention, - - wound vac dressing in place, ostomy on left side with scant dark stool Extremities: No Clubbing, Cyanosis Skin: No Nodules or Sclerosis Neurological: Alert and Oriented x 3 Result Diagrams: 02/21/19 05:16 02/21/19 05:16 Additional Lab and Data: Lab Results 02/06/19 02/06/19 02/06/19 Range/Units 14:36 14:36 14:36 WBC 14.1 H (3.5-10.8) 10^3/uL RBC 4.77 (3.70-4.87) 10^6 /uL Hgb 15.2 (12.0-16.0) g/dL Hct 45 H (33-41) % MCV 95 (80-97) fL MCH 32 H (27-31) pg MCHC 34 (31-36) g/dL RDW 14 (10.5-15) % Plt Count 300 (150-450) 10^3/uL MPV 7.5 (7.4-10.4) fL Neut % (Auto) 82.1 % Lymph % (Auto) 10.6 % [place] % (Auto) 5.7 % Eos % (Auto) 1.0 % Baso % (Auto) 0.6 % Absolute Neuts (auto) 11.6 H (1.5-7.7) 10^3/ul Absolute Lymphs (auto) 1.5 (1.0-4.8) 10^3/ul Absolute Monos (auto) 0.8 (0-0.8) 10^3/ul Absolute Eos (auto) 0.1 (0-0.6) 10^3/ul Absolute Basos (auto) 0.1 (0-0.2) 10^3/ul Absolute Nucleated RBC 0 10^3/ul Nucleated RBC % 0 Sodium 138 (135-145) mmol/L Potassium 4.0 (3.5-5.0) mmol/L Chloride 106 (101-111) mmol/L Carbon Dioxide 23 (22-32) mmol/L Anion Gap 9 (2-11) mmol/L BUN 12 (6-24) mg/dL Creatinine 0.90 (0.51-0.95) mg/dL Est GFR ( Amer) 87.3 (>60) Est GFR (Non-Af Amer) 72.1 (>60) BUN/Creatinine Ratio 13.3 (8-20) Glucose 96 (70-100) mg/dL Lactic Acid 0.7 (0.5-2.0) mmol/L Calcium 9.1 (8.6-10.3) mg/dL Total Bilirubin 0.80 (0.2-1.0) mg/dL AST 19 (13-39) U/L ALT 15 (7-52) U/L Alkaline Phosphatase 80 (34-104) U/L C-Reactive Protein 7.41 (<8.01) mg/L Total Protein 7.6 (6.4-8.9) g/dL Albumin 4.4 (3.2-5.2) g/dL Globulin 3.2 (2-4) g/dL Albumin/Globulin Ratio 1.4 (1-3) Lipase 10 L (11.0-82.0) U/L Beta HCG, Quant < 0.60 mIU/mL Microbiology and Other Data: Microbiology 02/06/19 17:20 Urine Culture - Preliminary Urine Klebsiella Pneumoniae Assess/Plan/Problems-Billing Ms Barreto is a 33 yo F who has a h/o polysubstance abuse who presented to the ER with recurrent diverticulitis which was complicated by perforation/abscess/SBO requiring anderson's and end colostomy further complicated by intraabdominal sepsis requiring exploratory laparotomy. - Patient Problems (1) Elevated serum creatinine Current Visit: Yes Status: Acute Code(s): R79.89 - OTHER SPECIFIED ABNORMAL FINDINGS OF BLOOD CHEMISTRY SNOMED Code(s): 309435016 Comment: Creatinine has improved slightly today. Continue to hold diuretic therapy. Repeat labs tomorrow. (2) Sepsis following intra-abdominal surgery Current Visit: Yes Status: Acute Code(s): T81.44XA - SEPSIS FOLLOWING A PROCEDURE, INITIAL ENCOUNTER SNOMED Code(s): 709959579 Comment: The patient was taken back to OR on 02/17 for washout. No concerning findings identified. No evidence of splenic abscess as initially stated on CT ( report ammended after radiologist spoke with surgeon who left surgicel in splenic flexure). Still with leukocytosis and thrombocytosis but clinically pt is appearing stable to improving. Continue zosyn. Monitor labs. (3) Perforated diverticulum Current Visit: Yes Status: Acute Code(s): K57.80 - DVTRCLI OF INTEST, PART UNSP, W PERF AND ABSCESS W/O BLEED SNOMED Code(s): 70561296 Comment: Pt initially to OR on 02/12/19 where she underwent sigmoid colectomy , hartmans and end colostomy. Colostomy functioning with gas and liquid stool in bag. Management per general surgery. (4) Splenic infarct Current Visit: Yes Status: Acute Code(s): D73.5 - INFARCTION OF SPLEEN SNOMED Code(s): 14993568 Comment: Pt with splenic infarct identified on 02/16/19. Unclear why she developed the infarct. Pain is not a major issue at this time. (5) Polysubstance abuse Current Visit: Yes Status: Acute Code(s): F19.10 - OTHER PSYCHOACTIVE SUBSTANCE ABUSE, UNCOMPLICATED SNOMED Code(s): 207654289 Comment: Pt has a h/o using cocaine, mushrooms, cannabis. Will need to be mindful of escalating narcotic doses. (6) Tobacco abuse Current Visit: Yes Status: Acute Code(s): Z72.0 - TOBACCO USE SNOMED Code( s): 861378438 Comment: Continue nicotine replacement therapy. (7) DVT prophylaxis Current Visit: Yes Status: Acute Code(s): SSE9084 - SNOMED Code(s): 448622274 Comment: selvinx (8) Full code status Current Visit: Yes Status: Acute Code(s): Z78.9 - OTHER SPECIFIED HEALTH STATUS SNOMED Code(s): 129225203 Status and Disposition: Inpatient
[2019-02-21 18:31] LABS: Body Fluid Mono 6 %; Body Fluid Other Cells 2
[2019-02-21 19:41] LABS: C Reactive Protein 188.21 mg/L (<8.01)
--- NOTE | 2019-02-21 19:52 | PRO ---
CC: [facility]; Primary Care Doctor* PROCEDURE NOTE: DATE OF PROCEDURE: 02/21/19 INDICATIONS: Ms. Barreto has been on the surgical service with perforated diverticulitis and underwent Coty's procedure. The patient has been noted to have a large left pleural effusion and with continued persistent elevated white blood cell count and need for oxygen, the team recommended left thoracentesis both for diagnostic purposes and therapeutic reasons. I outlined details of the procedure, going over the risks, benefits, and alternatives and the patient discussed this with her boyfriend and came back to me and said she wanted to proceed. DESCRIPTION OF PROCEDURE: After putting the patient in appropriate position, the left back was prepped and draped in standard surgical fashion and a time- out was performed. Injection of lidocaine at the 9th intercostal space was made and an 8-Hungarian tubing was then placed into the chest. Approximately 1 L of straw-colored fluid was removed. Specimens were taken for both for culture and for cell counts. We removed the catheter and a Band-Aid applied. The patient tolerated the procedure well. [id number]/[facility] #: [id number] [facility]
[2019-02-21] MEDS: Nicotine Patch Removal NOTE FOLLOW UP SCH (21:15)
[2019-02-21] MEDS: Ondansetron INJ* 2 MG/ML VIAL IV PRN (21:57)
[2019-02-22] MEDS: Zolpidem TAB* 10 MG PO PRN (00:39)
[2019-02-22] MEDS: Piperacillin/Tazobac ADVAN(*) 3.375 GM in NS 0.9% 100 ML* 100 ML IVPB SCH ×4 (01:32→21:00)
[2019-02-22] MEDS: oxyCODONE TAB* 5 MG TAB PO PRN ×4 (05:05→21:06)
[2019-02-22 05:28] LABS: Hematocrit 28 % (35-47); Hemoglobin 9.3 g/dL (12.0-16.0); Mean Corpuscular HGB Conc 33 g/dL (31-36); Mean Corpuscular Hemoglobin 31 pg (27-31); Mean Corpuscular Volume 93 fL (80-97); Mean Platelet Volume 7.2 fL (7.4-10.4); Platelet Count 935 10^3/uL (150-450); Red Blood Count 3.01 10^6 /uL (3.70-4.87); Red Cell Distribution Width 15 % (10.5-15)
[2019-02-22] MEDS: HYDROmorphone INJ1* 1 MG/ML SYRINGE IV SLOW PU PRN ×5 (05:41→22:16)
[2019-02-22 05:43] LABS: Albumin 2.7 g/dL (3.2-5.2); Albumin/Globulin Ratio 0.7 (1-3); BUN/Creatinine Ratio 9.9 (8-20); Calcium 7.9 mg/dL (8.6-10.3); EGFR African American 76.4 (>60); EGFR Non-African American 63.1 (>60); Globulin 3.9 g/dL (2-4); Magnesium 2.3 mg/dL (1.9-2.7); Phosphorus 3.1 mg/dL (2.5-5.0); Potassium 3.3 mmol/L (3.5-5.0); Total Bilirubin 0.5 mg/dL (0.2-1.0); Total Protein 6.6 g/dL (6.4-8.9)
[2019-02-22] MEDS: guaiFENesin ER TAB 600 MG PO SCH ×2 (08:07→20:58)
[2019-02-22] MEDS: Pantoprazole IV* 40 MG IV SCH (08:07)
[2019-02-22] MEDS: Amitriptyline TAB* 10 MG PO SCH (08:07)
[2019-02-22] MEDS: Nicotine PATCH 21 MG/24 HR* PATCH TRANSDERM SCH (08:08)
[2019-02-22] MEDS: hydrOXYzine HCL TAB* 25 MG PO PRN ×2 (08:11→14:45)
[2019-02-22] MEDS: oxyCODONE SR TAB(*) 10 MG TAB.SR PO SCH (08:58)
--- NOTE | 2019-02-22 09:25 | PN ---
Subjective Date of Service: 02/22/19 Interval History: Pt is feeling poorly currently. She is having quite a bit of abdominal pain. It is somewhat crampy, she feels gas pains. She feels it is hard to take a deep breath. Objective Active Medications: Albuterol (Ventolin 2.5 Mg/3 Ml Neb.Stephanie*) 2.5 mg INH Q2H PRN PRN Reason: SOB/WHEEZING Amitriptyline HCl (Elavil Tab*) 20 mg PO DAILY [facility] Last Admin: 02/22/19 08:07 Dose: 20 mg Enoxaparin Sodium (Lovenox(*)) 40 mg SUBCUT Q24H [facility] Last Admin: 02/21/19 16:44 Dose: 40 mg Guaifenesin (Mucinex*) 600 mg PO BID [facility] Last Admin: 02/22/19 08:07 Dose: 600 mg Heparin Sodium (Porcine) (Heparin Flush Picc/Ml/Cvc(*)) 1 - 3 ml FLUSH 0600, 1800 [facility]; Protocol Last Admin: 02/22/19 05:07 Dose: 1 ml Hydromorphone HCl (Dilaudid Inj1s*) 0.5 mg IV SLOW PU Q4H PRN PRN Reason: PAIN Last Admin: 02/22/19 05:41 Dose: 0.5 mg Hydroxyzine HCl (Atarax Tab*) 25 mg PO Q6H PRN PRN Reason: anxiety/itching Last Admin: 02/22/19 08:11 Dose: 25 mg Piperacillin Sod/Tazobactam (Sod 3.375 gm/ Sodium Chloride) 100 mls @ 200 mls/ hr IVPB Q6H [facility] Last Admin: 02/22/19 08:08 Dose: 200 mls/hr Nicotine (Nicotine Patch 21 Mg/24 Hr*) 1 patch TRANSDERM DAILY [facility] Last Admin: 02/22/19 08:08 Dose: 1 patch Ondansetron HCl (Zofran Inj*) 4 mg IV Q4H PRN PRN Reason: NAUSEA/VOMITING Last Admin: 02/21/19 21:57 Dose: 4 mg Oxycodone HCl (Oxycontin(*)) 10 mg PO Q12HR [facility] Last Admin: 02/22/19 08:58 Dose: 10 mg Oxycodone HCl (Roxycodone Tab*) 5 mg PO Q4H PRN PRN Reason: PAIN Last Admin: 02/22/19 05:05 Dose: 5 mg Pantoprazole Sodium (Protonix Iv*) 40 mg IV DAILY [facility] Last Admin: 02/22/19 08:07 Dose: 40 mg Pharmacy Consult (Zosyn Per Pharmacy*) 1 note FOLLOW UP . PRN PRN Reason: PER PROTOCOL Pharmacy Profile Note (Nicotine Patch Removal Note*) 1 note FOLLOW UP 2100 [facility] Last Admin: 02/21/19 21:15 Dose: 1 note Zolpidem Tartrate (Ambien Tab*) 10 mg PO BEDTIME PRN PRN Reason: INSOMNIA Last Admin: 02/22/19 00:39 Dose: 10 mg Vital Signs - 8 hr 02/22/19 02/22/19 02/22/19 03:13 03:20 05:05 Temperature 98.4 F Pulse Rate 69 Respiratory 16 18 18 Rate Blood Pressure 127/66 (mmHg) O2 Sat by Pulse 99 Oximetry 02/22/19 02/22/19 02/22/19 05:41 06:44 07:59 Temperature 98.0 F Pulse Rate 76 Respiratory 18 16 17 Rate Blood Pressure 115/66 (mmHg) O2 Sat by Pulse 93 Oximetry 02/22/19 08:58 Temperature Pulse Rate Respiratory 16 Rate Blood Pressure (mmHg) O2 Sat by Pulse Oximetry Oxygen Devices in Use Now: Nasal Cannula Appearance: Young female sitting up in bed, in mild pain but NAD Eyes: No Scleral Icterus Ears/Nose/Mouth/Throat: Mucous Membranes Moist Respiratory: Symmetrical Chest Expansion and Respiratory Effort, Clear to Auscultation Cardiovascular: NL Sounds; No Murmurs; No JVD, - - mildly tachycardic, mild LE edema Abdominal: - - BS+ soft, wound vac in place, ostomy with liquid green brown stool in bag Extremities: No Clubbing, Cyanosis Skin: No Nodules or Sclerosis Neurological: Alert and Oriented x 3 Result Diagrams: 02/22/19 05:05 02/22/19 05:05 Additional Lab and Data: Lab Results 02/06/19 02/06/19 02/06/19 Range/Units 14:36 14:36 14:36 WBC 14.1 H (3.5-10.8) 10^3/uL RBC 4.77 (3.70-4.87) 10^6 /uL Hgb 15.2 (12.0-16.0) g/dL Hct 45 H (33-41) % MCV 95 (80-97) fL MCH 32 H (27-31) pg MCHC 34 (31-36) g/dL RDW 14 (10.5-15) % Plt Count 300 (150-450) 10^3/uL MPV 7.5 (7.4-10.4) fL Neut % (Auto) 82.1 % Lymph % (Auto) 10.6 % Brooke % (Auto) 5.7 % Eos % (Auto) 1.0 % Baso % (Auto) 0.6 % Absolute Neuts (auto) 11.6 H (1.5-7.7) 10^3/ul Absolute Lymphs (auto) 1.5 (1.0-4.8) 10^3/ul Absolute Monos (auto) 0.8 (0-0.8) 10^3/ul Absolute Eos (auto) 0.1 (0-0.6) 10^3/ul Absolute Basos (auto) 0.1 (0-0.2) 10^3/ul Absolute Nucleated RBC 0 10^3/ul Nucleated RBC % 0 Sodium 138 (135-145) mmol/L Potassium 4.0 (3.5-5.0) mmol/L Chloride 106 (101-111) mmol/L Carbon Dioxide 23 (22-32) mmol/L Anion Gap 9 (2-11) mmol/L BUN 12 (6-24) mg/dL Creatinine 0.90 (0.51-0.95) mg/dL Est GFR ( Amer) 87.3 (>60) Est GFR (Non-Af Amer) 72.1 (>60) BUN/Creatinine Ratio 13.3 (8-20) Glucose 96 (70-100) mg/dL Lactic Acid 0.7 (0.5-2.0) mmol/L Calcium 9.1 (8.6-10.3) mg/dL Total Bilirubin 0.80 (0.2-1.0) mg/dL AST 19 (13-39) U/L ALT 15 (7-52) U/L Alkaline Phosphatase 80 (34-104) U/L C-Reactive Protein 7.41 (<8.01) mg/L Total Protein 7.6 (6.4-8.9) g/dL Albumin 4.4 (3.2-5.2) g/dL Globulin 3.2 (2-4) g/dL Albumin/Globulin Ratio 1.4 (1-3) Lipase 10 L (11.0-82.0) U/L Beta HCG, Quant < 0.60 mIU/mL Microbiology and Other Data: Microbiology 02/06/19 17:20 Urine Culture - Preliminary Urine Klebsiella Pneumoniae Assess/Plan/Problems-Billing Ms Barreto is a 33 yo F who has a h/o polysubstance abuse who presented to the ER with recurrent diverticulitis which was complicated by perforation/abscess/SBO requiring anderson's and end colostomy further complicated by intraabdominal sepsis requiring exploratory laparotomy. - Patient Problems (1) Elevated serum creatinine Current Visit: Yes Status: Acute Code(s): R79.89 - OTHER SPECIFIED ABNORMAL FINDINGS OF BLOOD CHEMISTRY SNOMED Code(s): 478139465 Comment: Creatinine continues to improve. Follow intermittently. (2) Sepsis following intra-abdominal surgery Current Visit: Yes Status: Acute Code(s): T81.44XA - SEPSIS FOLLOWING A PROCEDURE, INITIAL ENCOUNTER SNOMED Code(s): 370365262 Comment: The patient was taken back to OR on 02/17 for washout. No concerning findings identified. Pt is clinically improving, labs are lagging behind. Continue zosyn-duration of Abx to be determined. Would recommend obtaining ID consult when Dr. Alford returns. (3) Perforated diverticulum Current Visit: Yes Status: Acute Code(s): K57.80 - DVTRCLI OF INTEST, PART UNSP, W PERF AND ABSCESS W/O BLEED SNOMED Code(s): 67216487 Comment: Pt initially to OR on 02/12/19 where she underwent sigmoid colectomy , hartmans and end colostomy. Colostomy functioning with gas and liquid stool in bag. Management per general surgery. (4) Splenic infarct Current Visit: Yes Status: Acute Code(s): D73.5 - INFARCTION OF SPLEEN SNOMED Code(s): 82947785 Comment: Pt with splenic infarct identified on 02/16/19. Unclear why she developed the infarct. Pain is not a major issue at this time. (5) Polysubstance abuse Current Visit: Yes Status: Acute Code(s): F19.10 - OTHER PSYCHOACTIVE SUBSTANCE ABUSE, UNCOMPLICATED SNOMED Code(s): 393236281 Comment: Pt has a h/o using cocaine, mushrooms, cannabis. Will need to be mindful of escalating narcotic doses. (6) Tobacco abuse Current Visit: Yes Status: Acute Code(s): Z72.0 - TOBACCO USE SNOMED Code( s): 114839437 Comment: Continue nicotine replacement therapy. (7) DVT prophylaxis Current Visit: Yes Status: Acute Code(s): IYC2841 - SNOMED Code(s): 958890806 Comment: lovenox (8) Full code status Current Visit: Yes Status: Acute Code(s): Z78.9 - OTHER SPECIFIED HEALTH STATUS SNOMED Code(s): 880329453 Status and Disposition: Inpatient
[2019-02-22] MEDS: Simethicone TAB* 80 MG TAB.CHEW PO PRN ×2 (09:47→16:07)
[2019-02-22 10:48] LABS: % Iron Saturation 15 % (15-55); Iron 20 ug/dL (50-212); Total Iron Binding Capacity 136 mcg/dL (250-450); Transferrin 97 mg/dL (203-362)
[2019-02-22 11:08] LABS: Ferritin 441.5 ng/mL (11-307)
--- NOTE | 2019-02-22 11:57 | PN ---
Progress Note - Progress Note Date of Service: 02/22/19 SOAP: Subjective:POD#10/5 S/P EX LAP,POLANCO'S;RETURN TO OR FOR WASHOUT []rates abd pain at "4";no n/v;asking for fruit;feels sob;expresses anxiety about learning colostomy care Objective: Vital Signs Temp 98.0 F 02/22/19 07:59 Pulse 76 02/22/19 07:59 Resp 16 02/22/19 11:16 BP 115/66 02/22/19 07:59 Pulse Ox 93 02/22/19 07:59 Intake & Output 02/21/19 02/22/19 02/22/19 18:59 06:59 18:59 Intake Total 100 1225 Output Total 1650 850 Balance -1550 375 Intake: IVPB 200 Zosyn 200 Oral 100 1025 Output: Urine 1550 850 Colostomy 100 []lungs:CTA anterior;O2 at 2lpm,SAO2 93-98%;heart:RRR,no murmur;abd:+bs;stoma pink,small amts of stool fragments and dark green liquid in bag;Prevena on incision;ext:nontender calves,SCDs on Assessment:s/p L thoracentesis for 1liter 02/21/19;CXR today:persistent bilat pleural effusions L>R;still feels sob; still requiring frequent and multiple opioids;with hx of substance use disorder this is concerning;platelets continue to rise Laboratory Results - last 24 hr 02/21/19 02/21/19 02/22/19 05:16 16:35 05:05 WBC 16.0 H RBC 3.01 L Hgb 9.3 L Hct 28 L MCV 93 MCH 31 MCHC 33 RDW 15 Plt Count 935 H MPV 7.2 L Sodium 140 Potassium 3.7 Chloride 100 L Carbon Dioxide 29 Anion Gap 11 BUN 11 Creatinine 1.08 H Est GFR ( Amer) 70.7 Est GFR (Non-Af Amer) 58.4 BUN/Creatinine Ratio 10.2 Glucose 107 H Calcium 7.6 L Phosphorus 3.8 Magnesium 2.4 Iron 20 L TIBC 136 L % Saturation 15 Unsat Iron Binding < 121 Transferrin 97 L Ferritin 441.5 H Total Bilirubin 0.60 AST 34 ALT 23 Alkaline Phosphatase 201 H C-Reactive Protein 188.21 H Total Protein 5.6 L Albumin 2.4 L Globulin 3.2 Albumin/Globulin Ratio 0.8 L Fluid Source Pleural fluid Fluid Volume 15.0 Fluid Color Yellow Fluid Appearance Cloudy Fluid WBC 3176 Fluid RBC 3703 Fluid Tot Cell Count 100 Fluid Neutrophils 36 Fluid Lymphocytes 58 Fluid Monocytes 6 Fluid Other Cells 2 02/22/19 05:05 WBC RBC Hgb Hct MCV MCH MCHC RDW Plt Count MPV Sodium 138 Potassium 3.3 L Chloride 101 Carbon Dioxide 28 Anion Gap 9 BUN 10 Creatinine 1.01 H Est GFR ( Amer) 76.4 Est GFR (Non-Af Amer) 63.1 BUN/Creatinine Ratio 9.9 Glucose 96 Calcium 7.9 L Phosphorus 3.1 Magnesium 2.3 Iron Cancelled TIBC Cancelled % Saturation Cancelled Unsat Iron Binding Cancelled Transferrin Cancelled Ferritin Cancelled Total Bilirubin 0.50 AST 30 ALT 23 Alkaline Phosphatase 169 H C-Reactive Protein Total Protein 6.6 Albumin 2.7 L Globulin 3.9 Albumin/Globulin Ratio 0.7 L Fluid Source Fluid Volume Fluid Color Fluid Appearance Fluid WBC Fluid RBC Fluid Tot Cell Count Fluid Neutrophils Fluid Lymphocytes Fluid Monocytes Fluid Other Cells [] Plan:Shreya RollinsRN,Ostomy nurse is currently meeting with Rosalba;VNS will be involved on discharge;Rosalba will be staying at her grandfather's home on discharge I will ask if a Hematology consult is advisable with rising platelets and a pain management consult as well repeat CBC and CMP 02/23/19 []
--- NOTE | 2019-02-22 15:10 | PN ---
Progress Note - Progress Note Date of Service: 02/22/19 Note: 02/22/[address] Mckeon,no need for Hematology consult at this time ,she had spoken with Dr Urban also.I asked for a Pain Management consult with ,I left a message with his office receptionist. updated. Koko,CHARLEEN
--- NOTE | 2019-02-22 16:59 | CONSULT ---
Consult Consult: INPATIENT PAIN CONSULTATION Rosalba Barreto is a 33 year old female. She has a medical history significant for diverticular disease. She came to the [facility] ER acutely on February 06 complaining of LLQ pain. She had blood work showing an elevated WBC; she had a CT scan of her abdomen/pelvis showing sigmoid colon wall thickening and inflammatory changes consistent with diverticulitis. A small amount of extraluminal gas was seen. She was started on antibiotics. She was seen by Dr. Hoffman who recommended continuing antibiotics, advancing her diet. She did not improve. She had a second CT of her abd/pelvis on February 11 showing development of collections of free air and fluid suggesting bowel perforation. She went to the OR on February 12 and had a laparotomy, sigmoid colectomy and colostomy. Post- op, she had a lot of pain requiring a Dilaudid DESIZING PAD OPERATOR. She had a persistent elevated white count, and later developed fevers. She had another CT of her abd/ pelvis on February 16 suggesting a splenic infarct. She continued to have abd pain, fevers and elevated WBC. She went back to the OR on February 17 for an exp lap and washout. No source of infection was seen. She had a CTA of her chest negative for PE. She had trouble weaning from the vent post-op. She was extubated February 19. She had persistent abdominal pain and an elevated WBC. She is on Zosyn. She is on Oxycontin 10 Q 12hr, oxycodone 5 mg PO Q4hrs PRN and Dilaudid 0.5 mg IV Q4hrs PRN for pain. She still thinks her abdominal pain is severe. I am asked to see her in consult PAST MEDICAL HISTORY: Diverticular disease Allergies Allergy/AdvReac Type Severity Reaction Status Date / Time codeine Allergy Swelling Verified 02/06/19 13:20 Current Medications Albuterol (Ventolin 2.5 Mg/3 Ml Neb.Stephanie*) 2.5 mg INH Q2H PRN PRN Reason: SOB/WHEEZING Amitriptyline HCl (Elavil Tab*) 20 mg PO DAILY [facility] Last Admin: 02/22/19 08:07 Dose: 20 mg Enoxaparin Sodium (Lovenox(*)) 40 mg SUBCUT Q24H [facility] Last Admin: 02/21/19 16:44 Dose: 40 mg Guaifenesin (Mucinex*) 600 mg PO BID [facility] Last Admin: 02/22/19 08:07 Dose: 600 mg Heparin Sodium (Porcine) (Heparin Flush Picc/Ml/Cvc(*)) 1 - 3 ml FLUSH 0600, 1800 [facility]; Protocol Last Admin: 02/22/19 05:07 Dose: 1 ml Hydromorphone HCl (Dilaudid Inj1s*) 0.5 mg IV SLOW PU Q4H PRN PRN Reason: PAIN Last Admin: 02/22/19 13:51 Dose: 0.5 mg Hydroxyzine HCl (Atarax Tab*) 25 mg PO Q6H PRN PRN Reason: anxiety/itching Last Admin: 02/22/19 14:45 Dose: 25 mg Piperacillin Sod/Tazobactam (Sod 3.375 gm/ Sodium Chloride) 100 mls @ 200 mls/ hr IVPB Q6H [facility] Last Admin: 02/22/19 13:50 Dose: 200 mls/hr Nicotine (Nicotine Patch 21 Mg/24 Hr*) 1 patch TRANSDERM DAILY [facility] Last Admin: 02/22/19 08:08 Dose: 1 patch Ondansetron HCl (Zofran Inj*) 4 mg IV Q4H PRN PRN Reason: NAUSEA/VOMITING Last Admin: 02/21/19 21:57 Dose: 4 mg Oxycodone HCl (Oxycontin(*)) 10 mg PO Q12HR [facility] Last Admin: 02/22/19 08:58 Dose: 10 mg Oxycodone HCl (Roxycodone Tab*) 5 mg PO Q4H PRN PRN Reason: PAIN Last Admin: 02/22/19 16:02 Dose: 5 mg Pantoprazole Sodium (Protonix Iv*) 40 mg IV DAILY [facility] Last Admin: 02/22/19 08:07 Dose: 40 mg Pharmacy Consult (Zosyn Per Pharmacy*) 1 note FOLLOW UP . PRN PRN Reason: PER PROTOCOL Pharmacy Profile Note (Nicotine Patch Removal Note*) 1 note FOLLOW UP 20[address] [facility] Last Admin: 02/21/19 21:15 Dose: 1 note Simethicone (Mylicon Tab*) 80 mg PO Q6H PRN PRN Reason: gas discomfort Last Admin: 02/22/19 16:07 Dose: 80 mg Zolpidem Tartrate (Ambien Tab*) 10 mg PO BEDTIME PRN PRN Reason: INSOMNIA Last Admin: 02/22/19 00:39 Dose: 10 mg SOCIAL HISTORY: Heavy drinker, varies from a glass of wine to a fifth of Trung 's nightly. Has taken herself to an AA meeting once in the past month, but didn' t stick with it. 1 PPD smoker. Uses illegal drugs including cocaine. Lives alone in apartment near the [employer]. Has a boyfriend. Works at [employer]. ROS: Denies SOB, chest pain Vital Signs Temp Pulse Resp BP Pulse Ox 97.8 F 88 18 135/76 94 02/22/19 15:52 02/22/19 15:52 02/22/19 16:02 02/22/19 15:52 02/22/19 15:52 EXAM: LUNGS: Clear HEART: reg rhythm ABDOMEN: firm, some tenderness. Colostomy draining stool EXTREMITIES: Normal tone NEUROLOGIC: Sensation intact to LT. Moves legs ASSESSMENT: 1. Abdominal Pain after Sigmoid Colectomy/colostomy 2. History of polysubstance abuse PLAN: Given her recent abdominal surgery and colostomy, I am not sure that OxyContin is getting absorbed. She has a clear preference for IV dilaudid and I think we need to be careful given her substance abuse history. I will stop her OxyContin, start her on a Fentanyl patch and hopefuly start to taper her dilaudid.
[2019-02-22] MEDS: fentaNYL PATCH 25 MCG/HR TRANSDERM SCH (17:59)
[2019-02-22] MEDS: Enoxaparin(*) 40 MG/0.4 ML SYR SUBCUT SCH (18:04)
[2019-02-22] MEDS: fentaNYL Patch Check Q Shift 1 NOTE SCH (19:05)
[2019-02-22] MEDS: Nicotine Patch Removal NOTE FOLLOW UP SCH (21:00)
[2019-02-23] MEDS: hydrOXYzine HCL TAB* 25 MG PO PRN ×4 (00:08→21:17)
[2019-02-23] MEDS: Zolpidem TAB* 10 MG PO PRN (00:33)
[2019-02-23] MEDS: Piperacillin/Tazobac ADVAN(*) 3.375 GM in NS 0.9% 100 ML* 100 ML IVPB SCH ×4 (01:45→21:17)
[2019-02-23] MEDS: oxyCODONE TAB* 5 MG TAB PO PRN ×5 (01:46→22:07)
[2019-02-23] MEDS: HYDROmorphone INJ1* 1 MG/ML SYRINGE IV SLOW PU PRN ×2 (03:12→08:19)
[2019-02-23 05:30] LABS: Hematocrit 28 % (35-47); Hemoglobin 9.5 g/dL (12.0-16.0); Mean Corpuscular HGB Conc 34 g/dL (31-36); Mean Corpuscular Hemoglobin 31 pg (27-31); Mean Corpuscular Volume 92 fL (80-97); Mean Platelet Volume 7.3 fL (7.4-10.4); Platelet Count 815 10^3/uL (150-450); Red Blood Count 3.07 10^6 /uL (3.70-4.87); Red Cell Distribution Width 14 % (10.5-15)
[2019-02-23 05:33] LABS: Albumin 2.5 g/dL (3.2-5.2); Albumin/Globulin Ratio 0.7 (1-3); BUN/Creatinine Ratio 8.3 (8-20); Calcium 7.7 mg/dL (8.6-10.3); EGFR Non-African American 66.9 (>60); Globulin 3.7 g/dL (2-4); Potassium 3.1 mmol/L (3.5-5.0); Total Bilirubin 0.4 mg/dL (0.2-1.0); Total Protein 6.2 g/dL (6.4-8.9)
[2019-02-23 06:01] LABS: ABS Basophils 0.1 10^3/ul (0-0.2); ABS Eosinophils 0.2 10^3/ul (0-0.6); ABS Lymphocytes 1.6 10^3/ul (1.0-4.8); ABS Monocytes 1.4 10^3/ul (0-0.8); ABS Neutrophils 10.6 10^3/ul (1.5-7.7); Eosinophil % 1.6 %; Lymphocyte % 11.4 %
[2019-02-23] MEDS: fentaNYL Patch Check Q Shift 1 NOTE SCH ×2 (07:14→18:56)
[2019-02-23] MEDS: Amitriptyline TAB* 10 MG PO SCH (08:03)
[2019-02-23] MEDS: Nicotine PATCH 21 MG/24 HR* PATCH TRANSDERM SCH (08:03)
[2019-02-23] MEDS: guaiFENesin ER TAB 600 MG PO SCH ×2 (08:03→21:17)
[2019-02-23] MEDS: Pantoprazole IV* 40 MG IV SCH (08:04)
[2019-02-23] MEDS: Simethicone TAB* 80 MG TAB.CHEW PO PRN (08:13)
[2019-02-23] MEDS ORDERED: busPIRone TAB* 5 MG PO ONE (11:32)
[2019-02-23] MEDS ORDERED: busPIRone TAB* 10 MG ONE (11:38)
--- NOTE | 2019-02-23 11:44 | PN ---
Progress Note - Progress Note Date of Service: 02/23/19 SOAP: Subjective: []anxious, using dilaudid "for sleep" Objective: [] Intake & Output 02/21/19 02/22/19 02/23/19 02/24/19 06:59 06:59 06:59 06:59 Intake Total 1530 1325 2530 Output Total 5250 2500 3125 750 Balance -1300 -0403 -595 -750 Intake: IV Fluids 245 20 NS (0.9%) 30 20 Zosyn 215 IVPB 105 200 310 Zosyn 105 200 310 Oral 1180 1125 2200 Output: Urine 1550 2400 3125 750 Iniguez 3650 Colostomy 50 100 0 Temp Pulse Resp BP Pulse Ox 98.6 F 74 18 132/76 95 02/23/19 11:30 02/23/19 11:30 02/23/19 11:30 02/23/19 11:30 02/23/19 11:30 Laboratory Last Values WBC 14.0 10^3/uL (3.5-10.8) H 02/23/19 05:05 RBC 3.07 10^6 /uL (3.70-4.87) L 02/23/19 05:05 Hgb 9.5 g/dL (12.0-16.0) L 02/23/19 05:05 Hct 28 % (35-47) L 02/23/19 05:05 MCV 92 fL (80-97) 02/23/19 05:05 MCH 31 pg (27-31) 02/23/19 05:05 MCHC 34 g/dL (31-36) 02/23/19 05:05 RDW 14 % (10.5-15) 02/23/19 05:05 Plt Count 815 10^3/uL (150-450) H D 02/23/19 05:05 MPV 7.3 fL (7.4-10.4) L 02/23/19 05:05 Neut % (Auto) 76.1 % 02/23/19 05:05 Lymph % (Auto) 11.4 % 02/23/19 05:05 [place] % (Auto) 9.9 % 02/23/19 05:05 Eos % (Auto) 1.6 % 02/23/19 05:05 Baso % (Auto) 1.0 % 02/23/19 05:05 Absolute Neuts (auto) 10.6 10^3/ul (1.5-7.7) H 02/23/19 05:05 Absolute Lymphs (auto) 1.6 10^3/ul (1.0-4.8) 02/23/19 05:05 Absolute Monos (auto) 1.4 10^3/ul (0-0.8) H 02/23/19 05:05 Absolute Eos (auto) 0.2 10^3/ul (0-0.6) 02/23/19 05:05 Absolute Basos (auto) 0.1 10^3/ul (0-0.2) 02/23/19 05:05 Absolute Nucleated RBC 0.0 10^3/ul 02/23/19 05:05 Immature Gran % 2.0 % (0-9) 02/16/19 06:06 Neutrophils % 83.0 % 02/16/19 06:06 Band Neutrophils % 1.0 % (0-8) 02/16/19 06:06 Lymphocytes % 9.0 % 02/16/19 06:06 Monocytes % 6.0 % 02/16/19 06:06 Eosinophils % 0.0 % 02/16/19 06:06 Basophils % 0.0 % 02/16/19 06:06 Metamyelocytes % 1.0 % (0-2) 02/16/19 06:06 Nucleated RBC % 0.0 02/23/19 05:05 Abs Neuts (Manual) 17.1 10^3/ul (1.5-7.7) H 02/16/19 06:06 Abs Lymphs (Manual) 1.8 10^3/ul (1.0-4.8) 02/16/19 06:06 Abs Monocytes (Manual) 1.2 10^3/ul (0-0.8) H 02/16/19 06:06 Absolute Eos (Manual) 0.0 10^3/ul (0-0.6) 02/16/19 06:06 Abs Basophils (Manual) 0.0 10^3/ul (0-0.2) 02/16/19 06:06 Smudge Cells Present 02/16/19 06:06 Normal RBC Morphology Not Reportable 02/16/19 06:06 Anisocytosis 1+ 02/16/19 06:06 Macrocytosis 1+ 02/16/19 06:06 INR (Anticoag Therapy) 1.68 (0.82-1.09) H 02/17/19 16:55 APTT 30.6 seconds (26.0-36.3) 02/17/19 16:55 Patient Temperature Not Reportable 02/17/19 16:30 ABG pH 7.49 (7.35-7.45) H 02/17/19 16:30 ABG pH (Temp Correct) Not Reportable 02/17/19 16:30 ABG pCO2 35 mmHg (35-45) 02/17/19 16:30 ABG pCO2 (Temp Corrct Not Reportable 02/17/19 16:30 ABG pO2 70 mmHg (80-100) L 02/17/19 16:30 ABG pO2 (Temp Correct Not Reportable 02/17/19 16:30 ABG HCO3 27.6 mmol/L (19-31) 02/17/19 16:30 ABG O2 Saturation 97.0 % (94.0-98.0) 02/17/19 16:30 ABG Base Excess 3.5 mmol/L (-2.0-2.0) H 02/17/19 16:30 Respiration Rate 16 02/17/19 16:30 O2 Delivery Device vent 02/17/19 16:30 Ventilator Type Not Reportable 02/17/19 16:30 Vent Mode Pcv` 02/17/19 16:30 FiO2 60 02/17/19 16:30 Inspiratory Time .8 02/17/19 16:30 PEEP 10 02/17/19 16:30 Pressure Support Not Reportable 02/17/19 16:30 Pressure Control 25 02/17/19 16:30 EPAP Not Reportable 02/17/19 16:30 IPAP Not Reportable 02/17/19 16:30 BiPAP Not Reportable 02/17/19 16:30 Sodium 137 mmol/L (135-145) 02/23/19 05:05 Potassium 3.1 mmol/L (3.5-5.0) L 02/23/19 05:05 Chloride 103 mmol/L (101-111) 02/23/19 05:05 Carbon Dioxide 25 mmol/L (22-32) 02/23/19 05:05 Anion Gap 9 mmol/L (2-11) 02/23/19 05:05 BUN 8 mg/dL (6-24) 02/23/19 05:05 Creatinine 0.96 mg/dL (0.51-0.95) H 02/23/19 05:05 Est GFR ( Amer) 81.0 (>60) 02/23/19 05:05 Est GFR (Non-Af Amer) 66.9 (>60) 02/23/19 05:05 BUN/Creatinine Ratio 8.3 (8-20) 02/23/19 05:05 Glucose 100 mg/dL (70-100) 02/23/19 05:05 Lactic Acid 0.8 mmol/L (0.5-2.0) 02/18/19 04:39 Calcium 7.7 mg/dL (8.6-10.3) L 02/23/19 05:05 Ionized Calcium 0.93 mmol/L (1.16-1.32) L 02/19/19 04:55 Phosphorus 3.1 mg/dL (2.5-5.0) 02/22/19 05:05 Magnesium 2.3 mg/dL (1.9-2.7) 02/22/19 05:05 Iron Cancelled 02/22/19 05:05 TIBC Cancelled 02/22/19 05:05 % Saturation Cancelled 02/22/19 05:05 Unsat Iron Binding Cancelled 02/22/19 05:05 Transferrin Cancelled 02/22/19 05:05 Ferritin Cancelled 02/22/19 05:05 Total Bilirubin 0.40 mg/dL (0.2-1.0) 02/23/19 05:05 AST 36 U/L (13-39) 02/23/19 05:05 ALT 32 U/L (7-52) 02/23/19 05:05 Alkaline Phosphatase 155 U/L (34-104) H 02/23/19 05:05 C-Reactive Protein 188.21 mg/L (<8.01) H 02/21/19 05:16 B-Natriuretic Peptide 67 pg/mL (<=100) 02/18/19 04:39 Total Protein 6.2 g/dL (6.4-8.9) L 02/23/19 05:05 Albumin 2.5 g/dL (3.2-5.2) L 02/23/19 05:05 Globulin 3.7 g/dL (2-4) 02/23/19 05:05 Albumin/Globulin Ratio 0.7 (1-3) L 02/23/19 05:05 Lipase 10 U/L (11.0-82.0) L 02/06/19 14:36 Beta HCG, Quant < 0.60 mIU/mL 02/06/19 14:36 Urine Color Yellow 02/16/19 08:59 Urine Appearance Cloudy 02/16/19 08:59 Urine pH 7.0 (5-9) 02/16/19 08:59 Ur Specific [place] 1.011 (1.010-1.030) 02/16/19 08:59 Urine Protein Negative (Negative) 02/16/19 08:59 Urine Ketones 1+ (Negative) A 02/16/19 08:59 Urine Blood 3+ (Negative) A 02/16/19 08:59 Urine Nitrate Negative (Negative) 02/16/19 08:59 Urine Bilirubin Negative (Negative) 02/16/19 08:59 Urine Urobilinogen Negative (Negative) 02/16/19 08:59 Ur Leukocyte Esterase Trace (Negative) A 02/16/19 08:59 Urine WBC (Auto) 1+(6-10/hpf) (Absent) A 02/16/19 08:59 Urine RBC (Auto) 2+(6-10/hpf) (Absent) A 02/16/19 08:59 Ur Squamous Epith Cells Present (Absent) A 02/16/19 08:59 Urine Bacteria Absent (Absent) 02/16/19 08:59 Urine Glucose Negative (Negative) 02/16/19 08:59 Fluid Source Pleural fluid 02/21/19 16:35 Fluid Volume 15.0 mL 02/21/19 16:35 Fluid Color Yellow 02/21/19 16:35 Fluid Appearance Cloudy 02/21/19 16:35 Fluid WBC 3176 /mcL (0-029119) 02/21/19 16:35 Fluid RBC 3703 /mcL 02/21/19 16:35 Fluid Tot Cell Count 100 02/21/19 16:35 Fluid Neutrophils 36 % 02/21/19 16:35 Fluid Lymphocytes 58 % 02/21/19 16:35 Fluid Monocytes 6 % 02/21/19 16:35 Fluid Other Cells 2 02/21/19 16:35 Fluid Cell Count Rvw By 02/21/19 16:35 Vancomycin Trough 33.2 mcg/mL H* 02/19/19 11:14 Random Vancomycin 9.9 mcg/mL 02/20/19 05:28 HIV 1&2 Antibody Nonreactive (Nonreactive) 02/06/19 19:26 Blood Type O Negative 02/17/19 04:34 Antibody Screen Negative 02/17/19 04:34 abdomen soft, stoma functioning well incision CDI, no erythema lungs decreased breath sounds at bases bilat Assessment: []stable, improving WBC, platelets overuse of narcotic will benefit from fiber-reg diet needs protein Plan: []advance to regular diet, discussed her low albumin and need to increase her protein intake-multiple small meals, she "doesnt like protein shakes dc dilaudid-discussed with patient and she agrees dc wound dressing discussed the need to significantly increase activity
[2019-02-23] MEDS: Ondansetron INJ* 2 MG/ML VIAL IV PRN ×2 (13:35→22:06)
--- NOTE | 2019-02-23 14:37 | PN ---
Subjective Date of Service: 02/23/19 Interval History: Ms. Barreto is not feeling any better today. She is still having a lot of pain and does not think it has improved since starting the fentanyl patch. She is still using Dilaudid and oxy for pain control. Pain is worst in the LLQ and pain is increased when moving her RLE. No CP, SOB, N/V. Appetite is good. No concerns from nursing. Family History: Unchanged from Admission Social History: Unchanged from Admission Past Medical History: Unchanged from Admission Objective Active Medications: Acetaminophen (Tylenol Tab*) 650 mg PO Q4H PRN FEVER/PAIN Albuterol (Ventolin 2.5 Mg/3 Ml Neb.Stephanie*) 2.5 mg INH Q2H PRN SOB/WHEEZING Amitriptyline HCl (Elavil Tab*) 20 mg PO DAILY [facility] Enoxaparin Sodium (Lovenox(*)) 40 mg SUBCUT Q24H [facility] Fentanyl (Duragesic Patch 25 Mcg/Hr*) 25 mcg TRANSDERM Q72H [facility] Guaifenesin (Mucinex*) 600 mg PO BID [facility] Heparin Sodium (Porcine) (Heparin Flush Picc/Ml/Cvc(*)) 1 - 3 ml FLUSH 0600, 1800 [facility]; Protocol Hydroxyzine HCl (Atarax Tab*) 25 mg PO Q6H PRN anxiety/itching Piperacillin Sod/Tazobactam (Sod 3.375 gm/ Sodium Chloride) 100 mls @ 200 mls/ hr IVPB Q6H [facility] Ibuprofen (Motrin Tab*) 600 mg PO Q8H PRN PAIN Nicotine (Nicotine Patch 21 Mg/24 Hr*) 1 patch TRANSDERM DAILY [facility] Ondansetron HCl (Zofran Inj*) 4 mg IV Q4H PRN NAUSEA/VOMITING Oxycodone HCl (Roxycodone Tab*) 5 mg PO Q4H PRN PAIN Pantoprazole Sodium (Protonix Tab*) 40 mg PO DAILY@0600 [facility] Simethicone (Mylicon Tab*) 80 mg PO Q6H PRN gas discomfort Zolpidem Tartrate (Ambien Tab*) 10 mg PO BEDTIME PRN INSOMNIA Vital Signs - 8 hr 02/23/19 02/23/19 02/23/19 07:16 08:00 08:12 Temperature 98.2 F Pulse Rate 74 Respiratory 18 18 24 Rate Blood Pressure 131/72 (mmHg) O2 Sat by Pulse 96 Oximetry 02/23/19 02/23/19 02/23/19 08:19 09:33 11:10 Temperature Pulse Rate Respiratory 22 18 18 Rate Blood Pressure (mmHg) O2 Sat by Pulse Oximetry 02/23/19 02/23/19 11:30 13:07 Temperature 98.6 F Pulse Rate 74 Respiratory 18 18 Rate Blood Pressure 132/76 (mmHg) O2 Sat by Pulse 95 Oximetry Oxygen Devices in Use Now: Nasal Cannula - 2L Appearance: Middle-aged female laying in bed in NAD Eyes: No Scleral Icterus Ears/Nose/Mouth/Throat: Mucous Membranes Moist Neck: NL Appearance and Movements; NL JVP, Trachea Midline Respiratory: Symmetrical Chest Expansion and Respiratory Effort, Clear to Auscultation Cardiovascular: NL Sounds; No Murmurs; No JVD, RRR Abdominal: - - Soft, tender to palpation throughout Extremities: No Edema Skin: No Rash or Ulcers Neurological: Alert and Oriented x 3 Lines/Tubes/Other Access: Clean, Dry and Intact Peripheral IV Nutrition: Taking PO's Result Diagrams: 02/23/19 05:05 02/23/19 05:05 Assess/Plan/Problems-Billing Assessment: Ms. Barreto is a 33 yo F who has a h/o polysubstance abuse who presented to the ER with recurrent diverticulitis which was complicated by perforation/abscess/ SBO requiring Solis's and end colostomy further complicated by intraabdominal sepsis requiring exploratory laparotomy. - Patient Problems (1) Sepsis following intra-abdominal surgery Code(s): T81.44XA - SEPSIS FOLLOWING A PROCEDURE, INITIAL ENCOUNTER Comment: - The patient was taken back to OR on 02/17 for washout; no concerning findings identified - Clinically improving, labs are lagging behind - Recommend ID consult on Tuesday - Unclear how long she should remain on abx - Continue Zosyn (2) Perforated diverticulum Code(s): K57.80 - DVTRCLI OF INTEST, PART UNSP, W PERF AND ABSCESS W/O BLEED Comment: - Initially to OR on 02/12/19 where she underwent sigmoid colectomy, Solis's and end colostomy - Colostomy functioning with gas and liquid stool in bag - Management per general surgery (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 - INFARCTION OF SPLEEN Comment: - 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 - Unclear why she developed the infarct - Pain is not a major issue at this time (4) Elevated serum creatinine Code(s): R79.89 - OTHER SPECIFIED ABNORMAL FINDINGS OF BLOOD CHEMISTRY Comment : - Creatinine continues to improve - Follow intermittently (5) Polysubstance abuse Code(s): F19.10 - OTHER PSYCHOACTIVE SUBSTANCE ABUSE, UNCOMPLICATED Comment: - H/o using cocaine, mushrooms, cannabis - Will need to be mindful of narcotic doses (6) Tobacco abuse Code(s): Z72.0 - TOBACCO USE Comment: - Continue nicotine replacement (7) DVT prophylaxis Comment: - Lovenox (8) Full code status Code(s): Z78.9 - OTHER SPECIFIED HEALTH STATUS Comment: Status and Disposition: Inpatient. Anticipate d/c home when medically stable. Attending: Surya Burnett
[2019-02-23] MEDS: Ibuprofen TAB* 600 MG PO PRN (14:51)
[2019-02-23] MEDS: Enoxaparin(*) 40 MG/0.4 ML SYR SUBCUT SCH (17:15)
[2019-02-23] MEDS: Potassium Chlor TAB* 20 MEQ TAB.ER PO SCH (21:16)
[2019-02-23] MEDS: Nicotine Patch Removal NOTE FOLLOW UP SCH (23:01)
[2019-02-24] MEDS: Potassium Chlor TAB* 20 MEQ TAB.ER PO SCH (00:04)
[2019-02-24] MEDS: Simethicone TAB* 80 MG TAB.CHEW PO PRN (00:07)
[2019-02-24] MEDS: Ibuprofen TAB* 600 MG PO PRN ×3 (01:22→17:21)
[2019-02-24] MEDS: Piperacillin/Tazobac ADVAN(*) 3.375 GM in NS 0.9% 100 ML* 100 ML IVPB SCH ×4 (01:23→21:13)
[2019-02-24] MEDS: Zolpidem TAB* 10 MG PO PRN (01:28)
[2019-02-24] MEDS: hydrOXYzine HCL TAB* 25 MG PO PRN ×3 (03:29→18:32)
[2019-02-24] MEDS: Pantoprazole TAB * 40 MG TAB PO SCH (05:28)
[2019-02-24] MEDS: oxyCODONE TAB* 5 MG TAB PO PRN ×3 (05:28→18:32)
[2019-02-24 05:55] LABS: Hematocrit 27 % (35-47); Hemoglobin 8.8 g/dL (12.0-16.0); Mean Corpuscular HGB Conc 33 g/dL (31-36); Mean Corpuscular Hemoglobin 31 pg (27-31); Mean Corpuscular Volume 92 fL (80-97); Mean Platelet Volume 7.2 fL (7.4-10.4); Platelet Count 851 10^3/uL (150-450); Red Blood Count 2.87 10^6 /uL (3.70-4.87); Red Cell Distribution Width 15 % (10.5-15); White Blood Count 11.9 10^3/uL (3.5-10.8)
[2019-02-24 06:11] LABS: BUN/Creatinine Ratio 7.2 (8-20); Calcium 7.6 mg/dL (8.6-10.3); EGFR Non-African American 66.1 (>60); Potassium 3.7 mmol/L (3.5-5.0)
[2019-02-24 06:16] LABS: ABS Basophils 0.2 10^3/ul (0-0.2); ABS Eosinophils 0.3 10^3/ul (0-0.6); ABS Lymphocytes 1.7 10^3/ul (1.0-4.8); ABS Monocytes 1.3 10^3/ul (0-0.8); ABS Neutrophils 8.5 10^3/ul (1.5-7.7); Eosinophil % 2.1 %; Lymphocyte % 14.5 %
[2019-02-24] MEDS: fentaNYL Patch Check Q Shift 1 NOTE SCH ×2 (06:36→19:07)
[2019-02-24] MEDS: Nicotine PATCH 21 MG/24 HR* PATCH TRANSDERM SCH (08:07)
[2019-02-24] MEDS: Amitriptyline TAB* 10 MG PO SCH (08:08)
[2019-02-24] MEDS: guaiFENesin ER TAB 600 MG PO SCH ×2 (08:08→21:12)
--- NOTE | 2019-02-24 09:45 | PN ---
Progress Note - Progress Note Date of Service: 02/24/19 SOAP: Subjective: Intermittent crampy abdominal pain Poor appetite, but no N/V Sleeps poorly Objective: Temp Pulse Resp BP Pulse Ox 97.9 F 80 18 122/65 92 02/24/19 08:25 02/24/19 08:25 02/24/19 08:25 02/24/19 08:25 02/24/19 08:25 Intake & Output 02/22/19 02/23/19 02/24/19 02/25/19 06:59 06:59 06:59 06:59 Intake Total 1325 2530 2055 130 Output Total 2500 3125 2450 Balance -4049 -890 -098 130 Intake: IV Fluids 20 215 20 NS (0.9%) 20 20 Zosyn 215 IVPB 200 310 360 110 NS (0.9%) 120 Zosyn 200 310 240 110 Oral 1125 2200 1480 Output: Urine 2400 3125 2350 Colostomy 100 0 100 PEX: Comfortable Lungs clear, decreased breath sounds left base Abd is soft and slightly distended. Bowel sounds are present Incision CDI Ostomy pink with brown liquid stool in bag Laboratory Results - last 24 hr 02/24/19 02/24/19 05:35 05:35 WBC 11.9 H RBC 2.87 L Hgb 8.8 L Hct 27 L MCV 92 MCH 31 MCHC 33 RDW 15 Plt Count 851 H MPV 7.2 L Neut % (Auto) 71.0 Lymph % (Auto) 14.5 Ada % (Auto) 11.0 Eos % (Auto) 2.1 Baso % (Auto) 1.4 Absolute Neuts (auto) 8.5 H Absolute Lymphs (auto) 1.7 Absolute Monos (auto) 1.3 H Absolute Eos (auto) 0.3 Absolute Basos (auto) 0.2 Absolute Nucleated RBC 0.0 Nucleated RBC % 0.0 Sodium 138 Potassium 3.7 Chloride 107 Carbon Dioxide 24 Anion Gap 7 BUN 7 Creatinine 0.97 H Est GFR ( Amer) 80.0 Est GFR (Non-Af Amer) 66.1 BUN/Creatinine Ratio 7.2 L Glucose 120 H Calcium 7.6 L Assessment: S/P ex lap sigmoid colectomy with colostomy for diverticular disease. Splenic infarction Plan: Increase diet Analgesia Ostomy care Increase activity
--- NOTE | 2019-02-24 09:47 | PN ---
Subjective Date of Service: 02/24/19 Interval History: Patient reports she feels tired today and is having a hard time sleeping - took ambien last night and only slept 2-3 hours now feeling more groggy today than yesterday. She feels emotional about having a colostomy. She states her boyfriend and friends are supportive. reports little appetite - no N/V. No fevers/chills/ Denies SOB Is trying to ambulate several times a day but has little energy Family History: Unchanged from Admission Social History: Unchanged from Admission Past Medical History: Unchanged from Admission Objective Active Medications: Acetaminophen (Tylenol Tab*) 650 mg PO Q4H PRN PRN Reason: FEVER/PAIN Albuterol (Ventolin 2.5 Mg/3 Ml Neb.Stephanie*) 2.5 mg INH Q2H PRN PRN Reason: SOB/WHEEZING Amitriptyline HCl (Elavil Tab*) 20 mg PO DAILY [facility] Last Admin: 02/24/19 08:08 Dose: 20 mg Enoxaparin Sodium (Lovenox(*)) 40 mg SUBCUT Q24H [facility] Last Admin: 02/23/19 17:15 Dose: 40 mg Fentanyl (Duragesic Patch 25 Mcg/Hr*) 25 mcg TRANSDERM Q72H [facility] Last Admin: 02/22/19 17:59 Dose: 25 mcg Guaifenesin (Mucinex*) 600 mg PO BID [facility] Last Admin: 02/24/19 08:08 Dose: 600 mg Heparin Sodium (Porcine) (Heparin Flush Picc/Ml/Cvc(*)) 1 - 3 ml FLUSH 0600, 1800 [facility]; Protocol Last Admin: 02/24/19 09:33 Dose: 1 ml Hydroxyzine HCl (Atarax Tab*) 25 mg PO Q6H PRN PRN Reason: anxiety/itching Last Admin: 02/24/19 09:33 Dose: 25 mg Piperacillin Sod/Tazobactam (Sod 3.375 gm/ Sodium Chloride) 100 mls @ 200 mls/ hr IVPB Q6H [facility] Last Admin: 02/24/19 08:08 Dose: 200 mls/hr Ibuprofen (Motrin Tab*) 600 mg PO Q8H PRN PRN Reason: PAIN Last Admin: 02/24/19 09:28 Dose: 600 mg Nicotine (Nicotine Patch 21 Mg/24 Hr*) 1 patch TRANSDERM DAILY [facility] Last Admin: 02/24/19 08:07 Dose: 1 patch Ondansetron HCl (Zofran Inj*) 4 mg IV Q4H PRN PRN Reason: NAUSEA/VOMITING Last Admin: 02/23/19 22:06 Dose: 4 mg Oxycodone HCl (Roxycodone Tab*) 10 mg PO Q6H PRN PRN Reason: PAIN Last Admin: 02/24/19 05:28 Dose: 10 mg Pantoprazole Sodium (Protonix Tab*) 40 mg PO DAILY@0600 [facility] Last Admin: 02/24/19 05:28 Dose: 40 mg Pharmacy Consult (Zosyn Per Pharmacy*) 1 note FOLLOW UP . PRN PRN Reason: PER PROTOCOL Pharmacy Profile Note (Nicotine Patch Removal Note*) 1 note FOLLOW UP 2100 [facility] Last Admin: 02/23/19 23:01 Dose: 1 note Pharmacy Profile Note (Fentanyl Patch Check Q Shift) 1 note N/A 0700,1900 [facility] Last Admin: 02/24/19 06:36 Dose: 1 note Simethicone (Mylicon Tab*) 80 mg PO Q6H PRN PRN Reason: gas discomfort Last Admin: 02/24/19 00:07 Dose: 80 mg Zolpidem Tartrate (Ambien Tab*) 10 mg PO BEDTIME PRN PRN Reason: INSOMNIA Last Admin: 02/24/19 01:28 Dose: 10 mg Vital Signs - 8 hr 02/24/19 02/24/19 02/24/19 03:29 05:28 08:07 Temperature 98.1 F Pulse Rate 72 Respiratory 16 16 18 Rate Blood Pressure 127/78 (mmHg) O2 Sat by Pulse 92 Oximetry 02/24/19 08:25 Temperature 97.9 F Pulse Rate 80 Respiratory 18 Rate Blood Pressure 122/65 (mmHg) O2 Sat by Pulse 92 Oximetry Oxygen Devices in Use Now: None Appearance: 33 yo female laying in bed A+O x3 in NAD Eyes: No Scleral Icterus, PERRLA Ears/Nose/Mouth/Throat: Mucous Membranes Moist Respiratory: Symmetrical Chest Expansion and Respiratory Effort, Clear to Auscultation Cardiovascular: NL Sounds; No Murmurs; No JVD, RRR, No Edema Abdominal: - - mild distention, NL BS, stoma is red - appears healthy - draining thing brown liquid stool. lower midline incision with heber - no erythema or drainage - healing well. Extremities: No Edema, No Clubbing, Cyanosis Neurological: Alert and Oriented x 3, NL Sensation, NL Muscle Strength and Tone Lines/Tubes/Other Access: Clean, Dry and Intact Peripheral IV Nutrition: Taking PO's Result Diagrams: 02/24/19 05:35 02/24/19 05:35 Additional Lab and Data: Lab Results 02/06/19 02/06/19 02/06/19 Range/Units 14:36 14:36 14:36 WBC 14.1 H (3.5-10.8) 10^3/uL RBC 4.77 (3.70-4.87) 10^6 /uL Hgb 15.2 (12.0-16.0) g/dL Hct 45 H (33-41) % MCV 95 (80-97) fL MCH 32 H (27-31) pg MCHC 34 (31-36) g/dL RDW 14 (10.5-15) % Plt Count 300 (150-450) 10^3/uL MPV 7.5 (7.4-10.4) fL Neut % (Auto) 82.1 % Lymph % (Auto) 10.6 % [place] % (Auto) 5.7 % Eos % (Auto) 1.0 % Baso % (Auto) 0.6 % Absolute Neuts (auto) 11.6 H (1.5-7.7) 10^3/ul Absolute Lymphs (auto) 1.5 (1.0-4.8) 10^3/ul Absolute Monos (auto) 0.8 (0-0.8) 10^3/ul Absolute Eos (auto) 0.1 (0-0.6) 10^3/ul Absolute Basos (auto) 0.1 (0-0.2) 10^3/ul Absolute Nucleated RBC 0 10^3/ul Nucleated RBC % 0 Sodium 138 (135-145) mmol/L Potassium 4.0 (3.5-5.0) mmol/L Chloride 106 (101-111) mmol/L Carbon Dioxide 23 (22-32) mmol/L Anion Gap 9 (2-11) mmol/L BUN 12 (6-24) mg/dL Creatinine 0.90 (0.51-0.95) mg/dL Est GFR ( Amer) 87.3 (>60) Est GFR (Non-Af Amer) 72.1 (>60) BUN/Creatinine Ratio 13.3 (8-20) Glucose 96 (70-100) mg/dL Lactic Acid 0.7 (0.5-2.0) mmol/L Calcium 9.1 (8.6-10.3) mg/dL Total Bilirubin 0.80 (0.2-1.0) mg/dL AST 19 (13-39) U/L ALT 15 (7-52) U/L Alkaline Phosphatase 80 (34-104) U/L C-Reactive Protein 7.41 (<8.01) mg/L Total Protein 7.6 (6.4-8.9) g/dL Albumin 4.4 (3.2-5.2) g/dL Globulin 3.2 (2-4) g/dL Albumin/Globulin Ratio 1.4 (1-3) Lipase 10 L (11.0-82.0) U/L Beta HCG, Quant < 0.60 mIU/mL Microbiology and Other Data: Microbiology 02/06/19 17:20 Urine Culture - Preliminary Urine Klebsiella Pneumoniae Assess/Plan/Problems-Billing Assessment: Ms. Barreto is a 33 yo F who has a h/o polysubstance abuse who presented to the ER with recurrent diverticulitis which was complicated by perforation/abscess/ SBO requiring Solis's and end colostomy further complicated by intraabdominal sepsis requiring exploratory laparotomy. - Patient Problems (1) Perforated diverticulum Comment: - Initially to OR on 02/12/19 where she underwent sigmoid colectomy, Solis's and end colostomy - Colostomy functioning with gas and liquid brown stool in bag - Management per general surgery (2) Elevated serum creatinine Comment: - Creatinine continues to improve - Follow intermittently (3) Splenic infarct Comment: - 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 - Unclear why she developed the infarct - Pain is not a major issue at this time (4) Polysubstance abuse Comment: - H/o using cocaine, mushrooms, cannabis - Appreciate Pain management consult - oxycotin DC started on Fentanyl patch - now better pain control. Continues to use prn oxycodone (5) Sepsis following intra-abdominal surgery Comment: - The patient was taken back to OR on 02/17 for washout; no concerning findings identified - Clinically improving, Spesis resolved - labs are lagging behind - Recommend ID consult on Tuesday - Unclear how long she should remain on abx - Continue Zosyn (6) Tobacco abuse Comment: - Continue nicotine replacement (7) DVT prophylaxis Comment: - Lovenox (8) Full code status Comment: Status and Disposition: Inpatient. Anticipate d/c home when medically stable.
[2019-02-24] MEDS: Enoxaparin(*) 40 MG/0.4 ML SYR SUBCUT SCH (17:24)
[2019-02-24] MEDS: Nicotine Patch Removal NOTE FOLLOW UP SCH (21:21)
[2019-02-24] MEDS: Acetaminophen TAB* 325 MG PO PRN (23:05)
[2019-02-25] MEDS: oxyCODONE TAB* 5 MG TAB PO PRN ×4 (00:34→19:13)
[2019-02-25] MEDS: hydrOXYzine HCL TAB* 25 MG PO PRN ×2 (00:38→16:39)
[2019-02-25] MEDS: Piperacillin/Tazobac ADVAN(*) 3.375 GM in NS 0.9% 100 ML* 100 ML IVPB SCH ×4 (02:05→20:46)
[2019-02-25] MEDS: Zolpidem TAB* 10 MG PO PRN (02:09)
[2019-02-25] MEDS: Pantoprazole TAB * 40 MG TAB PO SCH (06:44)
[2019-02-25] MEDS: fentaNYL Patch Check Q Shift 1 NOTE SCH ×2 (07:15→19:14)
[2019-02-25 07:40] LABS: Hematocrit 28 % (35-47); Hemoglobin 9.2 g/dL (12.0-16.0); Mean Corpuscular HGB Conc 33 g/dL (31-36); Mean Corpuscular Hemoglobin 30 pg (27-31); Mean Corpuscular Volume 92 fL (80-97); Mean Platelet Volume 7.3 fL (7.4-10.4); Platelet Count 827 10^3/uL (150-450); Red Blood Count 3.02 10^6 /uL (3.70-4.87); Red Cell Distribution Width 15 % (10.5-15); White Blood Count 11.2 10^3/uL (3.5-10.8)
[2019-02-25 07:53] LABS: BUN/Creatinine Ratio 6.1 (8-20); Calcium 8.2 mg/dL (8.6-10.3); EGFR African American 79.1 (>60); EGFR Non-African American 65.4 (>60); Potassium 3.8 mmol/L (3.5-5.0)
[2019-02-25 08:12] LABS: ABS Basophils 0.3 10^3/ul (0-0.2); ABS Eosinophils 0.4 10^3/ul (0-0.6); ABS Lymphocytes 1.6 10^3/ul (1.0-4.8); ABS Monocytes 1.3 10^3/ul (0-0.8); ABS Neutrophils 7.6 10^3/ul (1.5-7.7); Eosinophil % 3.2 %; Lymphocyte % 14.4 %
[2019-02-25] MEDS: Nicotine PATCH 21 MG/24 HR* PATCH TRANSDERM SCH (08:28)
[2019-02-25] MEDS: guaiFENesin ER TAB 600 MG PO SCH ×2 (08:31→20:53)
[2019-02-25] MEDS: Amitriptyline TAB* 10 MG PO SCH (08:31)
--- NOTE | 2019-02-25 09:21 | PN ---
Subjective Date of Service: 02/25/19 Interval History: Pt reports she feels a little better today compared to yesterday "Just a little bit". She reports some different pains - reporting a few twinges of pain in my vagina but denies the feeling this am, also reports some bladder discomfort when urinating this morning but denies dysuria, hematuria, also report right flank/low back discomfort. Denies fever or chills. Reports she continues to try to walk frequently and went outside yesterday. Continues to feel overwhelmed by having a colostomy but states she feels like she will adjust Family History: Unchanged from Admission Social History: Unchanged from Admission Past Medical History: Unchanged from Admission Objective Active Medications: Acetaminophen (Tylenol Tab*) 650 mg PO Q4H PRN PRN Reason: FEVER/PAIN Last Admin: 02/24/19 23:05 Dose: 650 mg Albuterol (Ventolin 2.5 Mg/3 Ml Neb.Stephanie*) 2.5 mg INH Q2H PRN PRN Reason: SOB/WHEEZING Amitriptyline HCl (Elavil Tab*) 20 mg PO DAILY [facility] Last Admin: 02/25/19 08:31 Dose: 20 mg Enoxaparin Sodium (Lovenox(*)) 40 mg SUBCUT Q24H [facility] Last Admin: 02/24/19 17:24 Dose: 40 mg Fentanyl (Duragesic Patch 25 Mcg/Hr*) 25 mcg TRANSDERM Q72H [facility] Last Admin: 02/22/19 17:59 Dose: 25 mcg Guaifenesin (Mucinex*) 600 mg PO BID [facility] Last Admin: 02/25/19 08:31 Dose: 600 mg Heparin Sodium (Porcine) (Heparin Flush Picc/Ml/Cvc(*)) 1 - 3 ml FLUSH 0600, 1800 [facility]; Protocol Last Admin: 02/25/19 07:22 Dose: 1 ml Hydroxyzine HCl (Atarax Tab*) 25 mg PO Q6H PRN PRN Reason: anxiety/itching Last Admin: 02/25/19 00:38 Dose: 25 mg Piperacillin Sod/Tazobactam (Sod 3.375 gm/ Sodium Chloride) 100 mls @ 200 mls/ hr IVPB Q6H [facility] Last Admin: 02/25/19 08:22 Dose: 200 mls/hr Nicotine (Nicotine Patch 21 Mg/24 Hr*) 1 patch TRANSDERM DAILY [facility] Last Admin: 02/25/19 08:28 Dose: 1 patch Ondansetron HCl (Zofran Inj*) 4 mg IV Q4H PRN PRN Reason: NAUSEA/VOMITING Last Admin: 02/23/19 22:06 Dose: 4 mg Oxycodone HCl (Roxycodone Tab*) 10 mg PO Q6H PRN PRN Reason: PAIN Last Admin: 02/25/19 06:43 Dose: 10 mg Pantoprazole Sodium (Protonix Tab*) 40 mg PO DAILY@0600 [facility] Last Admin: 02/25/19 06:44 Dose: 40 mg Pharmacy Consult (Zosyn Per Pharmacy*) 1 note FOLLOW UP . PRN PRN Reason: PER PROTOCOL Pharmacy Profile Note (Nicotine Patch Removal Note*) 1 note FOLLOW UP 2100 [facility] Last Admin: 02/24/19 21:21 Dose: 1 note Pharmacy Profile Note (Fentanyl Patch Check Q Shift) 1 note N/A 0700,1900 [facility] Last Admin: 02/25/19 07:15 Dose: 1 note Simethicone (Mylicon Tab*) 80 mg PO Q6H PRN PRN Reason: gas discomfort Last Admin: 02/24/19 00:07 Dose: 80 mg Zolpidem Tartrate (Ambien Tab*) 10 mg PO BEDTIME PRN PRN Reason: INSOMNIA Last Admin: 02/25/19 02:09 Dose: 10 mg Vital Signs - 8 hr 02/25/19 02/25/19 02/25/19 03:39 06:43 07:33 Temperature 98.2 F 98.9 F Pulse Rate 71 69 Respiratory 18 16 16 Rate Blood Pressure 129/72 132/76 (mmHg) O2 Sat by Pulse 94 93 Oximetry 02/25/19 08:00 Temperature Pulse Rate Respiratory 16 Rate Blood Pressure (mmHg) O2 Sat by Pulse Oximetry Oxygen Devices in Use Now: None Appearance: 33 yo female alying in bed A+O x3 in NAD Eyes: PERRLA Ears/Nose/Mouth/Throat: Mucous Membranes Moist Respiratory: Symmetrical Chest Expansion and Respiratory Effort, Clear to Auscultation Cardiovascular: NL Sounds; No Murmurs; No JVD, RRR, No Edema Abdominal: - - slightly distended, soft, NT. Colostomy RLQ draining liquid broen stool with noted gas in bad; stoma beefy red, moist - appears healthy Extremities: No Edema, No Clubbing, Cyanosis Skin: No Rash or Ulcers Neurological: Alert and Oriented x 3, NL Sensation, NL Muscle Strength and Tone Lines/Tubes/Other Access: Clean, Dry and Intact Peripheral IV Nutrition: Taking PO's Result Diagrams: 02/25/19 07:20 02/25/19 07:20 Additional Lab and Data: Lab Results 02/06/19 02/06/19 02/06/19 Range/Units 14:36 14:36 14:36 WBC 14.1 H (3.5-10.8) 10^3/uL RBC 4.77 (3.70-4.87) 10^6 /uL Hgb 15.2 (12.0-16.0) g/dL Hct 45 H (33-41) % MCV 95 (80-97) fL MCH 32 H (27-31) pg MCHC 34 (31-36) g/dL RDW 14 (10.5-15) % Plt Count 300 (150-450) 10^3/uL MPV 7.5 (7.4-10.4) fL Neut % (Auto) 82.1 % Lymph % (Auto) 10.6 % [place] % (Auto) 5.7 % Eos % (Auto) 1.0 % Baso % (Auto) 0.6 % Absolute Neuts (auto) 11.6 H (1.5-7.7) 10^3/ul Absolute Lymphs (auto) 1.5 (1.0-4.8) 10^3/ul Absolute Monos (auto) 0.8 (0-0.8) 10^3/ul Absolute Eos (auto) 0.1 (0-0.6) 10^3/ul Absolute Basos (auto) 0.1 (0-0.2) 10^3/ul Absolute Nucleated RBC 0 10^3/ul Nucleated RBC % 0 Sodium 138 (135-145) mmol/L Potassium 4.0 (3.5-5.0) mmol/L Chloride 106 (101-111) mmol/L Carbon Dioxide 23 (22-32) mmol/L Anion Gap 9 (2-11) mmol/L BUN 12 (6-24) mg/dL Creatinine 0.90 (0.51-0.95) mg/dL Est GFR ( Amer) 87.3 (>60) Est GFR (Non-Af Amer) 72.1 (>60) BUN/Creatinine Ratio 13.3 (8-20) Glucose 96 (70-100) mg/dL Lactic Acid 0.7 (0.5-2.0) mmol/L Calcium 9.1 (8.6-10.3) mg/dL Total Bilirubin 0.80 (0.2-1.0) mg/dL AST 19 (13-39) U/L ALT 15 (7-52) U/L Alkaline Phosphatase 80 (34-104) U/L C-Reactive Protein 7.41 (<8.01) mg/L Total Protein 7.6 (6.4-8.9) g/dL Albumin 4.4 (3.2-5.2) g/dL Globulin 3.2 (2-4) g/dL Albumin/Globulin Ratio 1.4 (1-3) Lipase 10 L (11.0-82.0) U/L Beta HCG, Quant < 0.60 mIU/mL Microbiology and Other Data: Microbiology 02/06/19 17:20 Urine Culture - Preliminary Urine Klebsiella Pneumoniae Assess/Plan/Problems-Billing Assessment: Ms. Barreto is a 33 yo F who has a h/o polysubstance abuse who presented to the ER with recurrent diverticulitis which was complicated by perforation/abscess/ SBO requiring Solis's and end colostomy further complicated by intraabdominal sepsis requiring exploratory laparotomy. - Patient Problems (1) Perforated diverticulum Comment: - Initially to OR on 02/12/19 where she underwent sigmoid colectomy, Solis's with colostomy - Colostomy functioning with gas and liquid brown stool in bag - Management per general surgery (2) Sensation of pressure in bladder area Comment: - plan to send urine cx (3) Elevated serum creatinine Comment: - resolved (4) Splenic infarct Comment: - 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 - Unclear why she developed the infarct - Pain is not a major issue at this time (5) Polysubstance abuse Comment: - H/o using cocaine, mushrooms, cannabis - Appreciate Pain management consult - oxycotin DC started on Fentanyl patch - now better pain control. Continues to use prn oxycodone (6) Sepsis following intra-abdominal surgery Comment: - The patient was taken back to OR on 02/17 for washout; no concerning findings identified - Clinically improving, Spesis resolved - labs are lagging behind but slowly improving - Recommend ID consult on Tuesday - Unclear how long she should remain on abx - Continue Zosyn (7) Tobacco abuse Comment: - Continue nicotine replacement (8) DVT prophylaxis Comment: - Lovenox (9) Full code status Comment: Status and Disposition: Inpatient. Anticipate d/c home when medically stable.
[2019-02-25] MEDS: Acetaminophen TAB* 325 MG PO PRN ×2 (10:06→16:36)
[2019-02-25] MEDS ORDERED: Ketorolac INJ* 30 MG/ML 1 ML VIAL IV PUSH ONE (11:00)
--- NOTE | 2019-02-25 11:43 | PN ---
Progress Note - Progress Note Date of Service: 02/25/19 SOAP: Subjective: Complaints of intermittent abdominal pain Poor appetite No nausea Objective: Temp Pulse Resp BP Pulse Ox 98.9 F 69 18 132/76 93 02/25/19 07:33 02/25/19 07:33 02/25/19 08:00 02/25/19 07:33 02/25/19 07:33 Intake & Output 02/23/19 02/24/19 02/25/19 02/26/19 06:59 06:59 06:59 06:59 Intake Total 2530 2055 750 237 Output Total 3125 2450 1475 700 Balance -595 -395 -725 -463 Intake: IV Fluids 20 215 40 237 NS (0.9%) 20 40 27 Zosyn 215 210 IVPB 310 360 220 NS (0.9%) 120 Zosyn 310 240 220 Oral 2200 1480 490 Output: Urine 3125 2350 1375 700 Colostomy 0 100 100 Other: Estimated Void Medium # Bowel Movements 0 # Voids 1 PEX: Tearful but appears comfortable Lungs are clear Abd is soft and slightly distended. Bowel sounds are present. Incision CDI. Ostomy with brown liquid stool in bag. Laboratory Results - last 24 hr 02/25/19 02/25/19 07:20 07:20 WBC 11.2 H RBC 3.02 L Hgb 9.2 L Hct 28 L MCV 92 MCH 30 MCHC 33 RDW 15 Plt Count 827 H MPV 7.3 L Neut % (Auto) 67.9 Lymph % (Auto) 14.4 [place] % (Auto) 11.9 Eos % (Auto) 3.2 Baso % (Auto) 2.6 Absolute Neuts (auto) 7.6 Absolute Lymphs (auto) 1.6 Absolute Monos (auto) 1.3 H Absolute Eos (auto) 0.4 Absolute Basos (auto) 0.3 H Absolute Nucleated RBC 0.0 Nucleated RBC % 0.0 Sodium 137 Potassium 3.8 Chloride 106 Carbon Dioxide 23 Anion Gap 8 BUN 6 Creatinine 0.98 H Est GFR ( Amer) 79.1 Est GFR (Non-Af Amer) 65.4 BUN/Creatinine Ratio 6.1 L Glucose 100 Calcium 8.2 L Pleural fluid culture noted-S Epi Assessment: S/P exlap for diverticular disease with colostomy Left pleural effusion-culture noted-? contaminant Plan: Diet as tolerated ID consult 02/26 Increase activity Ostomy care
[2019-02-25 11:50] LABS: Urine Appearance Clear; Urine Bacteria Absent (Absent); Urine Bilirubin Negative (Negative); Urine Blood 1+ (Negative); Urine Color Straw; Urine Glucose Negative (Negative); Urine Ketones Negative (Negative); Urine Nitrite Negative (Negative); Urine Protein Negative (Negative); Urine Red Blood Cell Trace(0-2/hpf) (Absent); Urine Squamous Epithelial Cell Present (Absent); Urine Urobilinogen Negative (Negative); Urine White Blood Cell Trace(0-5/hpf) (Absent)
[2019-02-25] MEDS: Enoxaparin(*) 40 MG/0.4 ML SYR SUBCUT SCH (16:37)
[2019-02-25] MEDS: fentaNYL PATCH 25 MCG/HR TRANSDERM SCH (17:57)
[2019-02-25] MEDS: Nicotine Patch Removal NOTE FOLLOW UP SCH (20:54)
[2019-02-26] MEDS: oxyCODONE TAB* 5 MG TAB PO PRN ×4 (01:05→19:16)
[2019-02-26] MEDS: hydrOXYzine HCL TAB* 25 MG PO PRN ×2 (01:05→13:16)
[2019-02-26] MEDS: Piperacillin/Tazobac ADVAN(*) 3.375 GM in NS 0.9% 100 ML* 100 ML IVPB SCH ×4 (01:10→20:10)
[2019-02-26] MEDS: Pantoprazole TAB * 40 MG TAB PO SCH (04:54)
[2019-02-26] MEDS: Acetaminophen TAB* 325 MG PO PRN ×2 (04:54→23:06)
[2019-02-26 05:25] LABS: Hematocrit 27 % (35-47); Hemoglobin 9.2 g/dL (12.0-16.0); Mean Corpuscular HGB Conc 34 g/dL (31-36); Mean Corpuscular Hemoglobin 31 pg (27-31); Mean Corpuscular Volume 91 fL (80-97); Mean Platelet Volume 7.2 fL (7.4-10.4); Platelet Count 787 10^3/uL (150-450); Red Blood Count 2.97 10^6 /uL (3.70-4.87); Red Cell Distribution Width 15 % (10.5-15); White Blood Count 9.6 10^3/uL (3.5-10.8)
[2019-02-26 05:29] LABS: Albumin/Globulin Ratio 0.8 (1-3); BUN/Creatinine Ratio 5.7 (8-20); Calcium 8.3 mg/dL (8.6-10.3); EGFR African American 72.2 (>60); EGFR Non-African American 59.7 (>60); Globulin 3.8 g/dL (2-4); Potassium 3.4 mmol/L (3.5-5.0); Total Bilirubin 0.4 mg/dL (0.2-1.0); Total Protein 6.8 g/dL (6.4-8.9)
[2019-02-26 06:26] LABS: ABS Basophils 0.3 10^3/ul (0-0.2); ABS Eosinophils 0.2 10^3/ul (0-0.6); ABS Lymphocytes 1.7 10^3/ul (1.0-4.8); ABS Monocytes 1.1 10^3/ul (0-0.8); ABS Neutrophils 6.3 10^3/ul (1.5-7.7); Eosinophil % 2.4 %; Lymphocyte % 17.9 %; Nucleated Red Blood Cells % 0.2
[2019-02-26] MEDS: fentaNYL Patch Check Q Shift 1 NOTE SCH ×2 (07:15→18:38)
[2019-02-26] MEDS: Amitriptyline TAB* 10 MG PO SCH (08:45)
[2019-02-26] MEDS: Potassium Chlor TAB* 20 MEQ TAB.ER PO SCH ×3 (08:45→13:14)
[2019-02-26] MEDS: guaiFENesin ER TAB 600 MG PO SCH ×2 (08:46→22:50)
[2019-02-26] MEDS: Nicotine PATCH 21 MG/24 HR* PATCH TRANSDERM SCH (08:46)
[2019-02-26] MEDS: Simethicone TAB* 80 MG TAB.CHEW PO PRN (08:54)
--- NOTE | 2019-02-26 09:31 | PN ---
Progress Note - Progress Note Date of Service: 02/26/19 SOAP: Subjective: []"want better food" pain improved Objective: [] Temp Pulse Resp BP Pulse Ox 97.6 F 66 15 139/80 95 02/26/19 07:24 02/26/19 07:24 02/26/19 07:29 02/26/19 07:24 02/26/19 07:24 Laboratory Last Values WBC 9.6 10^3/uL (3.5-10.8) 02/26/19 05:00 RBC 2.97 10^6 /uL (3.70-4.87) L 02/26/19 05:00 Hgb 9.2 g/dL (12.0-16.0) L 02/26/19 05:00 Hct 27 % (35-47) L 02/26/19 05:00 MCV 91 fL (80-97) 02/26/19 05:00 MCH 31 pg (27-31) 02/26/19 05:00 MCHC 34 g/dL (31-36) 02/26/19 05:00 RDW 15 % (10.5-15) 02/26/19 05:00 Plt Count 787 10^3/uL (150-450) H 02/26/19 05:00 MPV 7.2 fL (7.4-10.4) L 02/26/19 05:00 Neut % (Auto) 65.4 % 02/26/19 05:00 Lymph % (Auto) 17.9 % 02/26/19 05:00 [place] % (Auto) 11.1 % 02/26/19 05:00 Eos % (Auto) 2.4 % 02/26/19 05:00 Baso % (Auto) 3.2 % 02/26/19 05:00 Absolute Neuts (auto) 6.3 10^3/ul (1.5-7.7) 02/26/19 05:00 Absolute Lymphs (auto) 1.7 10^3/ul (1.0-4.8) 02/26/19 05:00 Absolute Monos (auto) 1.1 10^3/ul (0-0.8) H 02/26/19 05:00 Absolute Eos (auto) 0.2 10^3/ul (0-0.6) 02/26/19 05:00 Absolute Basos (auto) 0.3 10^3/ul (0-0.2) H 02/26/19 05:00 Absolute Nucleated RBC 0.0 10^3/ul 02/26/19 05:00 Immature Gran % 2.0 % (0-9) 02/16/19 06:06 Neutrophils % 83.0 % 02/16/19 06:06 Band Neutrophils % 1.0 % (0-8) 02/16/19 06:06 Lymphocytes % 9.0 % 02/16/19 06:06 Monocytes % 6.0 % 02/16/19 06:06 Eosinophils % 0.0 % 02/16/19 06:06 Basophils % 0.0 % 02/16/19 06:06 Metamyelocytes % 1.0 % (0-2) 02/16/19 06:06 Nucleated RBC % 0.2 02/26/19 05:00 Abs Neuts (Manual) 17.1 10^3/ul (1.5-7.7) H 02/16/19 06:06 Abs Lymphs (Manual) 1.8 10^3/ul (1.0-4.8) 02/16/19 06:06 Abs Monocytes (Manual) 1.2 10^3/ul (0-0.8) H 02/16/19 06:06 Absolute Eos (Manual) 0.0 10^3/ul (0-0.6) 02/16/19 06:06 Abs Basophils (Manual) 0.0 10^3/ul (0-0.2) 02/16/19 06:06 Smudge Cells Present 02/16/19 06:06 Normal RBC Morphology Not Reportable 02/16/19 06:06 Anisocytosis 1+ 02/16/19 06:06 Macrocytosis 1+ 02/16/19 06:06 INR (Anticoag Therapy) 1.68 (0.82-1.09) H 02/17/19 16:55 APTT 30.6 seconds (26.0-36.3) 02/17/19 16:55 Patient Temperature Not Reportable 02/17/19 16:30 ABG pH 7.49 (7.35-7.45) H 02/17/19 16:30 ABG pH (Temp Correct) Not Reportable 02/17/19 16:30 ABG pCO2 35 mmHg (35-45) 02/17/19 16:30 ABG pCO2 (Temp Corrct Not Reportable 02/17/19 16:30 ABG pO2 70 mmHg (80-100) L 02/17/19 16:30 ABG pO2 (Temp Correct Not Reportable 02/17/19 16:30 ABG HCO3 27.6 mmol/L (19-31) 02/17/19 16:30 ABG O2 Saturation 97.0 % (94.0-98.0) 02/17/19 16:30 ABG Base Excess 3.5 mmol/L (-2.0-2.0) H 02/17/19 16:30 Respiration Rate 16 02/17/19 16:30 O2 Delivery Device vent 02/17/19 16:30 Ventilator Type Not Reportable 02/17/19 16:30 Vent Mode Pcv` 02/17/19 16:30 FiO2 60 02/17/19 16:30 Inspiratory Time .8 02/17/19 16:30 PEEP 10 02/17/19 16:30 Pressure Support Not Reportable 02/17/19 16:30 Pressure Control 25 02/17/19 16:30 EPAP Not Reportable 02/17/19 16:30 IPAP Not Reportable 02/17/19 16:30 BiPAP Not Reportable 02/17/19 16:30 Sodium 137 mmol/L (135-145) 02/26/19 05:00 Potassium 3.4 mmol/L (3.5-5.0) L 02/26/19 05:00 Chloride 106 mmol/L (101-111) 02/26/19 05:00 Carbon Dioxide 22 mmol/L (22-32) 02/26/19 05:00 Anion Gap 9 mmol/L (2-11) 02/26/19 05:00 BUN 6 mg/dL (6-24) 02/26/19 05:00 Creatinine 1.06 mg/dL (0.51-0.95) H 02/26/19 05:00 Est GFR ( Amer) 72.2 (>60) 02/26/19 05:00 Est GFR (Non-Af Amer) 59.7 (>60) 02/26/19 05:00 BUN/Creatinine Ratio 5.7 (8-20) L 02/26/19 05:00 Glucose 107 mg/dL (70-100) H 02/26/19 05:00 Lactic Acid 0.8 mmol/L (0.5-2.0) 02/18/19 04:39 Calcium 8.3 mg/dL (8.6-10.3) L 02/26/19 05:00 Ionized Calcium 0.93 mmol/L (1.16-1.32) L 02/19/19 04:55 Phosphorus 3.1 mg/dL (2.5-5.0) 02/22/19 05:05 Magnesium 2.3 mg/dL (1.9-2.7) 02/22/19 05:05 Iron Cancelled 02/22/19 05:05 TIBC Cancelled 02/22/19 05:05 % Saturation Cancelled 02/22/19 05:05 Unsat Iron Binding Cancelled 02/22/19 05:05 Transferrin Cancelled 02/22/19 05:05 Ferritin Cancelled 02/22/19 05:05 Total Bilirubin 0.40 mg/dL (0.2-1.0) 02/26/19 05:00 AST 24 U/L (13-39) 02/26/19 05:00 ALT 32 U/L (7-52) 02/26/19 05:00 Alkaline Phosphatase 118 U/L (34-104) H 02/26/19 05:00 C-Reactive Protein 188.21 mg/L (<8.01) H 02/21/19 05:16 B-Natriuretic Peptide 67 pg/mL (<=100) 02/18/19 04:39 Total Protein 6.8 g/dL (6.4-8.9) 02/26/19 05:00 Albumin 3.0 g/dL (3.2-5.2) L 02/26/19 05:00 Globulin 3.8 g/dL (2-4) 02/26/19 05:00 Albumin/Globulin Ratio 0.8 (1-3) L 02/26/19 05:00 Lipase 10 U/L (11.0-82.0) L 02/06/19 14:36 Beta HCG, Quant < 0.60 mIU/mL 02/06/19 14:36 Urine Color Straw 02/25/19 11:10 Urine Appearance Clear 02/25/19 11:10 Urine pH 7.0 (5-9) 02/25/19 11:10 Ur Specific [place] 1.010 (1.010-1.030) 02/25/19 11:10 Urine Protein Negative (Negative) 02/25/19 11:10 Urine Ketones Negative (Negative) 02/25/19 11:10 Urine Blood 1+ (Negative) A 02/25/19 11:10 Urine Nitrate Negative (Negative) 02/25/19 11:10 Urine Bilirubin Negative (Negative) 02/25/19 11:10 Urine Urobilinogen Negative (Negative) 02/25/19 11:10 Ur Leukocyte Esterase Negative (Negative) 02/25/19 11:10 Urine WBC (Auto) Trace(0-5/hpf) (Absent) 02/25/19 11:10 Urine RBC (Auto) Trace(0-2/hpf) (Absent) 02/25/19 11:10 Ur Squamous Epith Cells Present (Absent) A 02/25/19 11:10 Urine Bacteria Absent (Absent) 02/25/19 11:10 Urine Glucose Negative (Negative) 02/25/19 11:10 Fluid Source Pleural fluid 02/21/19 16:35 Fluid Volume 15.0 mL 02/21/19 16:35 Fluid Color Yellow 02/21/19 16:35 Fluid Appearance Cloudy 02/21/19 16:35 Fluid WBC 3176 /mcL (0-217978) 02/21/19 16:35 Fluid RBC 3703 /mcL 02/21/19 16:35 Fluid Tot Cell Count 100 02/21/19 16:35 Fluid Neutrophils 36 % 02/21/19 16:35 Fluid Lymphocytes 58 % 02/21/19 16:35 Fluid Monocytes 6 % 02/21/19 16:35 Fluid Other Cells 2 02/21/19 16:35 Fluid Cell Count Rvw By 02/21/19 16:35 Vancomycin Trough 33.2 mcg/mL H* 02/19/19 11:14 Random Vancomycin 9.9 mcg/mL 02/20/19 05:28 HIV 1&2 Antibody Nonreactive (Nonreactive) 02/06/19 19:26 Blood Type O Negative 02/17/19 04:34 Antibody Screen Negative 02/17/19 04:34 Intake & Output 02/24/19 02/25/19 02/26/19 02/27/19 06:59 06:59 06:59 06:59 Intake Total 5 750 1572 Output Total 2450 1475 2405 Balance -927 -892 -963 Intake: IV Fluids 215 40 372 NS (0.9%) 40 52 Zosyn 215 320 IVPB 360 220 NS (0.9%) 120 Zosyn 240 220 Oral 6552 596 8762 Output: Urine 2350 1375 2100 Colostomy 100 100 305 Other: Estimated Void Medium # Bowel Movements 0 # Voids 1 Assessment: []stable, improving, wbc-normal, platelets decreasing ID consult pending, ? change to po abx dietary consultation Plan: []home soon
[2019-02-26] MEDS: Ondansetron INJ* 2 MG/ML VIAL IV PRN (12:16)
--- NOTE | 2019-02-26 14:30 | PN ---
Progress Note - Progress Note Date of Service: 02/26/19 Note: 02/26/19 1400 I had a long conversation with Rosalba;she expressed anxiety about going home,she isn't sure where she will be going and states that she feels very alone and overwhelmed.She states that her apartment is "dirty" and up 2 flights of stairs;she was hoping to stay in a studio apt that her grandfather owns but that won't be available for 2 weeks.She became tearful and said her boyfriend hasn't visited for the past week.She states that a couple that she is friends with has been coming in to visit and she might be able to stay with them for a few weeks.She declined to have a psych evaluation and denied thoughts of self harm.I will update the business planner.CHARLEEN Sutherland
[2019-02-26] MEDS: Enoxaparin(*) 40 MG/0.4 ML SYR SUBCUT SCH ×2 (17:51→20:10)
--- NOTE | 2019-02-26 18:30 | PN ---
Subjective Date of Service: 02/26/19 Interval History: VS: WNL Labs: hypokalemia- repleted; H/H stable; Cr elevated Pt states that she has been feeling tired and depressed today. She has had difficulty motivating herself to work with colostomy bag. She c/o nausea and vomiting x1. She also c/o difficulty eating, although her friends have brought her snacks, such as cheeseburger, which she will snack on. Family History: Unchanged from Admission Social History: Unchanged from Admission Past Medical History: Unchanged from Admission Objective Active Medications: Acetaminophen (Tylenol Tab*) 650 mg PO Q4H PRN Albuterol (Ventolin 2.5 Mg/3 Ml Neb.Stephanie*) 2.5 mg INH Q2H PRN Amitriptyline HCl (Elavil Tab*) 20 mg PO DAILY [facility] Enoxaparin Sodium (Lovenox(*)) 40 mg SUBCUT Q24H [facility] Fentanyl (Duragesic Patch 25 Mcg/Hr*) 25 mcg TRANSDERM Q72H [facility] Guaifenesin (Mucinex*) 600 mg PO BID [facility] Heparin Sodium (Porcine) (Heparin Flush Picc/Ml/Cvc(*)) 1 - 3 ml FLUSH 0600, 1800 [facility]; Protocol Hydroxyzine HCl (Atarax Tab*) 25 mg PO Q6H PRN Piperacillin Sod/Tazobactam (Sod 3.375 gm/ Sodium Chloride) 100 mls @ 200 mls/ hr IVPB Q6H [facility] Nicotine (Nicotine Patch 21 Mg/24 Hr*) 1 patch TRANSDERM DAILY [facility] Ondansetron HCl (Zofran Inj*) 4 mg IV Q4H PRN Oxycodone HCl (Roxycodone Tab*) 10 mg PO Q6H PRN Pantoprazole Sodium (Protonix Tab*) 40 mg PO DAILY@0600 [facility] Pharmacy Consult (Zosyn Per Pharmacy*) 1 note FOLLOW UP . PRN Pharmacy Profile Note (Nicotine Patch Removal Note*) 1 note FOLLOW UP 2100 [facility] Pharmacy Profile Note (Fentanyl Patch Check Q Shift) 1 note N/A 0700,1900 [facility] Simethicone (Mylicon Tab*) 80 mg PO Q6H PRN Zolpidem Tartrate (Ambien Tab*) 10 mg PO BEDTIME PRN Vital Signs: Temp Pulse Resp BP Pulse Ox 98.2 F 79 18 140/87 93 05/13/19 17:56 02/26/19 17:56 02/26/19 17:56 02/26/19 17:56 02/26/19 17:56 Oxygen Devices in Use Now: None Appearance: Pt is laying in bed with LE elevated. She appears down and is somewhat tearful, but is in no acute distress. Eyes: No Scleral Icterus, PERRLA Ears/Nose/Mouth/Throat: NL Teeth, Lips, Gums, Clear Oropharnyx, Mucous Membranes Moist Neck: NL Appearance and Movements; NL JVP, Trachea Midline Respiratory: Symmetrical Chest Expansion and Respiratory Effort, Clear to Auscultation Cardiovascular: NL Sounds; No Murmurs; No JVD, RRR, No Edema Abdominal: - - BS hypoactive. Abd appears slightly distended. Midline incision intact, approximated with heber; does not appear infected. Colostomy intact with feces and gas in bag. Extremities: No Edema, No Clubbing, Cyanosis Neurological: Alert and Oriented x 3 Result Diagrams: 02/26/19 05:00 02/26/19 05:00 Additional Lab and Data: Lab Results 02/06/19 02/06/19 02/06/19 Range/Units 14:36 14:36 14:36 WBC 14.1 H (3.5-10.8) 10^3/uL RBC 4.77 (3.70-4.87) 10^6 /uL Hgb 15.2 (12.0-16.0) g/dL Hct 45 H (33-41) % MCV 95 (80-97) fL MCH 32 H (27-31) pg MCHC 34 (31-36) g/dL RDW 14 (10.5-15) % Plt Count 300 (150-450) 10^3/uL MPV 7.5 (7.4-10.4) fL Neut % (Auto) 82.1 % Lymph % (Auto) 10.6 % [place] % (Auto) 5.7 % Eos % (Auto) 1.0 % Baso % (Auto) 0.6 % Absolute Neuts (auto) 11.6 H (1.5-7.7) 10^3/ul Absolute Lymphs (auto) 1.5 (1.0-4.8) 10^3/ul Absolute Monos (auto) 0.8 (0-0.8) 10^3/ul Absolute Eos (auto) 0.1 (0-0.6) 10^3/ul Absolute Basos (auto) 0.1 (0-0.2) 10^3/ul Absolute Nucleated RBC 0 10^3/ul Nucleated RBC % 0 Sodium 138 (135-145) mmol/L Potassium 4.0 (3.5-5.0) mmol/L Chloride 106 (101-111) mmol/L Carbon Dioxide 23 (22-32) mmol/L Anion Gap 9 (2-11) mmol/L BUN 12 (6-24) mg/dL Creatinine 0.90 (0.51-0.95) mg/dL Est GFR ( Amer) 87.3 (>60) Est GFR (Non-Af Amer) 72.1 (>60) BUN/Creatinine Ratio 13.3 (8-20) Glucose 96 (70-100) mg/dL Lactic Acid 0.7 (0.5-2.0) mmol/L Calcium 9.1 (8.6-10.3) mg/dL Total Bilirubin 0.80 (0.2-1.0) mg/dL AST 19 (13-39) U/L ALT 15 (7-52) U/L Alkaline Phosphatase 80 (34-104) U/L C-Reactive Protein 7.41 (<8.01) mg/L Total Protein 7.6 (6.4-8.9) g/dL Albumin 4.4 (3.2-5.2) g/dL Globulin 3.2 (2-4) g/dL Albumin/Globulin Ratio 1.4 (1-3) Lipase 10 L (11.0-82.0) U/L Beta HCG, Quant < 0.60 mIU/mL Microbiology and Other Data: Microbiology 02/06/19 17:20 Urine Culture - Preliminary Urine Klebsiella Pneumoniae Assess/Plan/Problems-Billing Assessment: Ms. Barreto is a 33 yo F who has a h/o polysubstance abuse who presented to the ER with recurrent diverticulitis which was complicated by perforation/abscess/ SBO requiring Solis's and end colostomy further complicated by intraabdominal sepsis requiring exploratory laparotomy. 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 Continues to use prn oxycodone (6) Tobacco abuse Comment: - Continue nicotine replacement (7) DVT prophylaxis Comment: - Lovenox (8) Full code status Comment: Status and Disposition: Inpatient. Anticipate d/c home when medically stable.
[2019-02-26] MEDS: Nicotine Patch Removal NOTE FOLLOW UP SCH (20:55)
--- NOTE | 2019-02-26 22:18 | CONS ---
CONSULTATION REPORT: DATE OF CONSULTATION: 02/26/19 REQUESTING PHYSICIAN: Deisi Francis NP. CONSULTING SERVICE: Infectious Disease. REASON FOR CONSULT: Diverticular abscess, drained. IMPRESSION: 1. Perforated diverticulitis with abscess, treated with laparotomy Coty's procedure. Drainage of intraabdominal abscess on 02/12/19. Cultures from that procedure grew bacteroides. She has been on Zosyn since that time. 2. Left greater than right pleural effusion, status post thoracentesis that showed 3000 white cells, mostly lymphocytes. Culture grew coag-negative Staph. I do not think there is an infection and I think more likely that organism is a contamination of the fluid collection process. 3. There was a question of a splenic abscess on imaging, which by direct visualization was found more likely to be a dissolving Surgicel. RECOMMENDATIONS: We will stop her Zosyn, which she has had about 2 weeks of antibiotic for her original abdominal abscess. I think at this time she can stop antibiotics. HISTORY OF PRESENT ILLNESS: This is a 33-year-old woman admitted on 02/06/19 and found to have diverticulitis, treated with Zosyn and fluids. However, her symptoms worsened later in the week and was found to have a diverticular abscess on CT on . She was taken to the operating room the following day which she tolerated well. Her white count on admission was 14,000, it was down to 10,000 on the . It came up as high as 20,000 on the and is back down steadily over the following days, down to 9000 today. She has had no fever in over a week. She is eating and drinking some. She was found to have a left greater than right pleural effusion, had a thoracentesis on the . The fluid showed 3000 white cells. Gram stain showed gram-positive cocci. PCR negative for Staph aureus and it grew Staph epidermidis. She has been continued on Zosyn and is improving day to day. PAST MEDICAL HISTORY: 1. Diverticulitis and diverticular abscess status post sigmoid colectomy and colostomy. 2. Tobacco abuse. 3. Polysubstance use. MEDICATIONS: 1. Tylenol. 2. Albuterol. 3. Amitriptyline. 4. Enoxaparin. 5. Fentanyl patch. 6. Guaifenesin. 7. Hydroxyzine. 8. Oxycodone. 9. Pantoprazole. 10. Zosyn 3.375 g IV every 6 hours. ALLERGIES: CODEINE. FAMILY HISTORY: No recurrent infections. SOCIAL HISTORY: [place] She lives with her boyfriend, uses tobacco. REVIEW OF SYSTEMS: All negative except as noted above to a 14-point review. PHYSICAL EXAM: Vitals: Temperature 37, heart rate 60, respiratory rate 14, blood pressure 150/80, oxygen saturation 95% on room air. In general, she is awake, not in distress. Neurologic: She is oriented x3. Follows commands. Moves all her extremities. HEENT: There is no conjunctival hemorrhage. Oropharynx without lesions. Neck: Neck is supple without mass. Heart has regular rate and rhythm without murmurs, rubs, or gallops. Lungs showed decreased breath sounds at the bases bilaterally. No wheezes or rales. Abdomen : Soft, mildly distended. There are bowel sounds present. Left lower quadrant ostomy with air and liquid stool. Skin: There is no rash or splinter hemorrhage. Musculoskeletal: There is no spine tenderness to palpation. DIAGNOSTIC STUDIES/LAB DATA: White blood cell count 9.6, hemoglobin 9.2, platelets 787,000. HIV antibody negative. Creatinine 1. Please see impression and recommendations outlined above. Thanks for asking me to see Ms. Barreto in consultation. [id number]/SY #: [id number] LUCIANO
[2019-02-27] MEDS: oxyCODONE TAB* 5 MG TAB PO PRN ×2 (01:19→07:23)
[2019-02-27] MEDS: Piperacillin/Tazobac ADVAN(*) 3.375 GM in NS 0.9% 100 ML* 100 ML IVPB SCH ×2 (02:37→07:41)
[2019-02-27] MEDS: Acetaminophen TAB* 325 MG PO PRN ×2 (03:14→07:23)
[2019-02-27] MEDS: Pantoprazole TAB * 40 MG TAB PO SCH (05:45)
[2019-02-27 06:25] LABS: Hematocrit 29 % (35-47); Hemoglobin 9.7 g/dL (12.0-16.0); Mean Corpuscular HGB Conc 33 g/dL (31-36); Mean Corpuscular Hemoglobin 31 pg (27-31); Mean Corpuscular Volume 92 fL (80-97); Mean Platelet Volume 7.4 fL (7.4-10.4); Platelet Count 802 10^3/uL (150-450); Red Blood Count 3.16 10^6 /uL (3.70-4.87); Red Cell Distribution Width 15 % (10.5-15); White Blood Count 10.6 10^3/uL (3.5-10.8)
[2019-02-27 06:38] LABS: BUN/Creatinine Ratio 5.8 (8-20); Calcium 8.4 mg/dL (8.6-10.3); EGFR African American 74.7 (>60); EGFR Non-African American 61.7 (>60); Potassium 3.7 mmol/L (3.5-5.0)
[2019-02-27] MEDS: fentaNYL Patch Check Q Shift 1 NOTE SCH ×2 (07:08→19:10)
[2019-02-27] MEDS: guaiFENesin ER TAB 600 MG PO SCH ×2 (07:35→21:06)
[2019-02-27] MEDS: Amitriptyline TAB* 10 MG PO SCH (07:35)
[2019-02-27] MEDS: Nicotine PATCH 21 MG/24 HR* PATCH TRANSDERM SCH (07:35)
[2019-02-27] MEDS ORDERED: Ondansetron ODT TAB* 4 MG SL PRN (10:40)
[2019-02-27] MEDS: hydrOXYzine HCL TAB* 25 MG PO PRN (10:47)
--- NOTE | 2019-02-27 11:14 | PN ---
Progress Note - Progress Note Date of Service: 02/27/19 Note: Surgery Progress: S: POD #15 and 10. ID consult noted from 02/26. She c/o abd pain and R flank pain that radiates to the R shoulder/trapezius w/ deep inspiration. Also feels somewhat SOB w/ ambulation, but not at rest. States that she emptied the colostomy bag for the first time yesterday (with anxiety, tears, and nausea). O: Vital Signs - 8 hr 02/27/19 02/27/19 02/27/19 03:17 03:42 07:13 Temperature 98.1 F 98.2 F Pulse Rate 67 69 Respiratory 17 16 15 Rate Blood Pressure 147/72 131/67 (mmHg) O2 Sat by Pulse 92 94 Oximetry 02/27/19 02/27/19 07:23 07:45 Temperature Pulse Rate Respiratory 16 16 Rate Blood Pressure (mmHg) O2 Sat by Pulse Oximetry Intake and Output Last 24 Hours 02/25/19 02/26/19 02/27/19 02/28/19 06:59 06:59 06:59 06:59 Intake Total 750 1572 1310 100 Output Total 1475 2405 2375 Balance -725 -833 -1065 100 Intake: IV Fluids 40 372 70 NS (0.9%) 40 52 70 Zosyn 320 IVPB 220 420 100 Zosyn 220 420 100 Oral 490 1200 820 Output: Urine 1375 2100 2300 Colostomy 100 305 Emesis 75 Other: Estimated Void Medium # Bowel Movements 0 # Voids 1 O: lying in bed, anxious at intervals, but NAD (she interrupted our discussion and asked me to leave 2/2 increased anxiety; therefore, no PE performed) A: s/p ex lap, Coty procedure w/ end-colostomy, return to OR for 2nd look w / no sig findings, slowly improving and closer to discharge P: she is still trying to figure out where she will go upon d/c; she still needs further ostomy training. I spoke w/ Dr. Ingram and will make the following changes: d/c IV; d/c Zosyn; change Zofran to sl (needed once yesterday ); order ibuprofen prn; d/c Fentanyl patch; change current oxycodone 10 mg to Percocet 5/325. I spoke w/ the patient about all of these changes, other than the d/c of IV. (her labs have been stable; therefore, I don't believe a peripheral IV needs to be maintained in light of the fact that she could be d/c' d within the next day or two.)
[2019-02-27] MEDS: Ibuprofen TAB* 600 MG PO PRN ×2 (12:26→19:21)
--- NOTE | 2019-02-27 13:41 | PN ---
Subjective Date of Service: 02/27/19 Interval History: VS: occasional HTN Labs: H/H trending up; platelets elevated Pt is upset today. She is short with provider and other staff members. When told she may be d/c in a.m., she becomes withdrawn and short. She is concerned , due to the fact that she has 2 flights of stairs to go up, but continues to refuse PT; she states that 24 hours with PT will not help and that she'd rather just deal with it when she gets discharged. She states that she is not eating much. Nursing reports she did not eat breakfast or lunch. Pt has been working with colostomy bag, reporting that she has changed it and showered today, although she reports nausea and lightheadedness with changing of colostomy. Reports headache. Denies other complaints. Family History: Unchanged from Admission Social History: Unchanged from Admission Past Medical History: Unchanged from Admission Objective Active Medications: Acetaminophen (Tylenol Tab*) 650 mg PO Q4H PRN Albuterol (Ventolin 2.5 Mg/3 Ml Neb.Stephanie*) 2.5 mg INH Q2H PRN Amitriptyline HCl (Elavil Tab*) 20 mg PO DAILY [facility] Enoxaparin Sodium (Lovenox(*)) 40 mg SUBCUT Q24HR@2000 [facility] Guaifenesin (Mucinex*) 600 mg PO BID [facility] Heparin Sodium (Porcine) (Heparin Flush Picc/Ml/Cvc(*)) 1 - 3 ml FLUSH 0600, 1800 [facility]; Protocol Hydroxyzine HCl (Atarax Tab*) 25 mg PO Q6H PRN Ibuprofen (Motrin Tab*) 600 mg PO Q6H PRN Nicotine (Nicotine Patch 21 Mg/24 Hr*) 1 patch TRANSDERM DAILY [facility] Ondansetron HCl (Zofran Odt Tab*) 4 mg SL Q6H PRN Oxycodone/Acetaminophen (Percocet 5/325 Tab*) 1 tab PO Q4H PRN Pantoprazole Sodium (Protonix Tab*) 40 mg PO DAILY@0600 [facility] Pharmacy Profile Note (Nicotine Patch Removal Note*) 1 note FOLLOW UP 2100 [facility] Pharmacy Profile Note (Fentanyl Patch Check Q Shift) 1 note N/A 0700,1900 [facility] Simethicone (Mylicon Tab*) 80 mg PO Q6H PRN Zolpidem Tartrate (Ambien Tab*) 10 mg PO BEDTIME PRN Vital Signs: Temp Pulse Resp BP Pulse Ox 98.0 F 88 17 156/85 95 02/27/19 12:18 02/27/19 12:18 02/27/19 12:18 02/27/19 12:18 02/27/19 12:18 Oxygen Devices in Use Now: None Appearance: Pt is laying in bed with LE elevated. She appears to be in no acute distress. She appears upset and aggitated. Eyes: No Scleral Icterus, PERRLA Ears/Nose/Mouth/Throat: NL Teeth, Lips, Gums, Clear Oropharnyx, - - Dry mucous membranes Neck: NL Appearance and Movements; NL JVP, Trachea Midline Respiratory: Symmetrical Chest Expansion and Respiratory Effort, Clear to Auscultation Cardiovascular: NL Sounds; No Murmurs; No JVD, RRR, No Edema Abdominal: - - Abd slightly distended. BS hypoactive. TTP. Midline incision intact with heber, without signs of infection. Colostomy on L intact. Extremities: No Edema, No Clubbing, Cyanosis Neurological: Alert and Oriented x 3 Result Diagrams: 02/27/19 05:45 02/27/19 05:45 Additional Lab and Data: Lab Results 02/06/19 02/06/19 02/06/19 Range/Units 14:36 14:36 14:36 WBC 14.1 H (3.5-10.8) 10^3/uL RBC 4.77 (3.70-4.87) 10^6 /uL Hgb 15.2 (12.0-16.0) g/dL Hct 45 H (33-41) % MCV 95 (80-97) fL MCH 32 H (27-31) pg MCHC 34 (31-36) g/dL RDW 14 (10.5-15) % Plt Count 300 (150-450) 10^3/uL MPV 7.5 (7.4-10.4) fL Neut % (Auto) 82.1 % Lymph % (Auto) 10.6 % [place] % (Auto) 5.7 % Eos % (Auto) 1.0 % Baso % (Auto) 0.6 % Absolute Neuts (auto) 11.6 H (1.5-7.7) 10^3/ul Absolute Lymphs (auto) 1.5 (1.0-4.8) 10^3/ul Absolute Monos (auto) 0.8 (0-0.8) 10^3/ul Absolute Eos (auto) 0.1 (0-0.6) 10^3/ul Absolute Basos (auto) 0.1 (0-0.2) 10^3/ul Absolute Nucleated RBC 0 10^3/ul Nucleated RBC % 0 Sodium 138 (135-145) mmol/L Potassium 4.0 (3.5-5.0) mmol/L Chloride 106 (101-111) mmol/L Carbon Dioxide 23 (22-32) mmol/L Anion Gap 9 (2-11) mmol/L BUN 12 (6-24) mg/dL Creatinine 0.90 (0.51-0.95) mg/dL Est GFR ( Amer) 87.3 (>60) Est GFR (Non-Af Amer) 72.1 (>60) BUN/Creatinine Ratio 13.3 (8-20) Glucose 96 (70-100) mg/dL Lactic Acid 0.7 (0.5-2.0) mmol/L Calcium 9.1 (8.6-10.3) mg/dL Total Bilirubin 0.80 (0.2-1.0) mg/dL AST 19 (13-39) U/L ALT 15 (7-52) U/L Alkaline Phosphatase 80 (34-104) U/L C-Reactive Protein 7.41 (<8.01) mg/L Total Protein 7.6 (6.4-8.9) g/dL Albumin 4.4 (3.2-5.2) g/dL Globulin 3.2 (2-4) g/dL Albumin/Globulin Ratio 1.4 (1-3) Lipase 10 L (11.0-82.0) U/L Beta HCG, Quant < 0.60 mIU/mL Microbiology and Other Data: Microbiology 02/06/19 17:20 Urine Culture - Preliminary Urine Klebsiella Pneumoniae Assess/Plan/Problems-Billing Assessment: Ms. Barreto is a 33 yo F who has a h/o polysubstance abuse who presented to the ER with recurrent diverticulitis which was complicated by perforation/abscess/ SBO requiring Solis's and end colostomy further complicated by intraabdominal sepsis requiring exploratory laparotomy. 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 Continues to use prn oxycodone (6) Tobacco abuse Comment: - Continue nicotine replacement (7) DVT prophylaxis Comment: - Lovenox (8) Full code status Comment: Status and Disposition: Inpatient. Anticipate d/c home when medically stable.
[2019-02-27] MEDS: oxyCODONE/Acetamin 5/325 MG* TAB PO PRN ×2 (14:52→21:06)
--- NOTE | 2019-02-27 16:58 | PN ---
Progress Note - Progress Note Date of Service: 02/27/19 Note: 02/27/19 1645 Rosalba is much brighter and positive today,she has a plan to go back to her apartment and has made arrangements with friends and grandfather to get groceries and other supplies;she took a long walk in halls with me;she rates her pain at 3 with activity,no n/v,no dysuria Physical exam:lungs:decreased bs at bases,clear midfields,few rales on L; heart:RRR;abd:+bs;midline incision C/D/I with heber,no erythema;ostomy bag with gas and semiformed brown stool;no distention;ext:nontender calves plan is for discharge tomorrow and she is agreeable.Koko,PATTERN MARKER
[2019-02-27] MEDS: Nicotine Patch Removal NOTE FOLLOW UP SCH (21:07)
[2019-02-27] MEDS: Enoxaparin(*) 40 MG/0.4 ML SYR SUBCUT SCH (21:15)
[2019-02-28] MEDS: oxyCODONE/Acetamin 5/325 MG* TAB PO PRN ×3 (01:20→13:50)
[2019-02-28] MEDS: Ibuprofen TAB* 600 MG PO PRN (03:58)
[2019-02-28] MEDS: Pantoprazole TAB * 40 MG TAB PO SCH (06:15)
[2019-02-28] MEDS: Amitriptyline TAB* 10 MG PO SCH (07:59)
[2019-02-28] MEDS: guaiFENesin ER TAB 600 MG PO SCH (07:59)
[2019-02-28] MEDS: Nicotine PATCH 21 MG/24 HR* PATCH TRANSDERM SCH (08:00)
[2019-02-28] MEDS ORDERED: oxyCODONE/Acetamin 5/325 MG* TAB ONE (08:42)
[2019-02-28] MEDS ORDERED: oxyCODONE/Acetamin 5/325 MG* TAB PO ONE (08:54)
[2019-02-28] MEDS ORDERED: Fluconazole 100 MG TAB* TAB PO ONE (10:51)
--- NOTE | 2019-02-28 11:09 | PN ---
Progress Note - Progress Note Date of Service: 02/28/19 SOAP: Subjective:exlap,Coty's 02/12/19;return to OR for washout 02/17/19 ready to go home,arrangements made with friends and grandfather;thinks she has vaginal yeast infection;doing own ostomy care;appetite improving;ambulating in halls independently [] Objective: Vital Signs Temp 98.3 F 02/28/19 07:45 Pulse 61 02/28/19 07:45 Resp 16 02/28/19 08:44 BP 131/74 02/28/19 07:45 Pulse Ox 94 02/28/19 07:45 Intake & Output 02/27/19 02/28/19 02/28/19 18:59 06:59 18:59 Intake Total 300 1480 120 Output Total 900 Balance 300 580 120 Weight 174 lb 11.2 oz Intake: IVPB 100 Zosyn 100 Oral 200 1480 120 Output: Urine 700 Colostomy 200 Other: Date of Last Bowel 02/27/19 Movement # Bowel Movements 0 Estimated Stool Amount Small lungs:decreased bs at bases but clear mid and upper friedman;heart:RRR;abd:+bs, nondistended;ostomy with gas and semiformed stool in bag;midline incision clean, no erythema or drainage,all heber removed and 1/2"steristrips applied;ext: nontender calves [] Assessment:stable for discharge home today [] Plan:Diflucan 100mg po before discharge;extensive pt education regarding ostomy care,activity,weaning off oxycodone,nutrition;has office appt with Dr Ingram ;[facility] will assist with ostomy care;I encouraged her to consider outpatient counselling for anxiety which she states has been chronic;she should contact [facility] to establish primary care. updated and agrees with plan and will dictate discharge summary. Time spent:60 minutes with >50% spent in face to face pt education and coordination of care. []
--- NOTE | 2019-02-28 11:18 | PN ---
Subjective Date of Service: 02/28/19 Interval History: VS: WNL Pt seen this morning, and is in better spirits. Still admits to some anxiety, but feels as if she can manage this and take care of herself at home. She is agreeable to [facility] and feels this will be helpful. She has been working with her ostomy with less difficulty. She denies CP, SOB, n/v. She has some abd discomfort. Family History: Unchanged from Admission Social History: Unchanged from Admission Past Medical History: Unchanged from Admission Objective Active Medications: Acetaminophen (Tylenol Tab*) 650 mg PO Q4H PRN Albuterol (Ventolin 2.5 Mg/3 Ml Neb.Stephanie*) 2.5 mg INH Q2H PRN Amitriptyline HCl (Elavil Tab*) 20 mg PO DAILY [facility] Enoxaparin Sodium (Lovenox(*)) 40 mg SUBCUT Q24HR@2000 [facility] Guaifenesin (Mucinex*) 600 mg PO BID [facility] Hydroxyzine HCl (Atarax Tab*) 25 mg PO Q6H PRN Ibuprofen (Motrin Tab*) 600 mg PO Q6H PRN Nicotine (Nicotine Patch 21 Mg/24 Hr*) 1 patch TRANSDERM DAILY [facility] Ondansetron HCl (Zofran Odt Tab*) 4 mg SL Q6H PRN Oxycodone/Acetaminophen (Percocet 5/325 Tab*) 1 tab PO Q4H PRN Pantoprazole Sodium (Protonix Tab*) 40 mg PO DAILY@0600 [facility] Pharmacy Profile Note (Nicotine Patch Removal Note*) 1 note FOLLOW UP 2100 [facility] Simethicone (Mylicon Tab*) 80 mg PO Q6H PRN Vital Signs: Temp Pulse Resp BP Pulse Ox 98.3 F 61 16 131/74 94 02/28/19 07:45 02/28/19 07:45 02/28/19 08:44 02/28/19 07:45 02/28/19 07:45 Oxygen Devices in Use Now: None Appearance: Pt laying in bed with LE elevated. She appears comfortable, well, and in no acute distress. Eyes: No Scleral Icterus, PERRLA Ears/Nose/Mouth/Throat: NL Teeth, Lips, Gums, Clear Oropharnyx, Mucous Membranes Moist Neck: NL Appearance and Movements; NL JVP, Trachea Midline Respiratory: Symmetrical Chest Expansion and Respiratory Effort, Clear to Auscultation Cardiovascular: NL Sounds; No Murmurs; No JVD, RRR, No Edema Abdominal: - - BS in all quadrants. Abd slightly distended, TTP. Colostomy intact on L. Incision site with steri-strips in place, heber have been removed this morning. Site remains intact, without erythema, discharge/drainage , warmth. Extremities: No Edema, No Clubbing, Cyanosis Neurological: Alert and Oriented x 3 Result Diagrams: 02/27/19 05:45 02/27/19 05:45 Additional Lab and Data: Lab Results 02/06/19 02/06/19 02/06/19 Range/Units 14:36 14:36 14:36 WBC 14.1 H (3.5-10.8) 10^3/uL RBC 4.77 (3.70-4.87) 10^6 /uL Hgb 15.2 (12.0-16.0) g/dL Hct 45 H (33-41) % MCV 95 (80-97) fL MCH 32 H (27-31) pg MCHC 34 (31-36) g/dL RDW 14 (10.5-15) % Plt Count 300 (150-450) 10^3/uL MPV 7.5 (7.4-10.4) fL Neut % (Auto) 82.1 % Lymph % (Auto) 10.6 % [place] % (Auto) 5.7 % Eos % (Auto) 1.0 % Baso % (Auto) 0.6 % Absolute Neuts (auto) 11.6 H (1.5-7.7) 10^3/ul Absolute Lymphs (auto) 1.5 (1.0-4.8) 10^3/ul Absolute Monos (auto) 0.8 (0-0.8) 10^3/ul Absolute Eos (auto) 0.1 (0-0.6) 10^3/ul Absolute Basos (auto) 0.1 (0-0.2) 10^3/ul Absolute Nucleated RBC 0 10^3/ul Nucleated RBC % 0 Sodium 138 (135-145) mmol/L Potassium 4.0 (3.5-5.0) mmol/L Chloride 106 (101-111) mmol/L Carbon Dioxide 23 (22-32) mmol/L Anion Gap 9 (2-11) mmol/L BUN 12 (6-24) mg/dL Creatinine 0.90 (0.51-0.95) mg/dL Est GFR ( Amer) 87.3 (>60) Est GFR (Non-Af Amer) 72.1 (>60) BUN/Creatinine Ratio 13.3 (8-20) Glucose 96 (70-100) mg/dL Lactic Acid 0.7 (0.5-2.0) mmol/L Calcium 9.1 (8.6-10.3) mg/dL Total Bilirubin 0.80 (0.2-1.0) mg/dL AST 19 (13-39) U/L ALT 15 (7-52) U/L Alkaline Phosphatase 80 (34-104) U/L C-Reactive Protein 7.41 (<8.01) mg/L Total Protein 7.6 (6.4-8.9) g/dL Albumin 4.4 (3.2-5.2) g/dL Globulin 3.2 (2-4) g/dL Albumin/Globulin Ratio 1.4 (1-3) Lipase 10 L (11.0-82.0) U/L Beta HCG, Quant < 0.60 mIU/mL Microbiology and Other Data: Microbiology 02/06/19 17:20 Urine Culture - Preliminary Urine Klebsiella Pneumoniae Assess/Plan/Problems-Billing Assessment: Ms. Barreto is a 33 yo F who has a h/o polysubstance abuse who presented to the ER with recurrent diverticulitis which was complicated by perforation/abscess/ SBO requiring Solis's and end colostomy further complicated by intraabdominal sepsis requiring exploratory laparotomy. 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 Continues to use prn oxycodone (5) Tobacco abuse Comment: - Continue nicotine replacement (6) DVT prophylaxis Comment: - Lovenox (7) Full code status Comment: Status and Disposition: Inpatient. Anticipate d/c home when medically stable.
[2019-02-28 11:38] VITALS: BP 138/77
--- NOTE | 2019-02-28 12:03 | PN ---
Progress Note - Progress Note Date of Service: 02/28/19 SOAP: Subjective: [] no complaints, ready for dc Objective: [] benign abdomen, incision cdi Temp Pulse Resp BP Pulse Ox 98.6 F 77 17 138/77 94 02/28/19 11:31 02/28/19 11:31 02/28/19 11:31 02/28/19 11:31 02/28/19 11:31 Laboratory Last Values WBC 10.6 10^3/uL (3.5-10.8) 02/27/19 05:45 RBC 3.16 10^6 /uL (3.70-4.87) L 02/27/19 05:45 Hgb 9.7 g/dL (12.0-16.0) L 02/27/19 05:45 Hct 29 % (35-47) L 02/27/19 05:45 MCV 92 fL (80-97) 02/27/19 05:45 MCH 31 pg (27-31) 02/27/19 05:45 MCHC 33 g/dL (31-36) 02/27/19 05:45 RDW 15 % (10.5-15) 02/27/19 05:45 Plt Count 802 10^3/uL (150-450) H 02/27/19 05:45 MPV 7.4 fL (7.4-10.4) 02/27/19 05:45 Neut % (Auto) 65.4 % 02/26/19 05:00 Lymph % (Auto) 17.9 % 02/26/19 05:00 [place] % (Auto) 11.1 % 02/26/19 05:00 Eos % (Auto) 2.4 % 02/26/19 05:00 Baso % (Auto) 3.2 % 02/26/19 05:00 Absolute Neuts (auto) 6.3 10^3/ul (1.5-7.7) 02/26/19 05:00 Absolute Lymphs (auto) 1.7 10^3/ul (1.0-4.8) 02/26/19 05:00 Absolute Monos (auto) 1.1 10^3/ul (0-0.8) H 02/26/19 05:00 Absolute Eos (auto) 0.2 10^3/ul (0-0.6) 02/26/19 05:00 Absolute Basos (auto) 0.3 10^3/ul (0-0.2) H 02/26/19 05:00 Absolute Nucleated RBC 0.0 10^3/ul 02/26/19 05:00 Immature Gran % 2.0 % (0-9) 02/16/19 06:06 Neutrophils % 83.0 % 02/16/19 06:06 Band Neutrophils % 1.0 % (0-8) 02/16/19 06:06 Lymphocytes % 9.0 % 02/16/19 06:06 Monocytes % 6.0 % 02/16/19 06:06 Eosinophils % 0.0 % 02/16/19 06:06 Basophils % 0.0 % 02/16/19 06:06 Metamyelocytes % 1.0 % (0-2) 02/16/19 06:06 Nucleated RBC % 0.2 02/26/19 05:00 Abs Neuts (Manual) 17.1 10^3/ul (1.5-7.7) H 02/16/19 06:06 Abs Lymphs (Manual) 1.8 10^3/ul (1.0-4.8) 02/16/19 06:06 Abs Monocytes (Manual) 1.2 10^3/ul (0-0.8) H 02/16/19 06:06 Absolute Eos (Manual) 0.0 10^3/ul (0-0.6) 02/16/19 06:06 Abs Basophils (Manual) 0.0 10^3/ul (0-0.2) 02/16/19 06:06 Smudge Cells Present 02/16/19 06:06 Normal RBC Morphology Not Reportable 02/16/19 06:06 Anisocytosis 1+ 02/16/19 06:06 Macrocytosis 1+ 02/16/19 06:06 INR (Anticoag Therapy) 1.68 (0.82-1.09) H 02/17/19 16:55 APTT 30.6 seconds (26.0-36.3) 02/17/19 16:55 Patient Temperature Not Reportable 02/17/19 16:30 ABG pH 7.49 (7.35-7.45) H 02/17/19 16:30 ABG pH (Temp Correct) Not Reportable 02/17/19 16:30 ABG pCO2 35 mmHg (35-45) 02/17/19 16:30 ABG pCO2 (Temp Corrct Not Reportable 02/17/19 16:30 ABG pO2 70 mmHg (80-100) L 02/17/19 16:30 ABG pO2 (Temp Correct Not Reportable 02/17/19 16:30 ABG HCO3 27.6 mmol/L (19-31) 02/17/19 16:30 ABG O2 Saturation 97.0 % (94.0-98.0) 02/17/19 16:30 ABG Base Excess 3.5 mmol/L (-2.0-2.0) H 02/17/19 16:30 Respiration Rate 16 02/17/19 16:30 O2 Delivery Device vent 02/17/19 16:30 Ventilator Type Not Reportable 02/17/19 16:30 Vent Mode Pcv` 02/17/19 16:30 FiO2 60 02/17/19 16:30 Inspiratory Time .8 02/17/19 16:30 PEEP 10 02/17/19 16:30 Pressure Support Not Reportable 02/17/19 16:30 Pressure Control 25 02/17/19 16:30 EPAP Not Reportable 02/17/19 16:30 IPAP Not Reportable 02/17/19 16:30 BiPAP Not Reportable 02/17/19 16:30 Sodium 137 mmol/L (135-145) 02/27/19 05:45 Potassium 3.7 mmol/L (3.5-5.0) 02/27/19 05:45 Chloride 105 mmol/L (101-111) 02/27/19 05:45 Carbon Dioxide 22 mmol/L (22-32) 02/27/19 05:45 Anion Gap 10 mmol/L (2-11) 02/27/19 05:45 BUN 6 mg/dL (6-24) 02/27/19 05:45 Creatinine 1.03 mg/dL (0.51-0.95) H 02/27/19 05:45 Est GFR ( Amer) 74.7 (>60) 02/27/19 05:45 Est GFR (Non-Af Amer) 61.7 (>60) 02/27/19 05:45 BUN/Creatinine Ratio 5.8 (8-20) L 02/27/19 05:45 Glucose 94 mg/dL (70-100) 02/27/19 05:45 Lactic Acid 0.8 mmol/L (0.5-2.0) 02/18/19 04:39 Calcium 8.4 mg/dL (8.6-10.3) L 02/27/19 05:45 Ionized Calcium 0.93 mmol/L (1.16-1.32) L 02/19/19 04:55 Phosphorus 3.1 mg/dL (2.5-5.0) 02/22/19 05:05 Magnesium 2.3 mg/dL (1.9-2.7) 02/22/19 05:05 Iron Cancelled 02/22/19 05:05 TIBC Cancelled 02/22/19 05:05 % Saturation Cancelled 02/22/19 05:05 Unsat Iron Binding Cancelled 02/22/19 05:05 Transferrin Cancelled 02/22/19 05:05 Ferritin Cancelled 02/22/19 05:05 Total Bilirubin 0.40 mg/dL (0.2-1.0) 02/26/19 05:00 AST 24 U/L (13-39) 02/26/19 05:00 ALT 32 U/L (7-52) 02/26/19 05:00 Alkaline Phosphatase 118 U/L (34-104) H 02/26/19 05:00 C-Reactive Protein 188.21 mg/L (<8.01) H 02/21/19 05:16 B-Natriuretic Peptide 67 pg/mL (<=100) 02/18/19 04:39 Total Protein 6.8 g/dL (6.4-8.9) 02/26/19 05:00 Albumin 3.0 g/dL (3.2-5.2) L 02/26/19 05:00 Globulin 3.8 g/dL (2-4) 02/26/19 05:00 Albumin/Globulin Ratio 0.8 (1-3) L 02/26/19 05:00 Lipase 10 U/L (11.0-82.0) L 02/06/19 14:36 Beta HCG, Quant < 0.60 mIU/mL 02/06/19 14:36 Urine Color Straw 02/25/19 11:10 Urine Appearance Clear 02/25/19 11:10 Urine pH 7.0 (5-9) 02/25/19 11:10 Ur Specific Rudy 1.010 (1.010-1.030) 02/25/19 11:10 Urine Protein Negative (Negative) 02/25/19 11:10 Urine Ketones Negative (Negative) 02/25/19 11:10 Urine Blood 1+ (Negative) A 02/25/19 11:10 Urine Nitrate Negative (Negative) 02/25/19 11:10 Urine Bilirubin Negative (Negative) 02/25/19 11:10 Urine Urobilinogen Negative (Negative) 02/25/19 11:10 Ur Leukocyte Esterase Negative (Negative) 02/25/19 11:10 Urine WBC (Auto) Trace(0-5/hpf) (Absent) 02/25/19 11:10 Urine RBC (Auto) Trace(0-2/hpf) (Absent) 02/25/19 11:10 Ur Squamous Epith Cells Present (Absent) A 02/25/19 11:10 Urine Bacteria Absent (Absent) 02/25/19 11:10 Urine Glucose Negative (Negative) 02/25/19 11:10 Fluid Source Pleural fluid 02/21/19 16:35 Fluid Volume 15.0 mL 02/21/19 16:35 Fluid Color Yellow 02/21/19 16:35 Fluid Appearance Cloudy 02/21/19 16:35 Fluid WBC 3176 /mcL ([id number]) 02/21/19 16:35 Fluid RBC 3703 /mcL 02/21/19 16:35 Fluid Tot Cell Count 100 02/21/19 16:35 Fluid Neutrophils 36 % 02/21/19 16:35 Fluid Lymphocytes 58 % 02/21/19 16:35 Fluid Monocytes 6 % 02/21/19 16:35 Fluid Other Cells 2 02/21/19 16:35 Fluid Cell Count Rvw By 02/21/19 16:35 Vancomycin Trough 33.2 mcg/mL H* 02/19/19 11:14 Random Vancomycin 9.9 mcg/mL 02/20/19 05:28 HIV 1&2 Antibody Nonreactive (Nonreactive) 02/06/19 19:26 Blood Type O Negative 02/17/19 04:34 Antibody Screen Negative 02/17/19 04:34 Assessment: []stable, ready for dc Plan: [] straples out , fu in office
[2019-02-28] MEDS: hydrOXYzine HCL TAB* 25 MG PO PRN (13:51)
--- NOTE | 2019-02-28 14:13 | DS ---
DISCHARGE SUMMARY: DATE OF ADMISSION: 02/06/19 DATE OF DISCHARGE: 02/28/19 ADMITTING DIAGNOSIS: Diverticulitis, perforated. DISCHARGE DIAGNOSIS: Diverticulitis, perforated, intraabdominal abscess. PROCEDURES PERFORMED: Exploratory laparotomy, sigmoid colectomy with end colostomy/Coty's procedure, drainage of interloop abscess. HOSPITAL COURSE: This 33-year-old female was admitted by the medical service with diverticulitis with signs of localized perforation. She was placed on broad spectrum IV antibiotics. A surgical consultation was performed by Dr. Hoffman on 02/07/19. Plan was for conservative treatment with antibiotics. Over the course of the next 5 to 6 days she had persistent abdominal pain, elevated white blood cell count, some fevers. She showed signs of possible partial bowel obstruction. I was asked to see the patient on 02/12/19, because of persistent diverticulitis, obstructive symptoms, perforation, and abscess noted on CT scan of 02/11/19. The decision was made to proceed with exploratory laparotomy, sigmoid colectomy, drainage of the abscess, and Coty's procedure which was performed. On the floor she had a progressive postoperative course. However, she was noted to have elevated white blood cell count, platelet count 2 to 3 days postoperatively, and repeat CT scan was performed to evaluate for abscess or other etiology. She was noted to have a partial splenic infarct. Bilateral pleural effusions were also noted. Her white blood cell count continued to increase up to 20,000. She was taken back to the operating room on 02/17/19 to evaluate for occult source of infection in the abdomen. At that point it appeared that her elevated white blood cell count findings were secondary to splenic infarction and possible pulmonary source; however, an occult intraabdominal source could not be ruled out and exploratory laparotomy was performed. No intraabdominal infection was noted and empiric wash out was performed. Spleen appeared viable. No abscess was noted.Postoperatively she was sent to the intensive care unit and left on a ventilator overnight. She was then extubated and eventually transferred to the short-stay unit. She was kept on IV antibiotics postoperatively, her white blood cell count began to improve. She had thoracentesis performed of the effusion on the left. There was a positive strep culture which appeared to be consistent with a contamination and not actual infection. She was seen by Infectious Diseases who concurred and thought that she could be taken off her antibiotics completely. Her bowel function resumed. She began to eat regular food. Her activity level increased. She was seen by a dietitian as well as stoma nurse. She learned how to take care of her ostomy. She was also evaluated by the pain service due to significant use of narcotics, as well as history of prehospitalization drug use including narcotics. She is being discharged 02/28/19 tolerating general regular diet, good pain control, tolerating activity, able to take care of her ostomy, afebrile. Vital signs stable. Normal laboratory work in terms of white blood cell count. DISCHARGE DISPOSITION: Good, discharge to home DISCHARGE PLAN: She will follow up to see me in the office. [id number]/CPS #: [id number] LUCIANO
== END 2019-02-28 14:48 | disposition home health service (06) | DRG 221 ==
LOC: ED 13:14 → MED 22:44 → SSU 02-12 18:48 → ICU 02-17 15:26 → SSU 02-19 18:03
PROVIDERS: ADMIT Pediatrics; ATTEND Surgery
PROC: 0D1N0Z4 Bypass Sigmoid Colon to Cutaneous, Open Approach (ICD-10-PCS; 2019-02-12)
PROC: 0DBN0ZZ Excision of Sigmoid Colon, Open Approach (ICD-10-PCS; principal; 2019-02-12 11:15)
PROC: 5A1945Z Respiratory Ventilation, 24-96 Consecutive Hours (ICD-10-PCS; 2019-02-17)
PROC: 0BH17EZ Insertion of Endotracheal Airway into Trachea, Via Natural or Artificial Opening (ICD-10-PCS; 2019-02-17)
PROC: 0W9G0ZZ Drainage of Peritoneal Cavity, Open Approach (ICD-10-PCS; 2019-02-17)
PROC: 0BP1XDZ Removal of Intraluminal Device from Trachea, External Approach (ICD-10-PCS; 2019-02-19)
PROC: 0W9B3ZZ Drainage of Left Pleural Cavity, Percutaneous Approach (ICD-10-PCS; 2019-02-21)
DX: K57.20 Diverticulitis of large intestine with perforation and abscess without bleeding (principal); J96.01 Acute respiratory failure with hypoxia; R65.21 Severe sepsis with septic shock; A41.9 Sepsis, unspecified organism; E87.1 Hypo-osmolality and hyponatremia; K56.600 Partial intestinal obstruction, unspecified as to cause; T81.44XA Sepsis following a procedure, initial encounter; J90 Pleural effusion, not elsewhere classified; D73.5 Infarction of spleen; J45.909 Unspecified asthma, uncomplicated; F41.0 Panic disorder [episodic paroxysmal anxiety]; F17.210 Nicotine dependence, cigarettes, uncomplicated; B96.6 Bacteroides fragilis [B. fragilis] as the cause of diseases classified elsewhere; K58.9 Irritable bowel syndrome, unspecified; F19.10 Other psychoactive substance abuse, uncomplicated; E87.6 Hypokalemia; E88.09 Other disorders of plasma-protein metabolism, not elsewhere classified; D47.3 Essential (hemorrhagic) thrombocythemia; D64.9 Anemia, unspecified; R79.89 Other specified abnormal findings of blood chemistry; I10 Essential (primary) hypertension; Z88.5 Allergy status to narcotic agent; Z72.89 Other problems related to lifestyle
CPT/HCPCS: 36415; 36600; 71045; 71046; 71275; 74018; 74177; 80048; 80053; 80202; 81003; 81015; 81025; 82330; 82728; 82803; 83540; 83550; 83605; 83690; 83735; 83880; 84100; 84702; 85025; 85027; 85610; 85730; 86140; 86703; 86850; 86900; 86901; 87040; 87070; 87073; 87076; 87077; 87086; 87186; 87205; 87640; 87641; 88307; 89051; 90648; 90670; 90734; 93005; 93306; 93970; 94002; 94003; 99284; 99406; A9270-GY; C8929; J0610; J0694; J0744; J0780; J1100; J1170; J1644; J1650; J1885; J1940; J2060; J2250; J2270; J2405; J2543; J2704; J3010; J3370; J3475; J3480; J3490; Q9967

== ENCOUNTER 2019-05-14 07:30 | Inpatient (IN) | payer OTHER ==
[2019-05-21] MEDS ORDERED: Famotidine IV* 10 MG/ML 2 ML (20 mg) IV ONE (06:00)
[2019-05-21] MEDS ORDERED: Lactated Ringers 1000 ML Bag* 1,000 ML IV SCH (06:00)
[2019-05-21] MEDS ORDERED: Dexamethasone IV* 4 MG/ML 1 ML (4 MG) IV SLOW PU ONE (06:00)
[2019-05-21] MEDS ORDERED: Dexamethasone IV* 4 MG/ML 1 ML (4 MG) ONE (06:07)
[2019-05-21] MEDS ORDERED: ceFOXitin 2 GM IVPREMIX* 2 GM/50 ML BAG ONE (06:07)
[2019-05-21] MEDS ORDERED: Buffered Lidocaine 1% SYRIN* 1 ML/SYRINGE INTRADERM ONE (06:07)
[2019-05-21] MEDS ORDERED: Famotidine IV* 10 MG/ML 2 ML (20 mg) ONE (06:08)
[2019-05-21] MEDS: Buffered Lidocaine 1% SYRIN* 1 ML/SYRINGE INTRADERM ONE ×2 (06:26→07:16)
[2019-05-21] MEDS ORDERED: Levalbuterol 0.63MG/3ML NEB* UNIT OF USE INH ONE ×2 (07:09→07:13)
[2019-05-21] MEDS ORDERED: Ketorolac INJ* 30 MG/ML 1 ML VIAL ONE ×2 (07:15→10:44)
[2019-05-21] MEDS ORDERED: Propofol* 10 MG/ML 20 ML BTL ONE (07:15)
[2019-05-21] MEDS ORDERED: Ondansetron INJ* 2 MG/ML VIAL ONE (07:15)
[2019-05-21] MEDS ORDERED: Midazolam* 1 MG/ML 5 ML VIAL (5 MG) ONE (07:15)
[2019-05-21] MEDS ORDERED: Atracurium* 10 MG/ML 10 ML VIAL ONE (07:15)
[2019-05-21] MEDS ORDERED: fentaNYL* 50 MCG/ML 5 ML VIAL (250 MCG VIAL) ONE (07:15)
[2019-05-21] MEDS ORDERED: Lidocaine 2% PF * 5 ML VIAL ONE (07:16)
[2019-05-21] MEDS ORDERED: fentaNYL* 50 MCG/ML 2 ML VIAL (100 MCG VIAL) ONE ×5 (08:08→10:22)
[2019-05-21] MEDS ORDERED: Glycopyrrolate IV* 0.2 MG/ML 1 ML VIAL ONE (08:11)
[2019-05-21] MEDS ORDERED: Ondansetron INJ* 2 MG/ML VIAL IV PRN ×2 (08:17→09:50)
[2019-05-21] MEDS ORDERED: Scopolamine 1.5 mg* PATCH TRANSDERM PRN (08:17)
[2019-05-21] MEDS ORDERED: Naloxone* 0.4 MG/ML 1 ML VIAL IV PRN (08:17)
[2019-05-21] MEDS ORDERED: DiMENhydriNATE IV* 50 MG/ML VIAL IV PUSH PRN (08:17)
[2019-05-21] MEDS ORDERED: Bacitracin OINTMENT* 0.5% 0.5 oz TUBE ONE (09:36)
--- NOTE | 2019-05-21 09:38 | OP ---
Operative Report - Blank - Operative Report Date of Operation: 05/21/19 Note: Brief Operative Note Preop Dx: colostomy Postop Dx: same Procedure: reversal of colostomy Anesthesia: GET Surgeon: Juan Jose Hose Handler: LANEY Coronel; ARNIE Elizabeth Fluids: 1400 ml RL EBL: < 100 ml Specimen: none Drains: none Findings: as above
[2019-05-21] MEDS ORDERED: HYDROmorphone INJ1* 1 MG/ML SYRINGE ONE (09:49)
[2019-05-21] MEDS: HYDROmorphone INJ1* 1 MG/ML SYRINGE IV PRN ×5 (09:51→10:23)
[2019-05-21] MEDS: fentaNYL* 50 MCG/ML 2 ML VIAL (100 MCG VIAL) IV PRN ×5 (09:54→10:23)
[2019-05-21] MEDS ORDERED: Morphine PCA LOW DOSE* 1 MG/ML 30 ML SYRINGE PCA SCH (10:00)
[2019-05-21] MEDS ORDERED: Morphine PCA 5 MG/ML * Titrate per Protocol PCA SCH (11:00)
--- NOTE | 2019-05-21 11:32 | OP ---
DATE OF OPERATION: 05/21/19 - ROOM #332 DATE OF : 85 SURGEON: Hang Ingram MD. CORE WINDER: LANEY Gregory. PRE-OP DIAGNOSES: Coty procedure and colostomy, here for takedown. POST-OP DIAGNOSES: Coty procedure and colostomy, here for takedown. OPERATIVE PROCEDURE: Takedown of the Coty colostomy with primary low anterior anastomosis. INDICATIONS: A 34-year-old female who had Coty procedure for perforated diverticulitis, here for takedown of colostomy. Risks including, but not limited to, bleeding infection, injury to intraabdominal contents including the bowel, ureter, anastomotic leak, OH, pneumonia, PE, arrhythmia explained to the patient who seemed to understand and agreed to the procedure and all questions were answered. DESCRIPTION OF PROCEDURE: The patient was taken to the operating room and placed supine. Preoperative antibiotics were given. She was placed in a split leg table. The rectum was irrigated with Betadine. A Iniguez catheter was placed. The abdomen was prepped and draped in sterile fashion and a Ray-Blair was placed over the ostomy, and an Ioban was placed over the abdomen feeling the ostomy out from the incision. The old incision was opened with a 15 blade and Bovie cautery was used to carry down through subcutaneous tissue and open the fascia. There were a few flimsy adhesions of the omentum to the anterior abdominal wall. I was able to easily get the small bowel up in the pelvis. The colostomy taken down first freeing it up from the inside using Bovie cautery and then freeing it up at the skin level from the outside and bringing it back to the abdomen, keeping it clamped with an Allis clamp. The sigmoid colon easily reached down into the pelvis. The 25-mm EEA stapler anvil was then placed in the proximal colon and the end of the colon was stapled and the anvil was brought through this staple line and then a 25-mm EEA sizer was brought up through the rectum and easily reached the end of the rectum. The stapler was then brought through and gently placed to the end of the rectum, which was viable. A 25-mm EEA stapled anastomosis was performed. Pelvis was then filled with saline. With the proximal bowel gently clamped with my fingers , air was insufflated into the rectum with a rigid sigmoidoscope and there was no air leak at the anastomosis. The rings were intact. Abdomen was irrigated with warm saline. No other abnormalities were noted. The omentum, which was long and thick was placed down around the anastomosis. Small bowel was allowed to fall back into the pelvis. The ostomy site fascia was closed with running # 1 PDS suture and the midline fascia was closed with a running #1 PDS suture coming from the either end of the incision. The skin was closed after copious irrigation of each wound with saline. Skin was closed with heber. Antibiotic ointment was applied with sterile dressing She tolerated the procedure well. EBL was minimal. She was extubated and taken to Recovery in stable condition. Iniguez catheter was removed just after extubation. [id number]/[facility] #: [id number] LUCIANO
[2019-05-21] MEDS: Lactated Ringers 1000 ML Bag* 1,000 ML IV SCH (12:32)
[2019-05-21] MEDS: Nicotine PATCH 14 MG/24 HR* PATCH TRANSDERM SCH (13:32)
[2019-05-21] MEDS: Ketorolac INJ* 30 MG/ML 1 ML VIAL IV SCH ×2 (16:48→23:18)
[2019-05-21] MEDS: Nicotine Patch Removal NOTE FOLLOW UP SCH (23:23)
[2019-05-22] MEDS: Lactated Ringers 1000 ML Bag* 1,000 ML IV SCH ×3 (03:54→22:05)
[2019-05-22] MEDS: Ketorolac INJ* 30 MG/ML 1 ML VIAL IV SCH ×4 (04:59→23:04)
[2019-05-22 06:59] LABS: ABS Basophils 0.1 10^3/ul (0-0.2); ABS Lymphocytes 1.6 10^3/ul (1.0-4.8); ABS Monocytes 0.9 10^3/ul (0-0.8); ABS Neutrophils 5.1 10^3/ul (1.5-7.7); Eosinophil % 0.3 %; Hematocrit 36 % (35-47); Hemoglobin 12.4 g/dL (12.0-16.0); Lymphocyte % 21.3 %; Mean Corpuscular HGB Conc 34 g/dL (31-36); Mean Corpuscular Hemoglobin 32 pg (27-31); Mean Corpuscular Volume 94 fL (80-97); Mean Platelet Volume 7.7 fL (7.4-10.4); Platelet Count 287 10^3/uL (150-450); Red Blood Count 3.89 10^6 /uL (3.70-4.87); Red Cell Distribution Width 15 % (10-15); White Blood Count 7.7 10^3/uL (3.5-10.8)
[2019-05-22 07:17] LABS: BUN/Creatinine Ratio 12.3 (8-20); Calcium 8.6 mg/dL (8.6-10.3); EGFR African American 110.4 (>60); EGFR Non-African American 91.3 (>60); Potassium 3.7 mmol/L (3.5-5.0)
[2019-05-22] MEDS: Nicotine PATCH 14 MG/24 HR* PATCH TRANSDERM SCH (09:35)
--- NOTE | 2019-05-22 11:49 | PN ---
Progress Note - Progress Note Date of Service: 05/22/19 SOAP: Subjective: []no flatus, tolerating clears Objective: [] Temp Pulse Resp BP Pulse Ox 97.9 F 86 16 99/66 100 05/22/19 11:13 05/22/19 11:13 05/22/19 11:13 05/22/19 11:13 05/22/19 11:13 Laboratory Last Values WBC 7.7 10^3/uL (3.5-10.8) 05/22/19 06:36 RBC 3.89 10^6 /uL (3.70-4.87) 05/22/19 06:36 Hgb 12.4 g/dL (12.0-16.0) 05/22/19 06:36 Hct 36 % (35-47) 05/22/19 06:36 MCV 94 fL (80-97) 05/22/19 06:36 MCH 32 pg (27-31) H 05/22/19 06:36 MCHC 34 g/dL (31-36) 05/22/19 06:36 RDW 15 % (10-15) 05/22/19 06:36 Plt Count 287 10^3/uL (150-450) 05/22/19 06:36 MPV 7.7 fL (7.4-10.4) 05/22/19 06:36 Neut % (Auto) 66.3 % 05/22/19 06:36 Lymph % (Auto) 21.3 % 05/22/19 06:36 [place] % (Auto) 11.3 % 05/22/19 06:36 Eos % (Auto) 0.3 % 05/22/19 06:36 Baso % (Auto) 0.8 % 05/22/19 06:36 Absolute Neuts (auto) 5.1 10^3/ul (1.5-7.7) 05/22/19 06:36 Absolute Lymphs (auto) 1.6 10^3/ul (1.0-4.8) 05/22/19 06:36 Absolute Monos (auto) 0.9 10^3/ul (0-0.8) H 05/22/19 06:36 Absolute Eos (auto) 0.0 10^3/ul (0-0.6) 05/22/19 06:36 Absolute Basos (auto) 0.1 10^3/ul (0-0.2) 05/22/19 06:36 Absolute Nucleated RBC 0.0 10^3/ul 05/22/19 06:36 Nucleated RBC % 0.0 05/22/19 06:36 Sodium 138 mmol/L (135-145) 05/22/19 06:36 Potassium 3.7 mmol/L (3.5-5.0) 05/22/19 06:36 Chloride 106 mmol/L (101-111) 05/22/19 06:36 Carbon Dioxide 25 mmol/L (22-32) 05/22/19 06:36 Anion Gap 7 mmol/L (2-11) 05/22/19 06:36 BUN 9 mg/dL (6-24) 05/22/19 06:36 Creatinine 0.73 mg/dL (0.51-0.95) 05/22/19 06:36 Est GFR ( Amer) 110.4 (>60) 05/22/19 06:36 Est GFR (Non-Af Amer) 91.3 (>60) 05/22/19 06:36 BUN/Creatinine Ratio 12.3 (8-20) 05/22/19 06:36 Glucose 105 mg/dL (70-100) H 05/22/19 06:36 Calcium 8.6 mg/dL (8.6-10.3) 05/22/19 06:36 Assessment: [] stable Plan: []advance to clears
--- NOTE | 2019-05-22 12:04 | PN ---
Progress Note - Progress Note Date of Service: 05/22/19 Note: S: Patient seen with Dr. Ingram. This is a 34 y/o female s/p colostomy reversal yesterday 21MAY2019. Patient states she is doing well. Pain is well-controlled with STEAMBOAT INSPECTOR. Has been ambulating and urinating without difficulty. Has not passed flatus. Is tolerating clear liquid diet well, states she could tolerate more. Denies nausea, vomiting, SOB, chest pain, abdominal pain, bloating, fever, chills. Active medications are as follows: Acetaminophen (Tylenol Tab*) 650 mg PO Q4H PRN PRN Reason: PAIN - MILD Lactated Ringer's (Lactated Ringers 1000 Ml Bag*) 1,000 mls @ 125 mls/hr IV PER RATE [facility] Last Admin: 05/22/19 11:27 Dose: 125 mls/hr Morphine Sulfate (Morphine Feature Writer Adult* 5 Mg/Ml) 30 mls @ 0 mls/hr STEAMBOAT INSPECTOR .change Q24H [facility]; Protocol Last Admin: 05/21/19 11:32 Dose: 1 mls/hr Ketorolac Tromethamine (Toradol Inj*) 30 mg IV Q6H [facility] Stop: 05/23/19 16:59 Last Admin: 05/22/19 11:22 Dose: 30 mg Ketorolac Tromethamine (Toradol Inj*) 30 mg IV PUSH Q6H PRN PRN Reason: PAIN - MODERATE Nicotine (Nicotine Patch 14 Mg/24 Hr*) 1 patch TRANSDERM DAILY [facility] Last Admin: 05/22/19 09:35 Dose: 1 patch Ondansetron HCl (Zofran Inj*) 4 mg IV Q6H PRN PRN Reason: NAUSEA Last Admin: 05/21/19 20:48 Dose: 4 mg Pharmacy Profile Note (Nicotine Patch Removal Note*) 1 note FOLLOW UP 2100 [facility] Last Admin: 05/21/19 23:23 Dose: 1 note O: Vital Signs Temp 97.9 F 05/22/19 11:13 Pulse 86 05/22/19 11:13 Resp 16 05/22/19 11:13 BP 99/66 05/22/19 11:13 Pulse Ox 100 05/22/19 11:13 Intake & Output 05/21/19 05/22/19 05/22/19 18:59 06:59 18:59 Intake Total 2250 2634 935 Output Total 550 1350 Balance 1700 1284 935 Intake: IV Fluids 0 1934 935 LR 0 4 935 Oral 50 700 Output: Urine 450 1350 Iniguez 100 Other: # Bowel Movements 0 0 General: patient sitting comfortably in bed in no acute distress. A & O x 3. Cardio: regular rate and rhythm. Respiratory: Lungs clear to auscultation throughout. No wheezes or rhonchi. Abdomen/surgical site: heber in place without surrounding erythema or purulent drainage. Bowel sounds hypoactive upper quadrants, no bowel sounds yet in lower quadrants. Some tenderness to palpation around surgical sites. A: POD #1 s/p colostomy reversal. No flatus. Improving. P: Continue regular ambulation Continue pain management. Patient asked if it was okay to eat CBD (without THC) candy for anxiety. Dr. Ingram said it was okay. Change patient from clear liquid diet to full liquid diet as tolerated Await flatus
[2019-05-22] MEDS: Acetaminophen TAB* 325 MG PO PRN (22:05)
[2019-05-22] MEDS: Nicotine Patch Removal NOTE FOLLOW UP SCH (23:02)
[2019-05-23] MEDS: Acetaminophen TAB* 325 MG PO PRN ×2 (04:14→21:38)
[2019-05-23] MEDS: Ketorolac INJ* 30 MG/ML 1 ML VIAL IV SCH ×2 (04:51→10:30)
[2019-05-23] MEDS: Lactated Ringers 1000 ML Bag* 1,000 ML IV SCH ×2 (05:59→14:04)
[2019-05-23] MEDS: Nicotine PATCH 14 MG/24 HR* PATCH TRANSDERM SCH (09:15)
[2019-05-23] MEDS ORDERED: Morphine PCA 5 MG/ML * Titrate per Protocol PCA SCH (10:00)
--- NOTE | 2019-05-23 10:17 | PN ---
Progress Note - Progress Note Date of Service: 05/23/19 Note: S: This is a 34 y/o female s/p colostomy reversal on 21MAY2019. Patient is in some abdominal pain right now. States she has been using the CONTINUOUS LINTER DRIER OPERATOR roughly one time per hour. Last night while sleeping only used it once every couple of hours. Has been ambulating and urinating without difficulty. Has not passed gas or had bowel movement. Is tolerating clear liquid diet well without abdominal discomfort, nausea, or vomiting. Denies fever, chills, SOB, chest pain. Active medications are as follows: Acetaminophen (Tylenol Tab*) 650 mg PO Q4H PRN PRN Reason: PAIN - MILD Last Admin: 05/23/19 04:14 Dose: 650 mg Lactated Ringer's (Lactated Ringers 1000 Ml Bag*) 1,000 mls @ 125 mls/hr IV PER RATE [facility] Last Admin: 05/23/19 05:59 Dose: 125 mls/hr Morphine Sulfate (Morphine Residential Driver Adult* 5 Mg/Ml) 30 mls @ 0 mls/hr CONTINUOUS LINTER DRIER OPERATOR Q24H [facility]; Protocol Ketorolac Tromethamine (Toradol Inj*) 30 mg IV Q6H [facility] Stop: 05/23/19 16:59 Last Admin: 05/23/19 04:51 Dose: 30 mg Ketorolac Tromethamine (Toradol Inj*) 30 mg IV PUSH Q6H PRN PRN Reason: PAIN - MODERATE Nicotine (Nicotine Patch 14 Mg/24 Hr*) 1 patch TRANSDERM DAILY [facility] Last Admin: 05/23/19 09:15 Dose: 1 patch Ondansetron HCl (Zofran Inj*) 4 mg IV Q6H PRN PRN Reason: NAUSEA Last Admin: 05/21/19 20:48 Dose: 4 mg Pharmacy Profile Note (Nicotine Patch Removal Note*) 1 note FOLLOW UP 2100 [facility] Last Admin: 05/22/19 23:02 Dose: Not Given O: Vital Signs Temp 97.3 F 05/23/19 08:09 Pulse 79 05/23/19 08:09 Resp 16 05/23/19 08:09 BP 116/65 05/23/19 08:09 Pulse Ox 97 05/23/19 08:09 Intake & Output 05/22/19 05/23/19 05/23/19 18:59 06:59 18:59 Intake Total 1535 3770 Output Total 450 2150 Balance 1085 1620 Intake: IV Fluids 935 1970 LR 935 1970 Oral 600 1800 Output: Urine 450 2150 General: patient supine in bed in some pain. No acute distress. A & O x 3. Cardio: regular rate and rhythm. No peripheral edema. Respiratory: lungs clear to auscultation throughout. No wheezes or rhonchi. Abdomen/surgical site: dressings in place. Patient changed them yesterday afternoon. Some bloody drainage at lower part of incision, does not saturate gauze. Mayra in place without surrounding erythema or purulent drainage. Some tenderness to palpation around surgical site. Bowel sounds hypoactive in the upper quadrants. Few hypoactive bowel sounds in the lower quadrants. A: POD #2 colostomy reversal. improving. P: continue clear liquid diet, consider graduating patient to full liquid diet continue regular ambulation continue pain control await flatus
[2019-05-23] MEDS ORDERED: Morphine INJ* 2 MG/ML 1 ML SYRINGE (TWO MG - NEW SYRINGE VERSION) IV PRN (13:28)
--- NOTE | 2019-05-23 13:31 | PN ---
Progress Note - Progress Note Date of Service: 05/23/19 SOAP: Subjective: [] passing flatus, good pain control Objective: [] soft abdomen, incision ok Assessment: [] stable, improving Plan: []reg diet, dc home service advisor, po meds with morphine back up, miralax
[2019-05-23] MEDS: Polyethylene Glycol 3350* 17 GM PACKET PO SCH ×2 (14:04→20:39)
[2019-05-23] MEDS: oxyCODONE/Acetamin 5/325 MG* TAB PO PRN ×3 (15:25→23:52)
[2019-05-23] MEDS ORDERED: Ketorolac INJ* 30 MG/ML 1 ML VIAL IV PUSH PRN (17:00)
[2019-05-23] MEDS: Nicotine Patch Removal NOTE FOLLOW UP SCH (20:40)
[2019-05-24] MEDS: oxyCODONE/Acetamin 5/325 MG* TAB PO PRN ×3 (03:52→12:33)
[2019-05-24] MEDS: Polyethylene Glycol 3350* 17 GM PACKET PO SCH (08:35)
[2019-05-24] MEDS: Nicotine PATCH 14 MG/24 HR* PATCH TRANSDERM SCH (08:36)
--- NOTE | 2019-05-24 09:55 | PN ---
Progress Note - Progress Note Date of Service: 05/24/19 SOAP: Subjective: This is a 34 y.o. female s/p cholostomy reversal on 05/21/19. When asked how she is feeling today, she states that she is sad. She is having some anxiety in regards to both her level of pain and her appearance after the surgery. She states that she is using CBD to control her anxiety and that this is helping significantly. She reports that today she woke up in a great deal of pain around her incision sites, but was able to control the pain with po Newbern. Her pain is currently a 4-5/10 and is primarily in the lower abdomen. She states that she thinks overall her pain is better controlled than yesterday. She attributes the current lower abdominal pain to gas, as it feels similar to pain she has experienced in the past when she has gas. She is ambulating well, voiding normally, and passing flatus. She has not yet had a bowel movement. She is tolerating a normal diet well and denies nausea or vomiting. Current medications are as follows: Acetaminophen (Tylenol Tab*) 650 mg PO Q4H PRN PRN Reason: PAIN - MILD Last Admin: 05/23/19 21:38 Dose: 650 mg Lactated Ringer's (Lactated Ringers 1000 Ml Bag*) 1,000 mls @ 125 mls/hr IV PER RATE [facility] Last Admin: 05/23/19 14:04 Dose: 125 mls/hr Ketorolac Tromethamine (Toradol Inj*) 30 mg IV PUSH Q6H PRN PRN Reason: PAIN - MODERATE Morphine Sulfate (Morphine Inj (Syringe))*) 2 mg IV Q4H PRN PRN Reason: PAIN - SEVERE Nicotine (Nicotine Patch 14 Mg/24 Hr*) 1 patch TRANSDERM DAILY [facility] Last Admin: 05/24/19 08:36 Dose: 1 patch Ondansetron HCl (Zofran Inj*) 4 mg IV Q6H PRN PRN Reason: NAUSEA Last Admin: 05/21/19 20:48 Dose: 4 mg Oxycodone/Acetaminophen (Percocet 5/325 Tab*) 1 tab PO Q4H PRN PRN Reason: PAIN - SEVERE Last Admin: 05/24/19 08:35 Dose: 1 tab Pharmacy Profile Note (Nicotine Patch Removal Note*) 1 note FOLLOW UP 2100 [facility] Last Admin: 05/23/19 20:40 Dose: 1 note Polyethylene Glycol/Electrolytes (Miralax*) 17 gm PO 08 [facility] Last Admin: 05/24/19 08:35 Dose: 17 gm Objective: Vital Signs - 8 hr 05/24/19 05/24/19 05/24/19 02:41 03:38 03:52 Temperature 98.1 F Pulse Rate 78 Respiratory 16 16 Rate Blood Pressure 131/84 (mmHg) O2 Sat by Pulse 97 98 Oximetry 05/24/19 05/24/19 05/24/19 05:53 07:40 08:35 Temperature 98.7 F Pulse Rate 83 Respiratory 16 16 20 Rate Blood Pressure 108/59 (mmHg) O2 Sat by Pulse 96 Oximetry Intake & Output 05/22/19 05/23/19 05/24/19 05/25/19 06:59 06:59 06:59 06:59 Intake Total 4884 5305 2561 Output Total 1900 2600 3250 Balance 2984 2705 -689 Intake: IV Fluids 4134 2905 981 LR 4134 2905 981 Oral 750 2400 1580 Output: Urine 1800 2600 3250 Iniguez 100 Other: # Bowel Movements 0 1 Estimated Stool Amount Medium Intake and Output Last 24 Hours 05/22/19 05/23/19 05/24/19 05/25/19 06:59 06:59 06:59 06:59 Intake Total 4884 5305 2561 Output Total 1900 2600 3250 Balance 2984 2705 -689 Intake: IV Fluids 4134 2905 981 LR 4134 2905 981 Oral 750 2400 1580 Output: Urine 1800 2600 3250 Iniguez 100 Other: # Bowel Movements 0 1 Estimated Stool Amount Medium General: A&O x3. Sitting up in bed. Appears to be in mild discomfort and anxious. Cardiovascular: RRR. No murmurs, rubs, or gallops. No peripheral edema. Lungs: Clear to auscultation bilaterally. Abdomen/Incision Sites: Normoactive bowel sounds in all 4 quadrants. Mildly tender to palpation around incision sites and generally over the lower abdomen. Incision sites covered by dry, clean dressing with no evidence of redness or discharge. Assessment: POD #3 s/p cholostomy reversal on 05/21/19. Improving. Plan: The patient's pain control is improving. Continue po Newbern for control of post- operative pain. Continue ambulation and normal diet as tolerated. Continue PEG and encourage liquids to help facilitate the passage of a bowel movement. <Blossom Espinosa - Last Filed: 05/24/19 09:42> - Progress Note SOAP: Subjective: patient subsequently seen by Dr. Ingram, who felt that she could be discharged to home. [] Objective: [] Assessment: [] Plan: [] <Sony Coronel - Last Filed: 05/24/19 14:10>
[2019-05-24] MEDS: Acetaminophen TAB* 325 MG PO PRN ×2 (10:31→14:35)
[2019-05-24 15:35] VITALS: BP 122/70
--- NOTE | 2019-06-11 10:12 | DS ---
DISCHARGE SUMMARY: DATE OF ADMISSION: 05/21/19 DATE OF DISCHARGE: 05/24/19 DISCHARGE DIAGNOSES: Status post colostomy takedown. REASON FOR ADMISSION: Here for elective colostomy takedown ASSESSMENT AND THE PATIENT'S CONDITION AT THE TIME OF DISCHARGE: The patient is in good, stable condition at the time of discharge. PERTINENT PHYSICAL FINDINGS: Incision is well healed. No evidence of infection. Abdomen is soft. The patient is afebrile. Vital signs stable at the time of discharge. PERTINENT LABORATORY FINDINGS: No abnormal laboratory findings at the time of discharge. PROCEDURES PERFORMED: The patient underwent colostomy takedown on 05/21/19 through an open incision with a 25 mm EEA stapled anastomosis. TREATMENT RENDERED: The patient underwent colostomy takedown on 05/21/19. She had standard postoperative treatment. Her diet was advanced. She was discharged tolerating a general diet, good pain control with positive GI function. CONDITION AND DISPOSITION AT DISCHARGE: Condition was stable. Disposition is good. Discharged to home with plans to follow up in the office. DISCHARGE INSTRUCTIONS: General diet. Activity as tolerated. The patient may shower. Follow up in the office in 1 week. [id number]/[facility] #: [id number]
== END 2019-05-24 16:15 | disposition home health service (06) | DRG 223 ==
LOC: AA 05-21 05:50 → SSU 05-21 12:08
PROVIDERS: ADMIT Surgery; ATTEND Surgery
PROC: 0DSN0ZZ Reposition Sigmoid Colon, Open Approach (ICD-10-PCS; principal; 2019-05-21 07:30)
DX: Z43.3 Encounter for attention to colostomy (principal); F41.9 Anxiety disorder, unspecified; F17.210 Nicotine dependence, cigarettes, uncomplicated; Z88.5 Allergy status to narcotic agent; Z90.721 Acquired absence of ovaries, unilateral; Z90.49 Acquired absence of other specified parts of digestive tract; Z80.9 Family history of malignant neoplasm, unspecified; Z83.3 Family history of diabetes mellitus; Z82.3 Family history of stroke
CPT/HCPCS: 36415; 80048; 81025; 85025; A9270-GY; C1776; J0694; J1100; J1170; J1885; J2250; J2270; J2405; J2704; J3010